=== PATIENT | female | born 1970 | race Two or more races ===

== ENCOUNTER 2020-04-27 14:00 | Outpatient (RCR) | payer OTHER, SELFPAY ==
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
== END 2020-05-07 12:27 | disposition other institution (70) ==
LOC: HO.PT 14:00
PROVIDERS: Visit Provider Internal Medicine
DX: M54.5 Low back pain (principal)
CPT/HCPCS: 97110; 97140

== ENCOUNTER 2020-05-12 17:11 | Outpatient (REF) | payer OTHER, SELFPAY | END 2020-05-12 17:12 | disposition home or self-care (01) | LOC: HO.LAB 17:11 | PROVIDERS: Visit Provider Internal Medicine | DX: Z20.828 Contact with and (suspected) exposure to other viral communicable diseases (principal) | CPT/HCPCS: C9803; U0003 ==

== ENCOUNTER 2020-05-28 09:21 | Emergency (ER) | payer OTHER, SELFPAY ==
[2020-05-28 09:42] VITALS: BP 135/69; PULSE 86; RESP 18; TEMP 37.8; O2SAT 97; BMI 40.0
--- NOTE | 2020-05-28 09:58 | ED.GENADULT ---
HPI - General Adult General Chief complaint: General Medical Stated complaint: bodyaches,chest pain Time Seen by Provider: 05/28/20 09:41 Source: patient Mode of arrival: ambulatory Limitations: no limitations History of Present Illness HPI narrative: Patient presents to ED for COVID like symptoms. Patient states has been having similar symptoms. Patient states coughing, body aches, chest pain, and also chest pain on inspiration radiating to the back. Patient denies any swelling of lower extremities, calf pain, coughing up blood. Patient denies any history of diabetes hypertension. Related Data Home Medications Medication Instructions Recorded Confirmed clonazepam 1 mg tablet 1 mg PO BID 05/08/20 meloxicam 15 mg tablet 15 mg PO DAILY 05/08/20 omeprazole 20 mg tablet,delayed 20 mg PO DAILY 05/08/20 release tamsulosin 0.4 mg capsule 0.4 mg PO DAILY 05/08/20 zolpidem 10 mg tablet 10 mg PO BEDTIME PRN 05/08/20 Previous Rx's Medication Instructions Recorded amitriptyline 10 mg tablet 10 mg PO BEDTIME #30 tab 05/08/20 cyclobenzaprine 10 mg tablet 10 mg PO TID #30 tab 05/08/20 sumatriptan succinate 50 mg tablet 50 mg PO .QD prn PRN #14 tab 05/08/20 Allergies Allergy/AdvReac Type Severity Reaction Status Date / Time Penicillins [PENICILLINS] Allergy Severe ANAPHYLAXIS Verified 03/10/20 09:57 Review of Systems Review of Systems: Yes all other systems are reviewed and are negative Constitutional: Constitutional: Reports as per HPI, Reports no additional constitutional complaints, Reports body ache(s), Reports chills and Reports fever(s) Eyes: Eyes: Reports as per HPI and Reports no additional eye complaints ENT: Reports system reviewed and no additional complaints, except as documented and Reports as per HPI Cardiovascular: Cardiovascular: Reports as per HPI and Reports no additional cardiovascular complaints Respiratory: Respiratory: Reports as per HPI, Reports no additional respiratory complaints, Reports cough and Reports pain on inspiration Gastrointestinal: Gastrointestinal: Reports as per HPI and Reports no additional gastrointestinal complaints Musculoskeletal: Musculoskeletal: Reports no additional musculoskeletal complaints and Reports as per HPI Neurologic: Reports system reviewed and no additional complaints, except as documented and Reports as per HPI Psychiatric: Psychiatric: Reports no additional psychiatric complaints and Reports as per HPI [facility] Past Medical History Medical History Anxiety and depression Migraine Tubular adenoma Surgical History (Updated 03/10/20 @ 09:58 by RON Poole) H/O tubal ligation History of section History of cholecystectomy Family History Family History (Updated 03/10/20 @ 10:00 by RON Poole) Father CVD (cardiovascular disease) Diabetes History of open heart surgery Mother Alive and well Maternal Aunt Colon cancer Son No problems noted. Social History Social History Advance Directives: No Advance Directives Information Provided: No Physical Exam Vital Signs: Vital Signs: Last Vital Signs Temp 98.8 F 05/28/20 14:57 Pulse 98 05/28/20 14:57 Resp 18 05/28/20 14:57 BP 155/91 H 05/28/20 14:57 Pulse Ox 99 05/28/20 14:57 Body Mass Index 40.0 Const: General: cooperative, healthy appearing, comfortable, no acute distress, well developed, alert and awake Orientation/consciousness: patient oriented x3 HENMT: Head: Yes normal to inspection, Yes No palpable skull fracture present, Yes normocephalic and Yes atraumatic Eyes: General: appearance normal, both eyes and all related structures Neck: Neck: Yes normal visual inspection, Yes full ROM, Yes no lymphadenopathy, Yes no meningeal signs, Yes trachea midline, Yes supple and No tender Chest: Other: Positive for chest wall tenderness on palpation Chest palpation & inspection: normal inspection of the chest Resp: Effort & Inspection: normal respiratory effort, able to speak in complete sentences and uses accessory muscles Cardio: Jugular venous distension: no JVD Heart sounds: S1 normal heart sound present and S2 normal heart sound present GI: Inspection: Yes normal to inspection, No abdominal wall ecchymosis and No Abdominal wall edema Palpation (GI): Soft to palpation, not firm, nontender, no guarding and not rigid : General: No CVA tenderness and Yes no CVA tenderness Back/Spine/Pelvis: Back: no CVA tenderness, No CVA tenderness and No back tenderness Skin: General skin exam: no rashes or lesions noted and elasticity normal Neuro: General: patient oriented x3, gait normal, no meningeal signs and CN's II-XI intact bilaterally Cranial nerves: Yes CN's II-XII intact bilaterally Extrem: Other: Negative for any swelling of lower extremities, pitting edema, or calf tenderness. General: Yes normal to inspection and Yes full ROM Psych: Appearance: grossly normal, well kempt and not disheveled Course Course Course Narrative: Due to patient stating pleuritic chest pain she will have labs including EKG troponin and D-dimer. Patient also given IV fluids. COVID swab sent. Reevaluation(s) Reevaluation #1: Patient EKG came back normal. Patient's troponin negative. Patient had mild elevated D-dimer. Due to patient stating constant pleuritic chest pain patient was sent for chest CT 8 due to her being high risk of PE due to COVID positive results. CT came back negative for ground-glass opacity or PE. Patient O2 saturation is normal. Patient denies any respiratory distress. Patient will be discharged. Time: 15:27 Medical Decision Making [facility] Narrative Medical decision making narrative: COVID-19 Lab Data Result diagrams: 05/28/20 11:33 05/28/20 11:38 Labs: Lab Results 05/28/20 05/28/20 05/28/20 Range/Units 11:32 11:33 11:33 WBC 4.4 L (4.8-10.8) X10*3/uL RBC 4.55 (4.20-5.50) X10*6/uL Hgb 14.0 (12.0-16.0) g/dl Hct 42.3 (37-47) % MCV 93.0 (80-98) fL MCH 30.8 (27.0-33.0) pg MCHC 33.1 (31.0-35.0) g/dl RDW 12.5 (11.0-16.0) % Plt Count 264 (160-400) X10*3/uL MPV 10.5 (9.4-12.3) fL Immature Gran % (Auto) 0.7 H (0.0-0.4) % Neut % (Auto) 60.7 (45-73) % Lymph % (Auto) 23.9 (20-40) % [place] % (Auto) 12.2 H (2-11) % Eos % (Auto) 2.0 (0-4) % Baso % (Auto) 0.5 (0-2) % Lymph # (Auto) 1.1 L (1.2-4.9) X10*3/uL [place] # (Auto) 0.5 (0.1-1.2) X10*3/uL Eos # (Auto) 0.1 (0.0-0.4) X10*3/uL Baso # (Auto) 0.0 (0.0-0.2) X10*3/uL Abs Immat Gran (auto) 0.03 (0.00-0.03) X10*3/uL Absolute Neuts (auto) 2.7 (2.0-8.3) X10*3/uL Absolute Nucleated RBC 0.000 (0.0-0.012) X10*3/uL Nucleated RBC % (auto) 0.0 (0.0-0.2) /100WBC PT 11.8 (10.8-13.0) SEC INR 1.0 (0.9-1.1) APTT 24.2 (24.1-38.0) SEC D-Dimer 203 NG/ML Sodium (135-145) mmol/L Potassium (3.3-5.1) mmol/l Chloride (96-108) mmol/L Carbon Dioxide (22-29) mmol/L Anion Gap (12-20) BUN (9-16) mg/dL Creatinine (0.5-1.4) mg/dL Estim Creat Clear Calc Estimated GFR Random Glucose (60-115) mg/dL Calcium (8.4-10.2) mg/dL Ferritin (10-250) ng/mL Total Bilirubin (0.0-1.0) mg/dL Direct Bilirubin (0.0-0.5) mg/dL AST (5-31) U/L ALT (0-31) U/L Alkaline Phosphatase (39-117) U/L Lactate Dehydrogenase (122-220) U/L Troponin I High Sens (<3.5-17.0) ng/L B-Natriuretic Peptide (<100) pg/mL Total Protein (6.5-8.0) g/dL Albumin (3.5-5.0) g/dL Beta HCG, Quant mIU/mL Coronavirus (PCR) POSITIVE A (Negative) Influenza Type A (PCR) NEGATIVE (Negative) Influenza Type B (PCR) NEGATIVE (Negative) RSV RNA Qual (PCR) NEGATIVE (Negative) 05/28/20 05/28/20 05/28/20 Range/Units 11:33 11:38 11:39 WBC (4.8-10.8) X10*3/uL RBC (4.20-5.50) X10*6/uL Hgb (12.0-16.0) g/dl Hct (37-47) % MCV (80-98) fL MCH (27.0-33.0) pg MCHC (31.0-35.0) g/dl RDW (11.0-16.0) % Plt Count (160-400) X10*3/uL MPV (9.4-12.3) fL Immature Gran % (Auto) (0.0-0.4) % Neut % (Auto) (45-73) % Lymph % (Auto) (20-40) % [place] % (Auto) (2-11) % Eos % (Auto) (0-4) % Baso % (Auto) (0-2) % Lymph # (Auto) (1.2-4.9) X10*3/uL [place] # (Auto) (0.1-1.2) X10*3/uL Eos # (Auto) (0.0-0.4) X10*3/uL Baso # (Auto) (0.0-0.2) X10*3/uL Abs Immat Gran (auto) (0.00-0.03) X10*3/uL Absolute Neuts (auto) (2.0-8.3) X10*3/uL Absolute Nucleated RBC (0.0-0.012) X10*3/uL Nucleated RBC % (auto) (0.0-0.2) /100WBC PT (10.8-13.0) SEC INR (0.9-1.1) APTT (24.1-38.0) SEC D-Dimer NG/ML Sodium 140 (135-145) mmol/L Potassium 4.0 (3.3-5.1) mmol/l Chloride 107 (96-108) mmol/L Carbon Dioxide 24 (22-29) mmol/L Anion Gap 13 (12-20) BUN 14 (9-16) mg/dL Creatinine 0.81 (0.5-1.4) mg/dL Estim Creat Clear Calc 87.4 Estimated GFR > 60 Random Glucose 97 (60-115) mg/dL Calcium 8.3 L (8.4-10.2) mg/dL Ferritin 67 (10-250) ng/mL Total Bilirubin 0.3 (0.0-1.0) mg/dL Direct Bilirubin < 0.2 (0.0-0.5) mg/dL AST 20 (5-31) U/L ALT 18 (0-31) U/L Alkaline Phosphatase 66 (39-117) U/L Lactate Dehydrogenase 155 (122-220) U/L Troponin I High Sens < 3.5 (<3.5-17.0) ng/L B-Natriuretic Peptide < 10 (<100) pg/mL Total Protein 6.6 (6.5-8.0) g/dL Albumin 3.9 (3.5-5.0) g/dL Beta HCG, Quant < 2 mIU/mL Coronavirus (PCR) (Negative) Influenza Type A (PCR) (Negative) Influenza Type B (PCR) (Negative) RSV RNA Qual (PCR) (Negative) Discharge Plan Discharge Clinical Impression: COVID-19 Patient Disposition: Home, Self-Care Instructions: COVID-19 (Coronavirus Disease 2019) (ED) Additional Instructions: Return to the ED immediately for any chest pain, shortness of breath, swelling of lower extremities, coughing up blood, weakness, or any other concerning symptoms. Recommend 14 days self-isolation. Prescriptions: No Action meloxicam 15 mg tablet 15 mg PO DAILY RF: 0 tamsulosin 0.4 mg capsule 0.4 mg PO DAILY RF: 0 omeprazole 20 mg tablet,delayed release (DR/EC) 20 mg PO DAILY RF: 0 clonazepam 1 mg tablet 1 mg PO BID RF: 0 zolpidem [Ambien] 10 mg tablet 10 mg PO BEDTIME PRNRF: 0 sumatriptan succinate 50 mg tablet 50 mg PO .QD prn PRN (Reason: migraine headache) Qty: 14 RF: 3 amitriptyline 10 mg tablet 10 mg PO BEDTIME Qty: 30 RF: 2 cyclobenzaprine 10 mg tablet 10 mg PO TID Qty: 30 RF: 1 Referrals: Po,April Miller MD [Primary Care Provider] - 2 days (COVID positive. Chest CT negative for pneumonia or PE. Recommend 14 days self-isolation) Stand Alone Forms: Work/School Release Interventions: ED Discharge Assessment Last Done: 05/28/20 15:44 Discharge Date/Time: 05/28/20 15:45 Print Language: Turkmen
--- NOTE | 2020-05-28 10:04 | XR_ITS ---
EXAMINATION: XR CHEST CLINICAL INFORMATION: Cough COMPARISON: None TECHNIQUE: Frontal view of the chest was obtained. FINDINGS: No significant abnormality is noted involving the heart, lungs, mediastinum, bony thorax or soft tissues. XR/XR chest 1V IMPRESSION: Unremarkable chest examination.
--- NOTE | 2020-05-28 10:32 | ECG_ITS ---
Test Reason : GENERAL MEDICAL Blood Pressure : / mmHG Vent. Rate : 089 BPM Atrial Rate : 089 BPM P-R Int : 146 ms QRS Dur : 070 ms QT Int : 382 ms P-R-T Axes : 047 008 037 degrees QTc Int : 464 ms Normal sinus rhythm Low voltage QRS Borderline ECG When compared with ECG of 03-DEC-2018 16:18, No significant change was found Referred By: Jose Fisher Electronically Signed By:Carter Israel
[2020-05-28] MEDS: Acetaminophen 325 MG TABLET 650 MG PO (11:27)
[2020-05-28] MEDS: 0.9 % Sodium Chloride 1,000 ML 999 ML IV (11:28)
[2020-05-28 11:45] LABS: MANUAL DIFF FLAG NO
[2020-05-28 11:50] LABS: Basophils Percent Auto 0.5 % (0-2); Eosinophils Absolute Auto 0.1 X10*3/uL (0.0-0.4); Hematocrit 42.3 % (37-47); Imm Gran Abs Auto 0.03 X10*3/uL (0.00-0.03); Imm Gran Pct Auto 0.7 % (0.0-0.4); Lymphocytes Absolute Auto 1.1 X10*3/uL (1.2-4.9); Lymphocytes Percent Auto 23.9 % (20-40); Mean Corpuscular HGB Conc 33.1 g/dl (31.0-35.0); Mean Corpuscular Hemoglobin 30.8 pg (27.0-33.0); Mean Platelet Volume 10.5 fL (9.4-12.3); Monocytes Absolute Auto 0.5 X10*3/uL (0.1-1.2); Monocytes Percent Auto 12.2 % (2-11); Neutrophils Absolute Auto 2.7 X10*3/uL (2.0-8.3); Neutrophils Percent Auto 60.7 % (45-73); Platelet Count 264 X10*3/uL (160-400); Red Blood Count 4.55 X10*6/uL (4.20-5.50); Red Cell Distribution Width 12.5 % (11.0-16.0); White Blood Count 4.4 X10*3/uL (4.8-10.8)
[2020-05-28 11:58] LABS: Prothrombin Time 11.8 SEC (10.8-13.0)
[2020-05-28 12:00] LABS: Partial Thromboplastin Time 24.2 SEC (24.1-38.0)
[2020-05-28 12:01] VITALS: BP 108/50; PULSE 67; RESP 20; O2SAT 97
[2020-05-28 12:01] LABS: D Dimer 203 NG/ML
[2020-05-28 12:11] LABS: Alanine Aminotransferase 18 U/L (0-31); Albumin Level 3.9 g/dL (3.5-5.0); Alkaline Phosphatase 66 U/L (39-117); Anion Gap 13 (12-20); Aspartate Amino Transferase 20 U/L (5-31); Bilirubin Direct < 0.2 mg/dL (0.0-0.5); Bilirubin Total 0.3 mg/dL (0.0-1.0); Blood Urea Nitrogen 14 mg/dL (9-16); Calcium 8.3 mg/dL (8.4-10.2); Carbon Dioxide 24 mmol/L (22-29); Chloride 107 mmol/L (96-108); Creatinine Clr Calc Pharmacy 87.4; Estimated Glomerular Filt Rate > 60; Glucose Random 97 mg/dL (60-115); Lactate Dehydrogenase 155 U/L (122-220); Sodium 140 mmol/L (135-145); Total Protein 6.6 g/dL (6.5-8.0)
[2020-05-28 12:15] LABS: Troponin-I High Sensitivity < 3.5 ng/L (<3.5-17.0)
[2020-05-28 12:16] LABS: B Type Natriuretic Peptide < 10 pg/mL (<100)
[2020-05-28 12:19] LABS: HCG Quantitative < 2 mIU/mL
[2020-05-28 12:31] LABS: Influenza A PCR NEGATIVE (Negative); Influenza B PCR NEGATIVE (Negative); Resp Syncy Virus RNA Qual PCR NEGATIVE (Negative); SARS COV2 PCR INHOUSE POSITIVE (Negative)
[2020-05-28 12:58] LABS: Ferritin 67 ng/mL (10-250)
--- NOTE | 2020-05-28 13:11 | CT_ITS ---
EXAMINATION: CT ANGIOGRAM OF THE CHEST WITH AND WITHOUT CONTRAST (CT PULMONARY ANGIOGRAM FOR PE) CLINICAL INFORMATION: Reason for Exam Rule out PE. positive covid. elevated D-dimer COMPARISON: Chest radiographs 06/07/2020, 01/06/2020; CT abdomen and pelvis without and with contrast 10/08/2019. Mammography 05/01/2018. TECHNIQUE: Prior to contrast administration, noncontrast localization images were obtained. Subsequently, multidetector volumetric imaging was performed from the thoracic inlet to below the diaphragms following the administration of 65 mL Omnipaque 350 intravenous contrast. Sagittal, coronal, and MIP oblique sagittal reformatted images were obtained on the CT workstation, uploaded to PACS, and reviewed. This CT examination was performed using dose optimization techniques as appropriate, variously including the following: *Automated exposure control *Adjustment of mA and/or kV according to patient size (this includes techniques or standardized protocols for targeted exams where dose is matched to indication/reason for exam; i.e. extremities or head) *Use of iterative reconstruction technique Total exam dose-length product 352 mGy-cm FINDINGS: QUALITY OF STUDY/CONTRAST BOLUS: Satisfactory. PULMONARY ARTERIES: No central or segmental pulmonary emboli. THORACIC AORTA: No aneurysm or dissection. LUNG: No focal airspace consolidation or groundglass opacities. Central airways are clear. No endobronchial lesion or bronchiectasis. There is a tiny nodule anterior right middle lobe under 3 mm. PLEURA: No pleural effusion or pneumothorax. MEDIASTINUM: Normal heart size. No pericardial effusion. No hilar or mediastinal lymphadenopathy. No evidence of septal bowing or right heart strain. CHEST WALL/AXILLA: No axillary or internal mammary lymphadenopathy. 0.7 cm nodule upper outer left breast. This would be best correlated with routine annual mammography, breast exam 2018. OSSEOUS STRUCTURES: No acute or suspicious osseous abnormality. UPPER ABDOMEN: There are scattered small hepatic cysts again seen similar to CT 10/08/2019. Prior cholecystectomy. Small sliding hiatal hernia present. No reflux of contrast into the hepatic veins to suggest elevated right heart pressures. CT/CT angio chest PE protocol IMPRESSION: 1. No pulmonary embolism. No thoracic aortic dissection. 2. No airspace consolidation or groundglass opacity. 3. Small sliding hiatal hernia. Hepatic cysts. Prior cholecystectomy. 4. Small nodule upper outer left breast. Patient due for annual mammography (last exam 05/01/2018). VTE: negative
[2020-05-28] MEDS: iohexoL 350 MG/ML 100 ML INFUS..BTL IV (14:16)
[2020-05-28 14:57] VITALS: BP 155/91; PULSE 98; RESP 18; TEMP 37.1; O2SAT 99
--- NOTE | 2020-05-28 15:00 | PC.NURSE ---
report taken at this time. pt in nad, not requiring oxygen. afebrile. complaining of chest discomfort with deep breaths. pending ct scan report, agreeable to plan of care.
== END 2020-05-28 15:45 | disposition home or self-care (01) ==
PROVIDERS: Physician Assistant; Emergency Provider Emergency Medicine Emergency Medical Services; PCP Internal Medicine
DX: U07.1 COVID-19 (principal)
CPT/HCPCS: 0241U; 36415; 71045; 71275; 80053; 80076; 82248; 82728; 83615; 83880; 84484; 84702; 85025; 85379; 85610; 85730; 93005; 96360; 99284; Q9967

== ENCOUNTER 2020-06-01 14:05 | Emergency (ER) | payer OTHER, SELFPAY ==
[2020-06-01 14:42] VITALS: BP 121/48; PULSE 82; RESP 18; TEMP 37.2; O2SAT 97; BMI 32.3
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
== END 2020-06-01 15:40 | disposition home or self-care (01) ==
PROVIDERS: Emergency Provider Emergency Medicine
DX: H66.002 Acute suppurative otitis media without spontaneous rupture of ear drum, left ear (principal); Z86.16 Personal history of COVID-19
CPT/HCPCS: 99283

== ENCOUNTER 2020-07-30 14:07 | Outpatient (REF) | payer OTHER, SELFPAY ==
--- NOTE | ~2020-07-30 | CT_ITS ---
EXAMINATION: CT ABDOMEN AND PELVIS WITHOUT CONTRAST CLINICAL INFORMATION: Hematuria. COMPARISON: CT abdomen and pelvis with and without contrast 10/08/2019 TECHNIQUE: Multidetector volumetric imaging was performed from the superior aspect of the liver through the pubic symphysis. Sagittal and coronal reformatted images were obtained on the technologist's workstation. This CT examination was performed using dose optimization techniques as appropriate, variously including the following: *Automated exposure control *Adjustment of mA and/or kV according to patient size (this includes techniques or standardized protocols for targeted exams where dose is matched to indication/reason for exam; i.e. extremities or head) *Use of iterative reconstruction technique DLP: 609 mGy-cm FINDINGS: LUNG BASES: The visualized lung bases are unremarkable. LIVER, GALLBLADDER, AND BILIARY TREE: The liver is normal in size, shape, and attenuation. There are several hypodense small lesions measuring 5 Hounsfield units likely cysts. No solid lesion visualized. No intrahepatic ductal dilatation. The gallbladder has been surgically removed. PANCREAS: Unremarkable. SPLEEN: Unremarkable. ADRENAL GLANDS: Unremarkable. KIDNEYS AND URETERS: The kidneys are normal in size, shape, and attenuation. No hydronephrosis, hydroureter, or calculi seen. No perinephric stranding. BLADDER: Unremarkable. GASTROINTESTINAL TRACT: There is scattered stool, diverticuli and gas seen throughout the colon without any significant distention. The small bowel loops are normal caliber. The appendix is normal caliber. No inflammatory process seen. ABDOMINAL WALL: No significant hernia is appreciated. LYMPH NODES: Normal. VASCULAR: Unremarkable. PELVIC VISCERA: The uterus is anteverted and bilateral small ovarian cysts. The right ovarian cyst measures 1.9 cm. There is no free fluid in the pelvis. There are small bilateral phleboliths. OSSEOUS STRUCTURES: There is no lytic or sclerotic process seen. Mild facet joint arthropathy seen at the L4-L5 and L5-S1 disc levels. CT/CT abdomen pelvis wo con IMPRESSION: No radiopaque urolith or hydroureteronephrosis. Stable multiple hepatic cysts. Cholecystectomy.
== END 2020-07-30 14:08 | disposition home or self-care (01) ==
LOC: HO.CT 14:07
PROVIDERS: PCP Internal Medicine; Visit Provider Internal Medicine
DX: R31.9 Hematuria, unspecified (principal); R30.0 Dysuria
CPT/HCPCS: 74176

== ENCOUNTER → 2020-10-01 13:02 | Outpatient (REF) | payer OTHER, SELFPAY | LOC: HO.SL 13:02 | PROVIDERS: PCP Internal Medicine; Visit Provider Internal Medicine | DX: R53.83 Other fatigue (principal) | CPT/HCPCS: 95806 ==

== ENCOUNTER → 2021-01-14 09:05 | Outpatient (REF) | payer OTHER, SELFPAY ==
--- NOTE | 2021-01-14 09:08 | ECG_ITS ---
Hook-up date: 2021-01-14 10:13:00 Duration: 47:59:00 Test Indications: PALPITATIONS Medications: [id number] QRS complexes 1 Ventricular ectopics which represent <1 % of total QRS comp. 7 Supraventricular ectopics which represent <1 % of total QRS comp. * Paced QRS complexs which represent % of total QRS comp. VENTRICULAR ECTOPY 1 Isolated 0 Bigeminal Cycles 0 Couplets 0 Runs 0 Beats in Runs * Beats LONGEST at * BPM at :: -- * Beats FASTEST at * BPM at :: -- SUPRAVENTRICULAR ECTOPY 5 Isolated 1 Couplets 0 Runs 0 Beats in Runs * Beats LONGEST at * BPM at :: -- * Beats FASTEST at * BPM at :: -- HEART RATES 53 MIN at 04:26:28 2021-01-15 81 AVG 137 MAX at 10:35:14 2021-01-14 LONGEST RR 1.1760 secs at 04:19:35 2021-01-15 S-T LEVELS Channel 1 - 128 mm at 10:13:00 2021-01-14 - 128 mm at 10:13:00 2021-01-14 Channel 2 - 128 mm at 10:13:00 2021-01-14 - 128 mm at 10:13:00 2021-01-14 Channel 3 - 128 mm at 02:93:21 -- - 128 mm at 02:93:21 Underlying rhythm is sinus; Average ventricular rate 81/min; range 53-137/min; About 20% of the time, rate >100/min; Very rare PACs ; Patient did not report any symptoms in the diary Referred By: April Santillan Overread By: ANN MARIE KENNY
--- NOTE | 2021-01-14 09:08 | CA_ITS ---
Transthoracic Echocardiogram Patient (Last, First, Middle): Francie Shah, Gender: Female Date of : 1970 Age: 50 Procedure Date: 01/14/2021 Procedure Type: Transthoracic Echocardiogram Location: OP Height: 154.94 cm Weight: 92.99 kg BSA: 1.91 m2 Heart Rate: bpm BP: 130 / 70 mmHg Market Research Lead: PAT Carter MD: April Santillan MD Banking Teacher: Jaime Mays MD Symptoms: R00.2 - Palpitations Study Quality: Fair Conclusions: - 1. Normal LV systolic function with grade 1 diastolic dysfunction 2. Normal cardiac valvular Doppler 3. Normal RV systolic pressure 4. No pericardial effusion Findings Left Ventricle Normal left ventricular size, thickness, and systolic function. The visually estimated ejection fraction is between 60-65%. Spectral Doppler is indicative of an impaired relaxation filling pattern. E/E prime ratio is <8, consistent with normal filling pressures. Evidence suggests grade I (mild) diastolic dysfunction. Atria Both atria are normal in size. Interatrial shunt cannot be excluded. Aortic Valve The aortic valve structure and function is likely normal. There is no aortic valve stenosis. There is no aortic valve regurgitation. Mitral Valve Normal mitral valve structure and function. There is trace mitral valve regurgitation. There is no mitral valve stenosis. Pulmonic Valve The pulmonic valve was not well visualized. Tricuspid Valve Likely normal tricuspid valve structure and function. There is trace tricuspid valve regurgitation. The right ventricular systolic pressure is normal. The right ventricular systolic pressure is 18 mmHg. Normal right atrial pressure. There is no evidence of pulmonary hypertension. Great Vessels All visible segments of the aorta are normal in size. The pulmonary artery was not well visualized. Venous The inferior vena cava is normal in size and collapses greater than 50% with inspiration. Pericardium/Pleural There is no evidence of pericardial effusion. Prior Study Comparison No significant change compared to prior study dated: 04/24/2018. Measurements 2D Linear Measurements IVSd: 0.84 0.6-0.9/0.6-1.0 cm LVIDd: 4.49 3.9-5.3/4.2-5.9 cm LVIDd Index: 2.35 2.4-3.2/2.2-3.1 cm/m2 LVIDs: 2.65 2.0-3.6 cm LVPWd: 0.71 0.7-1.1 cm Ao Root: 3.00 2.1-3.5 cm LA Diam: 3.40 2.7-3.8/3.0-4.0 cm LAIDs Index: 1.78 1.5-2.3 cm/m2 LV Mass: 135.36 67-162/88-224 g LV Mass Index: 70.87 43-95/49-115 g/m2 LVOT Diam: 2.00 3.0+(-)1.3 cm 2D Systolic Function EF 4C: 68.10 >55% EF 2C: 60.90 >55% EF BiP: 66.00 >55% Mitral Valve MV Pk E: 0.89 MV PK A: 0.86 MV Decel Time: 187.00 E/A: 1.00 E'Lateral: 10.90 E'Medial: 7.51 E/E' Med: 11.80 E/E' Lat: 8.10 PHT: 55.00 MVA PHT: 4.00 Decel [place]: 4.76 Aortic Valve AoV Pk [place]: 1.25 AoV Mn [place]: 0.87 AoV VTI: 0.24 AoV Pk Grad: 6.00 Aov Mn Grad: 3.00 SHAHRIAR Cont.VTI: 2.78 LVOT LVOT Pk [place]: 0.94 LVOT Mn [place]: 0.65 LVOT VTI: 0.21 LVOT Pk Grad: 4.00 LVOT Mn Grad: 2.00 LVOT Diam: 2.00 LVOT Area: 3.14 Diastolic Function MV Pk E: 0.89 MV Pk A: 0.86 E/A: 1.00 E'Medial: 7.51 E/E' Med: 11.80 E' Laterial: 10.90 E/E' Lat: 8.10 Right Ventricle TAPSE (mm): 2.43 TVS' [place]: 12.60 Tricuspid Valve TR Pk [place]: 1.95 TR Pk Grad: 15.00 RA Press: 3.00 RVSP: 18.00 Great Vessels Aorta Ao Root-2D: 3.00 2.0-3.7 cm Ao Asc: 2.70 2.1-3.4 cm Ao Arch: 2.50 Updated in Other Vendor System with Status of Final Jaime Mays MD electronically signed on 01/14/2021 12:28:36 PM with status of Final
== END ==
LOC: HO.CARD 09:05
PROVIDERS: Visit Provider Internal Medicine
DX: R00.2 Palpitations (principal)
CPT/HCPCS: 93225; 93226; 93306

== ENCOUNTER 2021-02-19 08:18 | Outpatient (REF) | payer OTHER, SELFPAY ==
--- NOTE | ~2021-02-19 | XR_ITS ---
EXAMINATION: XR HAND AND WRIST, RIGHT XR HAND AND WRIST, LEFT CLINICAL INFORMATION: Bilateral pain. COMPARISON: None. TECHNIQUE: AP, oblique, lateral, and scaphoid views of the right and left hand and wrist. FINDINGS: Right Hand and Wrist: No acute fracture or dislocation. Normal carpal alignment. No joint space narrowing or marginal osteophytes. No osseous erosion. No abnormal soft tissue calcification. Left Hand and Wrist: No acute fracture or dislocation. Normal carpal alignment. No joint space narrowing or marginal osteophytes. No osseous erosion. No abnormal soft tissue calcification. XR/XR hand wrist RT IMPRESSION: RIGHT HAND AND WRIST: Unremarkable examination. LEFT HAND AND WRIST: Unremarkable examination.
--- NOTE | ~2021-02-19 | XR_ITS ---
EXAMINATION: XR HAND AND WRIST, RIGHT XR HAND AND WRIST, LEFT CLINICAL INFORMATION: Bilateral pain. COMPARISON: None. TECHNIQUE: AP, oblique, lateral, and scaphoid views of the right and left hand and wrist. FINDINGS: Right Hand and Wrist: No acute fracture or dislocation. Normal carpal alignment. No joint space narrowing or marginal osteophytes. No osseous erosion. No abnormal soft tissue calcification. Left Hand and Wrist: No acute fracture or dislocation. Normal carpal alignment. No joint space narrowing or marginal osteophytes. No osseous erosion. No abnormal soft tissue calcification. XR/XR hand wrist LT IMPRESSION: RIGHT HAND AND WRIST: Unremarkable examination. LEFT HAND AND WRIST: Unremarkable examination.
[2021-02-19 08:38] LABS: MANUAL DIFF FLAG NO
[2021-02-19 09:02] LABS: Basophils Percent Auto 0.3 % (0-2); Eosinophils Absolute Auto 0.3 X10*3/uL (0.0-0.4); Eosinophils Percent Auto 4.4 % (0-4); Hematocrit 40.3 % (37-47); Hemoglobin 13.1 g/dl (12.0-16.0); Imm Gran Abs Auto 0.03 X10*3/uL (0.00-0.03); Imm Gran Pct Auto 0.4 % (0.0-0.4); Lymphocytes Absolute Auto 1.7 X10*3/uL (1.2-4.9); Lymphocytes Percent Auto 24.5 % (20-40); Mean Corpuscular HGB Conc 32.5 g/dl (31.0-35.0); Mean Corpuscular Volume 92.2 fL (80-98); Mean Platelet Volume 9.2 fL (9.4-12.3); Monocytes Absolute Auto 0.4 X10*3/uL (0.1-1.2); Monocytes Percent Auto 5.8 % (2-11); Neutrophils Absolute Auto 4.4 X10*3/uL (2.0-8.3); Neutrophils Percent Auto 64.6 % (45-73); Platelet Count 408 X10*3/uL (160-400); Red Blood Count 4.37 X10*6/uL (4.20-5.50); Red Cell Distribution Width 12.3 % (11.0-16.0); White Blood Count 6.9 X10*3/uL (4.8-10.8)
[2021-02-19 09:28] LABS: Alanine Aminotransferase 17 U/L (0-31); Alkaline Phosphatase 76 U/L (39-117); Anion Gap 9 (12-20); Aspartate Amino Transferase 18 U/L (5-31); Bilirubin Total 0.7 mg/dL (0.0-1.0); Blood Urea Nitrogen 10 mg/dL (9-16); Calcium 9.2 mg/dL (8.4-10.2); Carbon Dioxide 26 mmol/L (22-29); Chloride 108 mmol/L (96-108); Cholesterol 198 mg/dL; Estimated Glomerular Filt Rate > 60; Glucose Random 97 mg/dL (60-115); HDL Cholesterol 64 mg/dL; LDL Cholesterol Calculated 118 mg/dl; Potassium 4.1 mmol/L (3.3-5.1); Sodium 139 mmol/L (135-145); Total Protein 6.7 g/dL (6.5-8.0); Triglycerides 81 mg/dL
[2021-02-19 09:51] LABS: Free T4 (Free Thyroxine) 0.91 ng/dL (0.71-1.85); Thyroid Stimulating Hormone 0.98 uIU/mL (0.32-4.0); Vitamin D 25-OH Total 14.6 ng/mL (>30)
[2021-02-19 09:57] LABS: Folate 13.9 ng/mL (> or = 4.0); Vitamin B12 457 pg/mL (200-900)
== END 2021-02-19 08:19 | disposition home or self-care (01) ==
LOC: HO.XRAY 08:18
PROVIDERS: PCP Internal Medicine; Visit Provider Internal Medicine
DX: M25.531 Pain in right wrist (principal); M25.532 Pain in left wrist; G43.909 Migraine, unspecified, not intractable, without status migrainosus; E78.00 Pure hypercholesterolemia, unspecified
CPT/HCPCS: 36415; 73110; 73130; 80053; 80061; 82306; 82607; 82746; 84439; 84443; 85025

== ENCOUNTER 2021-03-29 11:41 | Emergency (ER) | payer OTHER, SELFPAY ==
--- NOTE | ~2021-03-29 | XR_ITS ---
EXAMINATION: XR CHEST CLINICAL INFORMATION: 50-year-old female with chest pain. COMPARISON: Chest x-ray and CTA chest 05/28/2020 TECHNIQUE: Frontal view of the chest was obtained. FINDINGS: Cardiac silhouette is normal in size. The lungs are well aerated. There is no lobar consolidation. No pleural effusion or pneumothorax. Mild degenerative changes of the spine. XR/XR chest 1V IMPRESSION: No acute pulmonary pathology.
[2021-03-29 11:46] VITALS: BP 116/74; PULSE 87; RESP 16; TEMP 36.7; O2SAT 98; BMI 42.4
--- NOTE | 2021-03-29 14:00 | ECG_ITS ---
Test Reason : chest pain Blood Pressure : / mmHG Vent. Rate : 086 BPM Atrial Rate : 086 BPM P-R Int : 144 ms QRS Dur : 066 ms QT Int : 376 ms P-R-T Axes : 059 017 029 degrees QTc Int : 449 ms Normal sinus rhythm Low voltage QRS Borderline ECG No significant changes seen Referred By: Irma Hernandez Electronically Signed By:CORY ORTIZ MD
[2021-03-29] MEDS: Benzonatate 100 MG CAPSULE 200 MG PO (14:19)
[2021-03-29 14:32] VITALS: BP 110/51; PULSE 81; RESP 16; TEMP 37.4; O2SAT 99
[2021-03-29 14:36] LABS: MANUAL DIFF FLAG NO
[2021-03-29 14:38] LABS: Basophils Percent Auto 0.5 % (0-2); Eosinophils Absolute Auto 0.5 X10*3/uL (0.0-0.4); Eosinophils Percent Auto 6.4 % (0-4); Hematocrit 37.2 % (37.0-47.0); Hemoglobin 12.5 g/dl (12.0-16.0); Imm Gran Abs Auto 0.03 X10*3/uL (0.00-0.03); Imm Gran Pct Auto 0.4 % (0.0-0.4); Lymphocytes Absolute Auto 1.6 X10*3/uL (1.2-4.9); Lymphocytes Percent Auto 21.1 % (20-40); Mean Corpuscular HGB Conc 33.6 g/dl (31.0-35.0); Mean Corpuscular Hemoglobin 30.6 pg (27.0-33.0); Mean Corpuscular Volume 91.2 fL (80.0-98.0); Monocytes Absolute Auto 0.5 X10*3/uL (0.1-1.2); Monocytes Percent Auto 6.3 % (2-11); Neutrophils Absolute Auto 4.8 x10*3/uL (2.0-8.3); Neutrophils Percent Auto 65.3 % (45-73); Platelet Count 364 X10*3/uL (160-400); Red Blood Count 4.08 X10*6/uL (4.20-5.50); Red Cell Distribution Width 12.3 % (11.0-16.0); White Blood Count 7.3 X10*3/uL (4.8-10.8)
[2021-03-29 14:48] LABS: D Dimer < 200 NG/ML
--- NOTE | 2021-03-29 14:55 | ED.CHESTPAIN ---
HPI - Chest Pain General Chief Complaint: Chest Pain Stated Complaint: chest pain/fatigue Time Seen by Provider: 03/29/21 13:50 Source: patient Mode of arrival: ambulatory History of Present Illness HPI narrative: 50-year-old female with past medical history of anxiety, depression, hematuria, migraines, COVID-19 in May, presenting to the ED complaining of substernal chest pain/pressure, SOB, and cough worsening over the past couple days. Reports pain worse with movement, deep breathing and exertion. States feels like cannot catch her breath. Denies fever, chills, nausea/vomiting, abdominal pain, LE edema, calf pain, recent travel, cigarette smoking, history of blood clots MD complaint: chest discomfort Related Data Home Medications Medication Instructions Recorded Confirmed clonazepam 1 mg tablet 1 mg PO BID 05/08/20 12/03/20 meloxicam 15 mg tablet 15 mg PO DAILY 05/08/20 12/03/20 tamsulosin 0.4 mg capsule 0.4 mg PO DAILY 05/08/20 12/03/20 lactobacillus combination no.9 4 PO DAILY cap 09/01/20 12/03/20 billion cell capsule (Adult 50 Plus Probiotic) magnesium 200 mg tablet 200 mg PO DAILY 09/01/20 12/03/20 omega-3 fatty acids 1,000 mg 1,000 mg PO DAILY 09/01/20 12/03/20 capsule (Fish Oil Concentrate) Previous Rx's Medication Instructions Recorded cyclobenzaprine 10 mg tablet 10 mg PO TID #30 tab 05/08/20 sumatriptan succinate 50 mg tablet 50 mg PO .QD prn PRN #14 tab 05/08/20 pantoprazole 40 mg tablet,delayed 40 mg PO DAILY #14 tab 08/07/20 release amitriptyline 10 mg tablet 10 mg PO BEDTIME #90 tab 11/11/20 albuterol sulfate 90 mcg/actuation 2 puff INHALATION Q4-6H PRN #6.7 g 03/29/21 aerosol inhaler fluticasone propionate 50 2 spray INTRANASAL DAILY #16 g 03/29/21 mcg/actuation nasal spray,suspension (Flonase Allergy Relief) Allergies Allergy/AdvReac Type Severity Reaction Status Date / Time Penicillins [PENICILLINS] Allergy Severe ANAPHYLAXIS Verified 12/03/20 14:02 Review of Systems Review of Systems: Constitutional: No Fever, No Chills, No Fatigue, No Malaise ENT/Mouth: No Ear Pain, No Nasal Congestion, No sore throat, No Swallowing Difficulty Eyes: No Eye Pain, No Swelling, No Redness, No Discharge Cardiovascular: + Chest Pain, + SOB, + Dyspnea on Exertion, No Orthopnea, No Edema Respiratory: + Cough, No Sputum, + Wheezing, No Smoke Exposure, + Dyspnea Gastrointestinal: No Nausea, No Vomiting, No Diarrhea, No Constipation, No Abdominal pain Genitourinary: No Dysuria, No Flank Pain, No Urinary Flow Changes, No Hesitancy Musculoskeletal: No joint pain, No Myalgias, No Joint Swelling Skin: No Skin Lesions, No rash Neuro: No Weakness, No Numbness, No Paresthesias, No Headache Yes all other systems are reviewed and are negative [facility] Past Medical History Attestation statement: The following information was validated with the patient. Medical History (Updated 03/29/21 @ 16:53 by NIRANJAN Ames) Anxiety and depression Dysuria Hematuria Loss of hearing Low back pain Migraine Neck pain Obesity (BMI 30-39.9) Otitis externa Tubular adenoma Vision changes Surgical History H/O tubal ligation History of section History of cholecystectomy Family History Family History Father CVD (cardiovascular disease) Diabetes History of open heart surgery Mother Alive and well Maternal Aunt Colon cancer Son No problems noted. Social History Social History (Updated 09/01/20 @ 13:18 by Audra Apodaca CMA) Housing: Apartment Alcohol intake: never Patient Tobacco Use Status: Never used Tobacco Second Hand Smoke Exposure: No Use of substances other than those prescribed or required for medical reasons: No Advance Directives: No Advance Directives Information Provided: No Patient : No service: No Current occupational status: employed Physical Exam Vital Signs: Vital Signs: Last Vital Signs Temp 99.3 F 03/29/21 14:32 Pulse 82 03/29/21 15:36 Resp 16 03/29/21 14:32 BP 110/51 L 03/29/21 14:32 Pulse Ox 99 03/29/21 14:32 Body Mass Index 42.4 Const: General: cooperative, healthy appearing and no acute distress Orientation/consciousness: patient oriented x3 Limitations: no limitations HENMT: Head: Yes normal to inspection Ears: hearing grossly normal bilaterally General nose exam: Normal external nose present Face and sinus: Yes normal facial exam Eyes: General: appearance normal, both eyes and all related structures EOM: EOMs intact bilaterally Neck: Neck: Yes normal visual inspection and Yes no meningeal signs Chest: Chest palpation & inspection: no crepitus and no tenderness Resp: Effort & Inspection: normal respiratory effort Auscultation: clear to auscultation bilaterally, no rales, no rhonchi and no wheezes Cardio: Rate: regular rate Heart sounds: S1 normal heart sound present and S2 normal heart sound present GI: Inspection: Yes normal to inspection Palpation (GI): Soft to palpation, nontender, no guarding and not rigid Skin: Rashes: no rashes Wounds: no wounds Neuro: General: patient oriented x3 and no meningeal signs Gait exam (Neuro): Normal gait present Extrem: General: Yes normal to inspection, Yes no pedal edema and Yes no calf tenderness Course Course Course Narrative: -no leukocytosis. H&H stable. D-dimer negative. Troponin negative, labs otherwise under -COVID-19/influenza/RSV negative XR chest 1V IMPRESSION: No acute pulmonary pathology. >> will ambulate with pulse ox >> patient maintain saturation greater than 96% on ambulation on room air MDM - Chest Pain MDM Narrative Medical decision making narrative: 50-year-old female with past medical history of anxiety, depression, hematuria, migraines, COVID-19 in May, presenting to the ED complaining of substernal chest pain/pressure, SOB, and cough worsening over the past couple days. On exam vital signs stable, NAD/nontoxic, pain not reproducible, lungs CTA, no pedal edema/calf tenderness. Concern for ACS vs viral syndrome/COVID-19 vs pneumonia vs PE. Plan: EKG, labs, CXR, COVID-19 testing, DuoNeb, re-evaluate Medical Records Data Attestation: I reviewed the patient's medical records. Lab Data Attestation: I reviewed the patient's lab results. Result diagrams: 03/29/21 14:28 03/29/21 14:28 Labs: Lab Results 03/29/21 03/29/21 03/29/21 Range/Units 14:28 14:28 14:28 WBC 7.3 (4.8-10.8) X10*3/uL RBC 4.08 L (4.20-5.50) X10*6/uL Hgb 12.5 (12.0-16.0) g/dl Hct 37.2 (37.0-47.0) % MCV 91.2 (80.0-98.0) fL MCH 30.6 (27.0-33.0) pg MCHC 33.6 (31.0-35.0) g/dl RDW 12.3 (11.0-16.0) % Plt Count 364 (160-400) X10*3/uL MPV 9.0 L (9.4-12.3) fL Immature Gran % (Auto) 0.4 (0.0-0.4) % Neut % (Auto) 65.3 (45-73) % Lymph % (Auto) 21.1 (20-40) % [place] % (Auto) 6.3 (2-11) % Eos % (Auto) 6.4 H (0-4) % Baso % (Auto) 0.5 (0-2) % Lymph # (Auto) 1.6 (1.2-4.9) X10*3/uL [place] # (Auto) 0.5 (0.1-1.2) X10*3/uL Eos # (Auto) 0.5 H (0.0-0.4) X10*3/uL Baso # (Auto) 0.0 (0.0-0.2) X10*3/uL Abs Immat Gran (auto) 0.03 (0.00-0.03) X10*3/uL Absolute Neuts (auto) 4.8 (2.0-8.3) x10*3/uL Absolute Nucleated RBC 0.000 (0.0-0.012) X10*3/uL Nucleated RBC % (auto) 0.0 (0.0-0.2) /100WBC D-Dimer < 200 NG/ML Sodium 140 (135-145) mmol/L Potassium 3.9 (3.3-5.1) mmol/L Chloride 108 (96-108) mmol/L Carbon Dioxide 24 (22-29) mmol/L Anion Gap 12 (12-20) BUN 6 L (9-16) mg/dL Creatinine 0.72 (0.5-1.4) mg/dL Estim Creat Clear Calc 96.6 Estimated GFR > 60 Random Glucose 93 (60-115) mg/dL Calcium 8.5 D (8.4-10.2) mg/dL Magnesium 2.0 (1.6-2.6) mg/dL Total Bilirubin 0.3 (0.0-1.0) mg/dL Direct Bilirubin < 0.2 (0.0-0.5) mg/dL AST 19 (5-31) U/L ALT 19 (0-31) U/L Alkaline Phosphatase 66 (39-117) U/L Troponin I High Sens (<3.5-17.0) ng/L B-Natriuretic Peptide (<100) pg/mL Total Protein 6.4 L (6.5-8.0) g/dL Albumin 3.8 (3.5-5.0) g/dL Influenza Type A (PCR) (Negative) Influenza Type B (PCR) (Negative) RSV RNA Qual (PCR) (Negative) SARS-CoV-2 RNA (RT-PCR) (Negative) 03/29/21 03/29/21 Range/Units 14:28 14:29 WBC (4.8-10.8) X10*3/uL RBC (4.20-5.50) X10*6/uL Hgb (12.0-16.0) g/dl Hct (37.0-47.0) % MCV (80.0-98.0) fL MCH (27.0-33.0) pg MCHC (31.0-35.0) g/dl RDW (11.0-16.0) % Plt Count (160-400) X10*3/uL MPV (9.4-12.3) fL Immature Gran % (Auto) (0.0-0.4) % Neut % (Auto) (45-73) % Lymph % (Auto) (20-40) % [place] % (Auto) (2-11) % Eos % (Auto) (0-4) % Baso % (Auto) (0-2) % Lymph # (Auto) (1.2-4.9) X10*3/uL [place] # (Auto) (0.1-1.2) X10*3/uL Eos # (Auto) (0.0-0.4) X10*3/uL Baso # (Auto) (0.0-0.2) X10*3/uL Abs Immat Gran (auto) (0.00-0.03) X10*3/uL Absolute Neuts (auto) (2.0-8.3) x10*3/uL Absolute Nucleated RBC (0.0-0.012) X10*3/uL Nucleated RBC % (auto) (0.0-0.2) /100WBC D-Dimer NG/ML Sodium (135-145) mmol/L Potassium (3.3-5.1) mmol/L Chloride (96-108) mmol/L Carbon Dioxide (22-29) mmol/L Anion Gap (12-20) BUN (9-16) mg/dL Creatinine (0.5-1.4) mg/dL Estim Creat Clear Calc Estimated GFR Random Glucose (60-115) mg/dL Calcium (8.4-10.2) mg/dL Magnesium (1.6-2.6) mg/dL Total Bilirubin (0.0-1.0) mg/dL Direct Bilirubin (0.0-0.5) mg/dL AST (5-31) U/L ALT (0-31) U/L Alkaline Phosphatase (39-117) U/L Troponin I High Sens < 3.5 (<3.5-17.0) ng/L B-Natriuretic Peptide 34 (<100) pg/mL Total Protein (6.5-8.0) g/dL Albumin (3.5-5.0) g/dL Influenza Type A (PCR) NEGATIVE (Negative) Influenza Type B (PCR) NEGATIVE (Negative) RSV RNA Qual (PCR) NEGATIVE (Negative) SARS-CoV-2 RNA (RT-PCR) NEGATIVE (Negative) Discharge Plan Discharge Clinical Impression: Chest pain Patient Disposition: Home, Self-Care Instructions: Chest Pain (ED) Additional Instructions: Your blood work and chest x-ray were reassuring today in the emergency department Is very important that he follow up with her primary care doctor Use albuterol inhaler at home as needed for shortness of breath Flonase is a nasal decongestant If her symptoms persist or worsen, pain becomes unbearable, constant worsening shortness breath/chest pain please return to the ED Prescriptions: New albuterol sulfate 90 mcg/actuation HFA aerosol inhaler 2 puff inhalation Q4-6H PRN (Reason: shortness of breath or wheezing) Qty: 6.7 RF: 0 fluticasone propionate [Flonase Allergy Relief] 50 mcg/actuation spray,suspension 2 spray intranasal DAILY Qty: 16 RF: 0 No Action pantoprazole 40 mg tablet,delayed release (DR/EC) 40 mg PO DAILY Qty: 14 RF: 0 amitriptyline 10 mg tablet 10 mg PO BEDTIME Qty: 90 RF: 1 meloxicam 15 mg tablet 15 mg PO DAILY RF: 0 tamsulosin 0.4 mg capsule 0.4 mg PO DAILY RF: 0 clonazepam 1 mg tablet 1 mg PO BID RF: 0 sumatriptan succinate 50 mg tablet 50 mg PO .QD prn PRN (Reason: migraine headache) Qty: 14 RF: 3 cyclobenzaprine 10 mg tablet 10 mg PO TID Qty: 30 RF: 1 magnesium 200 mg tablet 200 mg PO DAILY RF: 0 omega-3 fatty acids [Fish Oil Concentrate] 1,000 mg capsule 1,000 mg PO DAILY RF: 0 Adult 50 Plus Probiotic 4 billion cell capsule PO DAILY RF: 0 Referrals: Po,April Miller MD [Primary Care Provider] - 2 days Interventions: ED Discharge Assessment Last Done: 03/29/21 16:56
[2021-03-29 15:00] LABS: Alanine Aminotransferase 19 U/L (0-31); Albumin Level 3.8 g/dL (3.5-5.0); Alkaline Phosphatase 66 U/L (39-117); Anion Gap 12 (12-20); Aspartate Amino Transferase 19 U/L (5-31); Bilirubin Direct < 0.2 mg/dL (0.0-0.5); Bilirubin Total 0.3 mg/dL (0.0-1.0); Blood Urea Nitrogen 6 mg/dL (9-16); Calcium 8.5 mg/dL (8.4-10.2); Carbon Dioxide 24 mmol/L (22-29); Chloride 108 mmol/L (96-108); Creatinine Clr Calc Pharmacy 96.6; Estimated Glomerular Filt Rate > 60; Glucose Random 93 mg/dL (60-115); Potassium 3.9 mmol/L (3.3-5.1); Sodium 140 mmol/L (135-145); Total Protein 6.4 g/dL (6.5-8.0)
[2021-03-29 15:05] LABS: B Type Natriuretic Peptide 34 pg/mL (<100); Troponin-I High Sensitivity < 3.5 ng/L (<3.5-17.0)
[2021-03-29 15:29] LABS: Influenza A PCR NEGATIVE (Negative); Influenza B PCR NEGATIVE (Negative); Resp Syncy Virus RNA Qual PCR NEGATIVE (Negative); SARS COV2 PCR INHOUSE NEGATIVE (Negative)
[2021-03-29] MEDS: Albuterol/Iprat 2.5/0.5MG 3 ML AMPUL.NEB INHALE (15:34)
[2021-03-29 15:36] VITALS: PULSE 82; O2SAT 98
[2021-03-29] MEDS: NaPROXEN 500 MG TABLET PO (16:29)
== END 2021-03-29 16:59 | disposition home or self-care (01) ==
PROVIDERS: Physician Assistant; Emergency Provider Emergency Medicine; PCP Internal Medicine
DX: R07.9 Chest pain, unspecified (principal); R53.83 Other fatigue; Z20.822 Contact with and (suspected) exposure to COVID-19; Z79.899 Other long term (current) drug therapy
CPT/HCPCS: 0241U; 36415; 71045; 80048; 80076; 83735; 83880; 84484; 85025; 85379; 93005; 94640; 99284; 99285

== ENCOUNTER → 2021-05-27 13:46 | Outpatient (BNVA) | payer OTHER, SELFPAY | PROVIDERS: PCP Internal Medicine; Visit Provider Internal Medicine Pulmonary Disease | DX: R06.02 Shortness of breath (principal); U09.9 Post COVID-19 condition, unspecified | CPT/HCPCS: 99202 ==

== ENCOUNTER 2021-06-15 14:16 | Outpatient (REF) | payer OTHER, SELFPAY ==
--- NOTE | 2021-06-15 17:21 | PFT_ITS ---
Forced vital capacity 78%, FEV1 77%. FEV1 over FVC 81. FEF 25-75 is 88%. MVV 59, moderately reduced. Post bronchodilator therapy, there is no significant change. Lung volumes are normal with TLC 88. Residual volume 92%. Diffusion capacity 86%. CONCLUSION: Except for mild decrease in FVC and moderate decrease in MVV, which could be due to poor effort. Otherwise, the test is within normal limits. No definite evidence of obstructive or restrictive pulmonary disorder. Louie Saleh MD MSB/MODL / [id number]
== END 2021-06-15 14:17 | disposition home or self-care (01) ==
LOC: HO.RESP 14:16
PROVIDERS: PCP Internal Medicine; Visit Provider Internal Medicine Pulmonary Disease
DX: R06.02 Shortness of breath (principal)
CPT/HCPCS: 94060; 94727; 94729

== ENCOUNTER 2021-07-06 17:59 | Outpatient (REF) | payer OTHER, SELFPAY ==
--- NOTE | ~2021-07-06 | MR_ITS ---
EXAMINATION: MRI BRAIN WITHOUT CONTRAST. CLINICAL INFORMATION: Headache, unspecified. COMPARISON: 12/03/2018 MRI TECHNIQUE: Multiplanar multisequence MR imaging of the brain was done without IV contrast. FINDINGS: Brain Volume: Within normal limits. Structural: No malformations. Brain and Meninges: A few punctate FLAIR signal hyperintensities are seen in the right mohan radiata white matter which are not definitely visualized on the previous study and are nonspecific findings. The remainder of the brain is normal in morphology and signal intensity. Redemonstrated is an incidental developmental venous anomaly in the left cerebellar hemisphere. DWI sequence demonstrates no restricted diffusion. Specifically, there is no evidence for acute or subacute cerebral ischemia. Gradient refocused imaging demonstrates no evidence for hemorrhage, hemosiderin staining or abnormal mineral deposition. No extra-axial fluid collections, space-occupying process or mass effect are identified. Ventricles and Subarachnoid Spaces: The ventricular system and subarachnoid spaces are within normal limits without hydrocephalus. Orbital Structures: Note is made of a thin crescent-shaped focus of fluid signal along the anterior scleral margin of the right globe at its lateral aspect, which may reflect some fluid deep to the lower lid. Otherwise, the visualized orbital structures are grossly unremarkable within the limitations of the study. Vascular: Signal voids are noted in the visualized major intracranial vessels. Sinuses and Osseous Structures: Osseous marrow signal intensity appears grossly unremarkable. Small retention cyst right maxillary sinus unchanged in appearance. MR/MR head/brain wo con IMPRESSION: 1. A few nonspecific punctate white matter T2 hyperintensities are seen in the right mohan radiata which have developed since the previous exam. Given the history of headaches, migraine associated vasculopathy would be a consideration. 2. 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 3. No acute intracranial process, hemorrhage, space-occupying process, mass effect or hydrocephalus. 4. Minimal fluid accumulation suspected deep to the right lower lid along the anterior right lateral scleral margin.
== END 2021-07-06 18:00 | disposition home or self-care (01) ==
LOC: HO.MRI 17:59
PROVIDERS: PCP Internal Medicine; Visit Provider Internal Medicine
DX: R51.9 Headache, unspecified (principal)
CPT/HCPCS: 70551

== ENCOUNTER 2021-09-08 10:25 | Outpatient (REF) | payer OTHER, SELFPAY ==
--- NOTE | ~2021-09-08 | XR_ITS ---
EXAMINATION: XR CERVICAL SPINE XR LUMBOSACRAL SPINE. CLINICAL INFORMATION: Spondylosis. COMPARISON: Cervical spine: Compared to previous dated 03/06/2017. Lumbosacral spine: Compared to previous dated 10/17/2019. TECHNIQUE: 5 views of the cervical spine. 3 views of the lumbosacral spine. FINDINGS: There is no listhesis or compression injury. There is some early degenerative change at C4-C5, C5-C6 and C6-C7 with anterior spurring and some loss of disc height at C5-C6. No listhesis or compression injury. Once again some loss of disc height which is mild at L5-S1 and some anterior spurring in the endplates in the lumbar region. The vertebral heights are well preserved. Some likely early degenerative changes in the posterior articulating facets at L4-L5 and L5-S1. The SI joints are patent. Mild scoliosis convex left apex at L2-L3. XR/XR cervical spine 2V IMPRESSION: Once again some degenerative change seen in the lumbar spine. Not significantly changed from previous. No listhesis or compression injury. Mild degeneration in the cervical spine not significantly changed from previous.
--- NOTE | ~2021-09-08 | XR_ITS ---
EXAMINATION: XR CERVICAL SPINE XR LUMBOSACRAL SPINE. CLINICAL INFORMATION: Spondylosis. COMPARISON: Cervical spine: Compared to previous dated 03/06/2017. Lumbosacral spine: Compared to previous dated 10/17/2019. TECHNIQUE: 5 views of the cervical spine. 3 views of the lumbosacral spine. FINDINGS: There is no listhesis or compression injury. There is some early degenerative change at C4-C5, C5-C6 and C6-C7 with anterior spurring and some loss of disc height at C5-C6. No listhesis or compression injury. Once again some loss of disc height which is mild at L5-S1 and some anterior spurring in the endplates in the lumbar region. The vertebral heights are well preserved. Some likely early degenerative changes in the posterior articulating facets at L4-L5 and L5-S1. The SI joints are patent. Mild scoliosis convex left apex at L2-L3. XR/XR lumbar spine 2-3V IMPRESSION: Once again some degenerative change seen in the lumbar spine. Not significantly changed from previous. No listhesis or compression injury. Mild degeneration in the cervical spine not significantly changed from previous.
== END 2021-09-08 10:26 | disposition home or self-care (01) ==
LOC: HO.XRAY 10:25
PROVIDERS: PCP Internal Medicine; Visit Provider Internal Medicine
DX: M51.36 Other intervertebral disc degeneration, lumbar region (principal); M47.812 Spondylosis without myelopathy or radiculopathy, cervical region
CPT/HCPCS: 72040; 72100

== ENCOUNTER 2021-11-19 09:19 | Day surgery (SDC) | payer OTHER, SELFPAY ==
[2021-11-15 15:43] VITALS: BMI 39.9
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
[2021-11-19 09:47] VITALS: BMI 40.6
[2021-11-19 09:53] VITALS: BP 107/51; PULSE 66; RESP 16; TEMP 36.1; O2SAT 98
[2021-11-19] MEDS: Lactated Ringers 1,000 ML 100 ML IVCONT (10:08)
--- NOTE | 2021-11-19 10:55 | MHC.SHP ---
Pre-Procedural Eval Section A Date of Service: 11/19/21 The patient is an INPATIENT: No Changes since office visit: No Cold of Flu in the past 2 weeks, No New Medical Problems, No Changes in Medication and No Patient answered all questions The History & Physical has been completed within 30 days and I have reviewed it.: Yes Section B Chief Complaint: epi pain Allergies: Allergies Allergy/AdvReac Type Severity Reaction Status Date / Time Penicillins [PENICILLINS] Allergy Severe ANAPHYLAXIS Verified 09/13/21 14:34 Plan I have reviewed the history and physical and performed a pertinent physical examination on my patient. No changes have occurred unless specified.
[2021-11-19 11:22] VITALS: BP 97/48; PULSE 100; RESP 16; TEMP 36.1; O2SAT 96
--- NOTE | 2021-11-19 11:27 | PM.OP ---
Brief Operative Note Date of Service: 11/19/21 Pre-op diagnosis: epigastric pain Post-op diagnosis: same Procedure: egd Surgeon: Kirk Stanton Anesthesia: MAC Was an Instructional Services Specialist used for this Procedure?: No Estimated blood loss (mL): 2 Pathology: other Condition: stable Disposition: PACU
[2021-11-19 11:37] VITALS: BP 105/48; PULSE 71; RESP 16; TEMP 36.2; O2SAT 97
--- NOTE | 2021-11-19 21:20 | OP_ITS ---
SURGEON: Kirk Stanton MD INDICATIONS: Epigastric pain. PREOPERATIVE DIAGNOSIS: POSTOPERATIVE DIAGNOSIS: PROCEDURE PERFORMED: ESTIMATED BLOOD LOSS: COMPLICATIONS: ANESTHESIA: ASSISTANTS: SPECIMENS: PROCEDURE: Upper endoscopy with biopsy. MEDICATIONS: Monitored anesthesia care. DESCRIPTION OF PROCEDURE: History and physical performed. The risks and benefits of the procedure were explained to the patient. Informed consent was obtained. The patient was placed in the left lateral decubitus position. The Olympus video gastroscope was introduced into the esophagus, stomach, and duodenum. Examination was performed. The scope was removed. She tolerated the procedure well and was taken to recovery area in stable condition. FINDINGS: 1. Esophagus: The esophagus was normal. There was no esophagitis. Biopsies were obtained from the EG junction. 2. Stomach showed no evidence of masses or ulcers. There were some mild erythematous changes in the antrum, consistent with gastritis. Antral biopsies were obtained. 3. Duodenum: The bulb and second portion were normal. IMPRESSION: Gastritis. RECOMMENDATIONS: Follow up the biopsy results. MD SARA Nava/CHARLIEL / [id number]
== END 2021-11-19 12:10 | disposition home or self-care (01) ==
PROVIDERS: PCP Internal Medicine; Visit Provider Internal Medicine Gastroenterology
PROC: 0DJ08ZZ Inspection of Upper Intestinal Tract, Via Natural or Artificial Opening Endoscopic (ICD-10-PCS; CPT 43235; principal; 2021-11-19 10:30)
DX: R10.13 Epigastric pain (principal); K29.50 Unspecified chronic gastritis without bleeding; B96.81 Helicobacter pylori [H. pylori] as the cause of diseases classified elsewhere; K21.9 Gastro-esophageal reflux disease without esophagitis; G43.909 Migraine, unspecified, not intractable, without status migrainosus; F41.8 Other specified anxiety disorders; Z79.899 Other long term (current) drug therapy; Z88.0 Allergy status to penicillin; Z90.49 Acquired absence of other specified parts of digestive tract
CPT/HCPCS: 43239; 88305; 88342; J2250

== ENCOUNTER 2021-12-09 15:03 | Outpatient (REF) | payer OTHER, SELFPAY ==
[2021-12-09 15:24] LABS: MANUAL DIFF FLAG NO
[2021-12-09 15:50] LABS: Basophils Percent Auto 0.5 % (0-2); Eosinophils Absolute Auto 0.2 X10*3/uL (0.0-0.4); Eosinophils Percent Auto 3.6 % (0-4); Hematocrit 40.2 % (37.0-47.0); Hemoglobin 13.3 g/dl (12.0-16.0); Imm Gran Abs Auto 0.04 X10*3/uL (0.00-0.03); Imm Gran Pct Auto 0.7 % (0.0-0.4); Lymphocytes Absolute Auto 1.5 X10*3/uL (1.2-4.9); Lymphocytes Percent Auto 25.5 % (20-40); Mean Corpuscular HGB Conc 33.1 g/dl (31.0-35.0); Mean Corpuscular Volume 90.5 fL (80.0-98.0); Mean Platelet Volume 9.2 fL (9.4-12.3); Monocytes Absolute Auto 0.4 X10*3/uL (0.1-1.2); Monocytes Percent Auto 7.3 % (2-11); Neutrophils Absolute Auto 3.7 x10*3/uL (2.0-8.3); Neutrophils Percent Auto 62.4 % (45-73); Platelet Count 418 X10*3/uL (160-400); Red Blood Count 4.44 X10*6/uL (4.20-5.50); Red Cell Distribution Width 13.1 % (11.0-16.0); White Blood Count 5.9 X10*3/uL (4.8-10.8)
[2021-12-09 16:09] LABS: Alanine Aminotransferase 31 U/L (0-31); Albumin Level 4.2 g/dL (3.5-5.0); Alkaline Phosphatase 89 U/L (39-117); Anion Gap 11 (12-20); Aspartate Amino Transferase 34 U/L (5-31); Bilirubin Total 0.4 mg/dL (0.0-1.0); Blood Urea Nitrogen 11 mg/dL (9-16); Calcium 9.4 mg/dL (8.4-10.2); Carbon Dioxide 23 mmol/L (22-29); Chloride 107 mmol/L (96-108); Estimated Glomerular Filt Rate > 60; Glucose Random 91 mg/dL (60-115); Potassium 4.4 mmol/L (3.3-5.1); Sodium 137 mmol/L (135-145); Total Protein 7.2 g/dL (6.5-8.0)
[2021-12-09 16:31] LABS: Free T4 (Free Thyroxine) 0.96 ng/dL (0.71-1.85); Thyroid Stimulating Hormone 1.12 uIU/mL (0.32-4.0)
[2021-12-09 18:10] LABS: Appearance Urine CLEAR; Color Urine YELLOW; Glucose Urine UA NEG (NEG); Leukocyte Esterase Urine TRACE (NEG); Nitrite Urine NEG (NEG); Specific Gravity - Urine >= 1.030 (1.005-1.025); Urine Blood 3+ (NEG); Urine Ketones 5 MG/DL (NEG); Urine Protein NEG (NEG-TRACE)
[2021-12-09 18:20] LABS: Bacteria Urine 1+ /LPF; RBC Urine 50-75 /HPF (0); Squamous Epithelial Cell Urine 2+ /LPF
[2021-12-09 18:38] LABS: Vitamin B12 444 pg/mL (200-900)
[2021-12-10 10:48] LABS: Folate 15.4 ng/mL (> or = 4.0)
== END 2021-12-09 15:04 | disposition home or self-care (01) ==
LOC: HO.LAB 15:03
PROVIDERS: PCP Internal Medicine; Visit Provider Internal Medicine
DX: K21.9 Gastro-esophageal reflux disease without esophagitis (principal)
CPT/HCPCS: 36415; 80053; 81001; 82607; 82746; 84439; 84443; 85025

== ENCOUNTER 2022-02-11 09:54 | Outpatient (REF) | payer OTHER, SELFPAY ==
[2022-02-11 11:27] LABS: Urine Cytology See Pathology rpt
[2022-02-11 12:11] LABS: Appearance Urine Hazy; Color Urine ORANGE; Glucose Urine UA 100 mg/dL (Negative); Leukocyte Esterase Urine Trace (Negative); PH 5.5 (5.0-9.0); Specific Gravity - Urine 1.025 (1.005-1.025); UMIC TRIGGER UACC YES; Urine Blood Small (1+) (Negative); Urine Ketones Negative (Negative)
[2022-02-11 12:16] LABS: Bacteria Urine Trace (None Seen); Hyaline Casts Urine 0-2 /LPF (0-2); WBC Urine >50 /HPF (0-5)
[2022-02-11 12:21] LABS: UACC Culture Trigger YES
== END 2022-02-11 09:55 | disposition home or self-care (01) ==
LOC: HO.LAB 09:54
PROVIDERS: PCP Internal Medicine; Visit Provider Internal Medicine
DX: R31.9 Hematuria, unspecified (principal)
CPT/HCPCS: 81001; 81003; 87086; 87088; 87186; 88112

== ENCOUNTER → 2022-02-15 10:36 | Outpatient (BNVA) | payer OTHER, SELFPAY | PROVIDERS: PCP Internal Medicine; Referring Provider Internal Medicine; Visit Provider Physician Assistant Surgical | DX: E66.01 Morbid (severe) obesity due to excess calories (principal); Z68.41 Body mass index [BMI] 40.0-44.9, adult | CPT/HCPCS: 99202 ==

== ENCOUNTER 2022-02-25 07:55 | Outpatient (REF) | payer OTHER, SELFPAY ==
--- NOTE | ~2022-02-25 | XR_ITS ---
EXAMINATION: XR CHEST CLINICAL INFORMATION: Obesity COMPARISON: Previous chest x-ray March 2021 TECHNIQUE: 2 views of the chest were obtained. FINDINGS: No significant abnormality is noted involving the heart, lungs, mediastinum, bony thorax or soft tissues. There are degenerative changes of the spine. XR/XR chest 2V IMPRESSION: Unremarkable examination.
[2022-02-25 08:21] LABS: MANUAL DIFF FLAG NO
--- NOTE | 2022-02-25 08:27 | ECG_ITS ---
Test Reason : obesity Blood Pressure : / mmHG Vent. Rate : 070 BPM Atrial Rate : 070 BPM P-R Int : 140 ms QRS Dur : 072 ms QT Int : 406 ms P-R-T Axes : 031 024 042 degrees QTc Int : 438 ms Normal sinus rhythm Low voltage QRS Borderline ECG When compared with ECG of 29-MAR-2021 11:53, No significant change was found Referred By: Sha Atkinson Electronically Signed By:GENNA POLK
[2022-02-25 08:33] LABS: Basophils Percent Auto 0.7 % (0-2); Eosinophils Absolute Auto 0.2 X10*3/uL (0.0-0.4); Hematocrit 37.4 % (37.0-47.0); Hemoglobin 12.5 g/dl (12.0-16.0); Imm Gran Abs Auto 0.03 X10*3/uL (0.00-0.03); Imm Gran Pct Auto 0.6 % (0.0-0.4); Lymphocytes Absolute Auto 1.3 X10*3/uL (1.2-4.9); Lymphocytes Percent Auto 23.7 % (20-40); Mean Corpuscular HGB Conc 33.4 g/dl (31.0-35.0); Mean Corpuscular Volume 89.9 fL (80.0-98.0); Monocytes Absolute Auto 0.4 X10*3/uL (0.1-1.2); Monocytes Percent Auto 7.3 % (2-11); Neutrophils Absolute Auto 3.5 x10*3/uL (2.0-8.3); Neutrophils Percent Auto 64.7 % (45-73); Platelet Count 351 X10*3/uL (160-400); Red Blood Count 4.16 X10*6/uL (4.20-5.50); Red Cell Distribution Width 12.8 % (11.0-16.0); White Blood Count 5.4 X10*3/uL (4.8-10.8)
[2022-02-25 08:40] LABS: Estimated Average Glucose 103 mg/dL; Hemoglobin A1c % 5.2 %
[2022-02-25 08:47] LABS: Appearance Urine Clear; Color Urine Yellow; Glucose Urine UA Negative (Negative); Leukocyte Esterase Urine Negative (Negative); Nitrite Urine Negative (Negative); PH 5.5 (5.0-9.0); UMIC TRIGGER UA YES; UMIC TRIGGER UACC YES; Urine Blood Small (1+) (Negative); Urine Ketones Negative (Negative); Urine Protein Negative (Neg-Trace)
[2022-02-25 08:59] LABS: Alanine Aminotransferase 30 U/L (0-31); Alkaline Phosphatase 67 U/L (39-117); Anion Gap 14 (12-20); Aspartate Amino Transferase 23 U/L (5-31); Bilirubin Total 0.3 mg/dL (0.0-1.0); Blood Urea Nitrogen 16 mg/dL (9-16); C Reactive Protein 1.13 mg/dL (< or = 0.50); Calcium 8.7 mg/dL (8.4-10.2); Carbon Dioxide 22 mmol/L (22-29); Chloride 107 mmol/L (96-108); Cholesterol 187 mg/dL; Estimated Glomerular Filt Rate > 60; Glucose Random 99 mg/dL (60-115); HDL Cholesterol 60 mg/dL; Iron 100 mcg/dL (30-160); LDL Cholesterol Calculated 113 mg/dl; Magnesium 1.9 mg/dL (1.6-2.6); Percent Iron Saturation 35 % (15-50); Sodium 139 mmol/L (135-145); Total Iron Binding Capacity 283 mcg/dL (228-428); Total Protein 6.6 g/dL (6.5-8.0); Triglycerides 72 mg/dL; Unsaturated Iron Binding 183 ug/dL
[2022-02-25 09:01] LABS: Bacteria Urine None Seen (None Seen); Hyaline Casts Urine 0-2 /LPF (0-2); WBC Urine 0-5 /HPF (0-5)
[2022-02-25 09:21] LABS: Ferritin 78 ng/mL (10-250); Insulin 12 uU/mL (2-29); TSH reflex Free T4 1.13 uIU/mL (0.32-4.0); Vitamin D 25-OH Total 21.5 ng/mL (>30)
[2022-02-25 09:28] LABS: Folate 12.1 ng/mL (> or = 4.0); Vitamin B12 451 pg/mL (200-900)
[2022-02-27 13:42] LABS: Calcium (PTHI) 8.7 mg/dL (8.6-10.2); PTHI 146 pg/mL (16-77)
[2022-03-01 08:06] LABS: Vitamin B1 6 nmol/L (8-30)
[2022-03-02 06:12] LABS: Zinc 70 mcg/dL (60-130)
[2022-03-02 17:33] LABS: Vitamin A 39 mcg/dL (38-98)
== END 2022-02-25 07:56 | disposition home or self-care (01) ==
LOC: HO.XRAY 07:55
PROVIDERS: PCP Internal Medicine; Visit Provider Physician Assistant Surgical
DX: E66.01 Morbid (severe) obesity due to excess calories (principal); K21.9 Gastro-esophageal reflux disease without esophagitis
CPT/HCPCS: 36415; 71046; 80053; 80061; 81001; 82306; 82607; 82728; 82746; 83036; 83525; 83540; 83735; 83970; 84425; 84443; 84590; 84630; 85025; 86140; 93005

== ENCOUNTER 2022-03-01 09:12 | Outpatient (REF) | payer OTHER, SELFPAY ==
--- NOTE | ~2022-03-01 | XR_ITS ---
EXAMINATION: XR KNEE, LEFT CLINICAL INFORMATION: Pain COMPARISON: None TECHNIQUE: Three views of the left knee. FINDINGS: No fracture or dislocation. The femoral tibial joints are normal. There are small osteophytes at the patellofemoral joint. There is no joint effusion. XR/XR knee LT 3V IMPRESSION: Mild degenerative changes at the patellofemoral joint.
[2022-03-02 13:53] LABS: H Pylori Breath Test Negative (Negative)
== END 2022-03-01 09:13 | disposition home or self-care (01) ==
LOC: HO.XRAY 09:12
PROVIDERS: Physician Assistant Surgical; PCP Internal Medicine; Visit Provider Nurse Practitioner Family
DX: M25.562 Pain in left knee (principal); E66.01 Morbid (severe) obesity due to excess calories
CPT/HCPCS: 36415; 73562; 83013

== ENCOUNTER → 2022-03-07 13:42 | Outpatient (BNVA) | payer OTHER, SELFPAY | PROVIDERS: PCP Internal Medicine; Referring Provider Physician Assistant Surgical; Visit Provider Counselor Mental Health | DX: F33.1 Major depressive disorder, recurrent, moderate (principal); E66.01 Morbid (severe) obesity due to excess calories; M25.562 Pain in left knee | CPT/HCPCS: 90791 ==

== ENCOUNTER → 2022-03-08 14:57 | Outpatient (BNVA) | payer OTHER, SELFPAY | PROVIDERS: PCP Internal Medicine; Visit Provider Physician Assistant Surgical | DX: E66.01 Morbid (severe) obesity due to excess calories (principal); Z68.41 Body mass index [BMI] 40.0-44.9, adult | CPT/HCPCS: 99212 ==

== ENCOUNTER → 2022-03-30 14:30 | Outpatient (BNVA) | payer OTHER, SELFPAY | PROVIDERS: PCP Internal Medicine; Visit Provider Physician Assistant Surgical | DX: E66.9 Obesity, unspecified (principal); Z68.39 Body mass index [BMI] 39.0-39.9, adult | CPT/HCPCS: 99212 ==

== ENCOUNTER 2022-03-31 05:51 | Outpatient (REF) | payer OTHER, SELFPAY ==
--- NOTE | ~2022-03-31 | XR_ITS ---
EXAMINATION: XR KNEE AP STANDING CLINICAL INFORMATION: Right knee pain. COMPARISON: None TECHNIQUE: AP bilateral standing view of the knees was obtained. FINDINGS: Bones and soft tissues are normal. No fracture or joint effusion. Alignment is anatomic. Joint spaces are well maintained. No abnormal soft tissue calcification. XR/XR knee standing BI IMPRESSION: Unremarkable bilateral knees.
== END 2022-03-31 05:52 | disposition home or self-care (01) ==
LOC: HO.HOSX 05:51
PROVIDERS: Visit Provider Physician Assistant
DX: M17.12 Unilateral primary osteoarthritis, left knee (principal)
CPT/HCPCS: 20610; 73565; 99202; J1040

== ENCOUNTER 2022-04-03 14:50 | Emergency (ER) | payer OTHER, SELFPAY ==
--- NOTE | ~2022-04-03 | CT_ITS ---
EXAMINATION: CT ABDOMEN AND PELVIS WITH CONTRAST CLINICAL INFORMATION: Left lower quadrant abdominal pain. COMPARISON: CT of the abdomen/pelvis dated 07/30/2020. TECHNIQUE: Multidetector volumetric images were obtained from the superior aspect of the liver through the pubic symphysis following administration 85 mL of Omnipaque 350 intravenous contrast. Sagittal and coronal reformatted images were obtained on the technologist's workstation. Oral contrast: No This CT examination was performed using dose optimization techniques as appropriate, variously including the following: *Automated exposure control *Adjustment of mA and/or kV according to patient size (this includes techniques or standardized protocols for targeted exams where dose is matched to indication/reason for exam; i.e. extremities or head) *Use of iterative reconstruction technique DLP: 881 mGy-cm FINDINGS: LUNG BASES: The visualized lung bases are unremarkable. LIVER, GALLBLADDER, AND BILIARY TREE: The liver is normal in size, shape, and attenuation. Multiple simple-appearing hepatic cysts with the largest in the left hepatic lobe measuring up to 1.3 cm. Findings are unchanged. No enhancing focal hepatic lesion or biliary ductal dilatation is present. Status post cholecystectomy. PANCREAS: Unremarkable. SPLEEN: Unremarkable. ADRENAL GLANDS: Unremarkable. KIDNEYS AND URETERS: The kidneys are normal in size, shape, and attenuation. No hydronephrosis, hydroureter, or calculi seen. No perinephric stranding. BLADDER: Unremarkable. GASTROINTESTINAL TRACT: Descending and sigmoid colon diverticulosis with circumferential wall thickening and mild adjacent inflammatory change. There is an enlarged, inflamed diverticula at the posterior aspect of the descending colon (axial image 52/100), as well as an additional enlarged and inflamed diverticula within the left lower quadrant sigmoid colon (axial image 71/100). Findings are consistent with acute diverticulitis. No extraluminal air or organized fluid collection to suggest perforation or abscess formation. No small or large bowel obstruction. Unremarkable appendix. PERITONEAL CAVITY: Trace pelvic free fluid. No intra-abdominal free air. ABDOMINAL WALL: No significant hernia is appreciated. LYMPH NODES: Normal. VASCULAR: Unremarkable. PELVIC VISCERA: The uterus and adnexa are unremarkable. OSSEOUS STRUCTURES: Unremarkable. CT/CT abdomen pelvis w IV con IMPRESSION: 1. Acute diverticulitis within the descending and sigmoid colon. No evidence of perforation or abscess formation. 2. Trace pelvic free fluid. No intra-abdominal free air. 3. Additional chronic findings are unchanged. Fleischner guidelines were followed.
[2022-04-03 15:05] VITALS: BP 137/87; PULSE 88; RESP 16; TEMP 36.8; O2SAT 98; BMI 40.0
[2022-04-03 15:27] LABS: Appearance Urine Clear; Color Urine Yellow; Glucose Urine UA Negative (Negative); Leukocyte Esterase Urine Small (1+) (Negative); Nitrite Urine Negative (Negative); UMIC TRIGGER UACC YES; Urine Blood Moderate (2+) (Negative); Urine Ketones Negative (Negative); Urine Protein Negative (Neg-Trace)
[2022-04-03 15:42] LABS: Bacteria Urine None Seen (None Seen); Hyaline Casts Urine 0-2 /LPF (0-2); Squamous Epithelial Cell Urine 0-2 /HPF (0-2); UACC Culture Trigger YES; WBC Urine 0-5 /HPF (0-5)
[2022-04-03 16:04] LABS: Hemoglobin 13.3 g/dl (12.0-16.0); Mean Corpuscular HGB Conc 34.1 g/dl (31.0-35.0); Mean Corpuscular Hemoglobin 31.1 pg (27.0-33.0); Mean Corpuscular Volume 91.3 fL (80.0-98.0); Mean Platelet Volume 9.7 fL (9.4-12.3); Platelet Count 318 X10*3/uL (160-400); Red Blood Count 4.27 X10*6/uL (4.20-5.50); Red Cell Distribution Width 12.8 % (11.0-16.0); White Blood Count 11.3 X10*3/uL (4.8-10.8)
[2022-04-03 16:33] LABS: Anion Gap 16 (12-20); Blood Urea Nitrogen 14 mg/dL (9-16); Calcium 9.6 mg/dL (8.4-10.2); Carbon Dioxide 22 mmol/L (22-29); Chloride 105 mmol/L (96-108); Creatinine Clr Calc Pharmacy 100.1; Estimated Glomerular Filt Rate > 60; Glucose Random 73 mg/dL (60-115); Potassium 4.2 mmol/L (3.3-5.1); Sodium 139 mmol/L (135-145)
[2022-04-03 19:31] VITALS: BP 135/72; PULSE 84; RESP 18; TEMP 35.9; O2SAT 99
--- NOTE | 2022-04-03 20:01 | ED.ABDPAIN ---
HPI - Abdominal Pain General Chief Complaint: Abdominal Pain Stated Complaint: L side abd pain Time Seen by Provider: 04/03/22 19:56 Source: patient Mode of arrival: ambulatory Limitations: no limitations History of Present Illness HPI narrative: This is a 51-year-old female presenting to the emergency department with complaints of left-sided flank pain with radiation into the left lower quadrant, patient also reporting a urinary hesitancy, decreased urinary stream, dysuria. Patient tells me she gets frequent UTIs however this feels different, she tells me they have never been associated with flank pain. She tells me she had a urine done at her PCPs office a few days ago however she still has not heard results. She tells me she is very uncomfortable describes the pain as 10/10, stabbing, very uncomfortable. Not tollerating pO well. Patient tearful upon my history taking. Denies fevers, chills, chest pain, shortness of breath, headache, vision changes, dizziness. Related Data Home Medications Medication Instructions Recorded Confirmed clonazepam 1 mg tablet 1 mg PO BID 05/08/20 03/30/22 lactobacillus combination no.9 4 PO DAILY 09/01/20 03/30/22 billion cell capsule (Adult 50 Plus Probiotic) magnesium 200 mg tablet 200 mg PO DAILY 09/01/20 03/30/22 omega-3 fatty acids 1,000 mg 1,000 mg PO DAILY 09/01/20 03/30/22 capsule (Fish Oil Concentrate) zolpidem 10 mg tablet 10 mg PO BEDTIME PRN 03/08/22 03/30/22 Previous Rx's Medication Instructions Recorded pantoprazole 40 mg tablet,delayed 40 mg PO DAILY #14 tabs 08/07/20 release albuterol sulfate 90 mcg/actuation 2 puff inhalation Q4-6H PRN 03/29/21 aerosol inhaler shortness of breath or wheezing #6.7 grams fluticasone propionate 50 2 spray intranasal DAILY #16 grams 03/29/21 mcg/actuation nasal spray,suspension (Flonase Allergy Relief) sumatriptan succinate 50 mg tablet 50 mg PO .QD prn PRN migraine 04/22/21 headache #14 tabs lidocaine 5 % topical patch 1 patch topical DAILY #30 ea 02/14/22 cholecalciferol (vitamin D3) 125 125 mcg PO DAILY #30 caps 02/25/22 mcg (5,000 unit) capsule cyanocobalamin (vitamin B-12) 500 500 mcg PO DAILY #30 tabs 02/25/22 mcg tablet thiamine HCl (vitamin B1) 100 mg 100 mg PO DAILY #30 tabs 03/01/22 tablet Allergies Allergy/AdvReac Type Severity Reaction Status Date / Time Penicillins [PENICILLINS] Allergy Severe ANAPHYLAXIS Verified 03/31/22 12:55 Review of Systems Review of Systems Constitutional : No Weight loss, No Fever, No Chills, No Fatigue, No Malaise ENT/Mouth : No sore throat, No Rhinorrhea Eyes: No Eye Pain, No Swelling, No Redness Cardiovascular : No Chest Pain, No SOB, No Dyspnea on Exertion, No Orthopnea, No Edema, No Palpitations Respiratory : No Cough, No Sputum, No Wheezing Gastrointestinal : No Nausea, No Vomiting, No Diarrhea, No Constipation, + abdominal Pain, No Hematochezia, No Melena Genitourinary : No Dysuria, No Urinary Frequency, No Hematuria, Musculoskeletal : No joint pain, No Myalgias, No Joint Swelling, + flank pain Skin : No Skin Lesions, No rash Neuro : No Weakness, No Numbness, No Dizziness, No Headache Psych : No Anxiety/Panic, No Depression All other systems reviewed and are negative Yes all other systems are reviewed and are negative [facility]LY [facility] Past Medical History Attestation statement: The following information was validated with the patient. Source: old records reviewed and nursing notes reviewed Medical History Headache Hematuria Loss of hearing Low back pain Migraine Neck pain Obesity (BMI 30-39.9) Otitis externa Tubular adenoma Vision changes Surgical History H/O tubal ligation History of section History of cholecystectomy Family History Family History Father CVD (cardiovascular disease) Diabetes History of open heart surgery Mother Alive and well CVD (cardiovascular disease) Diabetes Thyroid condition Maternal Aunt Colon cancer Son No problems noted. Social History Social History Housing: Apartment Alcohol intake: current Alcohol intake frequency: a few times a week Patient Tobacco Use Status: Never used Tobacco Smoked in Last 30 Days: No e-Cigarette/Vaping Use: Never Used Second Hand Smoke Exposure: No Use of substances other than those prescribed or required for medical reasons: No Advance Directives: No Advance Directives Information Provided: Yes Patient : No service: No Current occupational status: unemployed Current occupation: right hand dominant Cognitive needs: No Hearing needs: No Vision needs: No Physical Exam ED Vital Signs: Vital Signs - 24 hr 04/03/22 15:05 04/03/22 19:31 04/03/22 21:46 Temperature 98.2 F 96.7 F L 98.8 F Pulse Rate 88 84 68 Respiratory Rate 16 18 17 Blood Pressure 137/87 135/72 104/33 L Pulse Oximetry 98 99 100 Oxygen Delivery Method Room Air Room Air Room Air BMI result Body Mass Index 40.0 vss Appearance: Alert.? Oriented X3.? No acute distress.? Head: Normocephalic, atraumatic, no step-offs or deformities Eyes: Pupils equal, round and reactive to light.? ENT: Pharynx normal.? Neck: Normal inspection.? Neck supple.? CVS: Normal heart rate and rhythm.? Pulses normal.? Respiratory: No respiratory distress.? Breath sounds normal.? Abdomen: Soft and tenderness to left lower quadrant w/ rebound Skin: Skin warm and dry.? Normal skin color.? Normal skin turgor.? Extremities: No lower extremity edema.? No calf ttp. 5/5 strength to bilateral upper and lower extremities Back: No midline tenderness, no C-spine tenderness, full range of motion, + CVA tenderness bilaterally Neuro: Oriented X 3.? No motor deficit.? No sensory deficit. CN 2-12 intact Course Reevaluation(s) Reevaluation #1: CBC with leukocytosis 11.3, chemistry with no acute electrolyte abnormalities requiring intervention. Urine with leukocyte esterases, blood, no bacteria seen. Concerns that this is possibly a kidney stone vs diverticulitis. Time: 22:05 Reevaluation #2: Patient is noted to have acute diverticulitis on CT scan, as patient is not tolerating p.o. well. Patient will be started on Levaquin and Flagyl. Spoke to hospitalist for admission who accepts admission. Time: 22:07 Medications Administered Discontinued Medications Generic Name Dose Route Start Last Admin Trade Name Abundio PRN Reason Stop Dose Admin Sodium Chloride 1,000 mls @ 999 mls/hr 04/03/22 20:30 04/03/22 21:46 Ns IV 04/03/22 21:30 999 mls/hr .Q1H1M ELICEO Administration Iohexol 100 ml 04/03/22 20:49 04/03/22 20:56 Iohexol 350 Mg/Ml 100 Ml Infus..Btl IV 04/03/22 20:50 85 ml ONCE ONE Administration Ketorolac Tromethamine 30 mg 04/03/22 20:13 04/03/22 21:45 Ketorolac Tromethamine 15 Mg/Ml Vial IVPUSH 04/03/22 20:14 30 mg ONCE ONE Administration MDM - Abdominal Pain MDM Narrative Medical decision making narrative: 2002 51-year-old female presents with left-sided flank pain with radiation to left lower quadrant, also reporting urinary hesitancy, decreased urinary stream and dysuria. History of frequent UTIs. On exam left lower quadrant tenderness to palpation, bilateral CVA tenderness. Patient tearful. Appears to be uncomfortable. Will rule out kidney stone, cystitis, UTI, obstructing uropathy, diverticulitis. No signs of acute abdomen on my exam. Unlikely appendicitis, cholecystitis. Plan at this time is labs, urine, imaging. Medical Records Attestation: I reviewed the patient's medical records. Lab Data Attestation: I reviewed the patient's lab results. Result diagrams: 04/03/22 15:39 04/03/22 15:39 Labs: Lab Results 04/03/22 04/03/22 04/03/22 Range/Units 15:21 15:39 15:39 WBC 11.3 H (4.8-10.8) X10*3/uL RBC 4.27 (4.20-5.50) X10*6/uL Hgb 13.3 (12.0-16.0) g/dl Hct 39.0 (37.0-47.0) % MCV 91.3 (80.0-98.0) fL MCH 31.1 (27.0-33.0) pg MCHC 34.1 (31.0-35.0) g/dl RDW 12.8 (11.0-16.0) % Plt Count 318 (160-400) X10*3/uL MPV 9.7 (9.4-12.3) fL Absolute Nucleated RBC 0.000 (0.0-0.012) X10*3/uL Nucleated RBC % (auto) 0.0 (0.0-0.2) /100WBC Sodium 139 (135-145) mmol/L Potassium 4.2 (3.3-5.1) mmol/L Chloride 105 (96-108) mmol/L Carbon Dioxide 22 (22-29) mmol/L Anion Gap 16 (12-20) BUN 14 (9-16) mg/dL Creatinine 0.72 (0.5-1.4) mg/dL Estim Creat Clear Calc 100.1 Estimated GFR > 60 Random Glucose 73 (60-115) mg/dL Calcium 9.6 D (8.4-10.2) mg/dL Total Bilirubin 0.4 (0.0-1.0) mg/dL Direct Bilirubin < 0.2 (0.0-0.5) mg/dL AST 17 (5-31) U/L ALT 19 (0-31) U/L Alkaline Phosphatase 68 (39-117) U/L Total Protein 7.1 (6.5-8.0) g/dL Albumin 4.2 (3.5-5.0) g/dL Urine Color Yellow Urine Appearance Clear Urine pH 5.0 (5.0-9.0) Ur Specific [place] 1.020 (1.005-1.025) Urine Protein Negative (Neg-Trace) mg/dL Urine Glucose (UA) Negative (Negative) mg/dL Urine Ketones Negative (Negative) mg/dL Urine Blood Moderate (2+) H (Negative) Urine Nitrite Negative (Negative) Ur Leukocyte Esterase Small (1+) H (Negative) Urine RBC 3-5 H (0-2) /HPF Urine WBC 0-5 (0-5) /HPF Ur Squamous Epith Cells 0-2 (0-2) /HPF Urine Bacteria None Seen (None Seen) Hyaline Casts 0-2 (0-2) /LPF Critical Care Time Critical Care Time Critical Care Time: No Discharge Plan Discharge Clinical Impression: Acute diverticulitis Patient Disposition: Admitted As Inpatient Prescriptions: No Action pantoprazole 40 mg tablet,delayed release (DR/EC) 40 mg PO DAILY Qty: 14 0RF sumatriptan succinate 50 mg tablet 50 mg PO .QD prn PRN (Reason: migraine headache) Qty: 14 6RF Rx Instructions: do not exceed 4 doses per 24 hrs lidocaine 5 % adhesive patch,medicated 1 patch topical DAILY Qty: 30 3RF Rx Instructions: leave on most painful area for up to 12 hrs cyanocobalamin (vitamin B-12) 500 mcg tablet 500 mcg PO DAILY Qty: 30 3RF cholecalciferol (vitamin D3) 125 mcg (5,000 unit) capsule 125 mcg PO DAILY Qty: 30 3RF thiamine HCl (vitamin B1) 100 mg tablet 100 mg PO DAILY Qty: 30 2RF albuterol sulfate 90 mcg/actuation HFA aerosol inhaler 2 puff inhalation Q4-6H PRN (Reason: shortness of breath or wheezing) Qty: 6.7 0RF fluticasone propionate [Flonase Allergy Relief] 50 mcg/actuation spray,suspension 2 spray intranasal DAILY Qty: 16 0RF Rx Instructions: administer into each nostril clonazepam 1 mg tablet 1 mg PO BID magnesium 200 mg tablet 200 mg PO DAILY omega-3 fatty acids [Fish Oil Concentrate] 1,000 mg capsule 1,000 mg PO DAILY Adult 50 Plus Probiotic 4 billion cell capsule PO DAILY zolpidem 10 mg tablet 10 mg PO BEDTIME PRN
[2022-04-03 20:52] LABS: Alanine Aminotransferase 19 U/L (0-31); Albumin Level 4.2 g/dL (3.5-5.0); Alkaline Phosphatase 68 U/L (39-117); Aspartate Amino Transferase 17 U/L (5-31); Bilirubin Direct < 0.2 mg/dL (0.0-0.5); Bilirubin Total 0.4 mg/dL (0.0-1.0); Total Protein 7.1 g/dL (6.5-8.0)
[2022-04-03] MEDS: iohexoL 350 MG/ML 100 ML INFUS..BTL IV (20:56)
[2022-04-03] MEDS: Ketorolac Tromethamine 15 MG/ML VIAL 30 MG IVPUSH (21:45)
[2022-04-03 21:46] VITALS: BP 104/33; PULSE 68; RESP 17; TEMP 37.1; O2SAT 100
[2022-04-03] MEDS: 0.9 % Sodium Chloride 1,000 ML 999 ML IV ×2 (21:46→23:58)
[2022-04-03 23:24] VITALS: BP 107/36; PULSE 65; RESP 16; TEMP 36.7; O2SAT 96
[2022-04-03] MEDS: levoFLOXacin/D5W 750 MG/150 ML PIGGYBACK 100 MG IV (23:58)
[2022-04-04] MEDS: metroNIDAZOLE/NS 500 MG/100 ML PIGGYBACK 100 MG IV (01:12)
--- NOTE | 2022-04-04 01:24 | PC.NURSE ---
Pt abx are running and IVF. Pt V/S are stable.
[2022-04-04] MEDS: Morphine Sulfate Immed Release 15 MG TABLET PO (02:04)
== END 2022-04-04 02:40 | disposition home or self-care (01) ==
LOC: HO.ED 22:13 → HO.EDOVER 04-04 00:34 → HO.ED 04-04 02:08
PROVIDERS: Physician Assistant; Emergency Provider Emergency Medicine; PCP Internal Medicine
DX: K57.32 Diverticulitis of large intestine without perforation or abscess without bleeding (principal); R10.32 Left lower quadrant pain; Z79.899 Other long term (current) drug therapy
CPT/HCPCS: 36415; 74177; 80048; 80076; 81001; 83605; 85027; 87040; 87086; 87088; 87147; 87186; 96361; 96372; 96374; 96375; 99285; J1885; J1956; Q9967

== ENCOUNTER → 2022-04-18 14:03 | Outpatient (BNVA) | payer OTHER, SELFPAY | PROVIDERS: PCP Internal Medicine; Visit Provider Urology | DX: R31.9 Hematuria, unspecified (principal); N39.0 Urinary tract infection, site not specified | CPT/HCPCS: 51798; 99202 ==

== ENCOUNTER 2022-04-19 13:28 | Emergency (ER) | payer OTHER, SELFPAY ==
--- NOTE | 2022-04-19 13:39 | ED_ITS ---
HPI - General Adult General Chief complaint: Allergic Reaction Stated complaint: chest pain lips swelling Time Seen by Provider: 04/19/22 13:50 Related Data Home Medications Medication Instructions Recorded Confirmed clonazepam 1 mg tablet 1 mg PO BID 05/08/20 04/18/22 lactobacillus combination no.9 4 PO DAILY 09/01/20 04/18/22 billion cell capsule (Adult 50 Plus Probiotic) magnesium 200 mg tablet 200 mg PO DAILY 09/01/20 04/18/22 omega-3 fatty acids 1,000 mg 1,000 mg PO DAILY 09/01/20 04/18/22 capsule (Fish Oil Concentrate) zolpidem 10 mg tablet 10 mg PO BEDTIME PRN Sleep 03/08/22 04/18/22 sertraline 100 mg tablet 1 tab PO DAILY 04/04/22 04/18/22 Previous Rx's Medication Instructions Recorded albuterol sulfate 90 mcg/actuation 2 puff inhalation Q4-6H PRN 03/29/21 aerosol inhaler shortness of breath or wheezing #6.7 grams fluticasone propionate 50 2 spray intranasal DAILY #16 grams 03/29/21 mcg/actuation nasal spray,suspension (Flonase Allergy Relief) sumatriptan succinate 50 mg tablet 50 mg PO .QD prn PRN migraine 04/22/21 headache #14 tabs lidocaine 5 % topical patch 1 patch topical DAILY #30 ea 02/14/22 cholecalciferol (vitamin D3) 125 125 mcg PO DAILY #30 caps 02/25/22 mcg (5,000 unit) capsule cyanocobalamin (vitamin B-12) 500 500 mcg PO DAILY #30 tabs 02/25/22 mcg tablet thiamine HCl (vitamin B1) 100 mg 100 mg PO DAILY #30 tabs 03/01/22 tablet metronidazole 500 mg tablet 500 mg PO BID 10 days #20 tabs 04/04/22 morphine 15 mg immediate release 15 mg PO BID PRN pain #8 tabs 04/04/22 tablet pantoprazole 40 mg tablet,delayed 40 mg PO DAILY #14 tabs 04/07/22 release sulfamethoxazole 800 1 tab PO BID #20 tabs 04/18/22 mg-trimethoprim 160 mg tablet (Bactrim DS) nitrofurantoin 100 mg PO Q12H 7 days #14 caps 04/19/22 monohydrate/macrocrystals 100 mg capsule (Macrobid) Allergies Allergy/AdvReac Type Severity Reaction Status Date / Time Penicillins [PENICILLINS] Allergy Severe ANAPHYLAXIS Verified 04/19/22 13:40 Sulfa (Sulfonamide Allergy Severe Angioedema Verified 04/20/22 10:38 Antibiotics) PMFSH Past Medical History Medical History Headache Hematuria Loss of hearing Low back pain Migraine Neck pain Obesity (BMI 30-39.9) Otitis externa Tubular adenoma Vision changes Surgical History H/O tubal ligation History of section History of cholecystectomy Family History Family History Father CVD (cardiovascular disease) Diabetes History of open heart surgery Mother Alive and well CVD (cardiovascular disease) Diabetes Thyroid condition Maternal Aunt Colon cancer Son No problems noted. Social History Social History Housing: Apartment Alcohol intake: current Alcohol intake frequency: a few times a week Patient Tobacco Use Status: Never used Tobacco e-Cigarette/Vaping Use: Never Used Second Hand Smoke Exposure: No Advance Directives: No Advance Directives Information Provided: Yes service: No Current occupational status: unemployed Current occupation: right hand dominant Cognitive needs: No Hearing needs: No Vision needs: No Physical Exam ED Vital Signs: Vital Signs - 24 hr 04/19/22 13:40 04/19/22 14:53 Temperature 98.0 F 97.4 F Pulse Rate 81 57 Respiratory Rate 20 14 Blood Pressure 127/70 124/59 L Pulse Oximetry 98 99 Oxygen Delivery Method Room Air Room Air BMI result Body Mass Index 38.7 Course Course Course Narrative: 51F started abx today that were prescribed by Urology for UTI and then noted lip swelling, throat itching . The antibiotic is Bactrim. Patient is feeling like she is having to clear throat there are no obvious signs of angioedema or respiratory wheeze but patient continues to clear her throat. VITAL SIGNS: Reviewed. GENERAL: Well developed, well nourished, in mild distress. HEAD: Normocephalic/atraumatic EYES: PERRLA, EOMI EARS: Ext canals without abnormality OROPHARYNX: no oral lesions noted, posterior pharynx clear, no lip/facial/tongue swelling NECK: Supple, no adenopathy LUNGS: Normal breath sounds, no wheeze/rhonchi/rales/tachypnea. CARDIOVASCULAR: Regular rate and rhythm without noted murmurs ABDOMEN: Soft, non-tender, non-distended with bowel sounds. MUSCULOSKELETAL: No tenderness, deformities, or effusions noted on gross inspection. EXTREMITIES: No cyanosis, clubbing or edema. SKIN: Inspection of the skin reveals no rashes NEUROLOGIC: Alert and oriented x 4. Ordered Benadryl and taken to the main ED. Medications Administered Discontinued Medications Generic Name Dose Route Start Last Admin Trade Name Freq PRN Reason Stop Dose Admin Al Hydroxide/Mg Hydroxide 30 ml 04/19/22 17:47 04/19/22 18:02 Magnesium Hydrox/Alum Hydrox 30 Ml Oral.Susp PO 04/19/22 17:48 30 ml ONCE ONE Administration Diphenhydramine HCl 50 mg 04/19/22 13:59 04/19/22 14:18 Diphenhydramine Hcl 50 Mg/Ml Vial IVPUSH 04/19/22 14:00 50 mg ONCE ONE Administration Famotidine 20 mg 04/19/22 13:59 04/19/22 14:18 Famotidine/Pf 20 Mg/2 Ml Vial IVPUSH 04/19/22 14:00 20 mg ONCE ONE Administration Lidocaine HCl 15 ml 04/19/22 17:47 04/19/22 18:02 Lidocaine Hcl Viscous 2 % 15 Ml Solution MUCOUS MEM 04/19/22 17:48 15 ml ONCE ONE Administration Methylprednisolone Sodium Succinate 125 mg 04/19/22 13:59 04/19/22 14:18 Methylprednisolone Sod Succ 125 Mg/2 Ml Vial IVPUSH 04/19/22 14:00 125 mg ONCE ONE Administration Nitrofurantoin Macrocrystals 100 mg 04/19/22 16:36 04/19/22 17:17 Nitrofurantoin Monohyd/M-Cryst 100 Mg Capsule PO 04/19/22 16:37 100 mg ONCE ONE Administration Discharge Plan Discharge Clinical Impression: Allergic reaction due to antibacterial drug, Allergic angioedema Patient Disposition: Home, Self-Care Additional Instructions: You have been evaluated and treated in the emergency department today for an allergic reaction. Your given medications to control your symptoms. You have been observed for several hours and our safe for discharge at this time. Can continue to take [id number] Benadryl and Pepcid, to continue helping with your symptoms at home. Please return to the emergency department if you have an rash, hives, difficulty breathing or swallowing, worsening lip/mouth/tongue swelling, vomiting or any other concerning symptoms. Follow-up with your primary care provider for further treatment and management. Prescriptions: New nitrofurantoin monohyd/m-cryst [Macrobid] 100 mg capsule 100 mg PO Q12H 7 Days Qty: 14 0RF Rx Instructions: must administer with a meal/food No Action sumatriptan succinate 50 mg tablet 50 mg PO .QD prn PRN (Reason: migraine headache) Qty: 14 6RF Rx Instructions: do not exceed 4 doses per 24 hrs lidocaine 5 % adhesive patch,medicated 1 patch topical DAILY Qty: 30 3RF Rx Instructions: leave on most painful area for up to 12 hrs cyanocobalamin (vitamin B-12) 500 mcg tablet 500 mcg PO DAILY Qty: 30 3RF cholecalciferol (vitamin D3) 125 mcg (5,000 unit) capsule 125 mcg PO DAILY Qty: 30 3RF thiamine HCl (vitamin B1) 100 mg tablet 100 mg PO DAILY Qty: 30 2RF pantoprazole 40 mg tablet,delayed release (DR/EC) 40 mg PO DAILY Qty: 14 0RF albuterol sulfate 90 mcg/actuation HFA aerosol inhaler 2 puff inhalation Q4-6H PRN (Reason: shortness of breath or wheezing) Qty: 6.7 0RF fluticasone propionate [Flonase Allergy Relief] 50 mcg/actuation spray,suspension 2 spray intranasal DAILY Qty: 16 0RF Rx Instructions: administer into each nostril morphine 15 mg tablet 15 mg PO BID PRN (Reason: pain) Qty: 8 0RF Rx Instructions: Partial Fill upon patient request. metronidazole 500 mg tablet 500 mg PO BID 10 Days Qty: 20 0RF sertraline 100 mg tablet 1 tab PO DAILY clonazepam 1 mg tablet 1 mg PO BID magnesium 200 mg tablet 200 mg PO DAILY omega-3 fatty acids [Fish Oil Concentrate] 1,000 mg capsule 1,000 mg PO DAILY Adult 50 Plus Probiotic 4 billion cell capsule PO DAILY zolpidem 10 mg tablet 10 mg PO BEDTIME PRN (Reason: Sleep) sulfamethoxazole-trimethoprim [Bactrim DS] 800-160 mg tablet 1 tab PO BID Qty: 20 0RF Referrals: Po,April Miller MD [Primary Care Provider] - Stand Alone Forms: Work/School Release Interventions: ED Discharge Assessment Last Done: 04/19/22 18:33 Discharge Date/Time: 04/19/22 18:33 Print Language: [place]
[2022-04-19 13:40] VITALS: BP 127/70; PULSE 81; RESP 20; TEMP 36.7; O2SAT 98; BMI 38.7
--- NOTE | 2022-04-19 14:05 | ED_ITS ---
HPI - Allergic Reaction General Chief complaint: Allergic Reaction Stated complaint: chest pain lips swelling Time Seen by Provider: 04/19/22 13:50 Source: patient Mode of arrival: ambulatory Limitations: no limitations History of Present Illness HPI narrative: 51-year-old female with a past medical history of GERD, UTIs, and diverticulitis with admission 04/03/2022 and treated with Levaquin presents to the emergency department with angioedema after starting antibiotics. She completed a course of Levaquin for management of diverticulitis and presented to her urologist on 04/18/2022 for evaluation of microscopic hematuria and was found to have a UTI resistant to Levaquin and started on Bactrim. She began Bactrim this morning around 11:00 a.m. and began to feel her throat itching, lip swelling, and chest pain 40 minutes after taking Bactrim. She then contacted her cousin who drove her to the emergency department for treatment. On exam, patient's bottom lip appears to be swollen with mild facial swelling, tongue within normal limits, LS CTA, and no urticaria noted. At this time, she denies any swelling of her tongue, difficulty swallowing, shortness of breath, nausea, vomiting, hives, or itching. She states she has had a similar reaction when taking penicillins. MD complaint: allergic reaction and other (lip swelling) Onset (ago): hour(s) (2+) Exposure: medication (bactrim) Symptoms: facial swelling and lip swelling Severity: moderate Treatment prior to arrival: none Previous Allergic Reaction History: anaphylaxis (pcn) Related Data Home Medications Medication Instructions Recorded Confirmed clonazepam 1 mg tablet 1 mg PO BID 05/08/20 04/18/22 lactobacillus combination no.9 4 PO DAILY 09/01/20 04/18/22 billion cell capsule (Adult 50 Plus Probiotic) magnesium 200 mg tablet 200 mg PO DAILY 09/01/20 04/18/22 omega-3 fatty acids 1,000 mg 1,000 mg PO DAILY 09/01/20 04/18/22 capsule (Fish Oil Concentrate) zolpidem 10 mg tablet 10 mg PO BEDTIME PRN Sleep 03/08/22 04/18/22 sertraline 100 mg tablet 1 tab PO DAILY 04/04/22 04/18/22 Previous Rx's Medication Instructions Recorded albuterol sulfate 90 mcg/actuation 2 puff inhalation Q4-6H PRN 03/29/21 aerosol inhaler shortness of breath or wheezing #6.7 grams fluticasone propionate 50 2 spray intranasal DAILY #16 grams 03/29/21 mcg/actuation nasal spray,suspension (Flonase Allergy Relief) sumatriptan succinate 50 mg tablet 50 mg PO .QD prn PRN migraine 04/22/21 headache #14 tabs lidocaine 5 % topical patch 1 patch topical DAILY #30 ea 02/14/22 cholecalciferol (vitamin D3) 125 125 mcg PO DAILY #30 caps 02/25/22 mcg (5,000 unit) capsule cyanocobalamin (vitamin B-12) 500 500 mcg PO DAILY #30 tabs 02/25/22 mcg tablet thiamine HCl (vitamin B1) 100 mg 100 mg PO DAILY #30 tabs 03/01/22 tablet metronidazole 500 mg tablet 500 mg PO BID 10 days #20 tabs 04/04/22 morphine 15 mg immediate release 15 mg PO BID PRN pain #8 tabs 04/04/22 tablet pantoprazole 40 mg tablet,delayed 40 mg PO DAILY #14 tabs 04/07/22 release sulfamethoxazole 800 1 tab PO BID #20 tabs 04/18/22 mg-trimethoprim 160 mg tablet (Bactrim DS) nitrofurantoin 100 mg PO Q12H 7 days #14 caps 04/19/22 monohydrate/macrocrystals 100 mg capsule (Macrobid) Allergies Allergy/AdvReac Type Severity Reaction Status Date / Time Penicillins [PENICILLINS] Allergy Severe ANAPHYLAXIS Verified 04/19/22 13:40 Sulfa (Sulfonamide Allergy Severe Angioedema Verified 04/19/22 14:02 Antibiotics) Review of Systems Review of Systems: Yes all other systems are reviewed and are negative Constitutional: Constitutional: Reports no additional constitutional complaints, Denies chills, Denies fatigue, Denies fever(s) and Denies headache(s) Eyes: Eyes: Reports no additional eye complaints, Denies change in vision and Denies itchy eyes ENT: Reports system reviewed and no additional complaints, except as documented, Reports Normal hearing present, Denies headache(s), Denies hoarseness, Reports lip swelling, Denies throat swelling and Denies tongue swelling Cardiovascular: Cardiovascular: Reports no additional cardiovascular complaints, Reports chest pain, Denies Epigastric Pain, Denies syncope, Denies Loss of Consciousness and Denies dyspnea Respiratory: Respiratory: Reports no additional respiratory complaints, Reports cough, Denies dyspnea and Denies wheezing Gastrointestinal: Gastrointestinal: Reports no additional gastrointestinal complaints, Reports abdominal pain, Denies change in stool character, Denies constipation, Denies diarrhea, Denies nausea and Denies vomiting Genitourinary: Genitourinary: Reports no additional female genitourinary complaints Musculoskeletal: Musculoskeletal: Reports no additional musculoskeletal complaints, Denies back pain and Denies myalgias Integumentary/Breasts: Skin/Breast: Reports system reviewed and no additional complaints, except as docu, Denies lesions, Denies rash and Denies sores Neurologic: Reports system reviewed and no additional complaints, except as documented, Reports Normal hearing present, Denies Abnormal speech present, Denies syncope and Denies headache(s) Psychiatric: Psychiatric: Reports no additional psychiatric complaints and Denies anxiety Endocrine: Endocrine: Reports no additional endocrine complaints and Denies fatigue Allergic/Immunologic: Allergic/Immunologic: Reports no additional allergic/immunologic complaints, Denies urticaria, Denies itchy eyes, Reports lip swelling, Denies throat swelling, Denies tongue swelling and Denies wheezing PMFSH Past Medical History Attestation statement: The following information was validated with the patient. Source: old records reviewed Medical History Headache Hematuria Loss of hearing Low back pain Migraine Neck pain Obesity (BMI 30-39.9) Otitis externa Tubular adenoma Vision changes Surgical History H/O tubal ligation History of section History of cholecystectomy Family History Family History Father CVD (cardiovascular disease) Diabetes History of open heart surgery Mother Alive and well CVD (cardiovascular disease) Diabetes Thyroid condition Maternal Aunt Colon cancer Son No problems noted. Social History Social History Housing: Apartment Alcohol intake: current Alcohol intake frequency: a few times a week Patient Tobacco Use Status: Never used Tobacco e-Cigarette/Vaping Use: Never Used Second Hand Smoke Exposure: No Advance Directives: No Advance Directives Information Provided: Yes service: No Current occupational status: unemployed Current occupation: right hand dominant Cognitive needs: No Hearing needs: No Vision needs: No Physical Exam ED Vital Signs: Vital Signs - 24 hr 04/19/22 13:40 04/19/22 14:53 Temperature 98.0 F 97.4 F Pulse Rate 81 57 Respiratory Rate 20 14 Blood Pressure 127/70 124/59 L Pulse Oximetry 98 99 Oxygen Delivery Method Room Air Room Air BMI result Body Mass Index 38.7 Const General: cooperative, alert and awake Nutritional Appearance: well nourished Orientation/consciousness: patient oriented x3 Limitations: no limitations HENMT Head: Yes normal to inspection and Yes atraumatic Ears: hearing grossly normal bilaterally and external ears normal General nose exam: Normal external nose present, Normal nares present and No nasal discharge present Face and sinus: Yes normal facial exam, Yes face symmetric and Yes edema Mouth: Normal oral and palatal mucosa present, tongue normal, oropharynx normal, no drooling, lip abnormal (bottom lip edema) and no muffled voice Teeth and gingiva: dentition normal Throat: Yes posterior oropharynx normal Eyes General: appearance normal, both eyes and all related structures Alignment and Position: alignment normal Periorbital: periorbital findings normal Eyelids: Yes eyelids normal Conjunctivae: conjunctivae normal Sclerae: sclerae normal Pupils: Equal, round and reactive pupils present EOM: EOMs intact bilaterally Neck Neck: Yes normal visual inspection, Yes full ROM, Yes no lymphadenopathy and Yes trachea midline Chest Chest palpation & inspection: normal inspection of the chest Resp Effort & Inspection: normal respiratory effort, able to speak in complete sentences, Actively coughing Quality: dry, not labored and no respiratory distress Auscultation: clear to auscultation bilaterally, no crackles, no rhonchi and no wheezes Cardio Rate: regular rate Rhythm: regular rhythm GI Inspection: Yes normal to inspection Palpation (GI): Soft to palpation, not firm and Tenderness to palpation present (GI) Auscultation: normal bowel sounds Back/Spine/Pelvis Cervical Spine: cervical ROM normal Thoracic/Lumbar Spine: thoraco-lumbar ROM normal Skin General skin exam: no rashes or lesions noted and other (no urticaria) Neuro General: patient oriented x3 Cranial nerves: Yes Equal, round and reactive pupils present and Yes Normal hearing present Cognition (Neuro): normal cognition Speech: No Abnormal speech present Gait exam (Neuro): Normal gait present Motor exam (neuro): 5/5 motor strength present throughout Sensory Exam: Normal double simultaneous stimulation for sensation Extrem General: Yes normal to inspection, Yes full ROM and Yes capillary refill normal Psych Appearance: grossly normal Mental Status: mental status grossly normal Speech and movement: Normal speech and movement present Affect: normal affect Attitude: cooperative Thought process: Normal thought process present Thought content: Normal thought content present Insight: Good insight present (Psych) Judgement: Good judgement present (Psych) Course Course Course Narrative: 1400: IV Solu-Medrol, Benadryl, Pepcid ordered 1500: On re-evaluation, face and lower lip edema seems mildly improved, patient denies chest pain at this time. 1645: Plan to prescribe Macrobid as an alternate antibiotic for treatment of UTI. First dose ordered in ED with plan to observe patient to ensure she tolerates dose 1717: Macrobid administered. Plan to observe patient for 60 minutes after medication administration 1750: Pt without complaints of facial or lip swelling or trouble breathing or swallowing. Safe for discharge. Medications Administered Discontinued Medications Generic Name Dose Route Start Last Admin Trade Name Molinaq PRN Reason Stop Dose Admin Diphenhydramine HCl 50 mg 04/19/22 13:59 04/19/22 14:18 Diphenhydramine Hcl 50 Mg/Ml Vial IVPUSH 04/19/22 14:00 50 mg ONCE ONE Administration Famotidine 20 mg 04/19/22 13:59 04/19/22 14:18 Famotidine/Pf 20 Mg/2 Ml Vial IVPUSH 04/19/22 14:00 20 mg ONCE ONE Administration Methylprednisolone Sodium Succinate 125 mg 04/19/22 13:59 04/19/22 14:18 Methylprednisolone Sod Succ 125 Mg/2 Ml Vial IVPUSH 04/19/22 14:00 125 mg ONCE ONE Administration Nitrofurantoin Macrocrystals 100 mg 04/19/22 16:36 04/19/22 17:17 Nitrofurantoin Monohyd/M-Cryst 100 Mg Capsule PO 04/19/22 16:37 100 mg ONCE ONE Administration MDM - Allergic Reaction MDM Narrative Medical decision making narrative: 51-year-old female with a past medical history of GERD, UTIs, and diverticulitis with admission 04/03/2022 and treated with Levaquin presents to the emergency department with angioedema after starting Bactrim for antibiotic therapy for a UTI. On arrival to the emergency department patient received 50 mg IV Benadryl, 125 mg IV Solu-Medrol, and 20 mg IV Pepcid for control of symptoms. On re- evaluation at 1600, pt with less angioedema noted on bottom lip and face. Patient states she is feeling less swollen. She continues to deny any difficulty swallowing, difficulty breathing, or increasing symptoms. Macrobid 100 mg initiated in the emergency department for coverage of UTI. Patient observed in the ED after receiving nitrofurantoin with no recurrence of symptoms. Plan to begin Nitrofurantoin 100 mg bid x 7 days for treatment of UTI. Patient is safe for discharge. Physical exam and plan discussed with patient. 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 She is waiting for an appointment to see her primary care provider for this complaint. Maalox and viscous lidocaine given for treatment of GI upset. Educated to DISCONTINUE use of sulfamethoxazole-trimethoprim (Bactrim) antibiotic therapy. Educated to return to the emergency department for rash, hiv es, difficulty breathing or swallowing, worsening lip/mouth/tongue swelling, nausea, vomiting, or any other concerning symptoms. Follow-up with your primary care provider for further treatment and management. Differential Diagnosis Differential diagnosis: Likely allergic reaction and angioedema Discharge Plan Discharge Clinical Impression: Allergic reaction due to antibacterial drug, Allergic angioedema Patient Disposition: Home, Self-Care Instructions: Acute Diarrhea (ED), Antibiotic Medication Allergy (ED), Angioedema (ED), Adverse Drug Reaction (ED) Additional Instructions: You have been evaluated and treated in the emergency department today for an allergic reaction. Your given medications to control your symptoms. You have been observed for several hours and our safe for discharge at this time. Can continue to take [id number] Benadryl and Pepcid, to continue helping with your symptoms at home. Please return to the emergency department if you have an rash, hives, difficulty breathing or swallowing, worsening lip/mouth/tongue swelling, vomiting or any other concerning symptoms. Follow-up with your primary care provider for further treatment and management. Prescriptions: New nitrofurantoin monohyd/m-cryst [Macrobid] 100 mg capsule 100 mg PO Q12H 7 Days Qty: 14 0RF Rx Instructions: must administer with a meal/food No Action sumatriptan succinate 50 mg tablet 50 mg PO .QD prn PRN (Reason: migraine headache) Qty: 14 6RF Rx Instructions: do not exceed 4 doses per 24 hrs lidocaine 5 % adhesive patch,medicated 1 patch topical DAILY Qty: 30 3RF Rx Instructions: leave on most painful area for up to 12 hrs cyanocobalamin (vitamin B-12) 500 mcg tablet 500 mcg PO DAILY Qty: 30 3RF cholecalciferol (vitamin D3) 125 mcg (5,000 unit) capsule 125 mcg PO DAILY Qty: 30 3RF thiamine HCl (vitamin B1) 100 mg tablet 100 mg PO DAILY Qty: 30 2RF pantoprazole 40 mg tablet,delayed release (DR/EC) 40 mg PO DAILY Qty: 14 0RF albuterol sulfate 90 mcg/actuation HFA aerosol inhaler 2 puff inhalation Q4-6H PRN (Reason: shortness of breath or wheezing) Qty: 6.7 0RF fluticasone propionate [Flonase Allergy Relief] 50 mcg/actuation spray,suspension 2 spray intranasal DAILY Qty: 16 0RF Rx Instructions: administer into each nostril morphine 15 mg tablet 15 mg PO BID PRN (Reason: pain) Qty: 8 0RF Rx Instructions: Partial Fill upon patient request. metronidazole 500 mg tablet 500 mg PO BID 10 Days Qty: 20 0RF sertraline 100 mg tablet 1 tab PO DAILY clonazepam 1 mg tablet 1 mg PO BID magnesium 200 mg tablet 200 mg PO DAILY omega-3 fatty acids [Fish Oil Concentrate] 1,000 mg capsule 1,000 mg PO DAILY Adult 50 Plus Probiotic 4 billion cell capsule PO DAILY zolpidem 10 mg tablet 10 mg PO BEDTIME PRN (Reason: Sleep) sulfamethoxazole-trimethoprim [Bactrim DS] 800-160 mg tablet 1 tab PO BID Qty: 20 0RF Referrals: Po,April Miller MD [Primary Care Provider] - Stand Alone Forms: Work/School Release Print Language: Hungarian
[2022-04-19] MEDS: Famotidine/PF 20 MG/2 ML VIAL IVPUSH (14:18)
[2022-04-19] MEDS: methylPREDNISolone Sod Succ 125 MG/2 ML VIAL IVPUSH (14:18)
[2022-04-19] MEDS: diphenhydrAMINE HCL 50 MG/ML VIAL IVPUSH (14:18)
--- NOTE | 2022-04-19 14:29 | PC.NURSE ---
PT BROUGHT BACK TO ED FROM WAITING ROOM POST TRIAGE PT AWAKE, ALERT AND ORIENTED X 3. SKIN WARM AND DRY. RESP UNLABORED. AIRWAY PATENT. MANAGING SECRETIONS SPEAKING IN FULL CLEAR SENTENCES. EVALUATED BY PROVIDER IV PLACED. MEDICATED ORDERED. FAMILY AT BEDSIDE.
[2022-04-19 14:53] VITALS: BP 124/59; PULSE 57; RESP 14; TEMP 36.3; O2SAT 99
[2022-04-19] MEDS: Nitrofurantoin Monohyd/M-Cryst 100 MG CAPSULE PO (17:17)
[2022-04-19] MEDS: Magnesium Hydrox/Alum Hydrox 30 ML ORAL.SUSP PO (18:02)
[2022-04-19] MEDS: Lidocaine HCl Viscous 2 % 15 ML SOLUTION MUCOUS MEM (18:02)
== END 2022-04-19 18:33 | disposition home or self-care (01) ==
PROVIDERS: Emergency Provider Emergency Medicine; PCP Internal Medicine
DX: R07.89 Other chest pain (principal); T78.3XXA Angioneurotic edema, initial encounter; Z79.899 Other long term (current) drug therapy
CPT/HCPCS: 96374; 96375; 99283; 99284; J1200; J2930

== ENCOUNTER → 2022-05-13 11:26 | Outpatient (BNVA) | payer OTHER, SELFPAY | PROVIDERS: PCP Internal Medicine; Visit Provider Urology | DX: N39.0 Urinary tract infection, site not specified (principal); R31.9 Hematuria, unspecified; N32.81 Overactive bladder | CPT/HCPCS: 52000; 99212 ==

== ENCOUNTER → 2022-05-18 08:43 | Outpatient (BNVA) | payer OTHER, SELFPAY | PROVIDERS: PCP Internal Medicine; Referring Provider Internal Medicine; Visit Provider Surgery | DX: E66.9 Obesity, unspecified (principal); K21.9 Gastro-esophageal reflux disease without esophagitis; K59.00 Constipation, unspecified; R53.83 Other fatigue; E78.00 Pure hypercholesterolemia, unspecified; F41.1 Generalized anxiety disorder; K29.70 Gastritis, unspecified, without bleeding; B96.81 Helicobacter pylori [H. pylori] as the cause of diseases classified elsewhere; M25.562 Pain in left knee; Z68.37 Body mass index [BMI] 37.0-37.9, adult; Z90.49 Acquired absence of other specified parts of digestive tract | CPT/HCPCS: 99202 ==

== ENCOUNTER 2022-05-20 12:21 | Outpatient (REF) | payer OTHER, SELFPAY ==
--- NOTE | ~2022-05-20 | US_ITS ---
EXAMINATION: US RETROPERITONEAL COMPLETE (RENAL) CLINICAL INFORMATION: Hematuria, unspecified. COMPARISON: CT of the abdomen and pelvis 04/03/2022. Ultrasound abdomen complete 03/14/2019 and 04/26/2018. TECHNIQUE: Real-time imaging of the kidneys and bladder. FINDINGS: RIGHT KIDNEY: 10.4 x 5.5 x 4.9 cm (SAG x AP x TRV). The kidney is normal in size, contour, and echogenicity. Renal cortical thickness is normal. No renal calculi or hydronephrosis. A benign 6 mm mid pole cyst is present. No further imaging or follow up is necessary. No solid renal masses are seen. LEFT KIDNEY: 10.5 x 5.6 x 5.2 cm (SAG x AP x TRV). The kidney is normal in size, contour, and echogenicity. Renal cortical thickness is normal. No calculi or focal parenchymal lesions. No hydronephrosis. BLADDER: Well distended and normal. Bilateral ureteral jets are demonstrated. Prevoid bladder volume is 177 mL. Postvoid bladder volume is 41.8 mL. ADDITIONAL FINDINGS: The liver is echogenic consistent with hepatic steatosis. A benign subcentimeter cyst is noted in the right lobe of the liver. US/US retroperitoneal comp IMPRESSION: 1. No significant abnormality is seen. 2. Incidentally noted hepatic steatosis.
== END 2022-05-20 12:22 | disposition home or self-care (01) ==
LOC: HO.US 12:21
PROVIDERS: Visit Provider Internal Medicine
DX: R31.9 Hematuria, unspecified (principal)
CPT/HCPCS: 76770

== ENCOUNTER 2022-05-22 11:45 | Outpatient (REF) | payer OTHER, SELFPAY ==
[2022-04-01 12:02] LABS: Appearance Urine Clear; Color Urine Yellow; Glucose Urine UA Negative (Negative); Leukocyte Esterase Urine Negative (Negative); Nitrite Urine Negative (Negative); Specific Gravity - Urine 1.025 (1.005-1.025); UMIC TRIGGER UACC YES; Urine Blood Small (1+) (Negative); Urine Ketones Trace mg/dL (Negative); Urine Protein Negative (Neg-Trace)
[2022-04-01 12:08] LABS: Bacteria Urine 1+ (None Seen); Hyaline Casts Urine 0-2 /LPF (0-2); Squamous Epithelial Cell Urine 0-2 /HPF (0-2); WBC Urine 0-5 /HPF (0-5)
== END 2022-05-22 11:46 | disposition home or self-care (01) ==
LOC: HO.LAB 11:45
PROVIDERS: PCP Internal Medicine; Visit Provider Physician Assistant Surgical
DX: R31.9 Hematuria, unspecified (principal)
CPT/HCPCS: 81001; 81003

== ENCOUNTER 2022-05-25 07:47 | Outpatient (REF) | payer OTHER, SELFPAY ==
--- NOTE | ~2022-05-25 | US_ITS ---
EXAMINATION: US COMPLETE ABDOMEN WITH LIVER ELASTOGRAPHY CLINICAL INFORMATION: COMPARISON: None. TECHNIQUE: Real-time imaging of the abdominal viscera. Noninvasive ultrasound liver fibrosis assessment is performed using [employer] point quantification shear wave elastography (2D-SWE) with a C5-2 MHz transducer. Multiple elastography samples are obtained. FINDINGS: PANCREAS: Normal. The visualized pancreatic head and body are normal in appearance. The remainder of the pancreas is obscured from visualization by the overlying bowel gas. ABDOMINAL AORTA: The proximal, middle, and distal aortic segments are normal in caliber. INFERIOR VENA CAVA: Visualized portions are normal. LIVER: Multiple simple appearing cysts are seen, the largest within the left lobe measures 1.5 cm and within the right lobe 1.5 cm. The liver demonstrates normal size, contour and echogenicity. No focal lesion or intrahepatic biliary duct dilatation. The right lobe measures 15.9 cm in length. The left lobe measures 10.6 cm in length. Portal flow is towards the liver (hepatopetal). Shear wave liver elastography median stiffness is 1.46 m/s (reference: normal median stiffness is 1.3 m/s or less). IQR/median stiffness to assess sampling precision is 0.06 (reference: good quality data set is IQR/median stiffness of 0.15 or less). GALLBLADDER: Surgically absent. COMMON BILE DUCT: Normal in caliber measuring 0.5 cm in diameter. RIGHT KIDNEY: Normal. No hydronephrosis. No renal calculi or focal parenchymal lesions. The kidney measures 10.7 cm in maximum dimension. LEFT KIDNEY: Normal. No hydronephrosis. No renal calculi or focal parenchymal lesions. The kidney measures 10.9 cm in maximum dimension. SPLEEN: Normal. The spleen measures 8.4 cm in maximum dimension. FREE FLUID: None. US/US abdomen comp w elastography IMPRESSION: 1. Liver elastography: In the absence of other known clinical signs, measurements rule out compensated advanced chronic liver disease. If there are known clinical signs, further testing may be needed for confirmation. 2. Simple hepatic cysts are of incidental note. 3. The gallbladder is surgically absent. REFERENCE: Society of Radiologists in Ultrasound Liver Stiffness Thresholds (2020): LIVER STIFFNESS THRESHOLDS: *Liver Stiffness equal or less than 1.3 m/s: High probability of being normal. *Liver Stiffness less than 1.7 m/s: In the absence of other known clinical signs, rules out compensated advanced chronic liver disease. *Liver Stiffness 1.7-2.1 m/s: Suggestive of compensated advanced chronic liver disease but need further test for confirmation. *Liver Stiffness over 2.1 m/s: Rules in compensated advanced chronic liver disease. *Liver Stiffness over 2.4 m/s: Suggestive of clinically significant portal hypertension. QUALITY OF DATA SET: *IQR/Median value equal or less than 0.15 implies a quality data set. *IQR/Median value over 0.15 implies a poor quality data set. SIGNIFICANT CHANGE FROM PRIOR EXAM: Significant change if liver stiffness measurement is 10% or greater from prior exam. OTHER CONSIDERATIONS: The stage of liver fibrosis may be overestimated in the setting of acute hepatitis, liver inflammation, elevated liver function tests, hepatic vascular congestion, obstructive cholestasis, non-fasting state, and infiltrative diseases such as amyloidosis and lymphoma. In some patients with NAFLD, the liver stiffness thresholds for compensated advanced chronic liver disease may be lower. In causes other than viral hepatitis and NAFLD, liver stiffness thresholds are not well established.
--- NOTE | ~2022-05-25 | FL_ITS ---
EXAMINATION: XR FLUOROSCOPY UPPER GI WITH AIR CLINICAL INFORMATION: Morbid/severe obesity due to excess calories. COMPARISON: None. TECHNIQUE: Routine upper GI air-contrast study and upright and lying position is performed. FINDINGS: Following oral administration of thick barium and effervescent granules, there is normal propagation of bolus from the oral cavity through the pharynx and esophagus and into the stomach without any evidence of obstruction, narrowing or stricture. On placing patient supine and prone lying, there is moderate gastroesophageal reflux with a small sliding hiatal hernia. Otherwise, the rest of the visualized course, caliber and peristalsis of stomach, duodenal bulb and the sweep is normal. The mucosal pattern of esophagus, stomach and the duodenum is normal. FLUOROSCOPY TIME: 1.8 minutes. DOSE AREA PRODUCT: 27.187 uGy-m2 (microgray-meter squared). FL/FL upper GI w air IMPRESSION: Large gastroesophageal reflux with small sliding hiatal hernia.
== END 2022-05-25 07:48 | disposition home or self-care (01) ==
LOC: HO.US 07:47
PROVIDERS: Visit Provider Physician Assistant Surgical
DX: Z01.818 Encounter for other preprocedural examination (principal); E66.01 Morbid (severe) obesity due to excess calories; K21.9 Gastro-esophageal reflux disease without esophagitis
CPT/HCPCS: 74246; 76705; 76981

== ENCOUNTER → 2022-06-03 09:37 | Outpatient (BNVA) | payer OTHER, SELFPAY | PROVIDERS: PCP Internal Medicine; Visit Provider Physician Assistant Surgical | DX: E66.9 Obesity, unspecified (principal); Z68.37 Body mass index [BMI] 37.0-37.9, adult | CPT/HCPCS: 99212 ==

== ENCOUNTER → 2022-06-13 12:52 | Outpatient (BNVA) | payer OTHER, SELFPAY | PROVIDERS: PCP Internal Medicine; Visit Provider Dietitian, Registered | DX: E66.9 Obesity, unspecified (principal); Z71.3 Dietary counseling and surveillance | CPT/HCPCS: 97802 ==

== ENCOUNTER → 2022-06-14 09:06 | Outpatient (BNVA) | payer OTHER, SELFPAY | PROVIDERS: PCP Internal Medicine; Visit Provider Surgery | DX: E66.01 Morbid (severe) obesity due to excess calories (principal); Z68.37 Body mass index [BMI] 37.0-37.9, adult; K44.9 Diaphragmatic hernia without obstruction or gangrene; K21.9 Gastro-esophageal reflux disease without esophagitis; K59.00 Constipation, unspecified; M25.562 Pain in left knee; F33.1 Major depressive disorder, recurrent, moderate | CPT/HCPCS: 99212 ==

== ENCOUNTER → 2022-06-27 12:30 | Outpatient (BNVA) | payer OTHER, SELFPAY | PROVIDERS: PCP Internal Medicine; Referring Provider Internal Medicine; Visit Provider Counselor Mental Health | DX: F33.1 Major depressive disorder, recurrent, moderate (principal); E66.01 Morbid (severe) obesity due to excess calories | CPT/HCPCS: 90834 ==

== ENCOUNTER → 2022-07-01 10:35 | Outpatient (BNVA) | payer OTHER, SELFPAY | PROVIDERS: PCP Internal Medicine; Visit Provider Physician Assistant Surgical | DX: E66.9 Obesity, unspecified (principal); Z68.37 Body mass index [BMI] 37.0-37.9, adult | CPT/HCPCS: 99212 ==

== ENCOUNTER → 2022-07-08 08:16 | Outpatient (BNVA) | payer OTHER, SELFPAY | PROVIDERS: PCP Internal Medicine; Visit Provider Physician Assistant Surgical | DX: Z13.89 Encounter for screening for other disorder (principal) ==

== ENCOUNTER → 2022-07-15 08:51 | Outpatient (BNVA) | payer OTHER, SELFPAY | PROVIDERS: PCP Internal Medicine; Referring Provider Internal Medicine; Visit Provider Surgery | DX: Z13.89 Encounter for screening for other disorder (principal) ==

== ENCOUNTER → 2022-07-22 10:25 | Outpatient (BNVA) | payer OTHER, SELFPAY | PROVIDERS: PCP Internal Medicine; Visit Provider Surgery | DX: E66.01 Morbid (severe) obesity due to excess calories (principal); K21.9 Gastro-esophageal reflux disease without esophagitis; K44.9 Diaphragmatic hernia without obstruction or gangrene; K29.70 Gastritis, unspecified, without bleeding; B96.81 Helicobacter pylori [H. pylori] as the cause of diseases classified elsewhere; E78.00 Pure hypercholesterolemia, unspecified; F33.1 Major depressive disorder, recurrent, moderate; F41.1 Generalized anxiety disorder; Z68.37 Body mass index [BMI] 37.0-37.9, adult; Z90.49 Acquired absence of other specified parts of digestive tract | CPT/HCPCS: 99212 ==

== ENCOUNTER 2022-07-27 05:52 | Inpatient (IN) | payer OTHER, SELFPAY ==
[2022-07-25 08:43] LABS: MANUAL DIFF FLAG NO
[2022-07-25 09:03] VITALS: BMI 37.0
[2022-07-25 09:13] LABS: Basophils Percent Auto 0.7 % (0-2); Eosinophils Absolute Auto 0.2 X10*3/uL (0.0-0.4); Eosinophils Percent Auto 3.3 % (0-4); Hematocrit 42.2 % (37.0-47.0); Hemoglobin 14.1 g/dl (12.0-16.0); Imm Gran Abs Auto 0.03 X10*3/uL (0.00-0.03); Imm Gran Pct Auto 0.5 % (0.0-0.4); Lymphocytes Absolute Auto 1.8 X10*3/uL (1.2-4.9); Lymphocytes Percent Auto 28.9 % (20-40); Mean Corpuscular HGB Conc 33.4 g/dl (31.0-35.0); Mean Corpuscular Hemoglobin 30.9 pg (27.0-33.0); Mean Corpuscular Volume 92.3 fL (80.0-98.0); Mean Platelet Volume 9.5 fL (9.4-12.3); Monocytes Absolute Auto 0.4 X10*3/uL (0.1-1.2); Monocytes Percent Auto 6.3 % (2-11); Neutrophils Absolute Auto 3.7 x10*3/uL (2.0-8.3); Neutrophils Percent Auto 60.3 % (45-73); Platelet Count 369 X10*3/uL (160-400); Red Blood Count 4.57 X10*6/uL (4.20-5.50); Red Cell Distribution Width 12.8 % (11.0-16.0); White Blood Count 6.2 X10*3/uL (4.8-10.8)
[2022-07-25 09:21] LABS: Prothrombin Time 11.3 SEC (10.0-13.1)
[2022-07-25 09:22] LABS: Estimated Average Glucose 105 mg/dL; Hemoglobin A1c % 5.3 %
[2022-07-25 09:23] LABS: Partial Thromboplastin Time 35.2 SEC (26.0-36.4)
[2022-07-25 09:47] LABS: Alanine Aminotransferase 15 U/L (0-31); Albumin Level 4.2 g/dL (3.5-5.0); Alkaline Phosphatase 74 U/L (39-117); Anion Gap 13 (12-20); Aspartate Amino Transferase 17 U/L (5-31); Bilirubin Total 0.4 mg/dL (0.0-1.0); Blood Urea Nitrogen 17 mg/dL (9-16); Calcium 8.9 mg/dL (8.4-10.2); Carbon Dioxide 24 mmol/L (22-29); Chloride 109 mmol/L (96-108); Cholesterol 216 mg/dL; Creatinine Clr Calc Pharmacy 85.2; Estimated Glomerular Filt Rate > 60; Glucose Random 98 mg/dL (60-115); HDL Cholesterol 58 mg/dL; Iron 56 mcg/dL (30-160); LDL Cholesterol Calculated 148 mg/dl; Percent Iron Saturation 20 % (15-50); Potassium 4.2 mmol/L (3.3-5.1); Sodium 142 mmol/L (135-145); Total Iron Binding Capacity 275 mcg/dL (228-428); Total Protein 6.8 g/dL (6.5-8.0); Triglycerides 53 mg/dL; Unsaturated Iron Binding 219 ug/dL
[2022-07-25 10:15] LABS: Ferritin 46 ng/mL (10-250); TSH reflex Free T4 1.53 uIU/mL (0.32-4.0); Vitamin B12 692 pg/mL (200-900); Vitamin D 25-OH Total 26.8 ng/mL (>30)
[2022-07-26 11:49] LABS: Calcium (PTHI) 9.4 mg/dL (8.6-10.2); PTHI 143 pg/mL (16-77)
[2022-07-26 14:20] LABS: COVID-19 Test Negative (Negative); IDNOW Serial# 16C4AD1C
[2022-07-27] VITALS (14 sets, daily range): BP systolic 100–111; BP diastolic 49–59; PULSE 57–89; RESP 11–18; TEMP 36–37; O2SAT 93–97
[2022-07-27] MEDS: Scopolamine 1.5 MG PATCH.TD.3 TRANSDERMA (06:49)
[2022-07-27] MEDS: Lactated Ringers 1,000 ML 150 ML IVCONT (06:51)
--- NOTE | 2022-07-27 07:12 | P.OP_ITS ---
Operative Note Operative Note Date of Service: 07/27/22 Narrative: Preop diagnosis: [Morbid obesity, hiatal hernia, GERD] Postop diagnosis: [Same, no hiatal hernia] Procedure: [Laparoscopic sleeve gastrectomy, gastropexy, intraoperative upper endoscopy] Surgeon: Keith Rizzo MD Assist: [Medina Franks PA-C] Anesthesia: [GET, Marcaine, 0.5% with epi] Estimated blood loss: [3cc] Specimen: [Portion of stomach with fundus] Intraoperative findings: [No evidence of hiatal hernia even after dissection of the esophago phrenic fat pad; liver scarring/cysts] Indications: [The patient is a 51-year-old woman with a lifelong struggle with obesity who entered our surgical weight loss program with a BMI of 41.2/body weight of 218 lb who, after demonstrating healthy lifestyle choices in changes, dropped weight down to 196 lb with a BMI of 37.1. Her workup included an upper GI that demonstrated a small hiatal hernia with mild reflux. The options of continued medical weight loss versus bariatric surgery including gastric bypass verses laparoscopic sleeve gastrectomy with probable hiatal hernia repair and intraoperative endoscopy was discussed. The risks, benefits and alternatives all seem to be understood by the patient. I reviewed the inherent risks of this procedure which include, but are not limited to: Bleeding that could require another operation or blood transfusion; the inherent risks of transfusion reaction infectious disease from blood transfusions; the risk of staple line leaks that could cause sepsis, multi-system organ failure and ; the risk of mesenteric or deep vein thrombosis of the lower extremities that could cause a fatal pulmonary embolism was reviewed; the risk of GERD that could require conversion to gastric bypass was discussed; the risk of recurrent hiatal hernia, especially in the setting of weight regain was reviewed. The risk of weight regain if maladaptive eating and sedentary behavior continue was discussed. The importance of proper diet and increased activity to augment surgical weight loss and the fact that no operation would result in weight loss of poor dietary decisions and sedentary behavior are resumed were discussed at length and apparently understood. The patient had the option of having a oil change technician p resent and declined this option. She seemed understand her options and wanted to proceed with sleeve gastrectomy, probable hiatal hernia repair.] Procedure: [The patient was identified by myself in the preoperative holding area and again in or [address]. Patient was placed supine on the operating table. Safety straps were utilized and a footboard utilized. The patient was induced in general endotracheal anesthesia administered with excellent effect. An appropriate time-out was performed. The patient's abdomen was then widely prepped and draped in the usual manner for surgery using chlorhexidine. Antibiotics per protocol were administered by Anesthesia. After infiltrating preemptive local in the skin and subcutaneous tissues in the epigastrium approximately 10cm from the xiphoid and the midline of the epigastrium, a stab incision was made sharply in the left subcostal abdomen and the Veress needle inserted without incident. An appropriate drop test was performed then a pneumoperitoneum of 15 mmHg was obtained using carbon dioxide. Opening pressures were 9 mmHg. Next, a 5 mm 0 degree scope over a 5 mm Optiview trocar was used to access the abdomen via the epigastric incision in the midline. Once the abdomen was entered, the the trocar obturator was removed and the laparoscope was used to confirm there was no injury from the Veress needle nor trocar insertion injury to the bowel or mesentery, then the scope was switched to a 5 mm 45 degree laparoscope. Next, using preemptive local, additional 5 mm trocars were placed under direct laparoscopic vision on the patient's left abdomen, then right and the 5 mm midline trocar upsized to a 12 mm to accommodate the stapler. The patient was then positioned in reverse Trendelenburg and the liver retractor deployed through the right lateral 5 mm trocar and secured. A 40 [place] ViSiGi bougie was inserted by Anesthesia per os and advanced to the stomach to decompress. It was then withdrawn to the GE junction all under direct laparoscopic vision. Dissection was begun along the greater curvature using the 5 mm [place] LigaSure for hemostasis and continued to the left usman of the diaphragm. Dissection was then carried towards the pylorus to 3-4 cm from the pylorus and retro gastric adhesions lysed. The gastroesophageal fat pad was carefully mobilized taking care to avoid injury to the esophagus and stomach and dissection carried towards the short gastrics taking care to avoid injury to the spleen and splenic artery. The diaphragmatic hiatus was carefully examined for a hernia. Next, the 40 Fr ViSiGi bougie was advanced by anesthesia under direct vision and laparoscopic guidance and positioned in the antrum approximately 3 cm from the pylorus using laparoscopic graspers to serve as a guide for a stapled sleeve gastrectomy. Stapling was performed with [employer]- [employer] stapler with a purple 45 and then orange 45 and 60 loads. The bougie served as a guide to maintain the same sleeve caliber to avoid stricture & sleeve distortion. The 10 mm clip market research lead was used to apply additional clips to the staple line. Care was taken to be sure that the sleeve laid flat and was without stricture. Once the sleeve was complete, the portion of stomach was placed in the lower abdomen to be sent for permanent section. The staple line, gastrocolic omentum, spleen and short gastric areas were all inspected for hemostasis which was found to be good. The ViSiGi bougie used for a leak test by reducing the reverse Trendelenburg and instilling sterile saline. Anesthesia that ran of O2 at 1 L per minute via the tube and no bubbles were demonstrated from the staple line. Next, the bougie was withdrawn under laparoscopic vision used to suction the esophagus and hypopharynx and then discarded. Next, I broke scrub perform an on-table upper endoscopy to assess the sleeve and the esophagus and stomach. The patient was returned to neutral position and the Olympus 160 gastroscope was advanced taking care to preserve the endotracheal tube. The esophagus was intubated without incident. Minimal air was insufflated and the scope advanced into the newly formed sleeve. The staple line was inspected for hemostasis and the morphology of the sleeve appeared straight with a uniform diameter. Intraoperatively, there was no evidence of staple line leak seen during laparoscopy as air was insufflated via endoscope. The scope was then used to aspirate the air from the sleeve withdrawn and removed. I then rescrubbed to return to the operative field and again inspected the field for hemostasis. The patient was again placed in reverse Trendelenburg. A gastropexy was performed using 2-0 Polysorb suture to secure the sleeve gastrectomy to the gastrocolic omentum. After final assessment for hemostasis, the patient was returned to neutral position, a Amanda used to withdraw the stomach which was sent for permanent section. The fascia of the 12 mm midline was closed using an 0 Polysorb on a suture passer under direct laparoscopic vision. The abdomen was then deflated and all trocars removed. The suture was then tied and the skin closed with 4-0 Monocryl subcuticular sutures. The abdomen was then washed and dried, benzoin and Steri-Strips applied followed by Band-Aids. The patient tolerated the procedure well was then extubated the recover in stable condition. All sponge needle and instrument counts were correct x2. At the pt's request, her Cam Combs, was called at [phone] & updated of the operation & his questions answered with Margareth by telepohone.]
--- NOTE | 2022-07-27 07:12 | MHC.SHP ---
Pre-Procedural Eval Section A Date of Service: 07/27/22 The patient is an INPATIENT: Yes The History & Physical has been completed within 30 days and I have reviewed it.: Yes Section B Chief Complaint: Obesity Allergies: Allergies Allergy/AdvReac Type Severity Reaction Status Date / Time Penicillins [PENICILLINS] Allergy Severe ANAPHYLAXIS Verified 07/22/22 10:30 Sulfa (Sulfonamide Allergy Severe Angioedema Verified 07/22/22 10:30 Antibiotics) Plan I have reviewed the history and physical and performed a pertinent physical examination on my patient. No changes have occurred unless specified. Time Spent With Patient Time: Total time managing care of this patient today ____ minutes.
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
--- NOTE | 2022-07-27 10:20 | PM.DS ---
DS: Providers Provider Date of Service: 07/28/22 Date of admission: 07/27/22 05:52 Primary care physician: April Santillan MD DS: Summary Hospital Course Hospital Course: ADMITTING DIAGNOSIS: morbid obesity,?HLD, GERD, anxiety, depression, migraines, OAB DISCHARGE DIAGNOSIS: same, s/p laparoscopic sleeve gastrectomy and gastropexy PAST SURGICAL HISTORY:?tubal ligation, , cholecystectomy PROCEDURE: upper endoscopy, laparoscopic sleeve gastrectomy and gastropexy DISCHARGE SUMMARY: History of Present Illness: The patient is a? 51? year-old woman with a BMI of? ?37 ? kg/m2 and associated co-morbidities as described above. The patient had extensive work-up, lost? ?22 ? lbs preoperatively and was electively scheduled for laparoscopic, possible open sleeve gastrectomy and gastropexy. Risks and complications of the surgery were discussed with the patient in advance, particularly the possibility of , pulmonary embolism, anastomotic leak, bleeding, bowel injury, GERD, cardiac, renal or pulmonary complications. The patient understood all the risks and was in agreement with the surgical plan. Hospital Course: The patient underwent an uneventful laparoscopic sleeve gastrectomy with gastropexy on the day of admission. Postoperatively, the patient was transferred to the surgical floor. The patient received IV Acetaminophen and IV dilaudid for pain control. Patient was started on bariatric phase 1 diet POD #0. On postoperative day one, the patient was feeling well without nausea, vomiting, fevers, or tachycardia. The patient had some mild incisional pain and the abdomen was soft.? On the morning of postoperative day one, the patient was continued on 1 ounce of water or ice every half hour. During the day, the patient did fairly well, having some incisional pain, but able to ambulate adequately and to tolerate liquids well. Since the patient is doing well, we decided that the patient was ready to be discharged. The patient was given instructions to follow-up with me next week and to call my office for any fever over 101, persistent abdominal pain, nausea, vomiting, GERD, symptoms of DVT such as calf tenderness, or leg swelling, or pulmonary embolism such as chest pain or shortness of breath.? The patient was also instructed to drink 40-60 ounces of liquids per day using the 1-ounce cups. The patient had been given prescriptions for Tylenol for pain, Zofran prn for nausea, and pantoprazole and carafate previously. The patient was encouraged to ambulate and use the incentive spirometer. The patient was allowed to shower, but no baths, and encouraged to stay active at home. All of these instructions were given to the patient personally. All questions were answered and the patient understood all instructions, the instructions were also given to the patient in print. Time Spent with Patient Time attestation: Total time managing care of this patient today ____ minutes. Discharge coordination time: Less than 30 minutes Quality: Safe Use of Opioids Does Pt have an Active Cancer Diagnosis on the Problem List?: No Quality: Stroke Does the patient have a stroke diagnosis?: No Physical Exam Vital Signs: Vital Signs: Last Vital Signs Temp 97.6 F 07/27/22 10:02 Pulse 82 07/27/22 10:17 Resp 16 07/27/22 10:17 BP 104/51 L 07/27/22 10:17 Pulse Ox 97 07/27/22 10:17 O2 Del Method 07/27/22 10:17 O2 Flow Rate 2 07/27/22 10:17 BMI result Body Mass Index 37.0 DS: Data Data Completed and Pending Pending studies at discharge: Pending at discharge 07/27/22 09:12 Surgical [PTH] Routine Labs on day of discharge: Laboratory Results - last 24 hr 07/25/22 07/26/22 08:41 13:46 PTH Intact 143 H Calcium (PTH Intact) 9.4 COVID-19 (JEAN MARIE) Negative COVID-19 Clin Com See Note Discharge Plan Discharge Anticipated Discharge Date/Time: 07/28/22 10:00 Patient Disposition: Home, Self-Care Discharge Diagnosis: s/p laparoscopic sleeve gastrectomy with gastropexy Referrals: Tyrell,April Miller MD [Primary Care Provider] - 1 Week Discharge Medications: Continued albuterol sulfate 90 mcg/actuation HFA aerosol inhaler 2 puff inhalation Q4-6H PRN (Reason: shortness of breath or wheezing) Qty: 6.7 0RF fluticasone propionate [Flonase Allergy Relief] 50 mcg/actuation spray,suspension 2 spray intranasal DAILY Qty: 16 0RF Rx Instructions: administer into each nostril clonazepam 1 mg tablet 1 mg PO BID zolpidem 10 mg tablet 10 mg PO BEDTIME PRN (Reason: Sleep) pantoprazole 40 mg tablet,delayed release (DR/EC) 40 mg PO QAM 30 Days Qty: 30 2RF acetaminophen 500 mg/15 mL liquid 500 mg PO Q6H PRN (Reason: fever or pain) Qty: 237 2RF Discontinued cyanocobalamin (vitamin B-12) 500 mcg tablet 500 mcg PO DAILY Qty: 30 3RF cholecalciferol (vitamin D3) 125 mcg (5,000 unit) capsule 125 mcg PO DAILY Qty: 30 3RF thiamine HCl (vitamin B1) 100 mg tablet 100 mg PO DAILY Qty: 30 2RF pantoprazole 40 mg tablet,delayed release (DR/EC) 40 mg PO DAILY Qty: 14 0RF magnesium 200 mg tablet 200 mg PO DAILY Adult 50 Plus Probiotic 4 billion cell capsule 1 mmu cells PO DAILY Discharge Orders: Discharge Order (Routine); Ordered 07/28/22 Ordered By: Dianne Peoples Diet: follow diet instructions Activity on Discharge: No heavy lifting Stand Alone Forms: Patient Portal Discharge page Care Plan Goals: weight loss Health Concerns: obesity Plan of Treatment: No tub baths, sex or returning to work until discussed at first post op appointment. No alcohol, tobacco or illegal drug use. Continue to use incentive spirometer hourly while awake. Walk in home for 5- 10 minutes every 2 hours during the first week. Wear abdominal binder with activity. Follow all meal plan instructions from your bariatric surgeon. Review bariatric handbook and call with any questions. Discharge Instructions 1. Please call your doctor or come back to the emergency room should any new symptoms arise. 2. Activity: abstain from alcohol,? limited stair climbing, no bending, no driving, no exercise, no illicit substances, no lifting, no sex, no tub bath, no work. 4. Diet: follow your bariatric surgeons recommendations for advancing diet. 5. Dressing Change/Wound Care: Your incisions are covered with waterproof dressings. You can shower with these and pat dry. Do not rub over dressings or incisions. If the area is tender, you may apply an ice pack for short intervals (no more than 20 minutes on, followed by at least 20 minutes off). Do not apply heat. Do not use creams, lotions, or topical antibiotics unless instructed to do so by your surgeon. 6. Call your doctor if: - Your temperature exceeds 101.5 F - You experience excessive pain or swelling - You have an unexpected reaction to medication - You have excessive bleeding - You experience continued vomiting/nausea - Your incision begins to separate - Your incision shows signs of infection such as increased redness, swelling, excessive pain, heat, or drainage (light blood or clear fluid is normal) General instructions: No lifting greater than 10 lbs for the next 6 weeks. No driving within 24 hours of taking narcotic pain medications. If you do not move your bowels in the next 2 days, please take milk of magnesia over the counter. Please follow the post op diet and do not advance your diet until you are seen in the office in about 2 weeks. Please walk around your home every hour or two to prevent blood clots from forming in your legs. You do not need to wake from sleeping to walk. Please sleep in a bed or couch to prevent kinking at the hips and knees. Please take your incentive spirometer (your lung plant scientist) home with you and use it for the next few days to prevent pneumonias. You may shower, no hot tubs, baths or swimming pools. Please call the office with any questions or concerns such as increasing abdominal pain, fever, chills, shortness of breath, chest pain, leg pain or swelling, or redness or drainage from your incisions. Please make sure you are consuming 40-60 ounces of total fluids per day. Avoid all carbonation. Do not hesitate to contact the office with any questions at . The patient's medical history has been reviewed and they are considered low risk for post op DVT and therefore DVT prophylaxis is not considered necessary. Travel after surgery was reviewed. The patient has not disclosed any travel plans during the first 30 days after surgery and they have been advised that within the first 30 days after surgery any bus, plane, train or car travel over 2 hours in duration is contraindicated due to the possibility of developing blood clots from immobility. Any travel, needs to include periods of ambulation of 10 minutes in duration every 2 hours.? The patient was instructed to discuss any plans for travel during this period with their bariatric surgeon. Assessment: s/p laparoscopic sleeve gastrectomy with gastropexy Discharge Date/Time: 07/28/22 09:32
[2022-07-27 10:48] LABS: Hematocrit 38.6 % (37.0-47.0); Hemoglobin 12.8 g/dl (12.0-16.0)
[2022-07-27 11:03] LABS: Anion Gap 11 (12-20); Blood Urea Nitrogen 8 mg/dL (9-16); Calcium 8.6 mg/dL (8.4-10.2); Carbon Dioxide 25 mmol/L (22-29); Chloride 108 mmol/L (96-108); Estimated Glomerular Filt Rate > 60; Glucose Random 130 mg/dL (60-115); Potassium 3.8 mmol/L (3.3-5.1); Sodium 140 mmol/L (135-145)
[2022-07-27] MEDS: Lactated Ringers 1,000 ML 100 ML IVCONT ×2 (12:03→21:12)
[2022-07-27] MEDS: Acetaminophen 1,000 MG/100 ML PIGGYBACK 16.7 MG IV ×3 (12:08→23:24)
--- NOTE | 2022-07-27 12:41 | P.PNGS_ITS ---
Subjective Subjective Date of Service: 07/27/22 Patient reports: still having pain Interval history: The patient's , Cam, is at the bedside. Patient reports expected upper abdominal/lower chest discomfort and is somnolent but not having any difficulties with water. She has been up to the bathroom. Physical Exam Vital Signs: Vital Signs: Last Vital Signs Temp 96.8 F 07/27/22 12:03 Pulse 67 07/27/22 12:03 Resp 16 07/27/22 12:03 BP 111/57 L 07/27/22 12:03 Pulse Ox 94 07/27/22 12:03 O2 Del Method 07/27/22 12:03 O2 Flow Rate 2 07/27/22 11:40 BMI result Body Mass Index 37.0 Patient appears sleepy but is nontoxic She is in no acute respiratory distress Dressing/abdominal binder is intact Objective Data Active Medications Albuterol Sulfate (Albuterol Sulfate 90 Mcg 8 Gm Inhaler) 2 puff INHALE Q4H PRN PRN Reason: shortness of breath or wheezing Clonazepam (Clonazepam 1 Mg Tablet) 1 mg PO BID PRN PRN Reason: Anxiety Famotidine (Famotidine/Pf 20 Mg/2 Ml Vial) 20 mg IVPUSH BID [facility] Fluticasone Propionate (Fluticasone Propionate Nasal 16 Gm [place]) 2 spray NOSTRIL-B DAILY [facility] Hydromorphone HCl (Hydromorphone Hcl 0.5 Mg/0.5 Ml Syringe) 0.25 mg IVPUSH Q4H PRN; Protocol PRN Reason: Pain, Moderate (Pain Scale 4-6 Lactated Ringer's (Lr) 1,000 mls @ 100 mls/hr IVCONT .Q10H [facility] Last Admin: 07/27/22 12:03 Dose: 100 mls/hr Documented By: LARA Acetaminophen (Ofirmev) 1,000 mg in 100 mls @ 16.7 mls/hr IV .Q6H [facility] Last Admin: 07/27/22 12:08 Dose: 16.7 mls/hr Documented By: LARA Metoclopramide HCl (Metoclopramide Hcl 10 Mg/2 Ml Vial) 10 mg IVPUSH Q6H PRN PRN Reason: Nausea Ondansetron HCl (Ondansetron Hcl 4 Mg/2 Ml Vial) 4 mg IVPUSH Q8H [facility] Last Admin: 07/27/22 12:15 Dose: Not Given Documented By: LARA Non-Admin Reason: given in OR Sodium Chloride (0.9 % Sodium Chloride Flush 3 Ml Syringe) 3 ml IVFLUSH QSHIFT [facility] Zolpidem Tartrate (Zolpidem Tartrate 5 Mg Tablet) 10 mg PO BEDTIME PRN PRN Reason: Sleep Labs 07/27/22 10:34 07/27/22 10:34 Labs: Laboratory Results - last 24 hr 07/26/22 07/27/22 13:46 10:34 Anion Gap 11 L Estim Creat Clear Calc 92.0 Estimated GFR > 60 Random Glucose 130 H Calcium 8.6 COVID-19 (JEAN MARIE) Negative COVID-19 Clin Com See Note Procedures Date of Service Date of Service: 07/27/22 Progress Note: A&P Assessment and plan (1) S/P laparoscopic sleeve gastrectomy: Status: Acute (2) Hypercholesteremia: Status: Acute (3) Morbid obesity: Status: Acute Plan See orders Sips H2O per bariatric protocol trend labs & exam Time Spent With Patient Time: Total time managing care of this patient today ____ minutes. Quality Stroke Does the patient have a stroke diagnosis?: No VTE Prior VTE?: No VTE Risk Level:: Surgical - moderate VTE Device Contraindication: N/A - Device Ordered VTE Drug Contraindication: Treatment Not Indicated
--- NOTE | 2022-07-27 12:56 | MHC.CM.PN ---
pt dcd home no skilled servcies ordered by
[2022-07-27] MEDS: ondansetron HCL 4 MG/2 ML VIAL IVPUSH ×2 (14:06→19:44)
[2022-07-27] MEDS: Metoclopramide HCl 10 MG/2 ML VIAL IVPUSH (15:37)
[2022-07-27 17:09] LABS: Zinc 71 mcg/dL (60-130)
[2022-07-27] MEDS: Famotidine/PF 20 MG/2 ML VIAL IVPUSH (19:43)
[2022-07-27] MEDS: 0.9 % Sodium Chloride Flush 3 ML SYRINGE IVFLUSH (19:44)
[2022-07-28] MEDS: ondansetron HCL 4 MG/2 ML VIAL IVPUSH (03:07)
[2022-07-28 03:22] VITALS: BP 95/53; PULSE 67; RESP 18; TEMP 36.9; O2SAT 94
[2022-07-28] MEDS: Acetaminophen 1,000 MG/100 ML PIGGYBACK 16.7 MG IV (05:07)
[2022-07-28] MEDS: Lactated Ringers 1,000 ML 100 ML IVCONT (05:09)
[2022-07-28 06:04] LABS: MANUAL DIFF FLAG NO
[2022-07-28 06:05] LABS: Vitamin A 32 mcg/dL (38-98)
[2022-07-28 06:11] LABS: Basophils Percent Auto 0.1 % (0-2); Hematocrit 36.4 % (37.0-47.0); Hemoglobin 11.8 g/dl (12.0-16.0); Imm Gran Abs Auto 0.04 X10*3/uL (0.00-0.03); Imm Gran Pct Auto 0.4 % (0.0-0.4); Lymphocytes Absolute Auto 1.1 X10*3/uL (1.2-4.9); Mean Corpuscular HGB Conc 32.4 g/dl (31.0-35.0); Mean Corpuscular Volume 92.6 fL (80.0-98.0); Mean Platelet Volume 9.6 fL (9.4-12.3); Monocytes Absolute Auto 0.5 X10*3/uL (0.1-1.2); Monocytes Percent Auto 4.9 % (2-11); Neutrophils Absolute Auto 8.9 x10*3/uL (2.0-8.3); Neutrophils Percent Auto 84.6 % (45-73); Platelet Count 326 X10*3/uL (160-400); Red Blood Count 3.93 X10*6/uL (4.20-5.50); Red Cell Distribution Width 12.7 % (11.0-16.0); White Blood Count 10.5 X10*3/uL (4.8-10.8)
[2022-07-28 06:23] LABS: Anion Gap 14 (12-20); Blood Urea Nitrogen 8 mg/dL (9-16); Calcium 8.8 mg/dL (8.4-10.2); Carbon Dioxide 25 mmol/L (22-29); Chloride 107 mmol/L (96-108); Creatinine Clr Calc Pharmacy 84.2; Estimated Glomerular Filt Rate > 60; Glucose Random 80 mg/dL (60-115); Potassium 4.9 mmol/L (3.3-5.1); Sodium 141 mmol/L (135-145)
--- NOTE | 2022-07-28 06:43 | P.PNGS_ITS ---
Subjective Subjective Date of Service: 07/28/22 Patient reports: no new complaints, feels better and tolerating liquids well Interval history: The patient is seen with her at the bedside. In [place], she reported that she is doing very well, feels better and is hopeful to be discharged. She denies any pain with swallowing, difficulty breathing, shortness of breath or regurgitation. She denies GERD. Physical Exam Vital Signs: Vital Signs: Last Vital Signs Temp 98.4 F 07/28/22 03:22 Pulse 67 07/28/22 03:22 Resp 18 07/28/22 03:22 BP 95/53 L 07/28/22 03:22 Pulse Ox 94 07/28/22 03:22 O2 Del Method 07/28/22 03:22 O2 Flow Rate 2 07/27/22 11:40 BMI result Body Mass Index 37.0 Abdominal binder is intact Objective Data Active Medications Albuterol Sulfate (Albuterol Sulfate 90 Mcg 8 Gm Inhaler) 2 puff INHALE Q4H PRN PRN Reason: shortness of breath or wheezing Clonazepam (Clonazepam 1 Mg Tablet) 1 mg PO BID PRN PRN Reason: Anxiety Famotidine (Famotidine/Pf 20 Mg/2 Ml Vial) 20 mg IVPUSH BID [facility] Last Admin: 07/27/22 19:43 Dose: 20 mg Documented By: ROMY Fluticasone Propionate (Fluticasone Propionate Nasal 16 Gm [place]) 2 spray NOSTRIL-B DAILY [facility] Hydromorphone HCl (Hydromorphone Hcl 0.5 Mg/0.5 Ml Syringe) 0.25 mg IVPUSH Q4H PRN; Protocol PRN Reason: Pain, Moderate (Pain Scale 4-6 Lactated Ringer's (Lr) 1,000 mls @ 100 mls/hr IVCONT .Q10H [facility] Last Admin: 07/28/22 05:09 Dose: 100 mls/hr Documented By: ROMY Acetaminophen (Ofirmev) 1,000 mg in 100 mls @ 16.7 mls/hr IV .Q6H [facility] Last Admin: 07/28/22 05:07 Dose: 16.7 mls/hr Documented By: ROMY Metoclopramide HCl (Metoclopramide Hcl 10 Mg/2 Ml Vial) 10 mg IVPUSH Q6H PRN PRN Reason: Nausea Last Admin: 07/27/22 15:37 Dose: 10 mg Documented By: LARA Ondansetron HCl (Ondansetron Hcl 4 Mg/2 Ml Vial) 4 mg IVPUSH Q8H [facility] Last Admin: 07/28/22 03:07 Dose: 4 mg Documented By: ROMY Sodium Chloride (0.9 % Sodium Chloride Flush 3 Ml Syringe) 3 ml IVFLUSH QSHIFT [facility] Last Admin: 07/28/22 06:31 Dose: Not Given Documented By: NISA Non-Admin Reason: IV Running Zolpidem Tartrate (Zolpidem Tartrate 5 Mg Tablet) 10 mg PO BEDTIME PRN PRN Reason: Sleep Labs 07/28/22 05:00 07/28/22 05:00 Labs: Laboratory Results - last 24 hr 07/25/22 07/25/22 07/27/22 08:41 08:41 10:34 MCV MCH MCHC RDW Plt Count MPV Immature Gran % (Auto) Neut % (Auto) Lymph % (Auto) [place] % (Auto) Eos % (Auto) Baso % (Auto) Lymph # (Auto) [place] # (Auto) Eos # (Auto) Baso # (Auto) Abs Immat Gran (auto) Absolute Neuts (auto) Absolute Nucleated RBC Nucleated RBC % (auto) Anion Gap 11 L Estim Creat Clear Calc 92.0 Estimated GFR > 60 Random Glucose 130 H Calcium 8.6 Vitamin A 32 L Zinc 71 07/28/22 07/28/22 05:00 05:00 MCV 92.6 MCH 30.0 MCHC 32.4 RDW 12.7 Plt Count 326 MPV 9.6 Immature Gran % (Auto) 0.4 Neut % (Auto) 84.6 H Lymph % (Auto) 10.0 L [place] % (Auto) 4.9 Eos % (Auto) 0.0 Baso % (Auto) 0.1 Lymph # (Auto) 1.1 L [place] # (Auto) 0.5 Eos # (Auto) 0.0 Baso # (Auto) 0.0 Abs Immat Gran (auto) 0.04 H Absolute Neuts (auto) 8.9 H Absolute Nucleated RBC 0.000 Nucleated RBC % (auto) 0.0 Anion Gap 14 Estim Creat Clear Calc 84.2 Estimated GFR > 60 Random Glucose 80 Calcium 8.8 Vitamin A Zinc Procedures Date of Service Date of Service: 07/28/22 Progress Note: A&P Assessment and plan (1) S/P laparoscopic sleeve gastrectomy: Status: Acute (2) Hypercholesteremia: Status: Acute (3) Generalized anxiety disorder: Status: Acute Plan Plan for discharge after the PA provides written & verbal diet instruction later this morning, Follow-up in surgical weight loss clinic in 1 week. Time Spent With Patient Time: Total time managing care of this patient today ____ minutes. Quality Stroke Does the patient have a stroke diagnosis?: No VTE Prior VTE?: No VTE Risk Level:: Surgical - moderate VTE Device Contraindication: N/A - Device Ordered VTE Drug Contraindication: Treatment Not Indicated
[2022-07-28 07:13] VITALS: BP 110/54; PULSE 61; RESP 17; TEMP 36.3; O2SAT 97
[2022-07-28] MEDS: Famotidine/PF 20 MG/2 ML VIAL IVPUSH (07:14)
--- NOTE | 2022-07-28 14:01 | HO.POSTANES ---
Post Anesthesia Evaluation Post Anesthesia Evaluation Vital Signs: Vital Signs Temp Pulse Resp BP Pulse Ox O2 Del Method 07/28/22 07:13 97.4 F 61 17 110/54 L 97 Room Air 07/28/22 06:52 Room Air 07/28/22 03:22 98.4 F 67 18 95/53 L 94 Room Air Anesthesia: General Endotracheal-GETA Mental Status: Awake Pain Control: Satisfactory Nausea/Vomiting: None Hydration: Adequate Anesthesia-Related Issues: No Anes. Related Issues
[2022-07-29 07:43] LABS: Vitamin B1 23 nmol/L (8-30)
== END 2022-07-28 09:32 | disposition home or self-care (01) | DRG 403 ==
LOC: HO.SSSA 10:16 → HO.S3 10:54
PROVIDERS: Physician Assistant Surgical; Admitting Provider Surgery; PCP Internal Medicine; Visit Provider Surgery
PROC: 0DB64Z3 Excision of Stomach, Percutaneous Endoscopic Approach, Vertical (ICD-10-PCS; CPT 43845; principal; 2022-07-27 07:30)
DX: E66.01 Morbid (severe) obesity due to excess calories (principal); E78.00 Pure hypercholesterolemia, unspecified; F41.9 Anxiety disorder, unspecified; N32.81 Overactive bladder; F32.A Depression, unspecified; K21.9 Gastro-esophageal reflux disease without esophagitis; Z20.822 Contact with and (suspected) exposure to COVID-19; Z68.37 Body mass index [BMI] 37.0-37.9, adult; Z88.0 Allergy status to penicillin; Z88.2 Allergy status to sulfonamides; Z79.51 Long term (current) use of inhaled steroids; Z79.899 Other long term (current) drug therapy
CPT/HCPCS: 36415; 80048; 80053; 80061; 82306; 82607; 82728; 83036; 83540; 83970; 84425; 84443; 84590; 84630; 85014; 85018; 85025; 85610; 85730; 86140; 86850; 86900; 86901; 87635; 88307; 88342; C9088; J0131; J1100; J1170; J1956; J2250; J2370; J2405; J2765; J3010

== ENCOUNTER → 2022-08-02 09:48 | Outpatient (BNVA) | payer OTHER, SELFPAY | PROVIDERS: PCP Internal Medicine; Visit Provider Physician Assistant Surgical | DX: E66.9 Obesity, unspecified (principal); Z68.35 Body mass index [BMI] 35.0-35.9, adult; Z98.84 Bariatric surgery status | CPT/HCPCS: 99212 ==

== ENCOUNTER 2022-08-02 11:12 | Outpatient (REF) | payer OTHER, SELFPAY ==
--- NOTE | 2022-08-02 11:19 | ECG_ITS ---
Test Reason : r00.0 tachycardia Blood Pressure : / mmHG Vent. Rate : 072 BPM Atrial Rate : 072 BPM P-R Int : 138 ms QRS Dur : 072 ms QT Int : 396 ms P-R-T Axes : 032 026 030 degrees QTc Int : 433 ms Normal sinus rhythm Low voltage QRS Borderline ECG When compared with ECG of 25-FEB-2022 08:23, No significant change was found Referred By: Medina Franks Electronically Signed By:Carter Israel
== END 2022-08-02 11:13 | disposition home or self-care (01) ==
LOC: HO.XRAY 11:12
PROVIDERS: PCP Internal Medicine; Visit Provider Surgery
DX: R00.0 Tachycardia, unspecified (principal)
CPT/HCPCS: 93005

== ENCOUNTER → 2022-08-16 10:27 | Outpatient (BNVA) | payer OTHER, SELFPAY | PROVIDERS: PCP Internal Medicine; Visit Provider Physician Assistant Surgical | DX: Z98.84 Bariatric surgery status (principal) | CPT/HCPCS: 99212 ==

== ENCOUNTER 2022-08-23 11:33 | Day surgery (SDC) | payer OTHER, SELFPAY ==
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
[2022-08-23 12:01] VITALS: BMI 34.7
[2022-08-23 12:07] VITALS: BMI 34.7
[2022-08-23 12:08] VITALS: BP 127/67; PULSE 66; RESP 16; TEMP 35.9; O2SAT 99
[2022-08-23] MEDS: Lactated Ringers 1,000 ML 20 ML IVCONT (12:26)
--- NOTE | 2022-08-23 12:29 | MHC.SHP ---
Pre-Procedural Eval Section A Date of Service: 08/23/22 The patient is an INPATIENT: No Changes since office visit: No Cold of Flu in the past 2 weeks, No New Medical Problems, No Changes in Medication and No Patient answered all questions The History & Physical has been completed within 30 days and I have reviewed it.: Yes Section B Chief Complaint: Hemorrhage of anus and rectum Allergies: Allergies Allergy/AdvReac Type Severity Reaction Status Date / Time Penicillins [PENICILLINS] Allergy Severe ANAPHYLAXIS Verified 08/16/22 10:30 Sulfa (Sulfonamide Allergy Severe Angioedema Verified 08/16/22 10:30 Antibiotics) Plan I have reviewed the history and physical and performed a pertinent physical examination on my patient. No changes have occurred unless specified. Time Spent With Patient Time: Total time managing care of this patient today ____ minutes.
[2022-08-23 13:08] VITALS: BP 106/57; PULSE 72; RESP 16; TEMP 36.1; O2SAT 96
--- NOTE | 2022-08-23 13:08 | PM.OP ---
Brief Operative Note Date of Service: 08/23/22 Pre-op diagnosis: rectal bleeding diverticulitis Post-op diagnosis: same Procedure: colonosocopy Surgeon: Kirk Stanton Anesthesia: MAC Was an Wound Care Physician used for this Procedure?: No Estimated blood loss (mL): 5 Pathology: other Condition: stable Disposition: PACU
[2022-08-23 13:22] VITALS: BP 118/70; PULSE 67; RESP 16; O2SAT 98
--- NOTE | 2022-08-23 13:33 | OP_ITS ---
DATE OF SERVICE: 08/23/2022 SURGEON: Kirk Stanton MD INDICATIONS: Diverticulitis and rectal bleeding. PREOPERATIVE DIAGNOSIS: POSTOPERATIVE DIAGNOSIS: PROCEDURE PERFORMED: Colonoscopy to the terminal ileum with snare polypectomy and cauterization of colon polyp. ESTIMATED BLOOD LOSS: COMPLICATIONS: ANESTHESIA: Monitored anesthesia care. ASSISTANTS: SPECIMENS: DESCRIPTION OF PROCEDURE: A history and physical was performed. The risks and benefits of the procedure were explained to the patient. Informed consent was obtained. The patient was placed in the left lateral decubitus position. A digital rectal exam was performed and was found to be normal. The Olympus pediatric video colonoscope was introduced into the rectum and advanced to the cecum without difficulty. The cecum was identified by transillumination, palpation, and identification of the ileocecal valve. Examination was performed. The scope was removed. She tolerated the procedure well and was returned to the recovery area in stable condition. FINDINGS: The terminal ileum was examined and appeared normal. The visualized colonic mucosa was within normal limits without evidence of masses or ulcers. There was some mild right-sided diverticulosis, and there was left-sided diverticulosis extending from about 60 to 40 cm. There was no evidence of diverticulitis. This was also mild on the left side. In the rectum was an 8 mm polyp, which was removed with a cold snare and the base was cauterized for some mild oozing, which was stable at the termination of the procedure. No other polyps were identified. The quality of the prep was good. There were internal hemorrhoids noted on retroflexed examination as well. IMPRESSION: 1. Diverticulosis. 2. Colon polyp. RECOMMENDATION: Follow up the biopsy results. MD SARA Nava/ARACELY / [id number]
[2022-08-23 13:34] VITALS: BP 113/69; PULSE 53; RESP 16; TEMP 36.3; O2SAT 98
== END 2022-08-23 14:01 | disposition home or self-care (01) ==
PROVIDERS: PCP Internal Medicine; Visit Provider Internal Medicine Gastroenterology
PROC: 0DJD8ZZ Inspection of Lower Intestinal Tract, Via Natural or Artificial Opening Endoscopic (ICD-10-PCS; CPT 45378; principal; 2022-08-23 12:40)
DX: K62.5 Hemorrhage of anus and rectum (principal); Z86.010 Personal history of colon polyps; K62.1 Rectal polyp; K57.30 Diverticulosis of large intestine without perforation or abscess without bleeding; K64.8 Other hemorrhoids; Z87.19 Personal history of other diseases of the digestive system; K21.9 Gastro-esophageal reflux disease without esophagitis; G43.909 Migraine, unspecified, not intractable, without status migrainosus; F41.8 Other specified anxiety disorders; Z79.899 Other long term (current) drug therapy; Z88.0 Allergy status to penicillin; Z88.2 Allergy status to sulfonamides; Z98.84 Bariatric surgery status
CPT/HCPCS: 45385; 88305

== ENCOUNTER → 2022-09-02 10:24 | Outpatient (BNVA) | payer OTHER, SELFPAY | PROVIDERS: PCP Internal Medicine; Visit Provider Physician Assistant Surgical | DX: E66.9 Obesity, unspecified (principal); Z68.33 Body mass index [BMI] 33.0-33.9, adult; Z98.84 Bariatric surgery status | CPT/HCPCS: 99212 ==

== ENCOUNTER → 2022-10-07 10:21 | Outpatient (BNVA) | payer OTHER, SELFPAY | PROVIDERS: PCP Internal Medicine; Referring Provider Internal Medicine; Visit Provider Physician Assistant Surgical | DX: E66.9 Obesity, unspecified (principal); Z68.32 Body mass index [BMI] 32.0-32.9, adult; Z98.84 Bariatric surgery status | CPT/HCPCS: 99212 ==

== ENCOUNTER 2022-10-19 12:58 | Outpatient (REF) | payer OTHER, SELFPAY ==
--- NOTE | ~2022-10-19 | MM_ITS ---
EXAMINATION: MM SCREENING DIGITAL BREAST TOMOSYNTHESIS, BILATERAL CLINICAL INFORMATION: Screening. Asymptomatic. The lifetime risk of breast cancer based on the Tyrer-Cuzick Model is 6%. COMPARISON: Mammography: 05/01/2018 TECHNIQUE: Digital breast tomosynthesis is performed in both the craniocaudal and mediolateral oblique views along with computer-aided detection (CAD). Synthesized 2D images are generated from the tomosynthesis. FINDINGS: The breasts are heterogeneously dense, which may obscure small masses (ACR BI-RADS breast composition Category c). Breast tissue composition borders on extremely dense. Parenchymal pattern is similar to prior studies and there is no significant mass, developing density, or architectural abnormality. Again, there are diffuse bilateral punctate round calcifications in both breasts, symmetrically increased in number on both sides since prior exam 2018. No focal grouping or no focal suspicious change. The axilla and skin contours are unremarkable. MM/MM tomosynthesis screening BI IMPRESSION: No significant changes from prior exam 2018. ASSESSMENT: BI-RADS 2: Benign RECOMMENDATION: Routine annual mammography screening. This patient's information was entered into a reminder system with a target due date for their next mammogram.
== END 2022-10-19 12:59 | disposition home or self-care (01) ==
LOC: HO.MAMMO 12:58
PROVIDERS: PCP Internal Medicine; Visit Provider Internal Medicine
DX: Z12.31 Encounter for screening mammogram for malignant neoplasm of breast (principal)
CPT/HCPCS: 77063; 77067

== ENCOUNTER → 2022-11-08 10:38 | Outpatient (BNVA) | payer OTHER, SELFPAY | PROVIDERS: PCP Internal Medicine; Visit Provider Physician Assistant Surgical | DX: E66.9 Obesity, unspecified (principal); Z68.32 Body mass index [BMI] 32.0-32.9, adult; Z98.84 Bariatric surgery status | CPT/HCPCS: 99212 ==

== ENCOUNTER 2022-11-11 15:24 | Emergency (ER) | payer OTHER, SELFPAY ==
[2022-11-11 15:35] VITALS: BP 112/66; PULSE 80; O2SAT 99
[2022-11-11 15:49] VITALS: BP 128/67; PULSE 74; RESP 18; TEMP 36.8; O2SAT 100; BMI 31.9
--- NOTE | 2022-11-11 15:50 | ED.GENADULT ---
HPI - General Adult General Chief complaint: Syncope Stated complaint: NEAR SYNCOPAL EPISODE Time Seen by Provider: 11/11/22 22:32 Related Data Home Medications Medication Instructions Recorded Confirmed clonazepam 1 mg tablet 1 mg PO BID 05/08/20 11/08/22 zolpidem 10 mg tablet 10 mg PO BEDTIME PRN Sleep 03/08/22 11/08/22 sertraline 100 mg tablet 100 mg PO DAILY 09/06/22 11/08/22 Previous Rx's Medication Instructions Recorded albuterol sulfate 90 mcg/actuation 2 puff inhalation Q4-6H PRN 03/29/21 aerosol inhaler shortness of breath or wheezing #6.7 grams fluticasone propionate 50 2 spray intranasal DAILY #16 grams 03/29/21 mcg/actuation nasal spray,suspension (Flonase Allergy Relief) Allergies Allergy/AdvReac Type Severity Reaction Status Date / Time Penicillins [PENICILLINS] Allergy Severe ANAPHYLAXIS Verified 11/11/22 15:53 Sulfa (Sulfonamide Allergy Severe Angioedema Verified 11/11/22 15:53 Antibiotics) [facility] Past Medical History Medical History Acute diverticulitis Anxiety and depression GERD (gastroesophageal reflux disease) Helicobacter pylori gastritis Hematuria Hiatal hernia History of COVID-19 Loss of hearing Low back pain Migraine Neck pain Obesity (BMI 30-39.9) Osteoarthritis Osteoarthritis of left knee Palpitations Post covid-19 condition, unspecified Recurrent UTI Stress incontinence Trapezius muscle spasm Tubular adenoma Vision changes Surgical History H/O colonoscopy H/O gastric sleeve H/O tubal ligation History of section History of cholecystectomy History of esophagogastroduodenoscopy (EGD) History of tonsillectomy Family History Family History Father CVD (cardiovascular disease) Diabetes History of open heart surgery Mother Alive and well CVD (cardiovascular disease) Diabetes Thyroid condition Maternal Aunt Colon cancer Son Mental health disorder Maternal Grandmother Colon cancer Social History Social History Household Members: Spouse Housing: House Are you a primary neonatal critical care nurse to a significant other at home: No Do you presently have visiting nurse or other home services: No Alcohol intake: former Patient Tobacco Use Status: Never used Tobacco e-Cigarette/Vaping Use: Never Used Second Hand Smoke Exposure: No Advance Directives: No Advance Directives Information Provided: No service: No Current occupational status: unemployed Current occupation: right hand dominant Cognitive needs: No Hearing needs: No Vision needs: No Physical Exam ED Vital Signs: BMI result Body Mass Index 31.9 Course Course Course Narrative: RME performed by Surekha Chacon PA-C. Patient is a 51 year old assigned female at presenting to the emergency department after multiple syncopal episodes. Labs ordered. Patient placed back in the waiting room pending room availability and results. Please refer to Dr. Fox's note. Patient was seen and discharged by Dr. Fox. Dr. Fox created, completed, and signed his own note. Medical Decision Making Lab Data 11/11/22 16:16 11/11/22 16:16 Labs: Lab Results 11/11/22 11/11/22 11/11/22 Range/Units 16:16 16:16 16:16 WBC 7.2 (4.8-10.8) X10*3/uL RBC 4.49 (4.20-5.50) X10*6/uL Hgb 13.7 (12.0-16.0) g/dl Hct 42.0 (37.0-47.0) % MCV 93.5 (80.0-98.0) fL MCH 30.5 (27.0-33.0) pg MCHC 32.6 (31.0-35.0) g/dl RDW 13.4 (11.0-16.0) % Plt Count 309 (160-400) X10*3/uL MPV 9.5 (9.4-12.3) fL Immature Gran % (Auto) 0.6 H (0.0-0.4) % Neut % (Auto) 75.3 H (45-73) % Lymph % (Auto) 17.2 L (20-40) % [place] % (Auto) 4.6 (2-11) % Eos % (Auto) 1.9 (0-4) % Baso % (Auto) 0.4 (0-2) % Lymph # (Auto) 1.2 (1.2-4.9) X10*3/uL [place] # (Auto) 0.3 (0.1-1.2) X10*3/uL Eos # (Auto) 0.1 (0.0-0.4) X10*3/uL Baso # (Auto) 0.0 (0.0-0.2) X10*3/uL Abs Immat Gran (auto) 0.04 H (0.00-0.03) X10*3/uL Absolute Neuts (auto) 5.4 (2.0-8.3) x10*3/uL Absolute Nucleated RBC 0.000 (0.0-0.012) X10*3/uL Nucleated RBC % (auto) 0.0 (0.0-0.2) /100WBC Sodium 140 (135-145) mmol/L Potassium 3.8 D (3.3-5.1) mmol/L Chloride 106 (96-108) mmol/L Carbon Dioxide 24 (22-29) mmol/L Anion Gap 14 (12-20) BUN 14 (9-16) mg/dL Creatinine 0.83 (0.5-1.4) mg/dL Estim Creat Clear Calc 76.8 Estimated GFR > 60 Random Glucose 91 (60-115) mg/dL Calcium 10.0 D (8.4-10.2) mg/dL Magnesium 2.0 (1.6-2.6) mg/dL Total Bilirubin 0.6 (0.0-1.0) mg/dL AST 22 (5-31) U/L ALT 17 (0-31) U/L Alkaline Phosphatase 81 (39-117) U/L Troponin I High Sens < 2.7 (<3.5-17.0) ng/L Total Protein 7.2 (6.5-8.0) g/dL Albumin 4.2 (3.5-5.0) g/dL Urine Color Urine Appearance Urine pH (5.0-9.0) Ur Specific [place] (1.005-1.025) Urine Protein (Neg-Trace) mg/dL Urine Glucose (UA) (Negative) mg/dL Urine Ketones (Negative) mg/dL Urine Blood (Negative) Urine Nitrite (Negative) Ur Leukocyte Esterase (Negative) COVID-19 (JEAN MARIE) (Negative) COVID-19 Clin Com 06/23/23 06/23/23 Range/Units 16:16 20:39 WBC (4.8-10.8) X10*3/uL RBC (4.20-5.50) X10*6/uL Hgb (12.0-16.0) g/dl Hct (37.0-47.0) % MCV (80.0-98.0) fL MCH (27.0-33.0) pg MCHC (31.0-35.0) g/dl RDW (11.0-16.0) % Plt Count (160-400) X10*3/uL MPV (9.4-12.3) fL Immature Gran % (Auto) (0.0-0.4) % Neut % (Auto) (45-73) % Lymph % (Auto) (20-40) % [place] % (Auto) (2-11) % Eos % (Auto) (0-4) % Baso % (Auto) (0-2) % Lymph # (Auto) (1.2-4.9) X10*3/uL [place] # (Auto) (0.1-1.2) X10*3/uL Eos # (Auto) (0.0-0.4) X10*3/uL Baso # (Auto) (0.0-0.2) X10*3/uL Abs Immat Gran (auto) (0.00-0.03) X10*3/uL Absolute Neuts (auto) (2.0-8.3) x10*3/uL Absolute Nucleated RBC (0.0-0.012) X10*3/uL Nucleated RBC % (auto) (0.0-0.2) /100WBC Sodium (135-145) mmol/L Potassium (3.3-5.1) mmol/L Chloride (96-108) mmol/L Carbon Dioxide (22-29) mmol/L Anion Gap (12-20) BUN (9-16) mg/dL Creatinine (0.5-1.4) mg/dL Estim Creat Clear Calc Estimated GFR Random Glucose (60-115) mg/dL Calcium (8.4-10.2) mg/dL Magnesium (1.6-2.6) mg/dL Total Bilirubin (0.0-1.0) mg/dL AST (5-31) U/L ALT (0-31) U/L Alkaline Phosphatase (39-117) U/L Troponin I High Sens (<3.5-17.0) ng/L Total Protein (6.5-8.0) g/dL Albumin (3.5-5.0) g/dL Urine Color Yellow Urine Appearance Clear Urine pH 5.5 (5.0-9.0) Ur Specific [place] >= 1.030 H (1.005-1.025) Urine Protein Negative (Neg-Trace) mg/dL Urine Glucose (UA) Negative (Negative) mg/dL Urine Ketones 15 (Negative) mg/dL Urine Blood Negative (Negative) Urine Nitrite Negative (Negative) Ur Leukocyte Esterase Negative (Negative) COVID-19 (JEAN MARIE) Negative (Negative) COVID-19 Clin Com See Note Discharge Plan Discharge Clinical Impression: Generalized anxiety disorder, Vasovagal syncope Patient Disposition: Home, Self-Care Instructions: Syncope (ED) Prescriptions: No Action albuterol sulfate 90 mcg/actuation HFA aerosol inhaler 2 puff inhalation Q4-6H PRN (Reason: shortness of breath or wheezing) Qty: 6.7 0RF fluticasone propionate [Flonase Allergy Relief] 50 mcg/actuation spray,suspension 2 spray intranasal DAILY Qty: 16 0RF Rx Instructions: administer into each nostril clonazepam 1 mg tablet 1 mg PO BID sertraline 100 mg tablet 100 mg PO DAILY zolpidem 10 mg tablet 10 mg PO BEDTIME PRN (Reason: Sleep) Referrals: Carter Israel MD [Physician] - 11/14/22 Interventions: ED Discharge Assessment Last Done: 11/11/22 23:15 Discharge Date/Time: 11/11/22 23:16
--- NOTE | 2022-11-11 15:51 | ECG_ITS ---
Test Reason : syncope Blood Pressure : / mmHG Vent. Rate : 064 BPM Atrial Rate : 064 BPM P-R Int : 132 ms QRS Dur : 072 ms QT Int : 412 ms P-R-T Axes : 011 015 030 degrees QTc Int : 425 ms Normal sinus rhythm Low voltage QRS Cannot rule out Anterior infarct , age undetermined Abnormal ECG When compared with ECG of 02-AUG-2022 11:27, No significant change was found Referred By: Surekha Chacon Electronically Signed By:ANN MARIE KENNY
[2022-11-11 16:21] LABS: MANUAL DIFF FLAG NO
[2022-11-11 16:29] LABS: Basophils Percent Auto 0.4 % (0-2); Eosinophils Absolute Auto 0.1 X10*3/uL (0.0-0.4); Eosinophils Percent Auto 1.9 % (0-4); Hemoglobin 13.7 g/dl (12.0-16.0); Imm Gran Abs Auto 0.04 X10*3/uL (0.00-0.03); Imm Gran Pct Auto 0.6 % (0.0-0.4); Lymphocytes Absolute Auto 1.2 X10*3/uL (1.2-4.9); Lymphocytes Percent Auto 17.2 % (20-40); Mean Corpuscular HGB Conc 32.6 g/dl (31.0-35.0); Mean Corpuscular Hemoglobin 30.5 pg (27.0-33.0); Mean Corpuscular Volume 93.5 fL (80.0-98.0); Mean Platelet Volume 9.5 fL (9.4-12.3); Monocytes Absolute Auto 0.3 X10*3/uL (0.1-1.2); Monocytes Percent Auto 4.6 % (2-11); Neutrophils Absolute Auto 5.4 x10*3/uL (2.0-8.3); Neutrophils Percent Auto 75.3 % (45-73); Platelet Count 309 X10*3/uL (160-400); Red Blood Count 4.49 X10*6/uL (4.20-5.50); Red Cell Distribution Width 13.4 % (11.0-16.0); White Blood Count 7.2 X10*3/uL (4.8-10.8)
[2022-11-11 16:44] LABS: COVID-19 Test Negative (Negative); IDNOW Serial# 08D9AD1C
[2022-11-11 17:45] LABS: Alanine Aminotransferase 17 U/L (0-31); Albumin Level 4.2 g/dL (3.5-5.0); Alkaline Phosphatase 81 U/L (39-117); Anion Gap 14 (12-20); Aspartate Amino Transferase 22 U/L (5-31); Bilirubin Total 0.6 mg/dL (0.0-1.0); Blood Urea Nitrogen 14 mg/dL (9-16); Carbon Dioxide 24 mmol/L (22-29); Chloride 106 mmol/L (96-108); Creatinine Clr Calc Pharmacy 76.8; Estimated Glomerular Filt Rate > 60; Glucose Random 91 mg/dL (60-115); Potassium 3.8 mmol/L (3.3-5.1); Sodium 140 mmol/L (135-145); Total Protein 7.2 g/dL (6.5-8.0)
[2022-11-11 17:46] LABS: Troponin-I High Sensitivity < 2.7 ng/L (<3.5-17.0)
[2022-11-11 20:36] VITALS: BP 127/64; PULSE 64; RESP 16; TEMP 36.6; O2SAT 97
--- NOTE | 2022-11-11 20:47 | MHC.EDTECH ---
PATIENT URINE SAMPLE COLLECTED AND SENT TO LAB ,VITALS SIGN TAKEN .
[2022-11-11 20:59] LABS: Appearance Urine Clear; Color Urine Yellow; Glucose Urine UA Negative (Negative); Leukocyte Esterase Urine Negative (Negative); Nitrite Urine Negative (Negative); PH 5.5 (5.0-9.0); Specific Gravity - Urine >= 1.030 (1.005-1.025); Urine Blood Negative (Negative); Urine Ketones 15 mg/dL (Negative); Urine Protein Negative (Neg-Trace)
[2022-11-11 22:35] VITALS: BP 117/61; PULSE 63; RESP 15; TEMP 36.4; O2SAT 98
--- NOTE | 2022-11-11 22:53 | ED.SYNCOPE ---
HPI - Syncope General Chief Complaint: Syncope Stated Complaint: NEAR SYNCOPAL EPISODE Time Seen by Provider: 11/11/22 22:32 History of Present Illness HPI narrative: Patient is a 51-year-old female presents today with having episode of syncope. Patient with chest exercise at the [facility]. Subsequently went to a sauna. Was there for approximately 10 minutes. When she got out she felt lightheaded she feels tingling sensation in a hand almost passed out. EMS was contacted. Patient was sent to the ED for further evaluation. There is no history of diabetes, hypertension, [place]. Positive history of high cholesterol. Never smoked never had any leg swelling no history of blood clots in the past. Patient is from home. No chest pain no diaphoresis. No fever no chills. No focal weakness. Patient is from home. She is status post gastric sleeve surgery approximately 4 months ago. Positive history of anxiety. Patient not under tremendous stress today. Was under stress yesterday. Does not think she is . No recent travel. No leg swelling. Not on control pills Related Data Home Medications Medication Instructions Recorded Confirmed clonazepam 1 mg tablet 1 mg PO BID 05/08/20 11/08/22 zolpidem 10 mg tablet 10 mg PO BEDTIME PRN Sleep 03/08/22 11/08/22 sertraline 100 mg tablet 100 mg PO DAILY 09/06/22 11/08/22 Previous Rx's Medication Instructions Recorded albuterol sulfate 90 mcg/actuation 2 puff inhalation Q4-6H PRN 03/29/21 aerosol inhaler shortness of breath or wheezing #6.7 grams fluticasone propionate 50 2 spray intranasal DAILY #16 grams 03/29/21 mcg/actuation nasal spray,suspension (Flonase Allergy Relief) Allergies Allergy/AdvReac Type Severity Reaction Status Date / Time Penicillins [PENICILLINS] Allergy Severe ANAPHYLAXIS Verified 11/11/22 15:53 Sulfa (Sulfonamide Allergy Severe Angioedema Verified 11/11/22 15:53 Antibiotics) Review of Systems Review of Systems: Positive lightheadedness then dizzy then tingling than near syncopal episode Yes all other systems are reviewed and are negative PMFSH Past Medical History Attestation statement: The following information was validated with the patient. Medical History Acute diverticulitis Anxiety and depression GERD (gastroesophageal reflux disease) Helicobacter pylori gastritis Hematuria Hiatal hernia History of COVID-19 Loss of hearing Low back pain Migraine Neck pain Obesity (BMI 30-39.9) Osteoarthritis Osteoarthritis of left knee Palpitations Post covid-19 condition, unspecified Recurrent UTI Stress incontinence Trapezius muscle spasm Tubular adenoma Vision changes Surgical History H/O colonoscopy H/O gastric sleeve H/O tubal ligation History of section History of cholecystectomy History of esophagogastroduodenoscopy (EGD) History of tonsillectomy Family History Family History Father CVD (cardiovascular disease) Diabetes History of open heart surgery Mother Alive and well CVD (cardiovascular disease) Diabetes Thyroid condition Maternal Aunt Colon cancer Son Mental health disorder Maternal Grandmother Colon cancer Social History Social History Household Members: Spouse Housing: House Are you a primary career technical supervisor to a significant other at home: No Do you presently have visiting nurse or other home services: No Alcohol intake: former Patient Tobacco Use Status: Never used Tobacco e-Cigarette/Vaping Use: Never Used Second Hand Smoke Exposure: No Advance Directives: No Advance Directives Information Provided: No service: No Current occupational status: unemployed Current occupation: right hand dominant Cognitive needs: No Hearing needs: No Vision needs: No Physical Exam Vital Signs: Vital Signs: Last Vital Signs Temp 97.6 F 11/11/22 22:35 Pulse 63 11/11/22 22:35 Resp 15 11/11/22 22:35 BP 117/61 11/11/22 22:35 Pulse Ox 98 11/11/22 22:35 O2 Del Method Room Air 11/11/22 22:35 BMI result Body Mass Index 31.9 Appearance: Alert. Oriented X3. No acute distress. Eyes: Pupils equal, round and reactive to light. ENT: Pharynx normal. Neck: Normal inspection. Neck supple. No lymph nodes noted. No crepitus CVS: Normal heart rate and rhythm. Pulses normal. Normal S1 and S2 Respiratory: No respiratory distress. Breath sounds normal. No Wheezing. No rales Abdomen: Soft and nontender. No rigidity. No distention. good BS x4 Skin: Skin warm and dry. Normal skin color. Normal skin turgor. Extremities: No lower extremity edema. Neurovascular intact to all extremities. No Lacerations. No Rash Neuro: Oriented X 3. No motor deficit. No sensory deficit. Moving all extermities. No slurred speech Medical Decision Making Medical Decision Making [facility] Narrative: Well-appearing no acute distress. Patient had near syncopal episode today. Positive dizziness lightheaded. Patient had tingling sensation and consistent with having a vasovagal episode. Has history of the same in the past. Has a history of anxiety. Patient has no risk for PE. History not consistent with cardiogenic causes of syncope. She is in stable condition. Differential Diagnosis Syncope, head injury, cardiogenic cause of syncope, vasovagal episode Lab Data [facility] Lab Attestation statement: I reviewed the patient's lab results. 11/11/22 16:16 11/11/22 16:16 Labs: Lab Results 11/11/22 11/11/22 11/11/22 Range/Units 16:16 16:16 16:16 WBC 7.2 (4.8-10.8) X10*3/uL RBC 4.49 (4.20-5.50) X10*6/uL Hgb 13.7 (12.0-16.0) g/dl Hct 42.0 (37.0-47.0) % MCV 93.5 (80.0-98.0) fL MCH 30.5 (27.0-33.0) pg MCHC 32.6 (31.0-35.0) g/dl RDW 13.4 (11.0-16.0) % Plt Count 309 (160-400) X10*3/uL MPV 9.5 (9.4-12.3) fL Immature Gran % (Auto) 0.6 H (0.0-0.4) % Neut % (Auto) 75.3 H (45-73) % Lymph % (Auto) 17.2 L (20-40) % [place] % (Auto) 4.6 (2-11) % Eos % (Auto) 1.9 (0-4) % Baso % (Auto) 0.4 (0-2) % Lymph # (Auto) 1.2 (1.2-4.9) X10*3/uL [place] # (Auto) 0.3 (0.1-1.2) X10*3/uL Eos # (Auto) 0.1 (0.0-0.4) X10*3/uL Baso # (Auto) 0.0 (0.0-0.2) X10*3/uL Abs Immat Gran (auto) 0.04 H (0.00-0.03) X10*3/uL Absolute Neuts (auto) 5.4 (2.0-8.3) x10*3/uL Absolute Nucleated RBC 0.000 (0.0-0.012) X10*3/uL Nucleated RBC % (auto) 0.0 (0.0-0.2) /100WBC Sodium 140 (135-145) mmol/L Potassium 3.8 D (3.3-5.1) mmol/L Chloride 106 (96-108) mmol/L Carbon Dioxide 24 (22-29) mmol/L Anion Gap 14 (12-20) BUN 14 (9-16) mg/dL Creatinine 0.83 (0.5-1.4) mg/dL Estim Creat Clear Calc 76.8 Estimated GFR > 60 Random Glucose 91 (60-115) mg/dL Calcium 10.0 D (8.4-10.2) mg/dL Magnesium 2.0 (1.6-2.6) mg/dL Total Bilirubin 0.6 (0.0-1.0) mg/dL AST 22 (5-31) U/L ALT 17 (0-31) U/L Alkaline Phosphatase 81 (39-117) U/L Troponin I High Sens < 2.7 (<3.5-17.0) ng/L Total Protein 7.2 (6.5-8.0) g/dL Albumin 4.2 (3.5-5.0) g/dL Urine Color Urine Appearance Urine pH (5.0-9.0) Ur Specific [place] (1.005-1.025) Urine Protein (Neg-Trace) mg/dL Urine Glucose (UA) (Negative) mg/dL Urine Ketones (Negative) mg/dL Urine Blood (Negative) Urine Nitrite (Negative) Ur Leukocyte Esterase (Negative) COVID-19 (JEAN MARIE) (Negative) COVID-19 Clin Com 06/23/23 06/23/23 Range/Units 16:16 20:39 WBC (4.8-10.8) X10*3/uL RBC (4.20-5.50) X10*6/uL Hgb (12.0-16.0) g/dl Hct (37.0-47.0) % MCV (80.0-98.0) fL MCH (27.0-33.0) pg MCHC (31.0-35.0) g/dl RDW (11.0-16.0) % Plt Count (160-400) X10*3/uL MPV (9.4-12.3) fL Immature Gran % (Auto) (0.0-0.4) % Neut % (Auto) (45-73) % Lymph % (Auto) (20-40) % [place] % (Auto) (2-11) % Eos % (Auto) (0-4) % Baso % (Auto) (0-2) % Lymph # (Auto) (1.2-4.9) X10*3/uL [place] # (Auto) (0.1-1.2) X10*3/uL Eos # (Auto) (0.0-0.4) X10*3/uL Baso # (Auto) (0.0-0.2) X10*3/uL Abs Immat Gran (auto) (0.00-0.03) X10*3/uL Absolute Neuts (auto) (2.0-8.3) x10*3/uL Absolute Nucleated RBC (0.0-0.012) X10*3/uL Nucleated RBC % (auto) (0.0-0.2) /100WBC Sodium (135-145) mmol/L Potassium (3.3-5.1) mmol/L Chloride (96-108) mmol/L Carbon Dioxide (22-29) mmol/L Anion Gap (12-20) BUN (9-16) mg/dL Creatinine (0.5-1.4) mg/dL Estim Creat Clear Calc Estimated GFR Random Glucose (60-115) mg/dL Calcium (8.4-10.2) mg/dL Magnesium (1.6-2.6) mg/dL Total Bilirubin (0.0-1.0) mg/dL AST (5-31) U/L ALT (0-31) U/L Alkaline Phosphatase (39-117) U/L Troponin I High Sens (<3.5-17.0) ng/L Total Protein (6.5-8.0) g/dL Albumin (3.5-5.0) g/dL Urine Color Yellow Urine Appearance Clear Urine pH 5.5 (5.0-9.0) Ur Specific [place] >= 1.030 H (1.005-1.025) Urine Protein Negative (Neg-Trace) mg/dL Urine Glucose (UA) Negative (Negative) mg/dL Urine Ketones 15 (Negative) mg/dL Urine Blood Negative (Negative) Urine Nitrite Negative (Negative) Ur Leukocyte Esterase Negative (Negative) COVID-19 (JEAN MARIE) Negative (Negative) COVID-19 Clin Com See Note Independent Interpretation I performed an independent interpretation of an: EKG Interpretation: My interpretation of the patient's EKG showed a sinus rhythm heart rate 70 MA QRS QTC within normal limits there is no acute ST segment elevation External Record Review External record reviewed: Inpatient record Chronic Conditions Status post gastric bypass Discharge Plan Discharge Clinical Impression: Generalized anxiety disorder, Vasovagal syncope Patient Disposition: Home, Self-Care Instructions: Syncope (ED) Prescriptions: No Action albuterol sulfate 90 mcg/actuation HFA aerosol inhaler 2 puff inhalation Q4-6H PRN (Reason: shortness of breath or wheezing) Qty: 6.7 0RF fluticasone propionate [Flonase Allergy Relief] 50 mcg/actuation spray,suspension 2 spray intranasal DAILY Qty: 16 0RF Rx Instructions: administer into each nostril clonazepam 1 mg tablet 1 mg PO BID sertraline 100 mg tablet 100 mg PO DAILY zolpidem 10 mg tablet 10 mg PO BEDTIME PRN (Reason: Sleep) Referrals: Carter Israel MD [Physician] - 11/14/22
[2022-11-11 23:14] VITALS: BP 104/53; PULSE 53; RESP 16
== END 2022-11-11 23:16 | disposition home or self-care (01) ==
PROVIDERS: Physician Assistant Medical; Emergency Provider Emergency Medicine Emergency Medical Services
DX: R55 Syncope and collapse (principal); F41.1 Generalized anxiety disorder; F43.0 Acute stress reaction; Z20.822 Contact with and (suspected) exposure to COVID-19; Z20.828 Contact with and (suspected) exposure to other viral communicable diseases; Z79.899 Other long term (current) drug therapy
CPT/HCPCS: 36415; 80053; 81003; 83735; 84484; 85025; 87635; 93005; 99283

== ENCOUNTER → 2022-11-15 13:31 | Outpatient (BNVA) | payer OTHER, SELFPAY | PROVIDERS: PCP Internal Medicine; Visit Provider Obstetrics & Gynecology ==

== ENCOUNTER 2022-12-20 10:35 | Outpatient (AMB) | payer OTHER, SELFPAY ==
--- NOTE | 2022-12-20 10:36 | MHC.OFFVISWM ---
Intake VS Expanded 12/20/22 10:43 Height 5 ft 1 in Weight 164 lb 9.6 oz BMI 31.1 BP 124/60 Blood Pressure Location Rt brachial Blood Pressure Position Sitting Pulse 84 Pulse Source Pulse Oximeter Temp 97.3 F Temperature Source Temporal Artery Scan Pulse Oximetry 99 Oxygen Delivery Method Room Air Body Fat 56.8 Body Fat Percentage 34.6 Free Fat Mass 107.6 Muscle Mass 102.0 Visceral Mass 8.0 Water Mass 76.6 BMR 1,460 Intake Visit Reasons: (OV) PO LSG 07/27/22 Allergies Penicillins [PENICILLINS] Allergy (Severe, Verified 12/20/22 10:41) ANAPHYLAXIS Sulfa (Sulfonamide Antibiotics) Allergy (Severe, Verified 12/20/22 10:41) Angioedema Medication List - Last Reconciled 12/20/22 by NIRANJAN Urbina albuterol sulfate 90 mcg/actuation 2 puffs inhalation Q4-6H PRN clonazepam 1 mg PO BID fluticasone propionate 50 mcg/actuation (Flonase Allergy Relief) 2 sprays intranasal DAILY sertraline 100 mg PO DAILY zolpidem 10 mg PO BEDTIME PRN HPI HPI Comments History of Present Illness Details This?is a?52?yo female who is s/p LSG 07/27/2022. Presents for 5 month post op visit. Weight at last visit on 11/08/2022 was 169.6 pounds with a BMI of 32, weight today is 164.6 pounds, representing a 5 pound weight loss with a BMI today of 31.1.? No complaints of nausea, emesis, abdominal pain or reflux, or constipation. Helping her mom who was recently discharged from the hospital. Present meal plan includes: Pure Protein 1 scoop in 8oz UAM, 2 per day 1 ZP bar 2 small meals of 1-2oz protein each, can have 1oz cooked veg has added some fruit into meals drinking some decaf coffee taking Celebrate MVI Exercise routine includes: tries to go to [employer]- treadmill (can walk almost an hour now), pool aerobics feels exercise also helps her mental health Pt reports issues of excess skin of abdomen and upper thighs, Reports she notices a lot of friction between upper thighs and has to constantly wear long shorts under dresses to prevent chafing. Also has to put towels in between skin folds of abdomen and where abdomen meets thighs, due to skin cracking. She has noticed increased moisture in skin folds, which produces an unpleasant odor and she has to wash and clean frequently. [facility] Medical History Acute diverticulitis Anxiety and depression GERD (gastroesophageal reflux disease) Helicobacter pylori gastritis Hematuria Hiatal hernia History of COVID-19 Loss of hearing Low back pain Migraine Neck pain Obesity (BMI 30-39.9) Osteoarthritis Osteoarthritis of left knee Palpitations Post covid-19 condition, unspecified Recurrent UTI Stress incontinence Trapezius muscle spasm Tubular adenoma Vision changes Surgical History H/O colonoscopy H/O gastric sleeve H/O tubal ligation History of section History of cholecystectomy History of esophagogastroduodenoscopy (EGD) History of tonsillectomy Family History Father CVD (cardiovascular disease) Diabetes History of open heart surgery Mother Alive and well CVD (cardiovascular disease) Diabetes Thyroid condition Maternal Aunt Colon cancer Son Mental health disorder Maternal Grandmother Colon cancer Social History Household Members: Spouse Housing: House Are you a primary transitions rn care coordinator to a significant other at home: No Do you presently have visiting nurse or other home services: No Alcohol intake: former Patient Tobacco Use Status: Never used Tobacco e-Cigarette/Vaping Use: Never Used Second Hand Smoke Exposure: No service: No Current occupational status: unemployed Current occupation: right hand dominant Cognitive needs: No Hearing needs: No Vision needs: No Female Reproductive History Menstrual Age of Menarche: 14 Assessment & Plan Assessment & Plan (1) S/P laparoscopic sleeve gastrectomy: Comment: 07/27/2022 Dr. Rizzo Code(s): Z98.84 - Bariatric surgery status (2) Obesity (BMI 30-39.9): Code(s): E66.9 - Obesity, unspecified Plan New meal plan: 1 boiled egg, small piece of ham for breakfast Premier Protein premade shake 1 snack of [place] yogurt or protein bar Small meal of protein, small portion of beans, veg Pt shared today how well she feels, happy she is able to do so many things actively. RTC 6 weeks for 6 month visit. Meal plan texted to pt. Patient is obese and is not considered stable at this time. I spent a total of 30 minutes reviewing/updating records, examining the patient and counseling the patient on weight management as detailed above. Medications: New clotrimazole 1% 1 appl topical BID 45 grams 3RF Coding Level of Care Code Est Pt Level 4 (57716) Diagnoses S/P laparoscopic sleeve gastrectomy Z98.84 Obesity (BMI 30-39.9) E66.9
[2022-12-20 10:43] VITALS: BP 124/60; PULSE 84; TEMP 36.3; O2SAT 99; BMI 31.1
== END 2022-12-20 11:01 | disposition home or self-care (01) ==
PROVIDERS: PCP Internal Medicine; Visit Provider Physician Assistant Surgical
DX: E66.9 Obesity, unspecified (principal); Z68.31 Body mass index [BMI] 31.0-31.9, adult; Z90.3 Acquired absence of stomach [part of]; Z98.84 Bariatric surgery status
CPT/HCPCS: 99214

== ENCOUNTER → 2022-12-20 10:35 | Outpatient (BNVA) | payer OTHER, SELFPAY | PROVIDERS: PCP Internal Medicine; Visit Provider Physician Assistant Surgical | DX: E66.9 Obesity, unspecified (principal); Z98.84 Bariatric surgery status; Z68.31 Body mass index [BMI] 31.0-31.9, adult | CPT/HCPCS: 99212 ==

== ENCOUNTER 2023-01-25 15:51 | Outpatient (AMB) | payer OTHER, SELFPAY ==
[2023-01-25 15:52] VITALS: BP 118/90; PULSE 61; O2SAT 100; BMI 31.0
--- NOTE | 2023-01-25 15:52 | MHC.PC.OV ---
Vital Signs 01/25/23 15:52 Height 5 ft 1 in Weight 164 lb BMI 31.0 BP 118/90 H Blood Pressure Location Lt brachial Position Sitting Pulse 61 Pulse Source Pulse Oximeter Temp Source Skin Pulse Oximetry (%) 100 Oxygen Delivery Method Room Air Intake Visit Reasons: Right Leg Pain / Back Pain Intake Note: pt states right sided back pain and right leg pain X3days [employer] Architect Required: No Allergies Penicillins [PENICILLINS] Allergy (Severe, Verified 01/25/23 16:01) ANAPHYLAXIS Sulfa (Sulfonamide Antibiotics) Allergy (Severe, Verified 01/25/23 16:01) Angioedema Medication List - Last Reconciled 01/25/23 by BARAK Casiano albuterol sulfate 90 mcg/actuation 2 puffs inhalation Q4-6H PRN clonazepam 1 mg PO BID clotrimazole 1% 1 appl topical BID fluticasone propionate 50 mcg/actuation (Flonase Allergy Relief) 2 sprays intranasal DAILY sertraline 100 mg PO DAILY zolpidem 10 mg PO BEDTIME PRN Tobacco use date assessed: 01/25/23 HPI Right Leg Pain / Back Pain HPI Details Patient is a 52-year-old female who presents today for an office visit due to right back and right leg pain for the past [address] Santillan. Medical history significant for migraine, status post laparoscopic sleeve gastrectomy, lumbar degenerative disc disease, anxiety mixed incontinence among others. Patient reports that she was cleaning her house and she was standing on her bed and then when she was getting down she felt something in her right low back/right leg/right buttock. She reports that right lower back pain radiate to her posterior right thigh aspect. She reports taking Flexeril 5 mg and ibuprofen with no improvement. She did not have this pain before. Pain is better when laying down on the left side. Pain is worse when standing, sitting down, or walking. No numbness or tingling. No new bladder symptoms. [facility] Medical History Acute diverticulitis Anxiety and depression GERD (gastroesophageal reflux disease) Helicobacter pylori gastritis Hematuria Hiatal hernia History of COVID-19 Loss of hearing Low back pain Migraine Neck pain Obesity (BMI 30-39.9) Osteoarthritis Osteoarthritis of left knee Palpitations Post covid-19 condition, unspecified Recurrent UTI Stress incontinence Trapezius muscle spasm Tubular adenoma Vision changes Surgical History H/O colonoscopy H/O gastric sleeve H/O tubal ligation History of section History of cholecystectomy History of esophagogastroduodenoscopy (EGD) History of tonsillectomy Family History Father CVD (cardiovascular disease) Diabetes History of open heart surgery Mother Alive and well CVD (cardiovascular disease) Diabetes Thyroid condition Maternal Aunt Colon cancer Son Mental health disorder Maternal Grandmother Colon cancer Social History Household Members: Spouse Housing: House Are you a primary healthcare management to a significant other at home: No Do you presently have visiting nurse or other home services: No Alcohol intake: former Patient Tobacco Use Status: Never used Tobacco e-Cigarette/Vaping Use: Never Used Second Hand Smoke Exposure: No service: No Current occupational status: unemployed Current occupation: right hand dominant Cognitive needs: No Hearing needs: No Vision needs: No Female Reproductive History Menstrual Age of Menarche: 14 Questionnaire Thrive Questionnaire Date Thrive assessed: 09/06/22 AUDIT C Alcohol Use Questionnaire (AUDIT-C) 1. How often do you have a drink containing alcohol?: Never 2. How many drinks containing alcohol do you have on a typical day when you are drinking?: 1 or 2 3. How often do you have six or more drinks on one occasion?: Never Total Score: 0 Score Reviewed/Action Taken: No NATHAN-7 AMB Questionnaire NATHAN-7 Date NATHAN - 7 assessed: 09/06/22 Source: Developed by Drs. Chris Brown, Sherry Champagne, Juan Alberto Lee and colleagues, with an educational duyen from [employer]. Review of Systems Const Denies body aches, Denies chills, Denies fever(s) and Denies headache(s) ENT Denies dizziness, Denies otalgia, Denies headache(s), Denies nasal discharge, Denies sinus pain and Denies sore throat Card Denies chest pain, Denies edema, Denies lightheadedness and Denies dyspnea Resp Denies cough, Denies dyspnea and Denies wheezing GI Denies abdominal pain, Denies constipation, Denies diarrhea, Denies nausea and Denies vomiting Denies dysuria Musc Reports back pain, Denies myalgias, Denies numbness and Denies tingling Skin/Breast Denies rash Neuro Denies dizziness, Denies headache(s), Denies numbness and Denies tingling Aller/Immun Denies wheezing Physical exam (Primary Care) Vital Signs: Last Vital Signs Pulse 61 01/25/23 15:52 BP 118/90 H 01/25/23 15:52 Pulse Ox 100 01/25/23 15:52 Oxygen Delivery Method Room Air 01/25/23 15:52 BMI result Body Mass Index 31.0 Tobacco/Smoking Status: Tobacco use Status Tobacco use date assessed 01/25/23 01/25/23 15:53 Patient Tobacco Use Status Never used Tobacco 01/25/23 15:53 e-Cigarette/Vaping Use Never Used 01/25/23 15:53 Thrive Assessment: Date of Thrive Assessment Date Thrive assessed 09/06/22 01/25/23 15:53 Const General: cooperative and no acute distress Orientation/consciousness: patient oriented x3 HENMT Head: Yes normocephalic and Yes atraumatic Mouth: oropharynx normal and moist mucous membranes Throat: Yes posterior oropharynx normal Eyes General: appearance normal, both eyes and all related structures Neck Neck: Yes normal visual inspection, Yes full ROM and Yes no lymphadenopathy Resp Effort & Inspection: normal respiratory effort and able to speak in complete sentences Auscultation: clear to auscultation bilaterally, no crackles, no rales, no rhonchi and no wheezes Cardio Rate: regular rate Rhythm: regular rhythm Heart sounds: S1 normal heart sound present and S2 normal heart sound present GI Auscultation: normal bowel sounds General: No CVA tenderness Back/Spine/Pelvis Back: No CVA tenderness Thoracic/Lumbar Spine: pain with thoraco-lumbar ROM, paraspinal muscle tenderness (Right), No thoracic spinal tenderness, No lumbar spinal tenderness and straight leg raise positive (Right) Skin General skin exam: no rashes or lesions noted Neuro General: patient oriented x3 Gait exam (Neuro): Normal gait present Extrem General: Yes full ROM and No edema Assessment and Plan Assessment & Plan (1) Right low back pain: Code(s): M54.50 - Low back pain, unspecified Plan: Suspect musculoskeletal in origin. Referral to physical therapy. Start prednisone 20 mg daily for 5 days. Start cyclobenzaprine 10 mg t.i.d. p.r.n.-educated about drowsiness. Start diclofenac cream q.i.d. p.r.n.. Encouraged heat/cold packs p.r.n.. Signs and symptoms reviewed when to notify provider or go to the emergency department. Patient agreed with the plan. Orders: Orders PT Evaluation and Treatment 01/25/23 M54.50 - Low back pain, unspecified Medications: New prednisone 20 mg PO DAILY 5 tabs 0RF M54.50 - Low back pain, unspecified cyclobenzaprine 10 mg PO TID PRN 20 tabs 0RF muscle spasm M54.50 - Low back pain, unspecified diclofenac sodium 1% (Arthritis Pain (diclofenac)) 2 grams topical QID PRN 100 grams 0RF pain M54.50 - Low back pain, unspecified Coding Level of Care Code Est Pt Level 3 (95678) Diagnoses Right low back pain M54.50
== END 2023-01-25 16:18 | disposition home or self-care (01) ==
PROVIDERS: PCP Internal Medicine; Visit Provider Nurse Practitioner Family
DX: M54.50 Low back pain, unspecified (principal)
CPT/HCPCS: 99213

== ENCOUNTER 2023-02-16 10:54 | Emergency (ER) | payer OTHER, SELFPAY ==
--- NOTE | ~2023-02-16 | CT_ITS ---
EXAMINATION: CT ABDOMEN AND PELVIS WITH CONTRAST CLINICAL INFORMATION: Epigastric pain status post sleeve COMPARISON: Upper GI 05/25/2022, CT abdomen pelvis 04/03/2022 TECHNIQUE: Multidetector volumetric images were obtained from the superior aspect of the liver through the pubic symphysis following administration 85 mL of Omnipaque 350 intravenous contrast. Sagittal and coronal reformatted images were obtained on the technologist's workstation. Oral contrast: No This CT examination was performed using dose optimization techniques as appropriate, variously including the following: *Automated exposure control *Adjustment of mA and/or kV according to patient size (this includes techniques or standardized protocols for targeted exams where dose is matched to indication/reason for exam; i.e. extremities or head) *Use of iterative reconstruction technique DLP: 636 mGy-cm FINDINGS: LUNG BASES: The visualized lung bases are unremarkable aside from the presence of a small area of pleural-based nodular atelectasis on the right posteriorly (4:21), new when compared to prior. LIVER, GALLBLADDER, AND BILIARY TREE: The liver is normal in size, shape, and attenuation. Innumerable hypodensities are seen throughout the liver consistent with benign cysts, similar to prior. No worrisome solid focal hepatic lesion or biliary ductal dilatation is present. Status post cholecystectomy. PANCREAS: Unremarkable. SPLEEN: Unremarkable. ADRENAL GLANDS: Unremarkable. KIDNEYS AND URETERS: The kidneys are normal in size, shape, and attenuation. No hydronephrosis, hydroureter, or calculi seen. No perinephric stranding. BLADDER: Unremarkable. GASTROINTESTINAL TRACT: Status post gastric sleeve. No evidence of an anastomotic leak or perigastric fluid collection. The small and large bowel are unremarkable aside from some colonic diverticulosis without diverticulitis. The appendix is unremarkable. ABDOMINAL WALL: There is a tiny epigastric midline hernia present above the umbilicus which contains only fat. No other abdominal wall hernias are seen. LYMPH NODES: No retroperitoneal lymphadenopathy. VASCULAR: Unremarkable. PELVIC VISCERA: The uterus and adnexa are unremarkable. OSSEOUS STRUCTURES: Unremarkable. CT/CT abdomen pelvis w IV con IMPRESSION: 1. A cause for the patient's epigastric pain has not been found. 2. Status post gastric sleeve without evidence of an anastomotic leak or perigastric fluid collection. 3. Other incidental findings as described above. Fleischner guidelines were followed.
[2023-02-16 11:04] VITALS: BP 138/50; PULSE 66; RESP 16; TEMP 35.6; O2SAT 100; BMI 31.3
--- NOTE | 2023-02-16 11:26 | ED.ABDPAIN ---
HPI - Abdominal Pain General Chief Complaint: Abdominal Pain Stated Complaint: abd pain Time Seen by Provider: 02/16/23 11:13 Source: patient, old records reviewed and other (call ahead by [place] [facility] bariatric service) Mode of arrival: ambulatory Limitations: no limitations History of Present Illness HPI narrative: 52 yo female with PMH of depression, GERD, HLD, anxiety, obesity s/p laparascopic gastric sleeve July 2022 who has done well with no post op complications she comes in with c/o epigastric pain that woke her from sleep at 3am. She tried to sleep on her left side. When she woke up around 7am pain was still there with nausea. Now the pain radiates around the back. She already had her GB removed. She had a BM this AM and passed gas. MD elicited complaint: abdominal pain Pertinent past history: other (s/p lap gastric sleeve) Onset (ago): hour(s) (3am today) Pain Consistency: intermittent and colicky Location: epigastric Severity: moderate Quality: cramping Radiation: L flank and R flank Exacerbating factors: eating Relieving factors: nothing Associated symptoms: nausea Related Data Home Medications Medication Instructions Recorded Confirmed clonazepam 1 mg tablet 1 mg PO BID 05/08/20 01/25/23 zolpidem 10 mg tablet 10 mg PO BEDTIME PRN Sleep 03/08/22 01/25/23 sertraline 100 mg tablet 100 mg PO DAILY 09/06/22 01/25/23 Previous Rx's Medication Instructions Recorded albuterol sulfate 90 mcg/actuation 2 puff inhalation Q4-6H PRN 03/29/21 aerosol inhaler shortness of breath or wheezing #6.7 grams fluticasone propionate 50 2 spray intranasal DAILY #16 grams 03/29/21 mcg/actuation nasal spray,suspension (Flonase Allergy Relief) clotrimazole 1 % topical cream 1 appl topical BID #45 grams 12/20/22 cyclobenzaprine 10 mg tablet 10 mg PO TID PRN muscle spasm #20 01/25/23 tabs diclofenac sodium 1 % topical gel 2 g topical QID PRN pain #100 grams 01/25/23 (Arthritis Pain (diclofenac)) prednisone 20 mg tablet 20 mg PO DAILY #5 tabs 01/25/23 ondansetron 4 mg disintegrating 4 mg PO Q8H PRN nausea and 02/16/23 tablet vomiting #20 tabs Allergies Allergy/AdvReac Type Severity Reaction Status Date / Time Penicillins [PENICILLINS] Allergy Severe ANAPHYLAXIS Verified 01/25/23 16:01 Sulfa (Sulfonamide Allergy Severe Angioedema Verified 01/25/23 16:01 Antibiotics) Review of Systems Review of Systems Constitutional : No Weight loss, No Fever, No Chills ENT/Mouth : No sore throat, No Rhinorrhea Cardiovascular : No Chest Pain, No SOB, NoEdema Respiratory : No Cough, No Sputum, No Wheezing Gastrointestinal : Positive Nausea, no Vomiting, no Diarrhea, positive abdominal Pain, No Hematochezia, No Melena Genitourinary : No Dysuria, No Urinary Frequency, No Hematuria, No Urgency Musculoskeletal : No joint pain, No Myalgias, No Joint Swelling Skin : No Skin Lesions, No rash Neuro : No Weakness, No Numbness, No Dizziness, No Headache Psych : No Anxiety/Panic, No Depression All other systems reviewed and are negative. [facility] Past Medical History Attestation statement: The following information was validated with the patient. Source: old records reviewed Medical History Hiatal hernia Osteoarthritis Anxiety and depression Palpitations GERD (gastroesophageal reflux disease) History of COVID-19 Recurrent UTI Acute diverticulitis Osteoarthritis of left knee Helicobacter pylori gastritis Trapezius muscle spasm Stress incontinence Neck pain Post covid-19 condition, unspecified Obesity (BMI 30-39.9) Loss of hearing Vision changes Hematuria Tubular adenoma Migraine Low back pain Surgical History H/O gastric sleeve History of tonsillectomy History of esophagogastroduodenoscopy (EGD) H/O colonoscopy History of section H/O tubal ligation History of cholecystectomy Family History Family History Father CVD (cardiovascular disease) Diabetes History of open heart surgery Mother Alive and well CVD (cardiovascular disease) Diabetes Thyroid condition Maternal Aunt Colon cancer Son Mental health disorder Maternal Grandmother Colon cancer Social History Social History Household Members: Spouse Housing: House Are you a primary home care rn to a significant other at home: No Do you presently have visiting nurse or other home services: No Alcohol intake: former Patient Tobacco Use Status: Never used Tobacco Smoked in Last 30 Days: No e-Cigarette/Vaping Use: Never Used Second Hand Smoke Exposure: No Use of substances other than those prescribed or required for medical reasons: No Advance Directives: No Advance Directives Information Provided: No service: No Current occupational status: unemployed Current occupation: right hand dominant Cognitive needs: No Hearing needs: No Vision needs: No Physical Exam ED Vital Signs: Vital Signs - 24 hr 02/16/23 11:04 02/16/23 12:00 02/16/23 12:03 Temperature 96.1 F L Pulse Rate 66 56 Respiratory Rate 16 18 18 Blood Pressure 138/50 L 121/65 Pulse Oximetry 100 100 Oxygen Delivery Method Room Air Room Air 02/16/23 12:12 02/16/23 15:03 Temperature Pulse Rate 59 49 L Respiratory Rate 15 Blood Pressure 108/59 L Pulse Oximetry 99 Oxygen Delivery Method Room Air BMI result Body Mass Index 31.3 Appearance: Alert. Oriented X3. No acute distress. Eyes: Pupils equal, round and reactive to light. ENT: Pharynx normal. Neck: Normal inspection. Neck supple. CVS: Normal heart rate and rhythm. Pulses normal. Respiratory: No respiratory distress. Breath sounds normal. Abdomen: Soft and moderate epigastric ttp no rebound Skin: Skin warm and dry. Normal skin color. Normal skin turgor. Extremities: No lower extremity edema. No calf ttp Neuro: Oriented X 3. No motor deficit. No sensory deficit. Medical Decision Making Medical Decision Making [facility] Narrative: 52 yo female with PMH of depression, GERD, HLD, anxiety, obesity s/p laparascopic gastric sleeve July 2022 here with epigastric pain radiates to the back with nausea - no other symptoms at this time will need labs, UA, IVF, IV Morphine for pain, CT scan for obstruction, internal hernia - bariatric surgery has been involved with the case since arrival. Differential Diagnosis Differential Diagnoses: The differential diagnosis associated with the presentation includes gastritis, obstruction, internal hernia Admission/Observation Consideration of admission/observation: Escalation of care including admission/observation considered CT scan negative, labs stable feels better feels she can be managed at home Consult Healthcare Provider Management of the patient was discussed with: Tile Finisher (bariatric surgery ) DC home with shakes for a couple of days but stable for DC Lab Data [facility] Lab Attestation statement: I reviewed the patient's lab results. 02/16/23 11:20 02/16/23 11:20 Labs: Lab Results 02/16/23 02/16/23 02/16/23 Range/Units 11:19 11:20 12:52 WBC 6.2 (4.8-10.8) X10*3/uL RBC 4.48 (4.20-5.50) X10*6/uL Hgb 13.8 (12.0-16.0) g/dl Hct 41.7 (37.0-47.0) % MCV 93.1 (80.0-98.0) fL MCH 30.8 (27.0-33.0) pg MCHC 33.1 (31.0-35.0) g/dl RDW 12.7 (11.0-16.0) % Plt Count 322 (160-400) X10*3/uL MPV 9.7 (9.4-12.3) fL Immature Gran % (Auto) 0.3 (0.0-0.4) % Neut % (Auto) 74.3 H (45-73) % Lymph % (Auto) 18.7 L (20-40) % [place] % (Auto) 5.4 (2-11) % Eos % (Auto) 1.0 (0-4) % Baso % (Auto) 0.3 (0-2) % Lymph # (Auto) 1.2 (1.2-4.9) X10*3/uL [place] # (Auto) 0.3 (0.1-1.2) X10*3/uL Eos # (Auto) 0.1 (0.0-0.4) X10*3/uL Baso # (Auto) 0.0 (0.0-0.2) X10*3/uL Abs Immat Gran (auto) 0.02 (0.00-0.03) X10*3/uL Absolute Neuts (auto) 4.6 (2.0-8.3) x10*3/uL Absolute Nucleated RBC 0.000 (0.0-0.012) X10*3/uL Nucleated RBC % (auto) 0.0 (0.0-0.2) /100WBC Sodium 139 (135-145) mmol/L Potassium 3.6 (3.3-5.1) mmol/L Chloride 108 (96-108) mmol/L Carbon Dioxide 21 L (22-29) mmol/L Anion Gap 14 (12-20) BUN 12 (9-16) mg/dL Creatinine 0.71 (0.5-1.4) mg/dL Estim Creat Clear Calc 87.9 Estimated GFR > 60 Random Glucose 76 (60-115) mg/dL Calcium 9.3 D (8.4-10.2) mg/dL Total Bilirubin 0.8 (0.0-1.0) mg/dL Direct Bilirubin 0.2 (0.0-0.5) mg/dL AST 22 (5-31) U/L ALT 15 (0-31) U/L Alkaline Phosphatase 67 (39-117) U/L Troponin I High Sens < 2.7 (<3.5-17.0) ng/L Total Protein 7.0 (6.5-8.0) g/dL Albumin 4.1 (3.5-5.0) g/dL Lipase 23 (8-78) U/L Urine Color Yellow Urine Appearance Clear Urine pH 6.5 (5.0-9.0) Ur Specific [place] <= 1.005 (1.005-1.025) Urine Protein Negative (Neg-Trace) mg/dL Urine Glucose (UA) Negative (Negative) mg/dL Urine Ketones Negative (Negative) mg/dL Urine Blood Negative (Negative) Urine Nitrite Negative (Negative) Ur Leukocyte Esterase Trace H (Negative) Urine RBC 0-2 (0-2) /HPF Urine WBC 0-5 (0-5) /HPF Ur Squamous Epith Cells 3-5 (0-2) /HPF Urine Bacteria None Seen (None Seen) Hyaline Casts 0-2 (0-2) /LPF COVID-19 (JEAN MARIE) Negative (Negative) COVID-19 Clin Com See Note Influenza Type A (CONCHITA) Negative (Negative) Influenza Type B (CONCHITA) Negative (Negative) Influenza A & B Note See Note Independent Interpretation I performed an independent interpretation of an: EKG and CT Scan Interpretation: Rate: 49 Rhythm: sinus bradycardia [place]: normal Normal P waves. Normal RANDEE. Normal QRS complex. ST T wave : normal no ANDREINA qTC: normal prior studies: no acute ischemia The study has been interpreted contemporaneously by me. . Radiology Impression Discussion of test interpretation with radiology: I have reviewed the radiologist's reading. External Record Review External record reviewed: Inpatient record Prescription Management I considered prescription management with: Other Medications Administered Discontinued Medications Generic Name Dose Route Start Last Admin Trade Name Freq PRN Reason Stop Dose Admin Diatrizoate Meglum/Diatrizoate Sod 30 ml 02/16/23 13:33 02/16/23 13:33 Diatrizoate Meglumine, Sodium 30 Ml Solution PO 02/16/23 13:34 30 ml ONCE ONE Administration Sodium Chloride 1,000 mls @ 999 mls/hr 02/16/23 11:15 02/16/23 14:52 Ns IV 02/16/23 12:15 Infused .Q1H1M ELICEO Infusion Sodium Chloride 1,000 mls @ 100 mls/hr 02/16/23 12:30 02/16/23 13:59 Ns IVCONT 100 mls/hr .Q10H ELICEO Administration Iohexol 85 ml 02/16/23 13:31 02/16/23 13:32 Iohexol 350 Mg/Ml 100 Ml Infus..Btl IV 02/16/23 13:32 85 ml ONCE ONE Administration Morphine Sulfate 4 mg 02/16/23 11:13 02/16/23 12:03 Morphine Sulfate 4 Mg/Ml Cartridge IVPUSH 02/16/23 11:14 4 mg ONCE ONE Administration Protocol Ondansetron HCl 4 mg 02/16/23 11:13 02/16/23 11:54 Ondansetron Hcl 4 Mg/2 Ml Vial IVPUSH 02/16/23 11:14 4 mg ONCE ONE Administration Critical Care Time Critical Care Time Critical Care Time: Yes Total Critical Care Time: 31 Attestation: surgical consult, IVF, pain improved after IV dose of morphine I attest to this time spent taking care of the patient Discharge Plan Discharge Clinical Impression: Abdominal pain Qualifiers: Abdominal location: epigastric Qualified Code(s): R10.13 - Epigastric pain Patient Disposition: Home, Self-Care Instructions: Abdominal Pain (ED) Additional Instructions: return for worsening pain, vomiting, black or bloody stools, chest pain, difficulty breathing or any other concerns. please follow up closely with bariatric services Prescriptions: New ondansetron 4 mg tablet,disintegrating 4 mg PO Q8H PRN (Reason: nausea and vomiting) Qty: 20 0RF No Action albuterol sulfate 90 mcg/actuation HFA aerosol inhaler 2 puff inhalation Q4-6H PRN (Reason: shortness of breath or wheezing) Qty: 6.7 0RF fluticasone propionate [Flonase Allergy Relief] 50 mcg/actuation spray,suspension 2 spray intranasal DAILY Qty: 16 0RF Rx Instructions: administer into each nostril clonazepam 1 mg tablet 1 mg PO BID sertraline 100 mg tablet 100 mg PO DAILY prednisone 20 mg tablet 20 mg PO DAILY Qty: 5 0RF cyclobenzaprine 10 mg tablet 10 mg PO TID PRN (Reason: muscle spasm) Qty: 20 0RF diclofenac sodium [Arthritis Pain (diclofenac)] 1 % gel 2 g topical QID PRN (Reason: pain) Qty: 100 0RF zolpidem 10 mg tablet 10 mg PO BEDTIME PRN (Reason: Sleep) clotrimazole 1 % cream 1 appl topical BID Qty: 45 3RF Interventions: ED Discharge Assessment Last Done: 02/16/23 15:23 Discharge Date/Time: 02/16/23 15:23
[2023-02-16 11:28] LABS: MANUAL DIFF FLAG NO
[2023-02-16 11:34] LABS: Basophils Percent Auto 0.3 % (0-2); Eosinophils Absolute Auto 0.1 X10*3/uL (0.0-0.4); Hematocrit 41.7 % (37.0-47.0); Hemoglobin 13.8 g/dl (12.0-16.0); Imm Gran Abs Auto 0.02 X10*3/uL (0.00-0.03); Imm Gran Pct Auto 0.3 % (0.0-0.4); Lymphocytes Absolute Auto 1.2 X10*3/uL (1.2-4.9); Lymphocytes Percent Auto 18.7 % (20-40); Mean Corpuscular HGB Conc 33.1 g/dl (31.0-35.0); Mean Corpuscular Hemoglobin 30.8 pg (27.0-33.0); Mean Corpuscular Volume 93.1 fL (80.0-98.0); Mean Platelet Volume 9.7 fL (9.4-12.3); Monocytes Absolute Auto 0.3 X10*3/uL (0.1-1.2); Monocytes Percent Auto 5.4 % (2-11); Neutrophils Absolute Auto 4.6 x10*3/uL (2.0-8.3); Neutrophils Percent Auto 74.3 % (45-73); Platelet Count 322 X10*3/uL (160-400); Red Blood Count 4.48 X10*6/uL (4.20-5.50); Red Cell Distribution Width 12.7 % (11.0-16.0); White Blood Count 6.2 X10*3/uL (4.8-10.8)
[2023-02-16 11:51] LABS: COVID-19 Test Negative (Negative); IDNOW Serial# 08D9AD1C
[2023-02-16] MEDS: ondansetron HCL 4 MG/2 ML VIAL IVPUSH (11:54)
[2023-02-16] MEDS: 0.9 % Sodium Chloride 1,000 ML 999 ML IV (11:54)
[2023-02-16 11:55] LABS: IDNOW Serial# 55D5AD1C
[2023-02-16 11:56] LABS: Influenza A Negative (Negative); Influenza B2 Negative (Negative)
[2023-02-16 12:00] VITALS: BP 121/65; PULSE 56; RESP 18; O2SAT 100
[2023-02-16 12:00] LABS: Alanine Aminotransferase 15 U/L (0-31); Albumin Level 4.1 g/dL (3.5-5.0); Alkaline Phosphatase 67 U/L (39-117); Anion Gap 14 (12-20); Aspartate Amino Transferase 22 U/L (5-31); Bilirubin Direct 0.2 mg/dL (0.0-0.5); Bilirubin Total 0.8 mg/dL (0.0-1.0); Blood Urea Nitrogen 12 mg/dL (9-16); Calcium 9.3 mg/dL (8.4-10.2); Carbon Dioxide 21 mmol/L (22-29); Chloride 108 mmol/L (96-108); Creatinine Clr Calc Pharmacy 87.9; Estimated Glomerular Filt Rate > 60; Glucose Random 76 mg/dL (60-115); Lipase 23 U/L (8-78); Potassium 3.6 mmol/L (3.3-5.1); Sodium 139 mmol/L (135-145)
[2023-02-16 12:03] VITALS: RESP 18
[2023-02-16] MEDS: Morphine Sulfate 4 MG/ML CARTRIDGE IVPUSH (12:03)
[2023-02-16 12:12] VITALS: PULSE 59
--- NOTE | 2023-02-16 12:17 | PC.NURSE ---
pt drinking contrast. resting calmly. hr 61 on tele w/o cp.
--- NOTE | 2023-02-16 12:40 | PC.NURSE ---
md regi garcia notified pt denies cp/dizziness- hr mid 40s-mid 50s. no intervention ordered. calm, coop, no distress noted
[2023-02-16 13:02] LABS: Appearance Urine Clear; Color Urine Yellow; Glucose Urine UA Negative (Negative); Leukocyte Esterase Urine Trace (Negative); Nitrite Urine Negative (Negative); PH 6.5 (5.0-9.0); Specific Gravity - Urine <= 1.005 (1.005-1.025); UMIC TRIGGER UACC YES; Urine Blood Negative (Negative); Urine Ketones Negative (Negative); Urine Protein Negative (Neg-Trace)
[2023-02-16 13:12] LABS: Bacteria Urine None Seen (None Seen); Hyaline Casts Urine 0-2 /LPF (0-2); RBC Urine 0-2 /HPF (0-2); WBC Urine 0-5 /HPF (0-5)
[2023-02-16] MEDS: iohexoL 350 MG/ML 100 ML INFUS..BTL 85 ML IV (13:32)
[2023-02-16] MEDS: Diatrizoate Meglumine, Sodium 30 ML SOLUTION PO (13:33)
[2023-02-16] MEDS: 0.9 % Sodium Chloride 1,000 ML 100 ML IVCONT (13:59)
--- NOTE | 2023-02-16 14:27 | ECG_ITS ---
Test Reason : ABDOMINAL PAIN Blood Pressure : / mmHG Vent. Rate : 049 BPM Atrial Rate : 049 BPM P-R Int : 138 ms QRS Dur : 074 ms QT Int : 494 ms P-R-T Axes : 022 015 027 degrees QTc Int : 446 ms Sinus bradycardia Low voltage QRS Borderline ECG When compared with ECG of 11-NOV-2022 16:06, No significant change was found Referred By: Gilma Borges Electronically Signed By:GENNA POLK
[2023-02-16 14:58] LABS: Troponin-I High Sensitivity < 2.7 ng/L (<3.5-17.0)
[2023-02-16 15:03] VITALS: BP 108/59; PULSE 49; RESP 15; O2SAT 99
== END 2023-02-16 15:23 | disposition home or self-care (01) ==
PROVIDERS: Emergency Provider Emergency Medicine; PCP Internal Medicine
DX: R10.13 Epigastric pain (principal); Z20.822 Contact with and (suspected) exposure to COVID-19; Z98.84 Bariatric surgery status
CPT/HCPCS: 36415; 74177; 80048; 80076; 81001; 81003; 83690; 84484; 85025; 87502; 87635; 93005; 96361; 96374; 96375; 99284; 99285; J2270; J2405; Q9967

== ENCOUNTER 2023-03-21 11:23 | Outpatient (AMB) | payer OTHER, SELFPAY ==
--- NOTE | 2023-03-21 11:34 | A.OFFVIS_ITS ---
Intake VS Expanded 03/21/23 11:42 BP 112/53 L Blood Pressure Location Rt brachial Blood Pressure Position Sitting Pulse 62 Pulse Source Pulse Oximeter Temp 96.7 F L Temperature Source Tympanic Pulse Oximetry 99 Oxygen Delivery Method Room Air Height 5 ft 1 in Weight 157 lb 12.8 oz BMI 29.8 Body Fat % 35.8 Body Fat Mass 56.4 Fat Free Mass 101.2 Visceral Fat Rating 8.0 Body Water % 45.6 Body Water Mass 71.8 Muscle Mass/Score 96.2 Basal Metabolic Rate/Score 1,383 Intake Visit Reasons: (OV) PO LSG 07/27/22 Allergies Penicillins [PENICILLINS] Allergy (Severe, Verified 03/21/23 11:35) ANAPHYLAXIS Sulfa (Sulfonamide Antibiotics) Allergy (Severe, Verified 03/21/23 11:35) Angioedema Medication List - Last Reconciled 03/21/23 by NIRANJAN Urbina albuterol sulfate 90 mcg/actuation 2 puffs inhalation Q4-6H PRN clonazepam 1 mg PO BID clotrimazole 1% 1 appl topical BID cyclobenzaprine 10 mg PO TID PRN diclofenac sodium 1% (Arthritis Pain (diclofenac)) 2 grams topical QID PRN fluticasone propionate 50 mcg/actuation (Flonase Allergy Relief) 2 sprays intranasal DAILY sertraline 100 mg PO DAILY zolpidem 10 mg PO BEDTIME PRN HPI HPI Comments History of Present Illness Details This?is a?52?yo female who is s/p LSG 07/27/2022. Presents for 7 month post op visit. Weight at last visit on 12/20/2022 was 164.6 pounds with a BMI of 31.1, weight today is 157.8 pounds, representing a 6.8 pound weight loss with a BMI today of 29.8.? Reports hemorrhoids are causing a lot of pain, but no further episodes of abdominal pain. Wants to see GI to discuss. Her last period prior to this month was in May, had some spotting this week. 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 Present meal plan includes: 1 boiled egg, sometimes slice of toast Premier Protein shake 1 snack of Thai yogurt with berries or protein bar Small meal of protein (chicken, fish), small portion of beans, veg All meals last 20 - 30 minutes and does not drink and eat at the same time. Exercise routine includes: tries to go to [employer]- treadmill (can walk almost an hour now), pool aerobics feels exercise also helps her mental health Pt reports issues of excess skin of abdomen and upper thighs, Reports she notices a lot of friction between upper thighs and has to constantly wear long shorts under dresses to prevent chafing. Also has to put towels in between skin folds of abdomen and where abdomen meets thighs, due to skin cracking. She has noticed increased moisture in skin folds, which produces an unpleasant odor and she has to wash and clean frequently. She has tried clotrimazole ointment but this has not completely resolved the issue. Did the patient ever have any of these conditions and are they resolved or still being treated? GERD: resolved SHUKRI:? never DM:? never HTN:? never Hyperlipidemia:?never Post op complications:? went to ER last month for abdominal pain, no acute findings, was able to be discharged home [facility] Medical History Hiatal hernia Osteoarthritis Anxiety and depression Palpitations GERD (gastroesophageal reflux disease) History of COVID-19 Recurrent UTI Acute diverticulitis Osteoarthritis of left knee Helicobacter pylori gastritis Trapezius muscle spasm Stress incontinence Neck pain Post covid-19 condition, unspecified Obesity (BMI 30-39.9) Loss of hearing Vision changes Hematuria Tubular adenoma Migraine Low back pain Surgical History H/O gastric sleeve History of tonsillectomy History of esophagogastroduodenoscopy (EGD) H/O colonoscopy History of section H/O tubal ligation History of cholecystectomy Family History Father CVD (cardiovascular disease) Diabetes History of open heart surgery Mother Alive and well CVD (cardiovascular disease) Diabetes Thyroid condition Maternal Aunt Colon cancer Son Mental health disorder Maternal Grandmother Colon cancer Social History Household Members: Spouse Housing: House Are you a primary congregational care pastor to a significant other at home: No Do you presently have visiting nurse or other home services: No Alcohol intake: former Patient Tobacco Use Status: Never used Tobacco e-Cigarette/Vaping Use: Never Used Second Hand Smoke Exposure: No service: No Current occupational status: unemployed Current occupation: right hand dominant Cognitive needs: No Hearing needs: No Vision needs: No Female Reproductive History Menstrual Age of Menarche: 14 Physical Exam Const General: cooperative, comfortable and no acute distress Orientation/consciousness: patient oriented x3 GI Other: soft, nontender, nondistended, incisions well healed, no hernia, no masses Neuro General: patient oriented x3 Assessment & Plan Assessment & Plan (1) Overweight: Code(s): E66.3 - Overweight (2) S/P laparoscopic sleeve gastrectomy: Comment: 07/27/2022 Dr. Rizzo Code(s): Z98.84 - Bariatric surgery status Plan Continue same meal plan, pt is happy on it and continuing to lose weight. Will check labs not already ordered by PCP. Continue clotrimazole ointment for rashes of excess skin. RTC 3 months. Patient is overweight and is not considered stable at this time. I spent a total of 30 minutes reviewing/updating records, examining the patient and counseling the patient on weight management as detailed above. Orders: Orders Vitamin B12 and Folate Today Z98.84 - Bariatric surgery status Vitamin B1 Today Z98.84 - Bariatric surgery status Vitamin D 25-OH Total Today Z98.84 - Bariatric surgery status Vitamin A Today Z98.84 - Bariatric surgery status PTHI Today Z98.84 - Bariatric surgery status Zinc Today Z98.84 - Bariatric surgery status Coding Level of Care Code Est Pt Level 4 (38860) Diagnoses Overweight E66.3 S/P laparoscopic sleeve gastrectomy Z98.84
[2023-03-21 11:42] VITALS: BP 112/53; PULSE 62; TEMP 35.9; O2SAT 99; BMI 29.8
== END 2023-03-21 12:06 | disposition home or self-care (01) ==
PROVIDERS: PCP Internal Medicine; Visit Provider Physician Assistant Surgical
DX: E66.3 Overweight (principal); Z68.29 Body mass index [BMI] 29.0-29.9, adult; Z90.3 Acquired absence of stomach [part of]; Z98.84 Bariatric surgery status
CPT/HCPCS: 99214

== ENCOUNTER → 2023-03-21 11:23 | Outpatient (BNVA) | payer OTHER, SELFPAY | PROVIDERS: PCP Internal Medicine; Visit Provider Physician Assistant Surgical | DX: E66.3 Overweight (principal); Z98.84 Bariatric surgery status; Z68.29 Body mass index [BMI] 29.0-29.9, adult | CPT/HCPCS: 99212 ==

== ENCOUNTER 2023-04-03 17:17 | Emergency (ER) | payer OTHER, SELFPAY ==
--- NOTE | ~2023-04-03 | XR_ITS ---
EXAMINATION: XR CHEST CLINICAL INFORMATION: Chest pain COMPARISON: Previous chest x-ray February 2022 TECHNIQUE: 2 views of the chest were obtained. FINDINGS: No significant abnormality is noted involving the heart, lungs, mediastinum, bony thorax or soft tissues. Degenerative changes of the spine. XR/XR chest 2V IMPRESSION: No evidence for acute disease in chest.
--- NOTE | 2023-04-03 17:19 | ECG_ITS ---
Test Reason : cp Blood Pressure : / mmHG Vent. Rate : 066 BPM Atrial Rate : 066 BPM P-R Int : 122 ms QRS Dur : 066 ms QT Int : 388 ms P-R-T Axes : 000 019 019 degrees QTc Int : 406 ms Normal sinus rhythm Low voltage QRS RSR' or QR pattern in V1 suggests right ventricular conduction delay Borderline ECG When compared with ECG of 16-FEB-2023 14:44, No significant change was found Referred By: Surekha Chacon Electronically Signed By:CORY ORTIZ MD
[2023-04-03 17:28] VITALS: BP 128/62; PULSE 77; RESP 18; TEMP 36.8; O2SAT 98
--- NOTE | 2023-04-03 17:31 | ED_ITS ---
HPI - General Adult General Chief complaint: Upper Respiratory Symptoms Stated complaint: chest pain, cough, headache Time Seen by Provider: 04/03/23 19:25 Source: patient Mode of arrival: ambulatory Limitations: no limitations History of Present Illness HPI narrative: 52 yold female presents to the ED for cough with green phelghm, chest pain only when she couhs, headache, chills, and body aches for one week. Patient denies any recent trauma, leg swelling, calf pain, pleruisy, coughing up blood, or shortness of breath/chest pain on inspration. Related Data Home Medications Medication Instructions Recorded Confirmed clonazepam 1 mg tablet 1 mg PO BID 05/08/20 03/21/23 zolpidem 10 mg tablet 10 mg PO BEDTIME PRN Sleep 03/08/22 03/21/23 sertraline 100 mg tablet 100 mg PO DAILY 09/06/22 03/21/23 Previous Rx's Medication Instructions Recorded albuterol sulfate 90 mcg/actuation 2 puff inhalation Q4-6H PRN 03/29/21 aerosol inhaler shortness of breath or wheezing #6.7 grams fluticasone propionate 50 2 spray intranasal DAILY #16 grams 03/29/21 mcg/actuation nasal spray,suspension (Flonase Allergy Relief) clotrimazole 1 % topical cream 1 appl topical BID #45 grams 12/20/22 cyclobenzaprine 10 mg tablet 10 mg PO TID PRN muscle spasm #20 01/25/23 tabs diclofenac sodium 1 % topical gel 2 g topical QID PRN pain #100 grams 01/25/23 (Arthritis Pain (diclofenac)) benzonatate 200 mg capsule 200 mg PO TID PRN cough 5 days #15 04/03/23 caps Allergies Allergy/AdvReac Type Severity Reaction Status Date / Time Penicillins [PENICILLINS] Allergy Severe ANAPHYLAXIS Verified 03/21/23 11:35 Sulfa (Sulfonamide Allergy Severe Angioedema Verified 03/21/23 11:35 Antibiotics) Review of Systems 2 Review of Systems: chest pain when cough, headhahe, bodyaches, Yes all other systems are reviewed and are negative PMFSH Past Medical History Medical History Hiatal hernia Osteoarthritis Anxiety and depression Palpitations GERD (gastroesophageal reflux disease) History of COVID-19 Recurrent UTI Acute diverticulitis Osteoarthritis of left knee Helicobacter pylori gastritis Trapezius muscle spasm Stress incontinence Neck pain Post covid-19 condition, unspecified Obesity (BMI 30-39.9) Loss of hearing Vision changes Hematuria Tubular adenoma Migraine Low back pain Surgical History H/O gastric sleeve History of tonsillectomy History of esophagogastroduodenoscopy (EGD) H/O colonoscopy History of section H/O tubal ligation History of cholecystectomy Family History Family History Father CVD (cardiovascular disease) Diabetes History of open heart surgery Mother Alive and well CVD (cardiovascular disease) Diabetes Thyroid condition Maternal Aunt Colon cancer Son Mental health disorder Maternal Grandmother Colon cancer Social History Social History Household Members: Spouse Housing: House Are you a primary care team coordinator scheduler to a significant other at home: No Do you presently have visiting nurse or other home services: No Alcohol intake: former Patient Tobacco Use Status: Never used Tobacco e-Cigarette/Vaping Use: Never Used Second Hand Smoke Exposure: No Advance Directives: No Advance Directives Information Provided: No service: No Current occupational status: unemployed Current occupation: right hand dominant Cognitive needs: No Hearing needs: No Vision needs: No Physical Exam ED Vital Signs: Vital Signs - 24 hr 04/03/23 17:28 04/03/23 19:00 Temperature 98.2 F 98.2 F Pulse Rate 77 64 Respiratory Rate 18 15 Blood Pressure 128/62 112/57 L Pulse Oximetry 98 100 Oxygen Delivery Method Room Air Room Air BMI result Body Mass Index 30.0 Const General: cooperative, healthy appearing, comfortable, no acute distress, well developed, alert and awake Orientation/consciousness: oriented to person, oriented to place, oriented to time and patient oriented x3 HENMT Head: Yes normal to inspection, Yes No palpable skull fracture present, Yes normocephalic and Yes atraumatic Ears: hearing grossly normal bilaterally, external ears normal, TM's normal bilaterally, TM normal on the right, TM normal on the left, EAC's normal, mastoids normal and no periauricular adenopathy Throat: Yes posterior oropharynx normal, Yes tonsils normal and Yes uvula midline Eyes General: appearance normal, both eyes and all related structures Neck Neck: Yes normal visual inspection, Yes full ROM, Yes no lymphadenopathy, Yes no meningeal signs, Yes trachea midline, Yes supple, No anterior neck swelling and No tender Chest Chest palpation & inspection: normal inspection of the chest and normal palpation of entire chest wall Chest/axillae images: 2 1. positive for chest wall tenderness on palpation. negative for erythema, ecchymosis, creptius, or defromity Resp Effort & Inspection: normal respiratory effort and able to speak in complete sentences Auscultation: clear to auscultation bilaterally Cardio Jugular venous distension: no JVD Heart sounds: S1 normal heart sound present and S2 normal heart sound present GI Inspection: Yes normal to inspection and No abdominal wall ecchymosis Palpation (GI): Soft to palpation, not firm, nontender and no guarding General: Yes no CVA tenderness Back/Spine/Pelvis Back: no CVA tenderness Skin General skin exam: no rashes or lesions noted, elasticity normal and turgor normal Neuro General: oriented to person, oriented to place, oriented to time, patient oriented x3, gait normal, tone normal, moves all extremities, Normal light touch and pain sensation, no meningeal signs, no focal motor deficits, CN's II-XI intact bilaterally and normal sensation to monofilament Extrem Other: Bilateral lower extremity negative for swelling, pain edema, or calf tenderness. General: Yes normal to inspection and Yes full ROM Psych Appearance: grossly normal, well kempt and not disheveled Course Course Course Narrative: RME performed by Surekha Chacon PA-C. Patient is a 52 year old assigned female at presenting to the emergency department with a cough. Labs, imaging, and swabs ordered. Patient placed back in the waiting room pending room availability and results. Medical Decision Making Medical Decision Making [facility] Narrative: 52-year-old female presents today for URI symptoms suggest coughing green phlegm, chest pain when she cough, headache, body aches, and chills. Patient denies any chest pain /shortness of breath on exertion. Patient states nose pleurisy, leg swelling, calf pain, coughing up blood. EKG labs chest x-ray SARS ordered. THey were all normal and negative. Not suspecting heart failure, pulmonary embolus, myocardial infarction, pericardial effusion, pericarditis. Differential Diagnosis Differential Diagnoses: The differential diagnosis associated with the presentation includes ( Pneumonia, bronchitis, COVID, influenza PE, myocardial infarction, heart failure) Admission/Observation Consideration of admission/observation: Escalation of care including admission/observation considered Lab Data MDM Lab Attestation statement: I reviewed the patient's lab results. 04/03/23 17:37 04/03/23 17:37 Labs: Lab Results 04/03/23 04/03/23 Range/Units 17:37 19:10 WBC 10.4 (4.8-10.8) X10*3/uL RBC 4.35 (4.20-5.50) X10*6/uL Hgb 13.2 (12.0-16.0) g/dl Hct 39.9 (37.0-47.0) % MCV 91.7 (80.0-98.0) fL MCH 30.3 (27.0-33.0) pg MCHC 33.1 (31.0-35.0) g/dl RDW 12.4 (11.0-16.0) % Plt Count 391 (160-400) X10*3/uL MPV 9.2 L (9.4-12.3) fL Immature Gran % (Auto) 0.3 (0.0-0.4) % Neut % (Auto) 77.4 H (45-73) % Lymph % (Auto) 16.1 L (20-40) % [place] % (Auto) 4.5 (2-11) % Eos % (Auto) 1.4 (0-4) % Baso % (Auto) 0.3 (0-2) % Lymph # (Auto) 1.7 (1.2-4.9) X10*3/uL [place] # (Auto) 0.5 (0.1-1.2) X10*3/uL Eos # (Auto) 0.2 (0.0-0.4) X10*3/uL Baso # (Auto) 0.0 (0.0-0.2) X10*3/uL Abs Immat Gran (auto) 0.03 (0.00-0.03) X10*3/uL Absolute Neuts (auto) 8.0 (2.0-8.3) x10*3/uL Absolute Nucleated RBC 0.000 (0.0-0.012) X10*3/uL Nucleated RBC % (auto) 0.0 (0.0-0.2) /100WBC PT 13.0 (11.1-13.3) SEC INR 1.1 (0.9-1.1) Sodium 140 (135-145) mmol/L Potassium 4.3 (3.3-5.1) mmol/L Chloride 105 (96-108) mmol/L Carbon Dioxide 28 (22-29) mmol/L Anion Gap 11 L (12-20) BUN 13 (9-16) mg/dL Creatinine 0.81 (0.5-1.4) mg/dL Estim Creat Clear Calc 75.4 Estimated GFR > 60 Random Glucose 101 (60-115) mg/dL Calcium 9.4 (8.4-10.2) mg/dL Magnesium 2.0 (1.6-2.6) mg/dL Total Bilirubin 0.4 (0.0-1.0) mg/dL AST 15 (5-31) U/L ALT 11 (0-31) U/L Alkaline Phosphatase 88 (39-117) U/L Troponin I High Sens < 2.7 (<3.5-17.0) ng/L Total Protein 7.0 (6.5-8.0) g/dL Albumin 3.9 (3.5-5.0) g/dL Urine Color Yellow Urine Appearance Clear Urine pH 6.5 (5.0-9.0) Ur Specific [place] 1.015 (1.005-1.025) Urine Protein Negative (Neg-Trace) mg/dL Urine Glucose (UA) Negative (Negative) mg/dL Urine Ketones Negative (Negative) mg/dL Urine Blood Small (1+) H (Negative) Urine Nitrite Negative (Negative) Ur Leukocyte Esterase Negative (Negative) Urine RBC 6-10 H (0-2) /HPF Urine WBC 6-10 H (0-5) /HPF Ur Squamous Epith Cells 6-10 (0-2) /HPF Urine Bacteria 4+ (None Seen) Hyaline Casts 3-5 (0-2) /LPF Influenza Type A (PCR) NEGATIVE (Negative) Influenza Type B (PCR) NEGATIVE (Negative) RSV RNA Qual (PCR) NEGATIVE (Negative) SARS-CoV-2 RNA (RT-PCR) NEGATIVE (Negative) Independent Interpretation I performed an independent interpretation of an: EKG ( normal sinus rhythm. Negative STEMI) and Plain X-Ray Radiology Impression Discussion of test interpretation with radiology: I have reviewed the radiologist's reading. Independent Historian Clinical information obtained from an independent historian. History obtained from or confirmed by: Spouse External Record Review External record reviewed: Other (Prior visitis) Prescription Management I considered prescription management with: Other (cough) Discharge Plan Discharge Clinical Impression: URI (upper respiratory infection) Patient Disposition: Home, Self-Care Instructions: Upper Respiratory Infection (ED) Additional Instructions: return to the ED immediately for any leg swelling, calf pain, coughing up blood, weakness could we did discover fever, chills, chest pain inspiration, intractable fevers, shortness of breath, or any other concerning symptoms. Please follow-up with primary care provider Prescriptions: New benzonatate 200 mg capsule 200 mg PO TID PRN (Reason: cough) 5 Days Qty: 15 0RF No Action albuterol sulfate 90 mcg/actuation HFA aerosol inhaler 2 puff inhalation Q4-6H PRN (Reason: shortness of breath or wheezing) Qty: 6.7 0RF fluticasone propionate [Flonase Allergy Relief] 50 mcg/actuation spray,suspension 2 spray intranasal DAILY Qty: 16 0RF Rx Instructions: administer into each nostril clonazepam 1 mg tablet 1 mg PO BID sertraline 100 mg tablet 100 mg PO DAILY cyclobenzaprine 10 mg tablet 10 mg PO TID PRN (Reason: muscle spasm) Qty: 20 0RF diclofenac sodium [Arthritis Pain (diclofenac)] 1 % gel 2 g topical QID PRN (Reason: pain) Qty: 100 0RF zolpidem 10 mg tablet 10 mg PO BEDTIME PRN (Reason: Sleep) clotrimazole 1 % cream 1 appl topical BID Qty: 45 3RF Stand Alone Forms: Work/School Release Interventions: ED Discharge Assessment Last Done: 04/03/23 20:39 Discharge Date/Time: 04/03/23 20:40 Print Language: Nigerian
[2023-04-03 17:42] LABS: MANUAL DIFF FLAG NO
[2023-04-03 17:51] LABS: INTERNATIONAL NORM RATIO 1.1 (0.9-1.1)
[2023-04-03 17:52] LABS: Basophils Percent Auto 0.3 % (0-2); Eosinophils Absolute Auto 0.2 X10*3/uL (0.0-0.4); Eosinophils Percent Auto 1.4 % (0-4); Hematocrit 39.9 % (37.0-47.0); Hemoglobin 13.2 g/dl (12.0-16.0); Imm Gran Abs Auto 0.03 X10*3/uL (0.00-0.03); Imm Gran Pct Auto 0.3 % (0.0-0.4); Lymphocytes Absolute Auto 1.7 X10*3/uL (1.2-4.9); Lymphocytes Percent Auto 16.1 % (20-40); Mean Corpuscular HGB Conc 33.1 g/dl (31.0-35.0); Mean Corpuscular Hemoglobin 30.3 pg (27.0-33.0); Mean Corpuscular Volume 91.7 fL (80.0-98.0); Mean Platelet Volume 9.2 fL (9.4-12.3); Monocytes Absolute Auto 0.5 X10*3/uL (0.1-1.2); Monocytes Percent Auto 4.5 % (2-11); Neutrophils Percent Auto 77.4 % (45-73); Platelet Count 391 X10*3/uL (160-400); Red Blood Count 4.35 X10*6/uL (4.20-5.50); Red Cell Distribution Width 12.4 % (11.0-16.0); White Blood Count 10.4 X10*3/uL (4.8-10.8)
[2023-04-03 17:57] LABS: Alanine Aminotransferase 11 U/L (0-31); Albumin Level 3.9 g/dL (3.5-5.0); Alkaline Phosphatase 88 U/L (39-117); Anion Gap 11 (12-20); Aspartate Amino Transferase 15 U/L (5-31); Bilirubin Total 0.4 mg/dL (0.0-1.0); Blood Urea Nitrogen 13 mg/dL (9-16); Calcium 9.4 mg/dL (8.4-10.2); Carbon Dioxide 28 mmol/L (22-29); Chloride 105 mmol/L (96-108); Creatinine Clr Calc Pharmacy 75.4; Estimated Glomerular Filt Rate > 60; Glucose Random 101 mg/dL (60-115); Potassium 4.3 mmol/L (3.3-5.1); Sodium 140 mmol/L (135-145)
[2023-04-03 18:19] LABS: Influenza A PCR NEGATIVE (Negative); Influenza B PCR NEGATIVE (Negative); Resp Syncy Virus RNA Qual PCR NEGATIVE (Negative); SARS COV2 PCR INHOUSE NEGATIVE (Negative)
[2023-04-03 18:27] LABS: Troponin-I High Sensitivity < 2.7 ng/L (<3.5-17.0)
[2023-04-03 19:00] VITALS: BP 112/57; PULSE 64; RESP 15; TEMP 36.8; O2SAT 100
[2023-04-03 19:21] LABS: Appearance Urine Clear; Color Urine Yellow; Glucose Urine UA Negative (Negative); Leukocyte Esterase Urine Negative (Negative); Nitrite Urine Negative (Negative); PH 6.5 (5.0-9.0); Specific Gravity - Urine 1.015 (1.005-1.025); UMIC TRIGGER UACC YES; Urine Blood Small (1+) (Negative); Urine Ketones Negative (Negative); Urine Protein Negative (Neg-Trace)
[2023-04-03 19:23] LABS: Bacteria Urine 4+ (None Seen); UACC Culture Trigger YES
== END 2023-04-03 20:40 | disposition home or self-care (01) ==
PROVIDERS: Physician Assistant Medical; Emergency Provider Internal Medicine; PCP Internal Medicine
DX: J06.9 Acute upper respiratory infection, unspecified (principal); R07.9 Chest pain, unspecified; R05.9 Cough, unspecified; R51.9 Headache, unspecified; R68.83 Chills (without fever); Z20.828 Contact with and (suspected) exposure to other viral communicable diseases; Z20.822 Contact with and (suspected) exposure to COVID-19
CPT/HCPCS: 0241U; 71046; 80053; 81001; 83735; 84484; 85025; 85610; 87086; 87147; 93005; 99283; 99284

== ENCOUNTER 2023-05-05 13:59 | Outpatient (AMB) | payer OTHER, SELFPAY ==
[2023-05-05 14:14] VITALS: BP 100/72; PULSE 72; RESP 16
--- NOTE | 2023-05-05 14:14 | MHC.PC.OV ---
Vital Signs 05/05/23 14:14 Height 5 ft 1 in Weight 159 lb BMI 30.0 BP 100/72 Blood Pressure Location Lt brachial Position Sitting Respiration 16 Pulse 72 Pulse Source Palpation Intake Visit Reasons: 3mth f/u Relays Draftsperson Required: No Accompanied by: Self / Same As Patient Allergies Penicillins [PENICILLINS] Allergy (Severe, Verified 05/05/23 14:19) ANAPHYLAXIS Sulfa (Sulfonamide Antibiotics) Allergy (Severe, Verified 05/05/23 14:19) Angioedema Medication List - Last Reconciled 05/05/23 by April Santillan, albuterol sulfate 90 mcg/actuation 2 puffs inhalation Q4-6H PRN clonazepam 1 mg PO BID clotrimazole 1% 1 appl topical BID cyclobenzaprine 10 mg PO TID PRN diclofenac sodium 1% (Arthritis Pain (diclofenac)) 2 grams topical QID PRN fluticasone propionate 50 mcg/actuation (Flonase Allergy Relief) 2 sprays intranasal DAILY hydrocortisone 2.5% (Proctosol HC) 1 appl MT BID-QID PRN sennosides-docusate sodium 8.6-50 mg (Senna Plus) 2 tab-caps (2 x 8.6-50 mg) PO BEDTIME sertraline 100 mg PO DAILY zolpidem 10 mg PO BEDTIME PRN Tobacco use date assessed: 01/25/23 Dental Screening Dental Screen Date: 05/05/23 Did you have a dental visit in the last 12 months?: No Did you have a dental problem in the last 6 months where you did not have access to dental care?: No Was dental information given to patient?: Patient has dentist HPI 3mth f/u HPI Details 52-year-old obese female with a history of laparoscopic sleeve gastrectomy hypercholesterolemia GERD generalized anxiety disorder migraine coming in for follow-up last seen in August 2022 for physical exam. Patient is up-to-date with mammogram up-to-date with colonoscopy. ER visit April 05 for upper respiratory tract infection treated with cough medication.. January was in the ER also for abdominal pain CT scan negative. Patient was seen by the nurse practitioner in January also for back pain and right leg pain advised physical therapy and was given steroid and muscle relaxant. ER visit near syncopal episode in October 2022 diagnosis of generalized anxiety disorder vasovagal symptoms. noted weight loss. hemorrhoids PFSH Medical History (Updated 05/05/23 @ 14:44 by April Santillan MD) Left knee pain Constipation Hiatal hernia Osteoarthritis Anxiety and depression Palpitations GERD (gastroesophageal reflux disease) History of COVID-19 Recurrent UTI Acute diverticulitis Osteoarthritis of left knee Helicobacter pylori gastritis Trapezius muscle spasm Stress incontinence Neck pain Post covid-19 condition, unspecified Obesity (BMI 30-39.9) Loss of hearing Vision changes Hematuria Tubular adenoma Migraine Low back pain Surgical History H/O gastric sleeve History of tonsillectomy History of esophagogastroduodenoscopy (EGD) H/O colonoscopy History of section H/O tubal ligation History of cholecystectomy Family History Father CVD (cardiovascular disease) Diabetes History of open heart surgery Mother Alive and well CVD (cardiovascular disease) Diabetes Thyroid condition Maternal Aunt Colon cancer Son Mental health disorder Maternal Grandmother Colon cancer Social History Household Members: Spouse Housing: House Are you a primary overnight caregiver to a significant other at home: No Do you presently have visiting nurse or other home services: No Alcohol intake: former Patient Tobacco Use Status: Never used Tobacco e-Cigarette/Vaping Use: Never Used Second Hand Smoke Exposure: No service: No Current occupational status: unemployed Current occupation: right hand dominant Cognitive needs: No Hearing needs: No Vision needs: No Female Reproductive History Menstrual Age of Menarche: 14 Questionnaire Thrive Questionnaire Date Thrive assessed: 09/06/22 NATHAN-7 AMB Questionnaire NATHAN-7 Date NATHAN - 7 assessed: 09/06/22 Source: Developed by Drs. Chris Brown, Sherry Champagne, Juan Alberto Lee and colleagues, with an educational duyen from [email or web address]. Physical exam (Primary Care) Vital Signs: Last Vital Signs Pulse 72 05/05/23 14:14 Resp 16 05/05/23 14:14 BP 100/72 05/05/23 14:14 BMI result Body Mass Index 30.0 Tobacco/Smoking Status: Tobacco use Status Tobacco use date assessed 01/25/23 05/05/23 14:15 Patient Tobacco Use Status Never used Tobacco 05/05/23 14:15 e-Cigarette/Vaping Use Never Used 05/05/23 14:15 Thrive Assessment: Date of Thrive Assessment Date Thrive assessed 09/06/22 05/05/23 14:15 Const General: alert; No acute distress Eyes Conjunctivae: conjunctivae normal Resp Auscultation: clear to auscultation bilaterally Cardio Rate: regular rate Rhythm: regular rhythm GI Inspection: Yes normal to inspection Extrem General: Yes normal to inspection and No edema Assessment and Plan Assessment & Plan (1) S/P laparoscopic sleeve gastrectomy: Comment: 07/27/2022 Dr. Rizzo Code(s): Z98.84 - Bariatric surgery status Plan: Continue to follow-up with weight management (2) Major depressive disorder, recurrent, moderate: Comment: [facility] Code(s): F33.1 - Major depressive disorder, recurrent, moderate Plan: Continue with counseling and therapy (3) GERD (gastroesophageal reflux disease): Code(s): K21.9 - Gastro-esophageal reflux disease without esophagitis Qualifiers: Esophagitis presence: without esophagitis Qualified Code(s): K21.9 - Gastro-esophageal reflux disease without esophagitis Plan: Avoid the foods that causes that usually spicy foods, tomato products, juices, coffee, soda and foods that your sensitive to. After eating do not lie down, allow 3-4 hours before in lie down. And keep the head of bed above 30 degrees to avoid the acid from going up. (4) Hypercholesteremia: Code(s): E78.00 - Pure hypercholesterolemia, unspecified Plan: Avoid fried foods, chicken skin, eggs, butter margarine, pastries and meat. Be it pork or beef they have a lot of cholesterol July 2022 last blood work LDL goal of less than 130 and triglyceride of less than 150 (5) Hemorrhoid: Code(s): K64.9 - Unspecified hemorrhoids Plan: Discussed about constipation causing the problem. Cream sent in to help and will refer to surgeon (6) Constipation: Code(s): K59.00 - Constipation, unspecified Plan: Three rules for constipation 1. Diet need to have a high fiber diet less of meat 2. Increase oral fluids 3. Exercise (7) Left knee pain: Code(s): M25.562 - Pain in left knee Plan: Continue to keep active, x-ray requested Orders: Orders XR knee LT 2V Today M25.562 - Pain in left knee Referrals General Surgery Referral K64.9 - Unspecified hemorrhoids Medications: New diclofenac sodium 1% (Arthritis Pain (diclofenac)) apply to single knee, ankle, foot; for foot includes sole/toes/top of foot 4 grams topical QID 100 grams 8RF M25.562 - Pain in left knee sennosides-docusate sodium 8.6-50 mg (Senna Plus) 2 tab-caps (2 x 8.6-50 mg) PO BEDTIME 60 caps 3RF K59.00 - Constipation, unspecified hydrocortisone 2.5% (Proctosol HC) 1 appl MT BID-QID PRN 30 grams 0RF hemorrhoids K64.9 - Unspecified hemorrhoids Coding Level of Care Code Est Pt Level 4 (13668) Diagnoses S/P laparoscopic sleeve gastrectomy Z98.84 Major depressive disorder, recurrent, moderate F33.1 Gastroesophageal reflux disease without esophagitis K21.9 Esophagitis presence: without esophagitis Hypercholesteremia E78.00 Hemorrhoid K64.9 Constipation K59.00 Left knee pain M25.562
== END 2023-05-05 14:55 | disposition home or self-care (01) ==
PROVIDERS: PCP Internal Medicine; Visit Provider Internal Medicine
DX: E78.00 Pure hypercholesterolemia, unspecified (principal); Z98.84 Bariatric surgery status; F33.1 Major depressive disorder, recurrent, moderate; K21.9 Gastro-esophageal reflux disease without esophagitis; K64.9 Unspecified hemorrhoids; K59.00 Constipation, unspecified; M25.562 Pain in left knee; G43.909 Migraine, unspecified, not intractable, without status migrainosus
CPT/HCPCS: 99214

== ENCOUNTER 2023-06-20 13:13 | Outpatient (AMB) | payer OTHER, SELFPAY ==
--- NOTE | 2023-06-20 13:17 | MHC.OFFVISWM ---
Intake VS Expanded 06/20/23 13:46 BP 121/59 L Blood Pressure Location Rt brachial Blood Pressure Position Sitting Pulse 60 Pulse Source Pulse Oximeter Temp 96.7 F L Temperature Source Tympanic Pulse Oximetry 99 Oxygen Delivery Method Room Air Height 5 ft 1 in Weight 154 lb BMI 29.1 Body Fat % 34.1 Body Fat Mass 52.4 Fat Free Mass 101.4 Visceral Fat Rating 7.0 Body Water % 46.8 Body Water Mass 72.0 Muscle Mass/Score 96.4 Basal Metabolic Rate/Score 1,379 Intake Visit Reasons: (OV) PO LSG 07/27/22 Allergies Penicillins [PENICILLINS] Allergy (Severe, Verified 06/20/23 13:50) ANAPHYLAXIS Sulfa (Sulfonamide Antibiotics) Allergy (Severe, Verified 06/20/23 13:50) Angioedema Medication List - Last Reconciled 06/20/23 by NIRANJAN Urbina albuterol sulfate 90 mcg/actuation 2 puffs inhalation Q4-6H PRN clonazepam 1 mg PO BID clotrimazole 1% 1 appl topical BID cyclobenzaprine 10 mg PO TID PRN diclofenac sodium 1% (Arthritis Pain (diclofenac)) 4 grams topical QID diclofenac sodium 1% (Arthritis Pain (diclofenac)) 2 grams topical QID PRN fluticasone propionate 50 mcg/actuation (Flonase Allergy Relief) 2 sprays intranasal DAILY hydrocortisone 2.5% (Proctosol HC) 1 appl [place] BID-QID PRN sennosides-docusate sodium 8.6-50 mg (Senna Plus) 2 tab-caps (2 x 8.6-50 mg) PO BEDTIME sertraline 100 mg PO DAILY zolpidem 10 mg PO BEDTIME PRN HPI HPI Comments History of Present Illness Details This?is a?52?yo female who is s/p LSG 07/27/2022. Presents for 10 month post op visit. Weight at last visit on 03/21/2023 was 157.8 pounds with a BMI of 29.8, weight today is 154 pounds, representing a 3.8 pound weight loss with a BMI today of 29.1.? No complaints of nausea, emesis, abdominal pain or reflux, or constipation. Taking care of her mom, has family stress/son. Going to therapy. Present meal plan includes: 1 boiled egg, sometimes slice of toast Premier Protein shake 1 snack of Dutch yogurt with berries or protein bar Small meal of protein (chicken, fish), small portion of beans, veg taking MVI Exercise routine includes: hasn't been to the gym in a month, has [employer] membership Pt reports issues of excess skin of abdomen and upper thighs. Regarding abdomen, has to put towels in between skin folds of abdomen and where abdomen meets thighs, due to skin cracking which causes a lot of pain. She has noticed increased moisture in skin folds, which produces an unpleasant odor and she has to wash and clean frequently. She has tried clotrimazole ointment but this has not completely resolved the issue. Regarding upper thighs, reports she notices a lot of friction between upper thighs and has to constantly wear long shorts under dresses to prevent chafing. She has tried compressive pants to try to hold the skin in place, but the material/elastic often digs into her skin at her ankles and has caused bleeding in the past. Has tried clotrimazole ointment here as well but this has not helped. Walking has become more difficult and painful due to friction. [facility] Medical History (Updated 06/20/23 @ 14:07 by NIRANJAN Urbina) Left knee pain Constipation Hiatal hernia Osteoarthritis Anxiety and depression Palpitations GERD (gastroesophageal reflux disease) History of COVID-19 Recurrent UTI Acute diverticulitis Osteoarthritis of left knee Helicobacter pylori gastritis Trapezius muscle spasm Stress incontinence Neck pain Post covid-19 condition, unspecified Obesity (BMI 30-39.9) Loss of hearing Vision changes Hematuria Tubular adenoma Migraine Low back pain Surgical History H/O gastric sleeve History of tonsillectomy History of esophagogastroduodenoscopy (EGD) H/O colonoscopy History of section H/O tubal ligation History of cholecystectomy Family History Father CVD (cardiovascular disease) Diabetes History of open heart surgery Mother Alive and well CVD (cardiovascular disease) Diabetes Thyroid condition Maternal Aunt Colon cancer Son Mental health disorder Maternal Grandmother Colon cancer Social History Household Members: Spouse Housing: House Are you a primary animal care service worker to a significant other at home: No Do you presently have visiting nurse or other home services: No Alcohol intake: former Patient Tobacco Use Status: Never used Tobacco e-Cigarette/Vaping Use: Never Used Second Hand Smoke Exposure: No service: No Current occupational status: unemployed Current occupation: right hand dominant Cognitive needs: No Hearing needs: No Vision needs: No Female Reproductive History Menstrual Age of Menarche: 14 Physical Exam Const General: cooperative, comfortable and no acute distress Orientation/consciousness: patient oriented x3 GI Other: soft, nontender, nondistended, incisions well healed, no hernia, no masses Grade II pannus Skin Other: bilateral thighs with multiple skin folds/irregularities in skin contour medially; skin of legs is in contact from pelvis to knees Neuro General: patient oriented x3 Assessment & Plan Assessment & Plan (1) Overweight: Code(s): E66.3 - Overweight (2) S/P laparoscopic sleeve gastrectomy: Comment: 07/27/2022 Dr. Rizzo Code(s): Z98.84 - Bariatric surgery status (3) Excess skin: Code(s): L98.7 - Excessive and redundant skin and subcutaneous tissue Plan Encouraged pt to resume exercise. Goal weight <150lbs before submission for skin removal surgery. Discussed skin removal surgery expected postop course. Labs ordered, pt to have drawn prior to 1 year appt. Pt is having issues of excess skin of abdomen, resulting in painful malodorous rashes refractory to topical Rx treatment. She would benefit from definitive treatment of panniculectomy. Pt also having issues of excess skin of upper thigs, resulting in painful chafing refractory to topical Rx treatment and inhibiting her typical activities of daily living such as walking. She would benefit from definitive treatment of thighplasty. RTC 6 weeks to monitor issues of excess skin. Patient is overweight and is not considered stable at this time. I spent a total of 30 minutes reviewing/updating records, examining the patient and counseling the patient on weight management as detailed above. Orders: Orders Insulin Today Z98.84 - Bariatric surgery status Lipid Panel Today Z98.84 - Bariatric surgery status IRON PROFILE Today Z98.84 - Bariatric surgery status C Reactive Protein Today Z98.84 - Bariatric surgery status Vitamin A Today Z98.84 - Bariatric surgery status TSH reflex Free T4 Today Z98.84 - Bariatric surgery status Ferritin Today Z98.84 - Bariatric surgery status Vitamin D 25-OH Total Today Z98.84 - Bariatric surgery status Hemoglobin A1c Today Z98.84 - Bariatric surgery status Complete Blood Count Auto Diff Today Z98.84 - Bariatric surgery status Comprehensive Met. Panel Today Z98.84 - Bariatric surgery status Vitamin B12 and Folate Today Z98.84 - Bariatric surgery status Zinc Today Z98.84 - Bariatric surgery status Vitamin B1 Today Z98.84 - Bariatric surgery status Coding Level of Care Code Est Pt Level 4 (95175) Diagnoses Overweight E66.3 S/P laparoscopic sleeve gastrectomy Z98.84 Excess skin L98.7
[2023-06-20 13:46] VITALS: BP 121/59; PULSE 60; TEMP 35.9; O2SAT 99; BMI 29.1
== END 2023-06-20 14:06 | disposition home or self-care (01) ==
PROVIDERS: PCP Internal Medicine; Visit Provider Physician Assistant Surgical
DX: E66.3 Overweight (principal); Z68.29 Body mass index [BMI] 29.0-29.9, adult; Z98.84 Bariatric surgery status; L98.7 Excessive and redundant skin and subcutaneous tissue
CPT/HCPCS: 99214

== ENCOUNTER → 2023-06-20 13:13 | Outpatient (BNVA) | payer OTHER, SELFPAY | PROVIDERS: PCP Internal Medicine; Visit Provider Physician Assistant Surgical | DX: E66.3 Overweight (principal); Z68.29 Body mass index [BMI] 29.0-29.9, adult; L98.7 Excessive and redundant skin and subcutaneous tissue; Z98.84 Bariatric surgery status | CPT/HCPCS: 99212 ==

== ENCOUNTER 2023-06-27 13:06 | Outpatient (REF) | payer OTHER, SELFPAY ==
--- NOTE | ~2023-06-27 | XR_ITS ---
EXAMINATION: XR KNEE, LEFT CLINICAL INFORMATION: Pain COMPARISON: Left knee x-rays 03/01/2022 TECHNIQUE: 2 views of of the left knee. FINDINGS: No fracture or dislocation. Joint spaces are well-maintained. No suprapatellar joint effusion. Tiny tricompartmental marginal osteophytes. No localized soft tissue swelling the anterior knee. XR/XR knee LT 2V IMPRESSION: Mild degenerative changes of the left knee.
== END 2023-06-27 13:07 | disposition home or self-care (01) ==
LOC: HO.XRAY 13:06
PROVIDERS: PCP Internal Medicine; Visit Provider Internal Medicine
DX: M25.562 Pain in left knee (principal)
CPT/HCPCS: 73560

== ENCOUNTER 2023-07-19 15:00 | Outpatient (RCR) | payer OTHER, SELFPAY ==
--- NOTE | 2023-06-30 13:32 | MHC.PT.EP ---
[facility] [place] Office [place] Office [place] Office [address] Katrin Sanz [address] [phone] F: [phone] F: [phone] F: [phone] F: [phone] Physical Therapy Plan of Care Date of Evaluation: 06/29/23 Date of Surgery: Diagnosis: LBP Assessment: Francie is a pleasant 52 yo female presenting to skilled physical therapy evaluation and treatment with c/o LBP. Pt reports gradual onset of central LBP beginning ~2 months ago. Pt reports worsening pain since onset along with intermittent ache radiating to buttocks L>R. Pt denies previous injury or imaging. 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 Upon evaluation, pt presents with pain, decreased lumbar ROM with hypomobility, and significant tissue restriction through lumbar PS/glutes. All LEs myotomes and dermatomes are WNL indicating no significant nerve involvement at this time. Pt demonstrates postural deficits consistent with posterior chain tightness and decreased core/hip stability, which are exacerbated throughout mobility. Current impairments in combination with physical work demands and h/o abdominal sx are contributing toward discomfort and preventing pt's ability to achieve desired PLOF. Francie would benefit from skilled PT services to address muscular imbalances, provide education on posture/body mechanics, and promote functional hip/core stability for improved overall mobility. Pt is recommended to participate in PT 2x/week for 4 weeks. Frequency and Duration: The patient will be seen 2x/week for 4 weeks Short Term Goals: Pt will demonstrate independence with initial HEP through teach-back method, showing proper adherence to PT Pt will achieve pain free lumbar ROM WFL to allow for proper body mechanics throughout mobility Pt will be able to perform 15 consecutive PPT in supine with proper TA activation necessary for core stability in weightbearing Prison Goals: Pt will achieve 5/5 B glute strength allowing for normal gait mechanics Pt will report no radiating pain into glutes for 1 consecutive week, showing centralization of s/s Pt will improve functional mobility as noted through statistically significant increase in Modified Oswestry outcome measure Treatment Plan: Modalities to reduce pain, spasms and effusion. Manual therapy to restore motion and function. Therapeutic exercise to improve strength and flexibility. Neuromuscular re-education for posture and balance. Therapeutic activities to return to functional activities of daily living. Electronically signed by: Cookie Santa, PT, DPT Please sign and return to therapist. Thank you for your referral.
--- NOTE | 2023-07-20 14:59 | MHC.PT.DC ---
[facility] [place] Office [place] Office [place] Office [address] Katrin Sanz [address] [phone] F: [phone] F: [phone] F: [phone] F: [phone] Physical Therapy Discharge Report Diagnosis: LBP Date of Surgery: Date of Evaluation: 06/29/23 Date of Discharge: 07/19/23 Treatments to Date: 5 Cancellations to Date: 1 No Shows to Date: 1 Discharge Status: Achieved Goals Improved Function Independent with HEP Discharge Summary: Francie is progressing well with skilled PT. She has met all STGs and most of LTGs at this time. Pt shows great improvements in glute strength, hip/core stability, gait mechanics, and functional mobility. Pt demonstrates independence with exercises throughout sessions requiring little to no cueing for proper form and TA activation. She continues to demonstrate difficulty with awkward positioning and walking longer distances, however is able to manage pain with exercises and positioning. Pt reports occasional burning to buttocks L>R, however is much less frequent than before starting PT services. Pt reports radicular s/s subside quickly following stretching. Pt shows readiness to transition to self-management of s/s and d/c to HEP. Pt understands final HEP with no questions, and is in agreement with d/c plans. Electronically signed by: Cookie Santa, PT, DPT Please sign and return to therapist. Thank you for your referral.
== END 2023-07-20 14:58 | disposition home or self-care (01) ==
LOC: HO.PT 15:00
PROVIDERS: PCP Internal Medicine; Visit Provider Nurse Practitioner Family
DX: M54.50 Low back pain, unspecified (principal)
CPT/HCPCS: 97110; 97112; 97140; 97162; 97164

== ENCOUNTER 2023-07-24 12:04 | Emergency (ER) | payer OTHER, SELFPAY ==
--- NOTE | ~2023-07-24 | XR_ITS ---
EXAMINATION: XR CHEST CLINICAL INFORMATION: Chest pain COMPARISON: Chest 04/03/2023 TECHNIQUE: 2 views of the chest were obtained. FINDINGS: No significant abnormality is noted involving the heart, lungs, mediastinum or soft tissues. Degenerative changes of the spine. Surgical clips are seen in the right and left upper quadrant. XR/XR chest 2V IMPRESSION: No acute cardiopulmonary disease.
--- NOTE | ~2023-07-24 | CT_ITS ---
EXAMINATION: CT HEAD WITHOUT CONTRAST CLINICAL INFORMATION: Dizziness. COMPARISON: Brain MRI dated 07/06/2021. TECHNIQUE: Contiguous axial imaging was performed from the skullbase to vertex without intravenous administration of contrast. This CT examination was performed using dose optimization techniques as appropriate, variously including the following: *Automated exposure control *Adjustment of mA and/or kV according to patient size (this includes techniques or standardized protocols for targeted exams where dose is matched to indication/reason for exam; i.e. extremities or head) *Use of iterative reconstruction technique DLP: 658 mGy-cm. FINDINGS: There is no evidence of acute intracranial hemorrhage or territorial infarction. No abnormal mass effect or midline shift is seen. [place] to white matter differentiation is well preserved. No extra-axial fluid collections are identified. Partially empty sella. The ventricles are normal in size. There is no abnormal attenuation within the brain parenchyma. The osseous structures and soft tissues are normal. The mastoid air cells are well aerated. Small retention cysts in the right maxillary antrum. CT/CT head/brain wo IV con IMPRESSION: No acute intracranial pathology.
--- NOTE | 2023-07-24 12:08 | ECG_ITS ---
Test Reason : TACHY/WEAKNESS Blood Pressure : / mmHG Vent. Rate : 070 BPM Atrial Rate : 070 BPM P-R Int : 150 ms QRS Dur : 074 ms QT Int : 400 ms P-R-T Axes : 050 012 032 degrees QTc Int : 432 ms Normal sinus rhythm Low voltage QRS Borderline ECG When compared with ECG of 03-APR-2023 17:30, No significant change was found Referred By: Cadence Su Electronically Signed By:Carter Israel
[2023-07-24 12:26] LABS: MANUAL DIFF FLAG NO
[2023-07-24 12:31] LABS: Basophils Percent Auto 0.6 % (0-2); Eosinophils Absolute Auto 0.4 X10*3/uL (0.0-0.4); Eosinophils Percent Auto 7.6 % (0-4); Hematocrit 37.1 % (37.0-47.0); Hemoglobin 12.3 g/dl (12.0-16.0); Imm Gran Abs Auto 0.02 X10*3/uL (0.00-0.03); Imm Gran Pct Auto 0.4 % (0.0-0.4); Lymphocytes Absolute Auto 1.2 X10*3/uL (1.2-4.9); Lymphocytes Percent Auto 25.9 % (20-40); Mean Corpuscular HGB Conc 33.2 g/dl (31.0-35.0); Mean Corpuscular Hemoglobin 30.5 pg (27.0-33.0); Mean Corpuscular Volume 92.1 fL (80.0-98.0); Mean Platelet Volume 8.9 fL (9.4-12.3); Monocytes Absolute Auto 0.3 X10*3/uL (0.1-1.2); Monocytes Percent Auto 5.7 % (2-11); Neutrophils Absolute Auto 2.8 x10*3/uL (2.0-8.3); Neutrophils Percent Auto 59.8 % (45-73); Platelet Count 317 X10*3/uL (160-400); Red Blood Count 4.03 X10*6/uL (4.20-5.50); Red Cell Distribution Width 13.2 % (11.0-16.0); White Blood Count 4.7 X10*3/uL (4.8-10.8)
[2023-07-24 12:32] VITALS: BP 125/56; PULSE 76; RESP 16; TEMP 36.1; O2SAT 97; BMI 29.7
--- NOTE | 2023-07-24 12:32 | ED.GENADULT ---
HPI - General Adult General Chief complaint: Chest Pain Stated complaint: Tachy/Weakness Time Seen by Provider: 07/24/23 19:58 Source: patient Mode of arrival: ambulatory Limitations: no limitations History of Present Illness HPI narrative: 52-year-old female with a history of anxiety, GERD, depression, migraines who presents emergency department for evaluation of 3 weeks of fatigue, headaches and palpitations. Patient states over the last 3 weeks she has had no energy. She states that she has had intermittent episodes of palpitations that will last minutes. She states that during these periods her heart rate will be as high as 130-140 beats per minute. She states she occasionally gets chest pressure. She states she gets multiple episodes per day. Her last episode was yesterday and she has not had an episode today while she has been here in the emergency department. She states that she has had swelling beneath her eyes but denied any swelling of her upper lower extremities. She states that she does check her blood pressure and occasionally her blood pressure is 80/47 and occasionally she has a low heart rate of 40 beats per minute. She states she gets intermittent diffuse head pain which is pressure-like and is moderate to severe in intensity She denied fever, chills, rhinorrhea, sore throat, cough, nausea, vomiting or diarrhea. She has not noticed any dark tarry stools or black stools. Patient did have a gastric sleeve surgery July of 2022 and she weighed 220 lb and now weighs 157 lb which is a 63 lb weight loss. Related Data Home Medications ?Medication ?Instructions ?Recorded ?Confirmed clonazepam 1 mg tablet 1 mg PO BID 05/08/20 02/12/24 zolpidem 10 mg tablet 10 mg PO BEDTIME PRN Sleep 03/08/22 02/12/24 sertraline 100 mg tablet 100 mg PO DAILY 09/06/22 02/12/24 Previous Rx's ?Medication ?Instructions ?Recorded hydrocortisone 2.5 % topical cream 1 appl WI BID-QID PRN hemorrhoids 07/26/23 with perineal applicator #30 grams (Proctosol HC) triamcinolone acetonide 0.1 % 1 appl topical BID 7 days #15 grams 08/02/23 topical cream cholecalciferol (vitamin D3) 25 25 mcg PO DAILY #90 caps 08/03/23 mcg (1,000 unit) capsule vitamin A palmitate 3,000 mcg 10,000 unit PO DAILY #90 caps 09/15/23 (10,000 unit) capsule cyclobenzaprine 10 mg tablet 10 mg PO TID PRN muscle spasm #10 10/10/23 tabs albuterol sulfate 90 mcg/actuation 2 puff inhalation Q4-6H PRN 01/03/24 aerosol inhaler shortness of breath or wheezing #6.7 grams cetirizine 10 mg tablet (Zyrtec) 10 mg PO DAILY PRN allergy 01/03/24 symptoms #90 tabs clotrimazole 1 % topical cream 1 appl topical BID #45 grams 01/18/24 inulin 2 gram chewable tablet 2 g PO DAILY #90 tabs 02/12/24 diclofenac sodium 1 % topical gel 4 g topical QID #100 grams 02/15/24 (Arthritis Pain (diclofenac)) lidocaine 5 % topical patch 1 patch topical DAILY #30 ea 02/15/24 sennosides 8.6 mg-docusate sodium 2 tab-cap (2 x 8.6-50 mg) PO 02/15/24 50 mg capsule (Senna Plus) BEDTIME #90 caps Allergies Allergy/AdvReac Type Severity Reaction Status Date / Time Penicillins [PENICILLINS] Allergy Severe ANAPHYLAXIS Verified 02/15/24 12:56 Sulfa (Sulfonamide Allergy Severe Angioedema Verified 02/15/24 12:56 Antibiotics) Review of Systems Review of Systems: Yes all other systems are reviewed and are negative [facility] Past Medical History [facility] Narrative: Social history: She denies tobacco, alcohol and drug use. Medical History (Updated 02/15/24 @ 13:19 by April Santillan MD) Obesity (BMI 30-39.9) Family history of arrhythmia Left knee pain Constipation Hiatal hernia Osteoarthritis Anxiety and depression Palpitations GERD (gastroesophageal reflux disease) History of COVID-19 Recurrent UTI Acute diverticulitis Osteoarthritis of left knee Helicobacter pylori gastritis Trapezius muscle spasm Stress incontinence Neck pain Post covid-19 condition, unspecified Loss of hearing Vision changes Hematuria Tubular adenoma Migraine Low back pain Surgical History H/O gastric sleeve History of tonsillectomy History of esophagogastroduodenoscopy (EGD) H/O colonoscopy History of section H/O tubal ligation History of cholecystectomy Family History Family History Father CVD (cardiovascular disease) Diabetes History of open heart surgery Mother Alive and well CVD (cardiovascular disease) Diabetes Thyroid condition Maternal Aunt Colon cancer Son Mental health disorder Maternal Grandmother Colon cancer Social History Social History Household Members: Spouse Housing: House Are you a primary respiratory care faculty to a significant other at home: No Do you presently have visiting nurse or other home services: No Alcohol intake: former Patient Tobacco Use Status: Never used Tobacco e-Cigarette/Vaping Use: Never Used Second Hand Smoke Exposure: No service: No Current occupational status: unemployed Current occupation: right hand dominant Cognitive needs: No Hearing needs: No Vision needs: No Physical Exam ED Vital Signs: Vital Signs - 24 hr 07/24/23 12:32 07/24/23 15:57 Temperature 96.9 F 96.2 F L Pulse Rate 76 73 Respiratory Rate 16 16 Blood Pressure 125/56 L 113/43 L Pulse Oximetry 97 100 Oxygen Delivery Method Room Air Room Air BMI result Body Mass Index 29.7 Vital signs were normal Exam: General: Awake, alert in no distress Head: Normocephalic, atraumatic EENT: PERRL, Lids normal, sclera normal, conjunctiva normal, nose normal , ears normal, throat without erythema or exudates Neck: Supple, no adenopathy Lung: breath sounds symmetric, no wheezing, rales or rhonchi Chest: symmetric movement, nontender Heart: regular rate and rhythm, normal S1, S2 no murmurs or rubs Abdomen: soft, non-tender, nondistended, normal bowel sounds Back: no vertebral tenderness, no CVAT Extremities: no deformities, moves all extremities symmetrically Neuro: Awake, alert, oriented, normal speech, cranial nerves intact, moves all extremities symmetrically Psych: Pleasant, cooperative Course Course Course Narrative: GERONIMO- 12:35PM - 52yoF presenting to the ED with c/o of 3 weeks of dizziness, headaches, chest pain, generalized fatigue, malaise, she reports worsening blurry vision although needs to see an eye doctor, numbness to the entire left side of the body. Reports that it has not worsened today it has been persistent for 3 weeks although she did not have a good experience here in the past therefore she did not want to come prior. She called her PCP twice and the last time she called last week they did not call her back. Although when she called them today they told her to come to the ER. Otherwise she denies any fevers, shortness of breath, cough, dyspnea on exertion, leg swelling or any other symptoms complaints or concerns. Reports that she did have COVID the beginning of May. Plan: Patient is stable she has a normal neuro exam. NIH SS score 0. Non disabling symptoms and symptoms has been going on for 3 weeks and has not worsened. Therefore labs, chest x-ray, CT scan of brain, EKG ordered at this time. Patient will be sent back to the waiting room to be evaluated in the ED. Medical Decision Making Medical Decision Making MDM Narrative: 52-year-old female with a history of anxiety, GERD, depression, migraines who presents emergency department for evaluation of 3 weeks of fatigue, headaches and palpitations. Palpitations are intermittent the last seconds to minutes occasionally associated with shortness of breath and chest pain. Also complaining of swelling on her eyes but no swelling in her extremities. She has had intermittent headaches as well as significant fatigue. Vital signs were normal. Physical examination was unremarkable. Differential diagnosis: ?Includes but is not limited to tachyarrhythmia, bradyarryhythm, hypotension, PVCs, PACs, anemia, myocardial infarction, myocardial ischemia, cardiomegaly, depression, anxiety Following evaluation was ordered: CBC, CMP, troponin, lipase, liver panel, TSH, PT/INR, urinalysis, chest x-ray two view, CT scan of the brain, EKG Course: 20:43 My interpretation patient's laboratory evaluation as follows: CBC was normal. CMP was normal. High sensitivity troponin I was below detectable limits. Magnesium was normal. Lipase was normal. Urinalysis was negative. TSH was normal. Twelve EKG was unremarkable. Two-view chest x-ray was negative for acute disease. CT scan of head without IV contrast was unremarkable as well pain This time I do not have a clear etiology for the patient's symptoms but the patient will require outpatient palpitation workup and I did discuss this with her. I recommended that she call her PCP to see if this provider can order Holter monitor and echocardiogram as an outpatient. Patient will be referred to our on-call lung puller, Dr. Israel as well. Admission/Observation Consideration of admission/observation: Escalation of care including admission/observation considered Lab Data MDM Lab Attestation statement: I reviewed the patient's lab results. 07/24/23 12:22 07/24/23 12:22 Labs: Lab Results 07/24/23 07/24/23 Range/Units 12:22 16:06 WBC 4.7 L (4.8-10.8) X10*3/uL RBC 4.03 L (4.20-5.50) X10*6/uL Hgb 12.3 (12.0-16.0) g/dl Hct 37.1 (37.0-47.0) % MCV 92.1 (80.0-98.0) fL MCH 30.5 (27.0-33.0) pg MCHC 33.2 (31.0-35.0) g/dl RDW 13.2 (11.0-16.0) % Plt Count 317 (160-400) X10*3/uL MPV 8.9 L (9.4-12.3) fL Immature Gran % (Auto) 0.4 (0.0-0.4) % Neut % (Auto) 59.8 (45-73) % Lymph % (Auto) 25.9 (20-40) % Garza % (Auto) 5.7 (2-11) % Eos % (Auto) 7.6 H (0-4) % Baso % (Auto) 0.6 (0-2) % Lymph # (Auto) 1.2 (1.2-4.9) X10*3/uL Garza # (Auto) 0.3 (0.1-1.2) X10*3/uL Eos # (Auto) 0.4 (0.0-0.4) X10*3/uL Baso # (Auto) 0.0 (0.0-0.2) X10*3/uL Abs Immat Gran (auto) 0.02 (0.00-0.03) X10*3/uL Absolute Neuts (auto) 2.8 (2.0-8.3) x10*3/uL Absolute Nucleated RBC 0.000 (0.0-0.012) X10*3/uL Nucleated RBC % (auto) 0.0 (0.0-0.2) /100WBC PT 12.0 (11.1-13.3) SEC INR 1.0 (0.9-1.1) Sodium 142 (135-145) mmol/L Potassium 3.9 (3.3-5.1) mmol/L Chloride 109 H (96-108) mmol/L Carbon Dioxide 27 (22-29) mmol/L Anion Gap 10 L (12-20) BUN 13 (9-16) mg/dL Creatinine 0.72 (0.5-1.4) mg/dL Estim Creat Clear Calc 84.3 Estimated GFR > 60 Random Glucose 94 (60-115) mg/dL Calcium 9.3 (8.4-10.2) mg/dL Magnesium 1.8 (1.6-2.6) mg/dL Total Bilirubin 0.3 (0.0-1.0) mg/dL Direct Bilirubin 0.1 (0.0-0.5) mg/dL AST 18 (5-31) U/L ALT 12 (0-31) U/L Alkaline Phosphatase 75 (39-117) U/L Troponin I High Sens < 2.7 (<3.5-17.0) ng/L Total Protein 6.4 L (6.5-8.0) g/dL Albumin 3.7 (3.5-5.0) g/dL Lipase 23 (8-78) U/L TSH 0.98 (0.32-4.0) uIU/mL Urine Color Yellow Urine Appearance Clear Urine pH 7.0 (5.0-9.0) Ur Specific [place] 1.020 (1.005-1.025) Urine Protein Negative (Neg-Trace) mg/dL Urine Glucose (UA) Negative (Negative) mg/dL Urine Ketones Negative (Negative) mg/dL Urine Blood Negative (Negative) Urine Nitrite Negative (Negative) Ur Leukocyte Esterase Small (1+) H (Negative) Urine RBC 0-2 (0-2) /HPF Urine WBC 0-5 (0-5) /HPF Ur Squamous Epith Cells 3-5 (0-2) /HPF Urine Bacteria Trace (None Seen) Hyaline Casts 0-2 (0-2) /LPF Independent Interpretation I performed an independent interpretation of an: EKG and Plain X-Ray Interpretation: My independent interpretation patient's 12 EKG done at 12:16 hours is as follows: Normal sinus rhythm rate of 70, normal WI interval, normal QRS duration, normal QTC, no ST segment elevation, no ST segment depression, no significant T-wave abnormalities, no PACs, no PVCs Radiology Impression Discussion of test interpretation with radiology: I have reviewed the radiologist's reading. Radiologist Impression: CT head/brain wo IV con IMPRESSION: No acute intracranial pathology. Dictated By: FEROZ LE MD XR chest 2V IMPRESSION: No acute cardiopulmonary disease. Dictated By: Meredith Pacheco MD Discharge Plan Discharge Clinical Impression: Palpitation, Fatigue, Headache Patient Disposition: Home, Self-Care Instructions: Heart Palpitations (ED), Fatigue (ED) Additional Instructions: Your complete blood count was normal with no anemia and a normal white blood cell count Your comprehensive metabolic panel revealed normal electrolytes, kidney function and glucose. Your liver tests were also normal. Your EKG today was unremarkable. Your troponin (marker of heart damage) was below detectable limits, which is reassuring suggesting that you have not had any heart damage. Your TSH (thyroid screening test) was normal suggesting that your thyroid is not the cause of your symptoms Your reported low blood pressure and low pulse are concerning, you need an outpatient workup for palpitations Call your doctor to see if they can start this workup before you see cardiology. Your doctor can order a 48 or 72 hour Holter monitor and an echocardiogram as an outpatient and this is part of the workup. Follow-up with your doctor in 2 days. Please return to the emergency department if your symptoms get worse or if you develop any symptoms that are concerning to you. Call our lung puller on-call to see if they can see you for your symptoms as well. Prescriptions: No Action hydrocortisone [Proctosol HC] 2.5 % cream with perineal applicator 1 appl WI BID-QID PRN (Reason: hemorrhoids) Qty: 30 0RF vitamin A palmitate 3,000 mcg (10,000 unit) capsule 10,000 unit PO DAILY Qty: 90 3RF cetirizine [Zyrtec] 10 mg tablet 10 mg PO DAILY PRN (Reason: allergy symptoms) Qty: 90 0RF albuterol sulfate 90 mcg/actuation HFA aerosol inhaler 2 puff inhalation Q4-6H PRN (Reason: shortness of breath or wheezing) Qty: 6.7 0RF clotrimazole 1 % cream 1 appl topical BID Qty: 45 3RF cyclobenzaprine 10 mg tablet 10 mg PO TID PRN (Reason: muscle spasm) Qty: 10 0RF clonazepam 1 mg tablet 1 mg PO BID triamcinolone acetonide 0.1 % cream 1 appl topical BID 7 Days Qty: 15 0RF sertraline 100 mg tablet 100 mg PO DAILY zolpidem 10 mg tablet 10 mg PO BEDTIME PRN (Reason: Sleep) inulin 2 gram tablet,chewable 2 g PO DAILY Qty: 90 3RF lidocaine 5 % adhesive patch,medicated 1 patch topical DAILY Qty: 30 12RF Rx Instructions: leave on most painful area for up to 12 hrs Senna Plus 8.6-50 mg capsule 2 tab-cap PO BEDTIME Qty: 90 3RF diclofenac sodium [Arthritis Pain (diclofenac)] 1 % gel 4 g topical QID Qty: 100 8RF Rx Instructions: apply to single knee, ankle, foot; for foot includes sole/toes/top of foot cholecalciferol (vitamin D3) 25 mcg (1,000 unit) capsule 25 mcg PO DAILY Qty: 90 3RF Referrals: Carter Israel MD [Physician] - 2 weeks (Weakness, palpitations, reported low blood pressure and low heart rate) Interventions: ED Discharge Assessment Last Done: 07/24/23 20:39 Discharge Date/Time: 07/24/23 20:40 Print Language: Cameroonian
[2023-07-24 12:49] LABS: Alanine Aminotransferase 12 U/L (0-31); Albumin Level 3.7 g/dL (3.5-5.0); Alkaline Phosphatase 75 U/L (39-117); Anion Gap 10 (12-20); Aspartate Amino Transferase 18 U/L (5-31); Bilirubin Direct 0.1 mg/dL (0.0-0.5); Bilirubin Total 0.3 mg/dL (0.0-1.0); Blood Urea Nitrogen 13 mg/dL (9-16); Calcium 9.3 mg/dL (8.4-10.2); Carbon Dioxide 27 mmol/L (22-29); Chloride 109 mmol/L (96-108); Creatinine Clr Calc Pharmacy 84.3; Estimated Glomerular Filt Rate > 60; Glucose Random 94 mg/dL (60-115); Lipase 23 U/L (8-78); Magnesium 1.8 mg/dL (1.6-2.6); Potassium 3.9 mmol/L (3.3-5.1); Sodium 142 mmol/L (135-145); Total Protein 6.4 g/dL (6.5-8.0)
[2023-07-24 12:57] LABS: Troponin-I High Sensitivity < 2.7 ng/L (<3.5-17.0)
[2023-07-24 13:09] LABS: TSH reflex Free T4 0.98 uIU/mL (0.32-4.0)
[2023-07-24 15:57] VITALS: BP 113/43; PULSE 73; RESP 16; TEMP 35.7; O2SAT 100
[2023-07-24 16:19] LABS: Appearance Urine Clear; Color Urine Yellow; Glucose Urine UA Negative (Negative); Leukocyte Esterase Urine Small (1+) (Negative); Nitrite Urine Negative (Negative); UMIC TRIGGER UACC YES; Urine Blood Negative (Negative); Urine Ketones Negative (Negative); Urine Protein Negative (Neg-Trace)
[2023-07-24 16:48] LABS: Bacteria Urine Trace (None Seen); Hyaline Casts Urine 0-2 /LPF (0-2); RBC Urine 0-2 /HPF (0-2); UACC Culture Trigger YES; WBC Urine 0-5 /HPF (0-5)
[2023-07-24 20:24] VITALS: BP 109/54; PULSE 61; RESP 16; TEMP 36.3; O2SAT 99
== END 2023-07-24 20:40 | disposition home or self-care (01) ==
PROVIDERS: Physician Assistant Medical; Emergency Provider Emergency Medicine Emergency Medical Services; PCP Internal Medicine
DX: R00.2 Palpitations (principal); R53.83 Other fatigue; R51.9 Headache, unspecified; Z98.84 Bariatric surgery status
CPT/HCPCS: 36415; 70450; 71046; 80053; 81001; 82248; 83690; 83735; 84443; 84484; 85025; 85610; 87086; 93005; 99284

== ENCOUNTER → 2023-07-24 12:08 | Outpatient (BNV) | payer OTHER, SELFPAY | PROVIDERS: Emergency Provider Emergency Medicine Emergency Medical Services; PCP Internal Medicine; Visit Provider Internal Medicine Cardiovascular Disease | DX: R00.0 Tachycardia, unspecified (principal) | CPT/HCPCS: 93010 ==

== ENCOUNTER 2023-08-02 09:29 | Outpatient (REF) | payer OTHER, SELFPAY ==
[2023-08-02 09:47] LABS: MANUAL DIFF FLAG NO
[2023-08-02 10:18] LABS: Basophils Absolute Auto 0.1 X10*3/uL (0.0-0.2); Basophils Percent Auto 0.9 % (0-2); Eosinophils Absolute Auto 0.4 X10*3/uL (0.0-0.4); Eosinophils Percent Auto 7.1 % (0-4); Hematocrit 39.7 % (37.0-47.0); Hemoglobin 13.3 g/dl (12.0-16.0); Imm Gran Abs Auto 0.03 X10*3/uL (0.00-0.03); Imm Gran Pct Auto 0.5 % (0.0-0.4); Lymphocytes Absolute Auto 1.9 X10*3/uL (1.2-4.9); Lymphocytes Percent Auto 34.2 % (20-40); Mean Corpuscular HGB Conc 33.5 g/dl (31.0-35.0); Mean Corpuscular Hemoglobin 30.8 pg (27.0-33.0); Mean Corpuscular Volume 91.9 fL (80.0-98.0); Mean Platelet Volume 9.3 fL (9.4-12.3); Monocytes Absolute Auto 0.3 X10*3/uL (0.1-1.2); Monocytes Percent Auto 5.6 % (2-11); Neutrophils Absolute Auto 2.9 x10*3/uL (2.0-8.3); Neutrophils Percent Auto 51.7 % (45-73); Platelet Count 305 X10*3/uL (160-400); Red Blood Count 4.32 X10*6/uL (4.20-5.50); Red Cell Distribution Width 13.2 % (11.0-16.0); White Blood Count 5.5 X10*3/uL (4.8-10.8)
[2023-08-02 10:59] LABS: Parathyroid Hormone Intact 84.5 pg/mL (8.7-77.1)
[2023-08-02 11:11] LABS: Alanine Aminotransferase 14 U/L (0-31); Alkaline Phosphatase 78 U/L (39-117); Anion Gap 10 (12-20); Aspartate Amino Transferase 18 U/L (5-31); Bilirubin Total 0.4 mg/dL (0.0-1.0); Blood Urea Nitrogen 16 mg/dL (9-16); C Reactive Protein 0.45 mg/dL (< or = 0.50); Calcium 9.3 mg/dL (8.4-10.2); Carbon Dioxide 27 mmol/L (22-29); Chloride 108 mmol/L (96-108); Cholesterol 235 mg/dL (<200); Estimated Glomerular Filt Rate > 60; Glucose Random 83 mg/dL (60-115); HDL Cholesterol 74 mg/dL (>40); Iron 78 mcg/dL (30-160); LDL Cholesterol Calculated 151 mg/dL (<100); Percent Iron Saturation 31 % (15-50); Potassium 3.7 mmol/L (3.3-5.1); Sodium 141 mmol/L (135-145); Total Iron Binding Capacity 254 mcg/dL (228-428); Total Protein 6.9 g/dL (6.5-8.0); Triglycerides 50 mg/dL (<150); Unsaturated Iron Binding 176 ug/dL
[2023-08-02 11:12] LABS: Ferritin 67 ng/mL (10-250); Insulin 5 uU/mL (2-29); TSH reflex Free T4 1.72 uIU/mL (0.32-4.0); Vitamin D 25-OH Total 32.2 ng/mL (>30)
[2023-08-02 11:16] LABS: Folate 8.1 ng/mL (> or = 4.0); Vitamin B12 1996 pg/mL (200-900)
[2023-08-02 15:37] LABS: Estimated Average Glucose 91 mg/dL; Hemoglobin A1c % 4.8 % (<6.0)
[2023-08-05 04:13] LABS: Zinc 79 mcg/dL (60-130)
[2023-08-07 04:39] LABS: Vitamin A 36 mcg/dL (38-98)
[2023-08-09 15:32] LABS: Vitamin B1 13 nmol/L (8-30)
== END 2023-08-02 09:30 | disposition home or self-care (01) ==
LOC: HO.LAB 09:29
PROVIDERS: PCP Internal Medicine; Visit Provider Physician Assistant Surgical
DX: R00.2 Palpitations (principal); Z98.84 Bariatric surgery status; Z82.49 Family history of ischemic heart disease and other diseases of the circulatory system
CPT/HCPCS: 36415; 80053; 80061; 82306; 82607; 82728; 82746; 83036; 83525; 83540; 83970; 84425; 84443; 84590; 84630; 85025; 86140; 99202

== ENCOUNTER 2023-08-02 11:14 | Outpatient (AMB) | payer OTHER, SELFPAY ==
--- NOTE | 2023-08-02 12:18 | MHC.OFFWIV ---
Intake Vital Signs 08/02/23 12:19 Weight 164 lb BP 110/70 Blood Pressure Location Rt brachial Position Sitting Pulse 58 Pulse Source Pulse Oximeter Pulse Oximetry (%) 98 Oxygen Delivery Method Room Air Intake Visit Reasons: EP Eye concerns Intake Note: Patient here for bilat eye swelling under eyes that has been present for about 2 weeks. Patient Tobacco Use Status: Never used Tobacco Allergies Penicillins [PENICILLINS] Allergy (Severe, Verified 08/02/23 12:20) ANAPHYLAXIS Sulfa (Sulfonamide Antibiotics) Allergy (Severe, Verified 08/02/23 12:20) Angioedema Do you need a note to return to daycare/school/sports/work: No HPI HPI Comments History of Present Illness Details 52 y/o female patient who presents to walk in clinic with c/o itchy rash under both eyes x 2 weeks. Reports that the rash is painful and redness. Denies any changes to cosmetic products, detergent or diet. Denies any new Pets in the house. [facility] Medical History (Updated 08/02/23 @ 13:31 by Nida Saldana NP) Family history of arrhythmia Left knee pain Constipation Hiatal hernia Osteoarthritis Anxiety and depression Palpitations GERD (gastroesophageal reflux disease) History of COVID-19 Recurrent UTI Acute diverticulitis Osteoarthritis of left knee Helicobacter pylori gastritis Trapezius muscle spasm Stress incontinence Neck pain Post covid-19 condition, unspecified Obesity (BMI 30-39.9) Loss of hearing Vision changes Hematuria Tubular adenoma Migraine Low back pain Surgical History H/O gastric sleeve History of tonsillectomy History of esophagogastroduodenoscopy (EGD) H/O colonoscopy History of section H/O tubal ligation History of cholecystectomy Family History Father CVD (cardiovascular disease) Diabetes History of open heart surgery Mother Alive and well CVD (cardiovascular disease) Diabetes Thyroid condition Maternal Aunt Colon cancer Son Mental health disorder Maternal Grandmother Colon cancer Social History Household Members: Spouse Housing: House Are you a primary critical care educator to a significant other at home: No Do you presently have visiting nurse or other home services: No Alcohol intake: former Patient Tobacco Use Status: Never used Tobacco e-Cigarette/Vaping Use: Never Used Second Hand Smoke Exposure: No service: No Current occupational status: unemployed Current occupation: right hand dominant Cognitive needs: No Hearing needs: No Vision needs: No Female Reproductive History Menstrual Age of Menarche: 14 Review of Systems Const All systems reviewed & are unremarkable except as noted in HPI and below Physical Exam Vital Signs: Last Vital Signs Pulse 58 08/02/23 12:19 BP 110/70 08/02/23 12:19 Pulse Ox 98 08/02/23 12:19 Oxygen Delivery Method Room Air 08/02/23 12:19 Const General: comfortable and no acute distress Orientation/consciousness: patient oriented x3 HEENT Head: Yes normocephalic Face and sinus: Yes sinuses nontender and Yes erythema (Bilateral Maxilla) Eyes Pupils: Equal, round and reactive pupils present EOM: EOMs intact bilaterally Skin Rashes: rashes noted (Medium size patch of raised skin, Bilateral Maxilla, redness, tender) Full body images: 1. Medium size patch of raised skin, Bilateral Maxilla, redness, tender Neuro General: patient oriented x3 and gait normal Cranial nerves: Yes Equal, round and reactive pupils present and Yes Bilaterally intact EOM present Psych Speech and movement: Normal speech and movement present Attitude: cooperative Assessment & Plan Assessment & Plan (1) Rash: Code(s): R21 - Rash and other nonspecific skin eruption Plan: - Apply small size on the affected area - Keep Area clean and dry. - Zrytec for itching. Medications: New cetirizine (Zyrtec) 10 mg PO DAILY PRN 30 tabs 0RF allergy symptoms R21 - Rash and other nonspecific skin eruption triamcinolone acetonide 0.1% 1 appl topical BID 7 days 15 grams 0RF R21 - Rash and other nonspecific skin eruption Coding Level of Care Code Est Pt Level 3 (97892) Diagnoses Rash R21 Time Spent (min) 15
[2023-08-02 12:19] VITALS: BP 110/70; PULSE 58; O2SAT 98
== END 2023-08-02 13:24 | disposition home or self-care (01) ==
PROVIDERS: PCP Internal Medicine; Visit Provider Nurse Practitioner Family
DX: R21 Rash and other nonspecific skin eruption (principal)
CPT/HCPCS: 99213

== ENCOUNTER 2023-08-02 13:05 | Outpatient (AMB) | payer OTHER, SELFPAY ==
[2023-08-02 13:09] VITALS: BP 110/58; PULSE 62; BMI 30.7
--- NOTE | 2023-08-02 13:09 | A.OFFVIS_ITS ---
Intake Vital Signs 08/02/23 13:09 Height 5 ft 1 in Weight 162 lb 4.163 oz BMI 30.7 BP 110/58 L Blood Pressure Location Lt brachial Position Sitting Pulse 62 Intake Visit Reasons: [employer] PAN[employer]S/ [facility]/3-4/Tachy/Weakness Intake Note: PT feels good Allergies Penicillins [PENICILLINS] Allergy (Severe, Verified 08/02/23 12:20) ANAPHYLAXIS Sulfa (Sulfonamide Antibiotics) Allergy (Severe, Verified 08/02/23 12:20) Angioedema HPI HPI Comments History of Present Illness Details 52-year-old female presents today a new patient visit regarding a recent ED visit. She went to the ED regarding 3 weeks of chest pains, fatigue, and tachycardia. She has a medical history of obesity, depression, hypercholesteremia, and gastric sleeve. She does not smoke and she drinks rarely. She reports she has no cardiac history and her father had his aortic valve replaced and mother had an arrhythmias. She does report having a bit of stress at home due to caring for her ill mother and having her son pass. She does not drink caffeine and eats overall healthy. [facility] Medical History Family history of arrhythmia Left knee pain Constipation Hiatal hernia Osteoarthritis Anxiety and depression Palpitations GERD (gastroesophageal reflux disease) History of COVID-19 Recurrent UTI Acute diverticulitis Osteoarthritis of left knee Helicobacter pylori gastritis Trapezius muscle spasm Stress incontinence Neck pain Post covid-19 condition, unspecified Obesity (BMI 30-39.9) Loss of hearing Vision changes Hematuria Tubular adenoma Migraine Low back pain Surgical History H/O gastric sleeve History of tonsillectomy History of esophagogastroduodenoscopy (EGD) H/O colonoscopy History of section H/O tubal ligation History of cholecystectomy Family History Father CVD (cardiovascular disease) Diabetes History of open heart surgery Mother Alive and well CVD (cardiovascular disease) Diabetes Thyroid condition Maternal Aunt Colon cancer Son Mental health disorder Maternal Grandmother Colon cancer Social History Household Members: Spouse Housing: House Are you a primary daycare director to a significant other at home: No Do you presently have visiting nurse or other home services: No Alcohol intake: former Patient Tobacco Use Status: Never used Tobacco e-Cigarette/Vaping Use: Never Used Second Hand Smoke Exposure: No service: No Current occupational status: unemployed Current occupation: right hand dominant Cognitive needs: No Hearing needs: No Vision needs: No Female Reproductive History Menstrual Age of Menarche: 14 Review of Systems Const Denies weakness ENT Denies dizziness Card Denies chest pain, Denies chest pain with activity, Denies syncope, Denies rapid heart rate, Denies pedal edema, Denies edema, Denies leg edema, Denies lightheadedness, Denies palpitations, Denies dyspnea, Denies dyspnea on exertion and Denies orthopnea Resp Denies cough, Denies dyspnea and Denies dyspnea on exertion GI Denies hematochezia and Denies change in stool character Musc Denies abnormal gait, Denies muscle cramps, Denies muscle weakness, Denies numbness, Denies radiating pain into limb and Denies tingling Neuro Denies abnormal gait, Denies dizziness, Denies syncope, Denies numbness, Denies tingling and Denies weakness Endo Denies palpitations Physical Exam Vital Signs: Last Vital Signs Pulse 62 08/02/23 13:09 BP 110/58 L 08/02/23 13:09 BMI result Body Mass Index 30.7 Const General: healthy appearing and no acute distress Orientation/consciousness: patient oriented x3 HEENT Head: Yes normal to inspection Eyes General: appearance normal, both eyes and all related structures Neck Neck: Yes normal visual inspection Chest Chest palpation & inspection: normal inspection of the chest Resp Effort & Inspection: normal respiratory effort Auscultation: clear to auscultation bilaterally Cardio Jugular venous distension: no JVD Palpation: normal PMI Rate: regular rate Rhythm: regular rhythm Heart sounds: S1 normal heart sound present, S2 normal heart sound present, no click, no gallops, no murmurs and no rubs GI Inspection: Yes normal to inspection Palpation (GI): Soft to palpation Skin General skin exam: no rashes or lesions noted Neuro General: patient oriented x3 Extrem General: Yes normal to inspection Psych Appearance: grossly normal Assessment & Plan Assessment & Plan (1) Palpitations: Code(s): R00.2 - Palpitations (2) Family history of arrhythmia: Code(s): Z82.49 - Family history of ischemic heart disease and other diseases of the circulatory system Plan Patient reports about one month of palpitations where heart is up to the increasing to 130s-140s suddenly. Can happen at rest or activities. No associated symptoms other then fast heart rate. She rarely drinks caffeine and eats a healthy diet. Will get holter to assess for arrhythmias. There is a family history of arrhythmias. Will get echocardiogram to assess for structural changes. Follow-up after testing. Orders: Orders CA echo transthoracic complete 08/02/23 R00.2 - Palpitations, Z82.49 - Family history of ischemic heart disease and other diseases of the circulatory system ECG 3 day holter monitor 08/02/23 R00.2 - Palpitations, Z82.49 - Family history of ischemic heart disease and other diseases of the circulatory system Coding Level of Care Code New Pt Level 3 (40250) Diagnoses Palpitations R00.2 Family history of arrhythmia Z82.49
== END 2023-08-02 13:41 | disposition home or self-care (01) ==
PROVIDERS: PCP Internal Medicine; Visit Provider Nurse Practitioner
DX: R00.2 Palpitations (principal); Z82.49 Family history of ischemic heart disease and other diseases of the circulatory system
CPT/HCPCS: 99203

== ENCOUNTER 2023-08-03 13:15 | Outpatient (AMB) | payer OTHER, SELFPAY ==
--- NOTE | 2023-08-03 13:03 | A.OFFVIS_ITS ---
Intake VS Expanded 08/03/23 13:06 Height 5 ft 1 in Weight 157 lb BMI 29.7 Intake Visit Reasons: VIDEO PO LSG 07/27/22 Allergies Penicillins [PENICILLINS] Allergy (Severe, Verified 08/02/23 12:20) ANAPHYLAXIS Sulfa (Sulfonamide Antibiotics) Allergy (Severe, Verified 08/02/23 12:20) Angioedema Medication List - Last Reconciled 08/03/23 by NIRANJAN Urbina albuterol sulfate 90 mcg/actuation 2 puffs inhalation Q4-6H PRN cetirizine (Zyrtec) 10 mg PO DAILY PRN clonazepam 1 mg PO BID clotrimazole 1% 1 appl topical BID cyclobenzaprine 10 mg PO TID PRN diclofenac sodium 1% (Arthritis Pain (diclofenac)) 4 grams topical QID diclofenac sodium 1% (Arthritis Pain (diclofenac)) 2 grams topical QID PRN fluticasone propionate 50 mcg/actuation (Flonase Allergy Relief) 2 sprays intranasal DAILY hydrocortisone 2.5% (Proctosol HC) 1 appl WI BID-QID PRN sennosides-docusate sodium 8.6-50 mg (Senna Plus) 2 tab-caps PO BEDTIME sertraline 100 mg PO DAILY triamcinolone acetonide 0.1% 1 appl topical BID 7 days zolpidem 10 mg PO BEDTIME PRN HPI HPI Comments History of Present Illness Details This?is a?52?yo female who is s/p LSG 07/27/2022. Presents for 1 year post op visit. Weight at last visit on 06/20/2023 was 154 pounds with a BMI of 29.1, weight today is 157 pounds, representing a 3 pound weight gain with a BMI today of 29.7.? No complaints of nausea, emesis, abdominal pain or reflux, or constipation. Feels anxious sometimes which makes her want to eat- causing sweet cravings, will try to have strawberries or banana. Has a community therapist who she finds helpful. Present meal plan includes: 1 boiled egg, sometimes slice of toast Premier Protein shake 1 snack of [place] yogurt with berries or protein bar Small meal of protein (chicken, fish), small portion of beans, veg taking MVI Exercise routine includes: hasn't been to the gym in a few weeks, has [employer] membership but difficulty with transportation Pt reports issues of excess skin of abdomen and upper thighs. Regarding abdomen, has to put towels in between skin folds of abdomen and where abdomen meets thighs, due to skin cracking which causes a lot of pain. She has noticed increased moisture in skin folds, which produces an unpleasant odor and she has to wash and clean frequently. She has tried clotrimazole ointment but this has not completely resolved the issue. Regarding upper thighs, reports she notices a lot of friction between upper thighs and has to constantly wear long shorts under dresses to prevent chafing. She has tried compressive pants to try to hold the skin in place, but the material/elastic often digs into her skin at her ankles and has caused bleeding in the past. Has tried clotrimazole ointment here as well but this has not helped. Walking has become more difficult and painful due to friction. [facility] Medical History Family history of arrhythmia Left knee pain Constipation Hiatal hernia Osteoarthritis Anxiety and depression Palpitations GERD (gastroesophageal reflux disease) History of COVID-19 Recurrent UTI Acute diverticulitis Osteoarthritis of left knee Helicobacter pylori gastritis Trapezius muscle spasm Stress incontinence Neck pain Post covid-19 condition, unspecified Obesity (BMI 30-39.9) Loss of hearing Vision changes Hematuria Tubular adenoma Migraine Low back pain Surgical History H/O gastric sleeve History of tonsillectomy History of esophagogastroduodenoscopy (EGD) H/O colonoscopy History of section H/O tubal ligation History of cholecystectomy Family History Father CVD (cardiovascular disease) Diabetes History of open heart surgery Mother Alive and well CVD (cardiovascular disease) Diabetes Thyroid condition Maternal Aunt Colon cancer Son Mental health disorder Maternal Grandmother Colon cancer Social History Household Members: Spouse Housing: House Are you a primary direct care specialist to a significant other at home: No Do you presently have visiting nurse or other home services: No Alcohol intake: former Patient Tobacco Use Status: Never used Tobacco e-Cigarette/Vaping Use: Never Used Second Hand Smoke Exposure: No service: No Current occupational status: unemployed Current occupation: right hand dominant Cognitive needs: No Hearing needs: No Vision needs: No Female Reproductive History Menstrual Age of Menarche: 14 Assessment & Plan Assessment & Plan (1) Excess skin: Code(s): L98.7 - Excessive and redundant skin and subcutaneous tissue (2) Overweight: Code(s): E66.3 - Overweight (3) S/P laparoscopic sleeve gastrectomy: Comment: 07/27/2022 Dr. Rizzo Code(s): Z98.84 - Bariatric surgery status Plan Encouraged pt to resume exercise. Goal weight ~150lbs before submission for skin removal surgery. Pt is having issues of excess skin of abdomen, resulting in painful malodorous rashes refractory to topical Rx treatment. She would benefit from definitive treatment of panniculectomy. Pt also having issues of excess skin of upper thigs, resulting in painful chafing refractory to topical Rx treatment and inhibiting her typical activities of daily living such as walking. She would benefit from definitive treatment of thighplasty. RTC 8 weeks to monitor issues of excess skin. Patient is overweight and is not considered stable at this time. I spent a total of 30 minutes reviewing/updating records, examining the patient and counseling the patient on weight management as detailed above. Medications: New cholecalciferol (vitamin D3) 25 mcg PO DAILY 90 caps 3RF Coding Level of Care Code Est Pt Level 4 (56709) Diagnoses Excess skin L98.7 Overweight E66.3 S/P laparoscopic sleeve gastrectomy Z98.84
[2023-08-03 13:06] VITALS: BMI 29.7
== END 2023-08-03 13:19 | disposition home or self-care (01) ==
LOC: HO.HBS 13:15
PROVIDERS: PCP Internal Medicine; Visit Provider Physician Assistant Surgical
DX: L98.7 Excessive and redundant skin and subcutaneous tissue (principal); E66.3 Overweight; Z68.29 Body mass index [BMI] 29.0-29.9, adult; Z90.3 Acquired absence of stomach [part of]
CPT/HCPCS: 99214

== ENCOUNTER → 2023-08-03 13:15 | Outpatient (BNVA) | payer OTHER, SELFPAY | PROVIDERS: PCP Internal Medicine; Visit Provider Physician Assistant Surgical | DX: E66.3 Overweight (principal); Z68.29 Body mass index [BMI] 29.0-29.9, adult; L98.7 Excessive and redundant skin and subcutaneous tissue; Z98.84 Bariatric surgery status | CPT/HCPCS: 99212 ==

== ENCOUNTER → 2023-08-21 07:58 | Outpatient (REF) | payer OTHER, SELFPAY ==
--- NOTE | 2023-08-21 08:03 | CA_ITS ---
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 The visually estimated ejection fraction is between 65-70%. Spectral Doppler is indicative of a normal filling pattern.Peak GLS is -18.3%, within normal limits. Right Ventricle Normal right ventricular cavity size and systolic function. Atria The left atrium is likely dilated. There is no evidence of interatrial shunt. The right atrium is normal in size. Aortic Valve Normal aortic valve structure and function. There is no aortic valve stenosis. There is no aortic valve regurgitation. Mitral Valve Normal mitral valve structure and function. There is trace mitral valve regurgitation. There is no mitral valve stenosis. Pulmonic Valve The pulmonic valve is likely normal. There is trace pulmonic valve regurgitation. Tricuspid Valve Normal tricuspid valve structure. There is trace tricuspid valve regurgitation. The right ventricular systolic pressure is normal. The right ventricular systolic pressure is 16 mmHg. Normal right atrial pressure. There is no evidence of pulmonary hypertension. Great Vessels All visible segments of the aorta are normal in size. The pulmonary artery was not well visualized. Venous The inferior vena cava is normal in size and collapses greater than 50% with inspiration. Pericardium/Pleural There is no evidence of pericardial effusion. Measurements 2D Linear Measurements IVSd: 0.66 0.6-0.9/0.6-1.0 cm LVIDd: 4.44 3.9-5.3/4.2-5.9 cm LVIDd Index: 2.61 2.4-3.2/2.2-3.1 cm/m2 LVIDs: 2.31 2.0-3.6 cm LVPWd: 0.66 0.7-1.1 cm LA Diam: 3.30 2.7-3.8/3.0-4.0 cm LAIDs Index: 1.94 1.5-2.3 cm/m2 LV Mass: 107.41 67-162/88-224 g LV Mass Index: 63.18 43-95/49-115 g/m2 LVOT Diam: 1.90 3.0+(-)1.3 cm 2D Systolic Function EF 4C: 67.10 >55% EF 2C: 69.40 >55% EF BiP: 67.90 >55% Mitral Valve MV Pk E: 0.87 MV PK A: 0.86 MV Decel Time: 193.00 E/A: 1.00 E'Lateral: 10.40 E'Medial: 9.36 E/E' Med: 9.20 E/E' Lat: 8.30 PHT: 56.00 MVA PHT: 3.93 Decel [place]: 4.49 Aortic Valve AoV Pk Torsten: 1.21 AoV Mn Torsten: 0.81 AoV VTI: 0.31 AoV Pk Grad: 6.00 Aov Mn Grad: 3.00 SHAHRIAR Cont.VTI: 2.27 LVOT LVOT Pk Torsten: 1.02 LVOT Mn Torsten: 0.68 LVOT VTI: 0.25 LVOT Pk Grad: 4.00 LVOT Mn Grad: 2.00 LVOT Diam: 1.90 LVOT Area: 2.84 Diastolic Function MV Pk E: 0.87 MV Pk A: 0.86 E/A: 1.00 E'Medial: 9.36 E/E' Med: 9.20 E' Laterial: 10.40 E/E' Lat: 8.30 Right Ventricle TAPSE (mm): 26.00 TVS' Torsten: 10.90 Tricuspid Valve TR Pk Torsten: 1.77 TR Pk Grad: 13.00 RA Press: 3.00 RVSP: 16.00 Great Vessels Aorta Sinus of Valsalva: 2.90 2.0-3.5 cm Ao Asc: 2.80 2.1-3.4 cm Pulmonary Valve PV Pk Torsten: 0.91 Peak PV Grad: 3.00 Updated in Other Vendor System with Status of Final Jaime Mays MD electronically signed on 08/21/2023 3:53:22 PM with status of Final
--- NOTE | 2023-08-21 08:03 | HM_ITS ---
Conclusion: 1. Patient was monitored for total period of 3 days 2. Baseline was normal sinus rhythm with average heart of 68 beats per minute 3. No significant pauses or arrhythmias noted 4. No patient reported events MTDD
== END ==
LOC: HO.CARD 07:58
PROVIDERS: PCP Internal Medicine; Visit Provider Nurse Practitioner
DX: R00.2 Palpitations (principal); Z82.49 Family history of ischemic heart disease and other diseases of the circulatory system
CPT/HCPCS: 93242; 93306; 93356

== ENCOUNTER → 2023-08-21 08:03 | Outpatient (BNV) | payer OTHER, SELFPAY | PROVIDERS: PCP Internal Medicine; Visit Provider Internal Medicine Cardiovascular Disease | DX: R00.2 Palpitations (principal); Z95.0 Presence of cardiac pacemaker | CPT/HCPCS: 93244; 93306; 93356 ==

== ENCOUNTER 2023-09-15 16:11 | Outpatient (AMB) | payer OTHER, SELFPAY ==
--- NOTE | 2023-09-15 16:14 | MHC.PC.OV ---
Vital Signs 09/15/23 16:16 Height 5 ft 1 in Weight 162 lb 8 oz BMI 30.7 BP 100/62 Blood Pressure Location Lt brachial Position Sitting Pulse 70 Pulse Source Pulse Oximeter Pulse Oximetry (%) 98 Oxygen Delivery Method Room Air Intake Visit Reasons: Annual Exam Intake Note: Patient is here today for a physical. Lead Cytogenetic Technologist Required: No Aviation Electronic Warfare Operator: Not Required per policy Accompanied by: Self / Same As Patient Allergies Penicillins [PENICILLINS] Allergy (Severe, Verified 09/15/23 16:16) ANAPHYLAXIS Sulfa (Sulfonamide Antibiotics) Allergy (Severe, Verified 09/15/23 16:16) Angioedema Medication List - Last Reconciled 09/15/23 by April Santillan MD albuterol sulfate 90 mcg/actuation 2 puffs inhalation Q4-6H PRN cetirizine (Zyrtec) 10 mg PO DAILY PRN cholecalciferol (vitamin D3) 25 mcg PO DAILY clonazepam 1 mg PO BID clotrimazole 1% 1 appl topical BID cyclobenzaprine 10 mg PO TID PRN diclofenac sodium 1% (Arthritis Pain (diclofenac)) 4 grams topical QID hydrocortisone 2.5% (Proctosol HC) 1 appl [place] BID-QID PRN sennosides-docusate sodium 8.6-50 mg (Senna Plus) 2 tab-caps PO BEDTIME sertraline 100 mg PO DAILY triamcinolone acetonide 0.1% 1 appl topical BID 7 days vitamin A palmitate 10,000 units PO DAILY zolpidem 10 mg PO BEDTIME PRN Tobacco use date assessed: 09/15/23 Dental Screening Dental Screen Date: 09/15/23 Did you have a dental visit in the last 12 months?: Yes Did you have a dental problem in the last 6 months where you did not have access to dental care?: No Was dental information given to patient?: Patient has dentist HPI Annual Exam HPI Details 52-year-old obese female with a history of laparoscopic sleeve gastrectomy hypercholesterolemia GERD constipation coming in for physical exam last seen in April 2023. Patient's colonoscopy is up-to-date August 2022, mammogram is up-to-date and female workup up-to-date. Review of the notes recently had an echocardiogram that is normal. Patient also was seen by Cardiology for palpitations was requested for a Holter. PAtient states she has varicose veins and wants to see Dr. Finnegan, refuse to show me states pants are tight ? PFSH Medical History Family history of arrhythmia Left knee pain Constipation Hiatal hernia Osteoarthritis Anxiety and depression Palpitations GERD (gastroesophageal reflux disease) History of COVID-19 Recurrent UTI Acute diverticulitis Osteoarthritis of left knee Helicobacter pylori gastritis Trapezius muscle spasm Stress incontinence Neck pain Post covid-19 condition, unspecified Obesity (BMI 30-39.9) Loss of hearing Vision changes Hematuria Tubular adenoma Migraine Low back pain Surgical History H/O gastric sleeve History of tonsillectomy History of esophagogastroduodenoscopy (EGD) H/O colonoscopy History of section H/O tubal ligation History of cholecystectomy Family History Father CVD (cardiovascular disease) Diabetes History of open heart surgery Mother Alive and well CVD (cardiovascular disease) Diabetes Thyroid condition Maternal Aunt Colon cancer Son Mental health disorder Maternal Grandmother Colon cancer Social History Household Members: Spouse Housing: House Are you a primary home care music therapist to a significant other at home: No Do you presently have visiting nurse or other home services: No Alcohol intake: former Patient Tobacco Use Status: Never used Tobacco e-Cigarette/Vaping Use: Never Used Second Hand Smoke Exposure: No service: No Current occupational status: unemployed Current occupation: right hand dominant Cognitive needs: No Hearing needs: No Vision needs: No Female Reproductive History Menstrual Age of Menarche: 14 Questionnaire PHQ-9 Over the last 2 weeks, how often have you been bothered by any of the following problems? 1. Little interest or pleasure in doing things: not at all 2. Feeling down, depressed, or hopeless: several days (currently on medication and in treatment) 3. Trouble falling or staying asleep, or sleeping too much: not at all 4. Feeling tired or having little energy: not at all 5. Poor appetite or overeating: not at all 6. Feeling bad about yourself - or that you are a failure or have let yourself or your family down: not at all 7. Trouble concentrating on things, such as reading the newspaper or watching television: not at all 8. Moving or speaking so slowly that other people could have noticed. Or the opposite - being so fidgety or restless that you have been moving around a lot more than usual: not at all 9. Thoughts that you would be better off or of hurting yourself in some way: not at all Total score: 1 Depression Screening Interpretation: Negative Depression Screening Done: Yes Source: Developed by Drs. Chris Brown, Sherry Champagne, Juan Alberto Lee and colleagues, with an educational duyen from [employer]. Thrive Questionnaire Date Thrive assessed: 09/15/23 I am a: Patient What is your living situation today?: I have a steady place to live Within the past 12 months, did the food you bought not last and you didn't have the money to get more?: Never true Within the past 12 months, did you worry whether your food would run out before you got money to buy more?: Never true Do you have trouble paying for medicines?: No Do you have trouble getting transportation to medical appointments?: No Do you have trouble paying your heating and electricity bill?: No Do you have trouble taking care of your child, family member or friend?: No Do you have trouble with day-to-day activities such as bathing, preparing meals, shopping, managing finances, etc.?: No Are you currently unemployed and looking for a job?: No Are you interested in more education?: No Currently or been in a relationship where the following occur: no concerns reported THRIVE Score: 0 AUDIT C Alcohol Use Questionnaire (AUDIT-C) 1. How often do you have a drink containing alcohol?: Never Total Score: 0 NATHAN-7 AMB Questionnaire NATHAN-7 Date NATHAN - 7 assessed: 09/15/23 Feeling nervous, anxious, or on edge: 1 = Several days (currently on medication and in treatment) Not being able to stop or control worryin = Not at all Worrying too much about different things: 0 = Not at all Trouble relaxin = Not at all Being so restless that it is hard to sit still: 0 = Not at all Becoming easily annoyed or irritable: 0 = Not at all Feeling afraid as if something awful might happen: 0 = Not at all Total NATHAN-7 score (0-4 normal; 5-9 mild; 10-14 moderate; 15-21 severe): 1 Source: Developed by Drs. Chris Brown, Sherry Champagne, Juan Alberto Lee and colleagues, with an educational duyen from [employer]. Review of Systems Const Denies poor appetite and Denies weakness Eyes Denies no additional complaints ENT Reports Normal hearing present, Denies dizziness, Denies nasal congestion, Denies tinnitus and Denies sore throat Card Denies chest pain, Denies syncope, Denies rapid heart rate and Denies dyspnea Resp Denies cough and Denies dyspnea GI Denies change in stool character, Reports constipation, Denies diarrhea, Denies nausea and Denies vomiting Denies urinary frequency, Denies difficulty voiding and Denies dysuria Neuro Reports Normal hearing present, Denies confusion, Denies dizziness, Denies syncope and Denies weakness Psych Denies confusion Physical exam (Primary Care) Vital Signs: Last Vital Signs Pulse 70 09/15/23 16:16 BP 100/62 09/15/23 16:16 Pulse Ox 98 09/15/23 16:16 Oxygen Delivery Method Room Air 09/15/23 16:16 BMI result Body Mass Index 30.7 Tobacco/Smoking Status: Tobacco use Status Tobacco use date assessed 09/15/23 09/15/23 16:22 Patient Tobacco Use Status Never used Tobacco 09/15/23 16:22 e-Cigarette/Vaping Use Never Used 09/15/23 16:22 PHQ-9: PHQ-9 Score PHQ-9: Total score 1 09/15/23 16:22 Depression Screening Interpretation: Negative Thrive Assessment: Date of Thrive Assessment Date Thrive assessed 09/15/23 09/15/23 16:22 Currently or been in a relationship where the following occur: no concerns reported Const General: No confusion Orientation/consciousness: No confusion HENMT Head: Yes normocephalic Ears: external ears normal and TM's normal bilaterally Face and sinus: Yes normal facial exam Mouth: moist mucous membranes Throat: Yes tonsils normal Eyes Conjunctivae: conjunctivae normal Pupils: Equal, round and reactive pupils present and Pupil accommodation reflex normal Direct Ophthalmoscopy: normal light reflex Neck Neck: No lymphadenopathy Thyroid: Thyroid normal Chest Chest palpation & inspection: normal inspection of the chest Resp Effort & Inspection: normal respiratory effort and no audible wheezes Auscultation: clear to auscultation bilaterally, no crackles, no wheezes and lung sounds not diminished Cardio Rate: regular rate Rhythm: regular rhythm Peripheral pulses: radial pulses present and dorsalis pedis present GI Palpation (GI): no masses Auscultation: normal bowel sounds and normoactive bowel sounds Rectal Exam - Female: deferred Skin General skin exam: no rashes or lesions noted Rashes: no rashes Neuro General: No confusion Cranial nerves: Yes Equal, round and reactive pupils present and Yes Normal hearing present Cognition (Neuro): normal cognition Gait exam (Neuro): Normal gait present Motor exam (neuro): 5/5 motor strength present throughout Deep tendon reflexes (DTR's): Right brachioradialis reflex intensity grade: 2+, Left brachioradialis reflex intensity grade: 2+, Right patellar reflex intensity grade: 2+ and Left patellar reflex intensity grade: 2+ Extrem General: No edema Assessment and Plan Assessment & Plan (1) Annual physical exam: Code(s): Z00.00 - Encounter for general adult medical examination without abnormal findings (2) S/P laparoscopic sleeve gastrectomy: Comment: 07/27/2022 Dr. Rizzo Code(s): Z98.84 - Bariatric surgery status Plan: Continue to follow-up with bariatric group (3) Obesity (BMI 30-39.9): Code(s): E66.9 - Obesity, unspecified Plan: Diet and exercise (4) Major depressive disorder, recurrent, moderate: Comment: [facility] Code(s): F33.1 - Major depressive disorder, recurrent, moderate Plan: Continue with counseling and therapy presently on clonazepam sertraline (5) GERD (gastroesophageal reflux disease): Code(s): K21.9 - Gastro-esophageal reflux disease without esophagitis Qualifiers: Esophagitis presence: without esophagitis Qualified Code(s): K21.9 - Gastro-esophageal reflux disease without esophagitis Plan: Avoid the foods that causes that usually spicy foods, tomato products, juices, coffee, soda and foods that your sensitive to. After eating do not lie down, allow 3-4 hours before in lie down. And keep the head of bed above 30 degrees to avoid the acid from going up. (6) Hypercholesteremia: Code(s): E78.00 - Pure hypercholesterolemia, unspecified Plan: Avoid fried foods, chicken skin, eggs, butter margarine, pastries and meat. Be it pork or beef they have a lot of cholesterol LDL goal of less than 130 and triglyceride of less than 150 (7) Palpitations: Code(s): R00.2 - Palpitations Plan: Patient has met with cardiology and Holter is pending. Echocardiogram did reveal negative results. (8) Varicose veins of bilateral lower extremities with pain: Code(s): I83.813 - Varicose veins of bilateral lower extremities with pain (9) Blepharoptosis: Code(s): H02.409 - Unspecified ptosis of unspecified eyelid Orders: Orders Lipid Panel 3 Months E78.00 - Pure hypercholesterolemia, unspecified Comprehensive Met. Panel 3 Months E78.00 - Pure hypercholesterolemia, unspecified Referrals Ophthalmology Referral H02.409 - Unspecified ptosis of unspecified eyelid Vascular Surgery Referral I83.813 - Varicose veins of bilateral lower extremities with pain Medications: New lidocaine 5% leave on most painful area for up to 12 hrs 1 patch topical DAILY 30 ea 0RF I83.813 - Varicose veins of bilateral lower extremities with pain Refilled albuterol sulfate 90 mcg/actuation 2 puffs inhalation Q4-6H PRN 6.7 grams 0RF shortness of breath or wheezing I83.813 - Varicose veins of bilateral lower extremities with pain Coding Level of Care Code Est Pt Prev Care 40-64y([id number]) Diagnoses Annual physical exam Z00.00 S/P laparoscopic sleeve gastrectomy Z98.84 Obesity (BMI 30-39.9) E66.9 Major depressive disorder, recurrent, moderate F33.1 Gastroesophageal reflux disease without esophagitis K21.9 Esophagitis presence: without esophagitis Hypercholesteremia E78.00 Palpitations R00.2 Varicose veins of bilateral lower extremities with pain I83.813 Blepharoptosis H02.409
[2023-09-15 16:16] VITALS: BP 100/62; PULSE 70; O2SAT 98; BMI 30.7
== END 2023-09-15 16:57 | disposition home or self-care (01) ==
PROVIDERS: PCP Internal Medicine; Visit Provider Internal Medicine
DX: Z00.00 Encounter for general adult medical examination without abnormal findings (principal); F33.1 Major depressive disorder, recurrent, moderate; Z68.30 Body mass index [BMI] 30.0-30.9, adult; Z98.84 Bariatric surgery status; E66.9 Obesity, unspecified; K21.9 Gastro-esophageal reflux disease without esophagitis; E78.00 Pure hypercholesterolemia, unspecified; R00.2 Palpitations; I83.813 Varicose veins of bilateral lower extremities with pain
CPT/HCPCS: 99396

== ENCOUNTER 2023-09-28 11:31 | Outpatient (AMB) | payer OTHER, SELFPAY ==
--- NOTE | 2023-09-28 10:30 | MHC.OFFVISWM ---
VS Expanded 09/28/23 10:40 Height 5 ft 1 in Weight 158 lb BMI 29.9 Intake Visit Reasons: (TELEPHONE) PO LSG 07/27/22 Allergies Penicillins [PENICILLINS] Allergy (Severe, Verified 09/15/23 16:16) ANAPHYLAXIS Sulfa (Sulfonamide Antibiotics) Allergy (Severe, Verified 09/15/23 16:16) Angioedema Medication List - Last Reconciled 09/28/23 by NIRANJAN Urbina albuterol sulfate 90 mcg/actuation 2 puffs inhalation Q4-6H PRN cetirizine (Zyrtec) 10 mg PO DAILY PRN cholecalciferol (vitamin D3) 25 mcg PO DAILY clonazepam 1 mg PO BID clotrimazole 1% 1 appl topical BID cyclobenzaprine 10 mg PO TID PRN diclofenac sodium 1% (Arthritis Pain (diclofenac)) 4 grams topical QID hydrocortisone 2.5% (Proctosol HC) 1 appl [place] BID-QID PRN lidocaine 5% 1 patch topical DAILY sennosides-docusate sodium 8.6-50 mg (Senna Plus) 2 tab-caps PO BEDTIME sertraline 100 mg PO DAILY triamcinolone acetonide 0.1% 1 appl topical BID 7 days vitamin A palmitate 10,000 units PO DAILY zolpidem 10 mg PO BEDTIME PRN HPI Comments Details: This?is a?52?yo female who is s/p LSG 07/27/2022. Presents for 14 month post op visit. Weight at last visit on 08/03/2023 was 157 pounds with a BMI of 29.7, weight today up 1lb.? No complaints of nausea, emesis, abdominal pain or reflux, or constipation. Struggling with migraines recently. Saw PCP, cholesterol high, stopped eating eggs. Having eye surgery in October. Present meal plan includes: having oatmeal instead of eggs, or sometimes a piece of toast Premier Protein shake 1 snack of Arabic yogurt with berries or protein bar Small meal of protein (chicken, fish), small portion of beans, veg taking MVI Exercise routine includes: hasn't been to the gym recently due to frequent migraines and helping to take care of her mother who has Alzheimer's Pt reports issues of excess skin of abdomen and upper thighs. Regarding abdomen, has to put towels in between skin folds of abdomen and where abdomen meets thighs, due to skin cracking which causes a lot of pain. Experiences a burning itchy sensation. She has noticed increased moisture in skin folds, which produces an unpleasant odor and she has to wash and clean frequently. This is worse with weather getting warmer. She has tried clotrimazole ointment but this has not completely resolved the issue. Regarding upper thighs, reports she notices a lot of friction between upper thighs and has to constantly wear long shorts under dresses to prevent chafing. She has tried compressive pants to try to hold the skin in place, but the material/elastic often digs into her skin at her ankles and has caused bleeding in the past. Has tried clotrimazole ointment here as well but this has not helped. Walking has become more difficult and painful due to friction. [facility] Medical History Family history of arrhythmia Left knee pain Constipation Hiatal hernia Osteoarthritis Anxiety and depression Palpitations GERD (gastroesophageal reflux disease) History of COVID-19 Recurrent UTI Acute diverticulitis Osteoarthritis of left knee Helicobacter pylori gastritis Trapezius muscle spasm Stress incontinence Neck pain Post covid-19 condition, unspecified Obesity (BMI 30-39.9) Loss of hearing Vision changes Hematuria Tubular adenoma Migraine Low back pain Surgical History H/O gastric sleeve History of tonsillectomy History of esophagogastroduodenoscopy (EGD) H/O colonoscopy History of section H/O tubal ligation History of cholecystectomy Family History Father CVD (cardiovascular disease) Diabetes History of open heart surgery Mother Alive and well CVD (cardiovascular disease) Diabetes Thyroid condition Maternal Aunt Colon cancer Son Mental health disorder Maternal Grandmother Colon cancer Social History Household Members: Spouse Housing: House Are you a primary direct care professional to a significant other at home: No Do you presently have visiting nurse or other home services: No Alcohol intake: former Patient Tobacco Use Status: Never used Tobacco e-Cigarette/Vaping Use: Never Used Second Hand Smoke Exposure: No service: No Current occupational status: unemployed Current occupation: right hand dominant Cognitive needs: No Hearing needs: No Vision needs: No Female Reproductive History Menstrual Age of Menarche: 14 Telehealth Telehealth Telehealth Platform: Telephone Location of provider rendering services: practice address Location of patient: address on file Patient Identification confirmed using: Name, : Yes Telehealth method: voice only Patient verbally consented to treatment: Yes Patient verbally consented to billing insurance company: Yes Patient informed of any privacy concerns related to visit: Yes Minutes spent on Phone/Video with Pt.: 15 Assessment & Plan Assessment & Plan (1) Overweight: Code(s): E66.3 - Overweight Category: Medical (2) S/P laparoscopic sleeve gastrectomy: Comment: 07/27/2022 Dr. Rizzo Code(s): Z98.84 - Bariatric surgery status Category: Surgical Plan New meal plan to help with additional weight loss, goal 150lbs prior to skin removal surgery- 2 shakes, each with 1 scoop Premier in 8oz UAM Arabic yogurt meal of 6 forks protein, 6 forks veg/salad texted meal plan to pt Encouraged pt to resume exercise Pt is having issues of excess skin of abdomen, resulting in painful malodorous rashes refractory to topical Rx treatment. She would benefit from definitive treatment of panniculectomy. Pt also having issues of excess skin of upper thigs, resulting in painful chafing refractory to topical Rx treatment and inhibiting her typical activities of daily living such as walking. She would benefit from definitive treatment of thighplasty. RTC 2 months to monitor issues of excess skin. Patient is overweight and is not considered stable at this time. I spent a total of 30 minutes reviewing/updating records, examining the patient and counseling the patient on weight management as detailed above.
[2023-09-28 10:40] VITALS: BMI 29.9
== END 2023-09-28 11:32 | disposition home or self-care (01) ==
LOC: HO.HBS 11:31
PROVIDERS: PCP Internal Medicine; Visit Provider Physician Assistant Surgical
DX: E66.3 Overweight (principal); Z98.84 Bariatric surgery status
CPT/HCPCS: 99214

== ENCOUNTER → 2023-09-28 11:31 | Outpatient (BNVA) | payer OTHER, SELFPAY | PROVIDERS: PCP Internal Medicine; Visit Provider Physician Assistant Surgical | DX: E66.3 Overweight (principal); Z98.84 Bariatric surgery status ==

== ENCOUNTER 2023-10-03 13:33 | Outpatient (AMB) | payer OTHER, SELFPAY ==
[2023-10-03 13:43] VITALS: BP 122/68; PULSE 89; O2SAT 99; BMI 30.4
--- NOTE | 2023-10-03 13:43 | A.OFFVIS_ITS ---
Vital Signs 10/03/23 13:43 Height 5 ft 1 in Weight 160 lb 14.999 oz BMI 30.4 BP 122/68 Blood Pressure Location Lt brachial Position Sitting Pulse 89 Pulse Source Pulse Oximeter Pulse Oximetry (%) 99 Oxygen Delivery Method Room Air Oxygen Flow Rate 0 Intake Visit Reasons: 2 mth f/up holter/ echo Allergies Penicillins [PENICILLINS] Allergy (Severe, Verified 09/15/23 16:16) ANAPHYLAXIS Sulfa (Sulfonamide Antibiotics) Allergy (Severe, Verified 09/15/23 16:16) Angioedema HPI Comments Details: 52-year-old female presents today for a follow-up. She had a work-up regarding palpitations. She has a medical history of obesity, depression, hypercholesteremia, and gastric sleeve. She does not smoke and she drinks rarely. She reports she has no cardiac history . She does report having a bit of stress at home due to caring for her ill mother and having her son pass. She does not drink caffeine and eats overall healthy. [facility] Medical History Family history of arrhythmia Left knee pain Constipation Hiatal hernia Osteoarthritis Anxiety and depression Palpitations GERD (gastroesophageal reflux disease) History of COVID-19 Recurrent UTI Acute diverticulitis Osteoarthritis of left knee Helicobacter pylori gastritis Trapezius muscle spasm Stress incontinence Neck pain Post covid-19 condition, unspecified Obesity (BMI 30-39.9) Loss of hearing Vision changes Hematuria Tubular adenoma Migraine Low back pain Surgical History H/O gastric sleeve History of tonsillectomy History of esophagogastroduodenoscopy (EGD) H/O colonoscopy History of section H/O tubal ligation History of cholecystectomy Family History Father CVD (cardiovascular disease) Diabetes History of open heart surgery Mother Alive and well CVD (cardiovascular disease) Diabetes Thyroid condition Maternal Aunt Colon cancer Son Mental health disorder Maternal Grandmother Colon cancer Social History Household Members: Spouse Housing: House Are you a primary professional healthcare representative to a significant other at home: No Do you presently have visiting nurse or other home services: No Alcohol intake: former Patient Tobacco Use Status: Never used Tobacco e-Cigarette/Vaping Use: Never Used Second Hand Smoke Exposure: No service: No Current occupational status: unemployed Current occupation: right hand dominant Cognitive needs: No Hearing needs: No Vision needs: No Female Reproductive History Menstrual Age of Menarche: 14 Review of Systems Const Denies weakness ENT Denies dizziness Card Denies chest pain, Denies chest pain with activity, Denies syncope, Denies rapid heart rate, Denies pedal edema, Denies edema, Denies leg edema, Denies lightheadedness, Denies palpitations, Denies dyspnea, Denies dyspnea on exertion and Denies orthopnea Resp Denies cough, Denies dyspnea and Denies dyspnea on exertion GI Denies hematochezia and Denies change in stool character Musc Denies abnormal gait, Denies muscle cramps, Denies muscle weakness, Denies numbness, Denies radiating pain into limb and Denies tingling Neuro Denies abnormal gait, Denies dizziness, Denies syncope, Denies numbness, Denies tingling and Denies weakness Endo Denies palpitations Physical Exam Vital Signs: Last Vital Signs Pulse 89 10/03/23 13:43 BP 122/68 10/03/23 13:43 Pulse Ox 99 10/03/23 13:43 Oxygen Delivery Method Room Air 10/03/23 13:43 Oxygen Flow Rate 0 10/03/23 13:43 BMI result Body Mass Index 30.4 Results Reviewed Results Reviewed: Echo Conclusions: - Essentially normal study Conclusion: 1. Patient was monitored for total period of 3 days 2. Baseline was normal sinus rhythm with average heart of 68 beats per minute 3. No significant pauses or arrhythmias noted 4. No patient reported events Assessment & Plan Assessment & Plan (1) Palpitations: Code(s): R00.2 - Palpitations Category: Medical Plan Holter and echo within normal limits. She reports she feels them the most when she is dehydrated. Discussed about ensuring adequate hydration and stress management. Continue to avoid stimulants. Will follow-up as needed. Coding Level of Care Code Est Pt Level 3 (64822) Diagnoses Palpitations R00.2
== END 2023-10-03 14:03 | disposition home or self-care (01) ==
PROVIDERS: PCP Internal Medicine; Visit Provider Nurse Practitioner
DX: R00.2 Palpitations (principal)
CPT/HCPCS: 99213

== ENCOUNTER → 2023-10-03 13:33 | Outpatient (BNVA) | payer OTHER, SELFPAY | PROVIDERS: PCP Internal Medicine; Visit Provider Nurse Practitioner | DX: R00.2 Palpitations (principal) | CPT/HCPCS: 99212 ==

== ENCOUNTER 2023-10-10 10:55 | Emergency (ER) | payer OTHER, SELFPAY ==
--- NOTE | ~2023-10-10 | XR_ITS ---
STUDY: Chest and lumbar spine INDICATION: Cough and right low back/hip pain after fall COMPARISON: 09/08/2021 lumbar spine TECHNIQUE: PA and lateral chest, 3 view lumbar spine FINDINGS: Chest: Heart, mediastinum and vascularity within normal limits. Left midlung atelectasis is seen. No consolidations or effusions. Degenerative spurring. Lumbar spine: There is lumbar lordotic straightening. Vertebral bodies are maintained in height. Minimal L3-L4 and mild/moderate L5-S1 disc space narrowing. Pedicles and SI joints within normal limits. No significant hip joint narrowings. Cholecystectomy, epigastric and right hemipelvic clips. XR/XR chest 2V IMPRESSION: Left mid lung atelectasis. Lumbar lordotic straightening, L3-L4 and L5-S1 disc space narrowings.
--- NOTE | ~2023-10-10 | XR_ITS ---
STUDY: Chest and lumbar spine INDICATION: Cough and right low back/hip pain after fall COMPARISON: 09/08/2021 lumbar spine TECHNIQUE: PA and lateral chest, 3 view lumbar spine FINDINGS: Chest: Heart, mediastinum and vascularity within normal limits. Left midlung atelectasis is seen. No consolidations or effusions. Degenerative spurring. Lumbar spine: There is lumbar lordotic straightening. Vertebral bodies are maintained in height. Minimal L3-L4 and mild/moderate L5-S1 disc space narrowing. Pedicles and SI joints within normal limits. No significant hip joint narrowings. Cholecystectomy, epigastric and right hemipelvic clips. XR/XR lumbar spine 2-3V IMPRESSION: Left mid lung atelectasis. Lumbar lordotic straightening, L3-L4 and L5-S1 disc space narrowings.
[2023-10-10 11:11] VITALS: BP 125/68; PULSE 95; RESP 18; TEMP 37.6; O2SAT 98; BMI 30.2
--- NOTE | 2023-10-10 11:12 | ED_ITS ---
HPI - General Adult General Chief complaint: Upper Respiratory Symptoms Stated complaint: Cough/SOB Fall yesterday back pain Time Seen by Provider: 10/10/23 14:27 Source: patient Mode of arrival: ambulatory Limitations: no limitations History of Present Illness ED Provider: Belem Ordaz PA-C HPI narrative: 52 yo female presents for evaluation of worsening dry cough for the last few days along with feeling generally weak and unwell. She states the cough has been keeping her up at night and is now causing chest discomfort across her entire chest when she coughs. No SOB or difficulty breathing. No known sick contacts. No N/V/D or abdominal pain. Endorses decreased PO intake and energy. Had mechanical fall yesterday on right side, no LOC or head strike. not on anticoagulation MD complaint: cough, chest discomfort, weakness Onset (ago): day(s) Radiation: non-radiation Severity: moderate Quality: aching Pain Consistency: intermittent Relieving factors: none Exacerbating factors: none Associated symptoms: chest pain, cough, fever/chills, loss of appetite, malaise and weakness Treatments prior to arrival: none Related Data Home Medications ?Medication ?Instructions ?Recorded ?Confirmed clonazepam 1 mg tablet 1 mg PO BID 05/08/20 09/28/23 zolpidem 10 mg tablet 10 mg PO BEDTIME PRN Sleep 03/08/22 09/28/23 sertraline 100 mg tablet 100 mg PO DAILY 09/06/22 09/28/23 sennosides 8.6 mg-docusate sodium 2 tab-cap PO BEDTIME 08/02/23 09/28/23 50 mg capsule (Senna Plus) Previous Rx's ?Medication ?Instructions ?Recorded clotrimazole 1 % topical cream 1 appl topical BID #45 grams 12/20/22 hydrocortisone 2.5 % topical cream 1 appl NV BID-QID PRN hemorrhoids 07/26/23 with perineal applicator #30 grams (Proctosol HC) triamcinolone acetonide 0.1 % 1 appl topical BID 7 days #15 grams 08/02/23 topical cream cholecalciferol (vitamin D3) 25 25 mcg PO DAILY #90 caps 08/03/23 mcg (1,000 unit) capsule cetirizine 10 mg tablet (Zyrtec) 10 mg PO DAILY PRN allergy 04/26/24 symptoms #90 tabs cyclobenzaprine 10 mg tablet 10 mg PO TID PRN muscle spasm #30 09/15/23 tabs diclofenac sodium 1 % topical gel 4 g topical QID #100 grams 09/15/23 (Arthritis Pain (diclofenac)) lidocaine 5 % topical patch 1 patch topical DAILY #30 ea 09/15/23 vitamin A palmitate 3,000 mcg 10,000 unit PO DAILY #90 caps 09/15/23 (10,000 unit) capsule azithromycin 250 mg tablet See Rx Instructions PO .COMPLEX #6 10/10/23 (Zithromax Z-Jian) tabs benzonatate 100 mg capsule 100 mg PO TID PRN cough #14 caps 10/10/23 cyclobenzaprine 10 mg tablet 10 mg PO TID PRN muscle spasm #10 10/10/23 tabs prednisone 20 mg tablet 40 mg (2 x 20 mg) PO DAILY #10 tabs 10/10/23 albuterol sulfate 90 mcg/actuation 2 puff inhalation Q4-6H PRN 10/12/23 aerosol inhaler shortness of breath or wheezing #6.7 grams Allergies Allergy/AdvReac Type Severity Reaction Status Date / Time Penicillins [PENICILLINS] Allergy Severe ANAPHYLAXIS Verified 10/10/23 11:12 Sulfa (Sulfonamide Allergy Severe Angioedema Verified 10/10/23 11:12 Antibiotics) Review of Systems Review of Systems: Yes all other systems are reviewed and are negative [facility] [place] Past Medical History Medical History Family history of arrhythmia Left knee pain Constipation Hiatal hernia Osteoarthritis Anxiety and depression Palpitations GERD (gastroesophageal reflux disease) History of COVID-19 Recurrent UTI Acute diverticulitis Osteoarthritis of left knee Helicobacter pylori gastritis Trapezius muscle spasm Stress incontinence Neck pain Post covid-19 condition, unspecified Obesity (BMI 30-39.9) Loss of hearing Vision changes Hematuria Tubular adenoma Migraine Low back pain Surgical History H/O gastric sleeve History of tonsillectomy History of esophagogastroduodenoscopy (EGD) H/O colonoscopy History of section H/O tubal ligation History of cholecystectomy Family History Family History Father CVD (cardiovascular disease) Diabetes History of open heart surgery Mother Alive and well CVD (cardiovascular disease) Diabetes Thyroid condition Maternal Aunt Colon cancer Son Mental health disorder Maternal Grandmother Colon cancer Social History Social History Household Members: Spouse Housing: House Are you a primary aged or disabled care worker to a significant other at home: No Do you presently have visiting nurse or other home services: No Alcohol intake: former Patient Tobacco Use Status: Never used Tobacco e-Cigarette/Vaping Use: Never Used Second Hand Smoke Exposure: No Advance Directives: No Advance Directives Information Provided: No service: No Current occupational status: unemployed Current occupation: right hand dominant Cognitive needs: No Hearing needs: No Vision needs: No Physical Exam ED Vital Signs: Vital Signs - 24 hr 10/10/23 11:11 10/10/23 14:38 10/10/23 15:17 Temperature 99.6 F 97.8 F 97.8 F Pulse Rate 95 88 88 Respiratory Rate 18 20 20 Blood Pressure 125/68 121/78 121/78 Pulse Oximetry 98 98 98 Oxygen Delivery Method Room Air Room Air Room Air BMI result Body Mass Index 30.2 Appearance: Alert. Oriented X3. No acute distress. Head: normocephalic, atraumatic. Eyes: Pupils equal, round and reactive to light. ENT: Pharynx normal. No tonsillar swelling or exudate, moderate pharyngeal erythema. uvula midline. normal voice Neck: Normal inspection. Neck supple. CVS: Normal heart rate and rhythm. Pulses normal. Respiratory: No respiratory distress. Breath sounds normal. Abdomen: Soft and nontender. +BS x4 no flank ecchmosis Skin: Skin warm and dry. Normal skin color. Normal skin turgor. No rashes. Extremities: No lower extremity edema. No joint swelling. Neuro/psych: Oriented X 3. No motor deficit. No sensory deficit. CN II-XII intact. Normal speech and cognition. Course Course Course Narrative: This is a Rapid Medical Examination (RME) performed by Lety Hopkins PA-C in triage. Full HPI, ROS, assessment and treatment plan per primary provider in the Main ED. 52 year old female with pmhx significant for hypercholesterolemia, h pylori, GERD, tubular adenoma, MDD NATHAN, OAB, migraines presents to the ED today for eval of cough x4 days. admits to chills and assoc rib pain from coughing. dec PO intake. She also endorses right hip/ low back pain after slip and fall in tub last night. no head strike. no LOC. no thinners. denies bowel/bladder incont/ retention, saddle anesthesia, numbness/tingling/weakness of LE, dysuria, hematuria. No midline spinous tenderness or step off deformity. +right lumbar paraspinal mm tenderness. lungs CTA b/l actively coughing. Plan: viral serology, CXR, lumbar spine xr Medical Decision Making Medical Decision Making [facility] Narrative: 52 yo female presenting with URI sxs x4 days. mechanical fall yesterday, no apparent injuries aside from some muscle aches. lumbar spine xr without fx. cxr is clear. viral studies are negative. her exam is benign and her VSS. most likely viral process. discussed dx and tx, supportive care. stable for d/c home. Differential Diagnosis Differential Diagnoses: The differential diagnosis associated with the presentation includes strep, covid, flu, rsv, other viral syndrome, bronchitis, pneumonia Lab Data [facility] Lab Attestation statement: I reviewed the patient's lab results. Labs: Lab Results 10/10/23 Range/Units 11:19 Influenza Type A (PCR) NEGATIVE (Negative) Influenza Type B (PCR) NEGATIVE (Negative) RSV RNA Qual (PCR) NEGATIVE (Negative) SARS-CoV-2 RNA (RT-PCR) NEGATIVE (Negative) Independent Interpretation I performed an independent interpretation of an: Plain X-Ray Interpretation: cxr without focal opacity or effusion lumbar spine xr without compression fx Radiology Impression Discussion of test interpretation with radiology: I have reviewed the radiologist's reading. Radiologist Impression: STUDY: Chest and lumbar spine INDICATION: Cough and right low back/hip pain after fall COMPARISON: 09/08/2021 lumbar spine TECHNIQUE: PA and lateral chest, 3 view lumbar spine FINDINGS: Chest: Heart, mediastinum and vascularity within normal limits. Left midlung atelectasis is seen. No consolidations or effusions. Degenerative spurring. Lumbar spine: There is lumbar lordotic straightening. Vertebral bodies are maintained in height. Minimal L3-L4 and mild/moderate L5-S1 disc space narrowing. Pedicles and SI joints within normal limits. No significant hip joint narrowings. Cholecystectomy, epigastric and right hemipelvic clips. XR/XR lumbar spine 2-3V IMPRESSION: Left mid lung atelectasis. Lumbar lordotic straightening, L3-L4 and L5-S1 disc space narrowings. External Record Review External record reviewed: Office record, Outpatient record and Prior outpatient labs Tests considered The following testing was considered but not selected: CT scan abd/pelvis considered given trauma but exam is reassuring, not on anticoagulation Prescription Management I considered prescription management with: Pain Medication and Antibiotic Chronic Conditions Patient?s care impacted by: Other (anxiety, depression) Discharge Plan Discharge Clinical Impression: Bronchitis Patient Disposition: Home, Self-Care Instructions: Acute Bronchitis (ED) Additional Instructions: Your chest x-ray did not show any evidence of pneumonia. Your spinal x-ray did not show any evidence of fractures or any bony abnormalities. It did show some muscle spasm. Take the prescribed muscle relaxer as needed for lower back pain and spasm. Your being treated for acute bronchitis, take the prescribed antibiotic and prednisone as directed. Rest and drink plenty of fluids. Follow-up with your doctor as needed. If you develop new or worsening symptoms call 911 or come back to the ER for further evaluation. Prescriptions: New prednisone 20 mg tablet 40 mg PO DAILY Qty: 10 0RF cyclobenzaprine 10 mg tablet 10 mg PO TID PRN (Reason: muscle spasm) Qty: 10 0RF azithromycin [Zithromax Z-Jian] 250 mg tablet See Rx Instructions .ROUTE .COMPLEX Qty: 6 0RF Rx Instructions: take 500 mg today (day 1), then 250 mg for 4 days (days 2-5) benzonatate 100 mg capsule 100 mg PO TID PRN (Reason: cough) Qty: 14 0RF No Action hydrocortisone [Proctosol HC] 2.5 % cream with perineal applicator 1 appl NV BID-QID PRN (Reason: hemorrhoids) Qty: 30 0RF vitamin A palmitate 3,000 mcg (10,000 unit) capsule 10,000 unit PO DAILY Qty: 90 3RF albuterol sulfate 90 mcg/actuation HFA aerosol inhaler 2 puff inhalation Q4-6H PRN (Reason: shortness of breath or wheezing) Qty: 6.7 0RF clonazepam 1 mg tablet 1 mg PO BID triamcinolone acetonide 0.1 % cream 1 appl topical BID 7 Days Qty: 15 0RF cetirizine [Zyrtec] 10 mg tablet 10 mg PO DAILY PRN (Reason: allergy symptoms) Qty: 90 0RF sertraline 100 mg tablet 100 mg PO DAILY cyclobenzaprine 10 mg tablet 10 mg PO TID PRN (Reason: muscle spasm) Qty: 30 0RF diclofenac sodium [Arthritis Pain (diclofenac)] 1 % gel 4 g topical QID Qty: 100 8RF Rx Instructions: apply to single knee, ankle, foot; for foot includes sole/toes/top of foot lidocaine 5 % adhesive patch,medicated 1 patch topical DAILY Qty: 30 0RF Rx Instructions: leave on most painful area for up to 12 hrs zolpidem 10 mg tablet 10 mg PO BEDTIME PRN (Reason: Sleep) Senna Plus 8.6-50 mg capsule 2 tab-cap PO BEDTIME clotrimazole 1 % cream 1 appl topical BID Qty: 45 3RF cholecalciferol (vitamin D3) 25 mcg (1,000 unit) capsule 25 mcg PO DAILY Qty: 90 3RF Referrals: Tyrell,April Miller MD [Primary Care Provider] - Interventions: ED Discharge Assessment Last Done: 10/10/23 15:17 Discharge Date/Time: 10/10/23 15:18 Print Language: Irish
[2023-10-10 12:12] LABS: Influenza A PCR NEGATIVE (Negative); Influenza B PCR NEGATIVE (Negative); Resp Syncy Virus RNA Qual PCR NEGATIVE (Negative); SARS COV2 PCR INHOUSE NEGATIVE (Negative)
[2023-10-10 14:38] VITALS: BP 121/78; PULSE 88; RESP 20; TEMP 36.6; O2SAT 98
[2023-10-10 15:17] VITALS: BP 121/78; PULSE 88; RESP 20; TEMP 36.6; O2SAT 98
== END 2023-10-10 15:18 | disposition home or self-care (01) ==
PROVIDERS: Physician Assistant Medical; Emergency Provider Emergency Medicine; PCP Internal Medicine
DX: J40 Bronchitis, not specified as acute or chronic (principal); R05.9 Cough, unspecified; R07.89 Other chest pain; R53.81 Other malaise; Z79.899 Other long term (current) drug therapy
CPT/HCPCS: 0241U; 71046; 72100; 99282; 99283

== ENCOUNTER 2023-10-17 15:23 | Outpatient (AMB) | payer OTHER, SELFPAY ==
--- NOTE | 2023-10-17 15:26 | MHC.OFFVIS ---
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 Patient saw Dr Finnegan about 4 years ago and had two procedures but due to a language barrier she does not know what the procedure was. Pain when walking , uses pillows to elevate her legs at night. Says she feels a stabbing pain in her left thigh. 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 Complaints include pain over varicosities, swelling of lower extremities, cramping, fatigue, and heaviness of the lower extremities. It has been affecting there daily activities including walking. It is noted more so in right leg. Patient bilateral venous ablation is [address] Finnegan Patient denies any history of DVT/ PE. Patient denies any history of phlebitis. Trial of compression includes - prescription compression for last 4 years They now present for vascular evaluation regarding their varicose veins. [facility] Medical History Family history of arrhythmia Left knee pain Constipation Hiatal hernia Osteoarthritis Anxiety and depression Palpitations GERD (gastroesophageal reflux disease) History of COVID-19 Recurrent UTI Acute diverticulitis Osteoarthritis of left knee Helicobacter pylori gastritis Trapezius muscle spasm Stress incontinence Neck pain Post covid-19 condition, unspecified Obesity (BMI 30-39.9) Loss of hearing Vision changes Hematuria Tubular adenoma Migraine Low back pain Surgical History H/O gastric sleeve History of tonsillectomy History of esophagogastroduodenoscopy (EGD) H/O colonoscopy History of section H/O tubal ligation History of cholecystectomy Family History Father CVD (cardiovascular disease) Diabetes History of open heart surgery Mother Alive and well CVD (cardiovascular disease) Diabetes Thyroid condition Maternal Aunt Colon cancer Son Mental health disorder Maternal Grandmother Colon cancer Social History Household Members: Spouse Housing: House Are you a primary manager intensive care to a significant other at home: No Do you presently have visiting nurse or other home services: No Alcohol intake: former Patient Tobacco Use Status: Never used Tobacco e-Cigarette/Vaping Use: Never Used Second Hand Smoke Exposure: No service: No Current occupational status: unemployed Current occupation: right hand dominant Cognitive needs: No Hearing needs: No Vision needs: No Female Reproductive History Menstrual Age of Menarche: 14 Review of Systems Const Reports as per HPI ENT Reports no additional complaints Card Denies chest pain, Denies chest pain at rest and Denies chest pain with activity Resp Denies chest congestion and Denies cough GI Reports no additional complaints Musc Details: pain over varicosities, aching of lower extremities, swelling, cramping, heaviness and tiredness, itching Denies abnormal gait Skin/Breast Reports pruritus and Denies wounds Neuro Reports no additional complaints and Denies abnormal gait Psych Denies no additional complaints Physical Exam Const General: cooperative, healthy appearing and comfortable Orientation/consciousness: oriented to person, oriented to place and oriented to time Neck Carotids: no bruits Chest Chest palpation & inspection: normal inspection of the chest and normal palpation of entire chest wall Resp Effort & Inspection: normal respiratory effort and able to speak in complete sentences Cardio Rate: regular rate Heart sounds: S1 normal heart sound present and S2 normal heart sound present Peripheral pulses: Peripheral pulses 2+ throughout GI Inspection: Yes normal to inspection Skin Other: +2 edema, large rope-like varicosities greater than 4 mm CEAP Classification C4 - skin color changes Ep - Etiology Primary As - superficial veins P - reflux General skin exam: dry skin Neuro General: oriented to person, oriented to place and oriented to time Extrem Right lower extremity: full ROM, normal capillary refill and edema Left lower extremity: full ROM, normal capillary refill and edema Psych Mental Status: mental status grossly normal Assessment & Plan Assessment & Plan (1) Varicose veins of right lower extremity with inflammation: Code(s): I83.11 - Varicose veins of right lower extremity with inflammation Category: Medical Plan: In short, the patient has evidence of venous insufficiency. I have discussed the pathophysiology with the patient. In addition I have provided informational material regarding venous disease to the patient. We have discussed conservative measures including compression, elevation, and exercise. I have also provided a handout regarding appropriate use of compression stockings and where to purchase good compression stockings as well. I have taken the liberty of ordering venous insufficiency testing with the patient. They will follow up with me after testing. The patient had an opportunity to ask questions regarding the treatment plan. All questions were answered. Imaging studies, laboratory studies and physical exam results were discussed and reviewed in detail. No major barriers to understanding were identified. The patient expressed understanding and agreement with the above treatment plan. The patient is aware they should contact our office by phone for worsening of the current condition or the appearance of new symptoms. Thank you for allowing me to participate in the vascular care of this patient. If you have any questions or concerns regarding the treatment for the above condition please do not hesitate to contact me. The office telephone contact is [phone]. This note is constructed using voice recognition software. While every effort has been made to ensure accuracy, client relationship executive errors may have been included. Thank you for allowing me to participate in the care of your patient. Yours sincerely, Vega Byrne MD, FACS, R.P.V.I. Orders: Orders US venous duplex LE BI 1 Week I83.11 - Varicose veins of right lower extremity with inflammation Coding Level of Care Code New Pt Level 4 (86796) Diagnoses Varicose veins of right lower extremity with inflammation I83.11
== END 2023-10-17 15:39 | disposition home or self-care (01) ==
PROVIDERS: PCP Internal Medicine; Visit Provider Surgery Vascular Surgery
DX: I83.11 Varicose veins of right lower extremity with inflammation (principal)
CPT/HCPCS: 99203

== ENCOUNTER → 2023-10-17 15:23 | Outpatient (BNVA) | payer OTHER, SELFPAY | PROVIDERS: PCP Internal Medicine; Visit Provider Surgery Vascular Surgery | DX: I83.11 Varicose veins of right lower extremity with inflammation (principal) | CPT/HCPCS: 99202 ==

== ENCOUNTER 2023-10-27 12:20 | Outpatient (AMB) | payer OTHER, SELFPAY ==
[2023-10-27 12:32] VITALS: BP 116/76; PULSE 72; O2SAT 98
--- NOTE | 2023-10-27 12:32 | A.OFFPC_ITS ---
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 DOS: 10/10/23. Diagnosis: URI, Bronchitis. She was discharged the same day with prescriptions Benzonatate, Zpack, Prednisone and cyclobenzaprine. Today reports much improvement since the discharge. Denies fevers, chills, nausea, vomiting, CP, Palpitations or SOB. [facility] Medical History Family history of arrhythmia Left knee pain Constipation Hiatal hernia Osteoarthritis Anxiety and depression Palpitations GERD (gastroesophageal reflux disease) History of COVID-19 Recurrent UTI Acute diverticulitis Osteoarthritis of left knee Helicobacter pylori gastritis Trapezius muscle spasm Stress incontinence Neck pain Post covid-19 condition, unspecified Obesity (BMI 30-39.9) Loss of hearing Vision changes Hematuria Tubular adenoma Migraine Low back pain Surgical History H/O gastric sleeve History of tonsillectomy History of esophagogastroduodenoscopy (EGD) H/O colonoscopy History of section H/O tubal ligation History of cholecystectomy Family History Father CVD (cardiovascular disease) Diabetes History of open heart surgery Mother Alive and well CVD (cardiovascular disease) Diabetes Thyroid condition Maternal Aunt Colon cancer Son Mental health disorder Maternal Grandmother Colon cancer Social History Household Members: Spouse Housing: House Are you a primary lawn caretaker to a significant other at home: No Do you presently have visiting nurse or other home services: No Alcohol intake: former Patient Tobacco Use Status: Never used Tobacco e-Cigarette/Vaping Use: Never Used Second Hand Smoke Exposure: No service: No Current occupational status: unemployed Current occupation: right hand dominant Cognitive needs: No Hearing needs: No Vision needs: No Female Reproductive History Menstrual Age of Menarche: 14 Questionnaire Thrive Questionnaire Date Thrive assessed: 09/15/23 NATHAN-7 AMB Questionnaire NATHAN-7 Date NATHAN - 7 assessed: 09/15/23 Source: Developed by Drs. Chris Brown, Sherry Champagne, Juan Alberto Lee and colleagues, with an educational duyen from [employer]. Review of Systems Const All systems reviewed & are unremarkable except as noted in HPI and below Physical exam (Primary Care) Vital Signs: Last Vital Signs Pulse 72 10/27/23 12:32 BP 116/76 10/27/23 12:32 Pulse Ox 98 10/27/23 12:32 Oxygen Delivery Method Room Air 10/27/23 12:32 BMI result Body Mass Index 30.0 Tobacco/Smoking Status: Tobacco use Status Tobacco use date assessed 09/15/23 10/27/23 12:36 Patient Tobacco Use Status Never used Tobacco 10/27/23 12:36 e-Cigarette/Vaping Use Never Used 10/27/23 12:36 Thrive Assessment: Date of Thrive Assessment Date Thrive assessed 09/15/23 10/27/23 12:36 Const General: cooperative, comfortable and no acute distress Orientation/consciousness: patient oriented x3 HENMT Head: Yes normocephalic Resp Effort & Inspection: normal respiratory effort and able to speak in complete sentences Auscultation: clear to auscultation bilaterally, no crackles, no rales, no rh onchi and no wheezes Cardio Rate: regular rate Rhythm: regular rhythm Neuro General: patient oriented x3, gait normal and moves all extremities Psych Speech and movement: Normal speech and movement present Vital Signs: Last Vital Signs Pulse 72 10/27/23 12:32 BP 116/76 10/27/23 12:32 Pulse Ox 98 10/27/23 12:32 Oxygen Delivery Method Room Air 10/27/23 12:32 BMI result Body Mass Index 30.0 Const General: cooperative, comfortable and no acute distress Orientation/consciousness: patient oriented x3 HEENT Head: Yes normocephalic Eyes Other: Resp Effort & Inspection: normal respiratory effort and able to speak in complete sentences Auscultation: clear to auscultation bilaterally, no crackles, no rales, no rhonchi and no wheezes Cardio Rate: regular rate Rhythm: regular rhythm Neuro General: patient oriented x3, gait normal and moves all extremities Psych Speech and movement: Normal speech and movement present Assessment and Plan Assessment & Plan (1) Upper respiratory infection: Code(s): J06.9 - Acute upper respiratory infection, unspecified Qualifiers: URI type: unspecified URI Qualified Code(s): J06.9 - Acute upper respiratory infection, unspecified (2) Bronchitis: Code(s): J40 - Bronchitis, not specified as acute or chronic Coding Level of Care Code Est Pt Level 4 (52469) Diagnoses Upper respiratory tract infection, unspecified type J06.9 URI type: unspecified URI Bronchitis J40 Comment Spent 15 minutes reviewing Hospital notes
== END 2023-10-27 13:00 | disposition home or self-care (01) ==
PROVIDERS: PCP Internal Medicine; Visit Provider Nurse Practitioner Family
DX: J06.9 Acute upper respiratory infection, unspecified (principal); J40 Bronchitis, not specified as acute or chronic
CPT/HCPCS: 99214

== ENCOUNTER 2023-11-03 14:09 | Outpatient (REF) | payer OTHER, SELFPAY ==
--- NOTE | ~2023-11-03 | MM_ITS ---
EXAMINATION: MM SCREENING DIGITAL BREAST TOMOSYNTHESIS, BILATERAL CLINICAL INFORMATION: Screening. Asymptomatic. COMPARISON: Mammography: This study is compared with prior exams dating back to 2021. TECHNIQUE: Digital breast tomosynthesis is performed in both the craniocaudal and mediolateral oblique views along with computer-aided detection (CAD). Synthesized 2D images are generated from the tomosynthesis. FINDINGS: The breasts are heterogeneously dense, which may obscure small masses (ACR BI-RADS breast composition Category c). There are no significant masses, abnormal calcifications, or other abnormalities. There are bilateral, benign calcifications. MM/MM tomosynthesis screening BI IMPRESSION: No mammographic evidence of malignancy. ASSESSMENT: BI-RADS BI-RADS 2 - Benign Findings RECOMMENDATION: Routine annual mammography screening. 1 year F/U This examination should not preclude the clinical evaluation of a suspicious palpable abnormality. This patient's information was entered into a reminder system with a target due date for their next mammogram.
[2023-11-03 17:46] LABS: Appearance Urine Cloudy; Color Urine Yellow; Glucose Urine UA Negative (Negative); Leukocyte Esterase Urine Large (3+) (Negative); Nitrite Urine Negative (Negative); PH 5.5 (5.0-9.0); Specific Gravity - Urine 1.015 (1.005-1.025); UMIC TRIGGER UACC YES; Urine Blood Large (3+) (Negative); Urine Ketones Negative (Negative); Urine Protein Trace mg/dL (Neg-Trace)
[2023-11-03 18:27] LABS: Bacteria Urine None Seen (None Seen); Hyaline Casts Urine 0-2 /LPF (0-2); RBC Urine >20 /HPF (0-2); UACC Culture Trigger YES
== END 2023-11-03 14:10 | disposition home or self-care (01) ==
LOC: HO.MAMMO 14:09
PROVIDERS: PCP Internal Medicine; Visit Provider Internal Medicine
DX: N39.46 Mixed incontinence (principal); N32.81 Overactive bladder; Z12.31 Encounter for screening mammogram for malignant neoplasm of breast
CPT/HCPCS: 77063; 77067; 81001; 87086

== ENCOUNTER → 2023-11-03 14:15 | Outpatient (BNV) | payer OTHER, SELFPAY | PROVIDERS: PCP Internal Medicine; Visit Provider Radiology Diagnostic Radiology | DX: Z12.31 Encounter for screening mammogram for malignant neoplasm of breast (principal) | CPT/HCPCS: 77063; 77067 ==

== ENCOUNTER 2023-11-13 12:45 | Outpatient (REF) | payer OTHER, SELFPAY ==
--- NOTE | ~2023-11-13 | US_ITS ---
EXAMINATION: US LOWER EXTREMITY VENOUS (REFLUX EXAM), BILATERAL CLINICAL INDICATION: Bilateral venous ablation 4 years ago COMPARISON: None TECHNIQUE: Color flow triplex imaging and compression Doppler was performed to evaluate both the deep and the superficial systems bilaterally. To evaluate the superficial system, the examination was performed in the upright position. Color-flow Doppler ultrasound and compression ultrasound were utilized. In addition, maneuvers were utilized to demonstrate reflux. FINDINGS: RIGHT: 1. DEEP VENOUS ULTRASOUND OF THE RIGHT LOWER EXTREMITY: Common Femoral Vein: Compressible, normal respiratory variation and augmented flow. Popliteal Vein: Compressible, normal augmentation. Deep Venous Reflux: There is no evidence of reflux in the deep system in either the common femoral vein or the popliteal vein. There is no evidence of a Moore's cyst. 2. SUPERFICIAL ULTRASOUND WITH DOPPLER OF RIGHT LOWER EXTREMITY: RIGHT GREAT SAPHENOUS VEIN: Saphenofemoral Junction: 6 mm. No reflux. Proximal Thigh: 5 mm. No reflux. Mid Thigh: Not seen. Above Knee: Not seen. Below Knee: 1 mm. Closed Mid Calf: 2 mm. No reflux. Ankle: 2 mm. No reflux. DUPLICATED GREAT SAPHENOUS VEIN: Laterally: Saphenofemoral Junction: 5 mm. No reflux Mid thigh: 3 mm. No reflux RIGHT SMALL SAPHENOUS VEIN: Proximal: 3 mm. No reflux. Distal: 2 mm. No reflux. PERFORATORS: Mid small saphenous vein: 2 mm. No reflux. Proximal calf: 2 mm. No reflux LEFT: 1. DEEP VENOUS ULTRASOUND OF THE LEFT LOWER EXTREMITY: Common Femoral Vein: Compressible, normal respiratory variation and augmented flow. Popliteal Vein: Compressible, normal augmentation. Deep Venous Reflux: There is no evidence of reflux in the deep system in either the common femoral vein or the popliteal vein. There is no evidence of a Moore's cyst. 2. SUPERFICIAL ULTRASOUND WITH DOPPLER OF LEFT LOWER EXTREMITY: LEFT GREAT SAPHENOUS VEIN: Saphenofemoral Junction: 9 mm. No reflux. Proximal Thigh: 4 mm. No reflux. Mid Thigh: Not seen Above Knee: 2 mm. Closed Below Knee: 1 mm. Closed Mid Calf: 1 mm. Closed Ankle: 2 mm. No reflux. DUPLICATED GREAT SAPHENOUS VEIN: None LEFT SMALL SAPHENOUS VEIN: Proximal: 2 mm. No reflux. Distal: 1 mm. No reflux. PERFORATORS: Mid small saphenous vein: 1-2 mm. No reflux US/US venous duplex LE BI IMPRESSION: 1. 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 2. No abnormal superficial venous reflux identified in the remainder of the veins. Abnormal lower extremity venous reflux times: Superficial and deep calf veins: >500 ms Femoropopliteal veins: >1000 ms Perforating veins: >350 ms Patrick N, Francisco J, Sadie L, Akin GAN, Saji SS, Shasta Jarvis, Teresa WH. Definition of venous reflux in lower-extremity veins.J Vasc Surg. 2003; 38:793?798.
== END 2023-11-13 12:46 | disposition home or self-care (01) ==
LOC: HO.US 12:45
PROVIDERS: PCP Internal Medicine; Visit Provider Surgery Vascular Surgery
DX: I83.11 Varicose veins of right lower extremity with inflammation (principal)
CPT/HCPCS: 93970

== ENCOUNTER 2023-11-22 08:33 | Outpatient (AMB) | payer OTHER, SELFPAY ==
--- NOTE | 2023-11-22 08:59 | A.OFFVIS_ITS ---
Vital Signs 11/22/23 09:00 Height 5 ft 1 in Weight 158 lb 11.725 oz BMI 30.0 BP 116/72 Intake Visit Reasons: Annual Office Services Specialist Required: Yes Office Services Specialist Language: English Information Interpreted: non-clinical & clinical Ballpoint Pen Cartridge Tester: Ballpoint Pen Cartridge Tester Present (Melissa Katz RON) Accompanied by: Self / Same As Patient Allergies Penicillins [PENICILLINS] Allergy (Severe, Verified 11/22/23 09:09) ANAPHYLAXIS Sulfa (Sulfonamide Antibiotics) Allergy (Severe, Verified 11/22/23 09:09) Angioedema Post menopausal: Yes HPI Comments Details: Presenting for annual exam. No complaints. Last Pap/HPV was negative in 04/09 Last Mammogram was done in 11/03/2023, the results are still pending Last Colonoscopy was in 11/11 [facility] Medical History Family history of arrhythmia Left knee pain Constipation Hiatal hernia Osteoarthritis Anxiety and depression Palpitations GERD (gastroesophageal reflux disease) History of COVID-19 Recurrent UTI Acute diverticulitis Osteoarthritis of left knee Helicobacter pylori gastritis Trapezius muscle spasm Stress incontinence Neck pain Post covid-19 condition, unspecified Obesity (BMI 30-39.9) Loss of hearing Vision changes Hematuria Tubular adenoma Migraine Low back pain Surgical History H/O gastric sleeve History of tonsillectomy History of esophagogastroduodenoscopy (EGD) H/O colonoscopy History of section H/O tubal ligation History of cholecystectomy Family History Father CVD (cardiovascular disease) Diabetes History of open heart surgery Mother Alive and well CVD (cardiovascular disease) Diabetes Thyroid condition Maternal Aunt Colon cancer Son Mental health disorder Maternal Grandmother Colon cancer Social History Household Members: Spouse Housing: House Are you a primary client care specialist to a significant other at home: No Do you presently have visiting nurse or other home services: No Alcohol intake: former Patient Tobacco Use Status: Never used Tobacco e-Cigarette/Vaping Use: Never Used Second Hand Smoke Exposure: No service: No Current occupational status: unemployed Current occupation: right hand dominant Cognitive needs: No Hearing needs: No Vision needs: No Female Reproductive History Menstrual Age of Menarche: 14 Menopause type: natural Total pregnancies: 3 Full term: 3 Number of Living Children: 3 Date of last pap smear: 04/12/19 Date of Mammogram: 11/03/23 Review of Systems Const All systems reviewed & are unremarkable except as noted in HPI and below Card Reports as per HPI Resp Reports as per HPI GI Reports as per HPI and Reports no additional complaints Reports as per HPI Physical Exam Vital Signs: Last Vital Signs BP 116/72 11/22/23 09:00 BMI result Body Mass Index 30.0 Const General: cooperative, healthy appearing and comfortable Chest Chest palpation & inspection: normal inspection of the chest and normal palpation of entire chest wall Breast/axilla inspection: normal inspection of the breasts and normal inspection of the axillae Breast/axilla palpation: normal palpation of the breasts, normal palpation of the axillae and no axillary lymphadenopathy Resp Effort & Inspection: normal respiratory effort Auscultation: clear to auscultation bilaterally Percussion: percussion normal Cardio Palpation: normal PMI Rate: regular rate Rhythm: regular rhythm Heart sounds: no murmurs and no rubs Peripheral pulses: Peripheral pulses 2+ throughout GI Inspection: Yes normal to inspection Palpation (GI): Soft to palpation, nontender, no guarding, not rigid and No hepatosplenomegaly present Percussion: Yes normal to percussion Auscultation: normal bowel sounds Rectal Exam - Female: deferred General: Yes bladder normal to palpation External Female Exam: No lesion Speculum Exam - Vagina: normal appearance of the vagina, normal palpation, normal vaginal discharge and not erythematous Speculum Exam - Cervix: normal appearance of the cervix and normal palpation Bimanual exam- vagina & uterus: normal bimanual exam, normal palpation, uterine size normal, bladder normal to palpation, consistency normal and normal palpation Bimanual Exam- Adnexa, other: normal adnexae, no masses and no tenderness Assessment & Plan Assessment & Plan (1) Well woman exam: Code(s): Z01.419 - Encounter for gynecological examination (general) (routine) without abnormal findings Category: Medical Plan: Co testing done. Counseled the patient about the recommended dietary allowance of 1200 mg of Calcium & 600 IU of vitamin D. Instructions given the patient to schedule next screening Mammogram in 11/13. The patient was instructed to perform monthly self-breast exams and schedule annual exam in a year. All questions answered and the patient verbalized understanding. Coding Level of Care Code Est Pt Prev Care 40-64y(17136) Diagnoses Well woman exam Z01.419
[2023-11-22 09:00] VITALS: BP 116/72
== END 2023-11-22 09:27 | disposition home or self-care (01) ==
PROVIDERS: PCP Internal Medicine; Visit Provider Obstetrics & Gynecology
DX: Z01.419 Encounter for gynecological examination (general) (routine) without abnormal findings (principal)
CPT/HCPCS: 99396

== ENCOUNTER 2023-11-22 08:33 | Outpatient (REF) | payer OTHER, SELFPAY ==
[2023-12-07 08:10] LABS: HPV mRNA E6/E7 rflx NOT DETECTED
== END 2023-11-22 08:34 | disposition home or self-care (01) ==
LOC: HO.LNP 08:33
PROVIDERS: PCP Internal Medicine; Visit Provider Obstetrics & Gynecology
DX: Z01.419 Encounter for gynecological examination (general) (routine) without abnormal findings (principal); Z11.51 Encounter for screening for human papillomavirus (HPV)
CPT/HCPCS: 87624; 88175; 99396

== ENCOUNTER 2023-12-05 09:16 | Outpatient (AMB) | payer OTHER, SELFPAY ==
--- NOTE | 2023-12-05 09:26 | MHC.OFFVISWM ---
VS Expanded 12/05/23 09:42 BP 120/58 L Blood Pressure Location Rt brachial Blood Pressure Position Sitting Pulse 67 Pulse Source Pulse Oximeter Temp 96.4 F L Temperature Source Tympanic Pulse Oximetry 99 Oxygen Delivery Method Room Air Height 5 ft 1 in Weight 161 lb 12.8 oz BMI 30.6 Body Fat % 32.9 Body Fat Mass 53.2 Fat Free Mass 108.4 Visceral Fat Rating 8.0 Body Water % 47.7 Body Water Mass 77.2 Muscle Mass/Score 103.0 Basal Metabolic Rate/Score 1,463 Intake Visit Reasons: (OV) PO LSG 07/27/22 2m f/u Allergies Penicillins [PENICILLINS] Allergy (Severe, Verified 12/05/23 09:33) ANAPHYLAXIS Sulfa (Sulfonamide Antibiotics) Allergy (Severe, Verified 12/05/23 09:33) Angioedema Medication List - Last Reconciled 12/05/23 by NIRANJAN Urbina albuterol sulfate 90 mcg/actuation 2 puffs inhalation Q4-6H PRN benzonatate 100 mg PO TID PRN cetirizine (Zyrtec) 10 mg PO DAILY PRN cholecalciferol (vitamin D3) 25 mcg PO DAILY clonazepam 1 mg PO BID clotrimazole 1% 1 appl topical BID cyclobenzaprine 10 mg PO TID PRN cyclobenzaprine 10 mg PO TID PRN diclofenac sodium 1% (Arthritis Pain (diclofenac)) 4 grams topical QID hydrocortisone 2.5% (Proctosol HC) 1 appl ID BID-QID PRN lidocaine 5% 1 patch topical DAILY sennosides-docusate sodium 8.6-50 mg (Senna Plus) 2 tab-caps (2 x 8.6-50 mg) PO BEDTIME sertraline 100 mg PO DAILY triamcinolone acetonide 0.1% 1 appl topical BID 7 days vitamin A palmitate 10,000 units PO DAILY zolpidem 10 mg PO BEDTIME PRN HPI Comments Details: This?is a?53?yo female who is s/p LSG 07/27/2022. Presents for 16 month post op visit. Weight at last visit on 09/28/2023 was 158 pounds with a BMI of 29.9, weight today is 161.8 pounds, representing a 3.8 pound weight gain with a BMI today of 30.5.? No complaints of nausea, emesis, abdominal pain or reflux, or constipation. Recently had a UTI, eye infection requiring surgery, root canals. Was having leg pain, seeing Dr. Byrne for varicose veins. Present meal plan includes: 2 shakes, each with 1 scoop Premier in 8oz UA Russian yogurt meal of 6 forks protein, 6 forks veg/salad pt has been having some toast in AM Exercise routine includes: nothing recently due to other medical issues Pt reports issues of excess skin of abdomen and upper thighs. Regarding abdomen, has to put towels in between skin folds of abdomen and where abdomen meets thighs, due to skin cracking which causes a lot of pain. Experiences a burning itchy sensation. She has noticed increased moisture in skin folds, which produces an unpleasant odor and she has to wash and clean frequently. This is worse with weather getting warmer. She has tried clotrimazole ointment but this has not completely resolved the issue. Regarding upper thighs, reports she notices a lot of friction between upper thighs and has to constantly wear long shorts under dresses to prevent chafing. She has tried compressive pants to try to hold the skin in place, but the material/elastic often digs into her skin at her ankles and has caused bleeding in the past. Has tried clotrimazole ointment here as well but this has not helped. Walking has become more difficult and painful due to friction. [facility] [place] Medical History Family history of arrhythmia Left knee pain Constipation Hiatal hernia Osteoarthritis Anxiety and depression Palpitations GERD (gastroesophageal reflux disease) History of COVID-19 Recurrent UTI Acute diverticulitis Osteoarthritis of left knee Helicobacter pylori gastritis Trapezius muscle spasm Stress incontinence Neck pain Post covid-19 condition, unspecified Obesity (BMI 30-39.9) Loss of hearing Vision changes Hematuria Tubular adenoma Migraine Low back pain Surgical History H/O gastric sleeve History of tonsillectomy History of esophagogastroduodenoscopy (EGD) H/O colonoscopy History of section H/O tubal ligation History of cholecystectomy Family History Father CVD (cardiovascular disease) Diabetes History of open heart surgery Mother Alive and well CVD (cardiovascular disease) Diabetes Thyroid condition Maternal Aunt Colon cancer Son Mental health disorder Maternal Grandmother Colon cancer Social History Household Members: Spouse Housing: House Are you a primary urgent care nurse practitioner to a significant other at home: No Do you presently have visiting nurse or other home services: No Alcohol intake: former Patient Tobacco Use Status: Never used Tobacco e-Cigarette/Vaping Use: Never Used Second Hand Smoke Exposure: No service: No Current occupational status: unemployed Current occupation: right hand dominant Cognitive needs: No Hearing needs: No Vision needs: No Female Reproductive History Menstrual Age of Menarche: 14 Assessment & Plan Assessment & Plan (1) S/P laparoscopic sleeve gastrectomy: Comment: 07/27/2022 Dr. Rizzo Code(s): Z98.84 - Bariatric surgery status Category: Medical (2) Obesity (BMI 30-39.9): Code(s): E66.9 - Obesity, unspecified Category: Medical Plan Meal plan adjusted: 1 Premier shake with 1 scoop in 8oz UAM 1 Atkins bar 1 tajik yogurt 1 meal with 6f protein Pt may have fruit or veg as well if hungry. She knows she needs to restart exercise, will try to increase as she is cleared from restrictions after eye surgery. Continue clotrimazole ointment for rashes of excess skin. Goal BMI<27 or 143lbs prior to skin removal surgery. Pt is having issues of excess skin of abdomen, resulting in painful malodorous rashes refractory to topical Rx treatment. She would benefit from definitive treatment of panniculectomy. Pt also having issues of excess skin of upper thigs, resulting in painful chafing refractory to topical Rx treatment and inhibiting her typical activities of daily living such as walking. She would benefit from definitive treatment of thighplasty. RTC 2 months. I spent a total of 30 minutes reviewing/updating records, examining the patient and counseling the patient on weight management as detailed above.
[2023-12-05 09:42] VITALS: BP 120/58; PULSE 67; TEMP 35.8; O2SAT 99; BMI 30.6
== END 2023-12-05 10:12 | disposition home or self-care (01) ==
PROVIDERS: PCP Internal Medicine; Visit Provider Physician Assistant Surgical
DX: E66.9 Obesity, unspecified (principal); Z68.30 Body mass index [BMI] 30.0-30.9, adult; Z90.3 Acquired absence of stomach [part of]; Z98.84 Bariatric surgery status
CPT/HCPCS: 99214; G2211

== ENCOUNTER → 2023-12-05 09:16 | Outpatient (BNVA) | payer OTHER, SELFPAY | PROVIDERS: PCP Internal Medicine; Visit Provider Physician Assistant Surgical | DX: E66.9 Obesity, unspecified (principal); Z98.84 Bariatric surgery status; Z68.30 Body mass index [BMI] 30.0-30.9, adult | CPT/HCPCS: 99212 ==

== ENCOUNTER 2023-12-07 14:46 | Outpatient (AMB) | payer OTHER, SELFPAY ==
--- NOTE | 2023-12-07 14:49 | MHC.OFFVIS ---
Intake Visit Reasons: follow up s/p US 11/13/23 Intake Note: Patient presents for follow up US. Patient states she has bilateral leg pain. States it feels like knives in her legs she pointed to her thighs. She gets cramping here and there Allergies Penicillins [PENICILLINS] Allergy (Severe, Verified 12/07/23 14:53) ANAPHYLAXIS Sulfa (Sulfonamide Antibiotics) Allergy (Severe, Verified 12/07/23 14:53) Angioedema HPI HPI follow up s/p US 11/13/23: Details: Very pleasant 53-year-old female presents for follow-up regarding varicose veins. She actually had venous ablation is nearly [address] Finnegan. She reports that she has pain in particular left leg more towards the knee area. She did appreciate some spider telangiectasias. She now presents to us for follow-up with venous insufficiency testing. [facility] Medical History Family history of arrhythmia Left knee pain Constipation Hiatal hernia Osteoarthritis Anxiety and depression Palpitations GERD (gastroesophageal reflux disease) History of COVID-19 Recurrent UTI Acute diverticulitis Osteoarthritis of left knee Helicobacter pylori gastritis Trapezius muscle spasm Stress incontinence Neck pain Post covid-19 condition, unspecified Obesity (BMI 30-39.9) Loss of hearing Vision changes Hematuria Tubular adenoma Migraine Low back pain Surgical History H/O gastric sleeve History of tonsillectomy History of esophagogastroduodenoscopy (EGD) H/O colonoscopy History of section H/O tubal ligation History of cholecystectomy Family History Father CVD (cardiovascular disease) Diabetes History of open heart surgery Mother Alive and well CVD (cardiovascular disease) Diabetes Thyroid condition Maternal Aunt Colon cancer Son Mental health disorder Maternal Grandmother Colon cancer Social History Household Members: Spouse Housing: House Are you a primary child care director to a significant other at home: No Do you presently have visiting nurse or other home services: No Alcohol intake: former Patient Tobacco Use Status: Never used Tobacco e-Cigarette/Vaping Use: Never Used Second Hand Smoke Exposure: No service: No Current occupational status: unemployed Current occupation: right hand dominant Cognitive needs: No Hearing needs: No Vision needs: No Female Reproductive History Menstrual Age of Menarche: 14 Review of Systems Const All systems reviewed & are unremarkable except as noted in HPI and below Reports no additional complaints ENT Reports Normal hearing present Card Denies chest pain, Denies chest pain at rest, Denies chest pain with activity and Denies pedal edema Resp Denies cough GI Denies abdominal pain Musc Denies abnormal gait, Denies muscle cramps and Denies radiating pain into limb Skin/Breast Denies skin ulcer and Denies wounds Neuro Reports Normal hearing present and Denies abnormal gait Psych Reports no additional complaints Physical Exam Const General: cooperative, healthy appearing and comfortable Orientation/consciousness: oriented to person, oriented to place and oriented to time HEENT Head: Yes normal to inspection Neck Neck: Yes normal visual inspection Carotids: no bruits Chest Chest palpation & inspection: normal inspection of the chest Resp Effort & Inspection: normal respiratory effort and able to speak in complete sentences Auscultation: clear to auscultation bilaterally, no crackles, no rales, no rhonchi and no wheezes Cardio Rate: regular rate Rhythm: regular rhythm Heart sounds: S1 normal heart sound present and S2 normal heart sound present Bruits: no carotid bruits Peripheral pulses: Peripheral pulses 2+ throughout GI Inspection: Yes normal to inspection Skin Wounds: no wounds Hair: normal Neuro General: oriented to person, oriented to place and oriented to time Cranial nerves: Yes CN's II-XII intact bilaterally and Yes Normal hearing present Cognition (Neuro): normal cognition Motor exam (neuro): 5/5 motor strength present throughout Extrem Other: venous exam: +1 edema with some mild spider telangiectasias. She did have pinpoint tenderness when compressing on the knee. General: No clubbing, No cyanosis and Yes edema Psych Appearance: grossly normal Mental Status: mental status grossly normal Speech and movement: Normal speech and movement present Results Reviewed Results Reviewed: Brief summary of venous insufficiency testing is as follows: right great saphenous vein: negative right small saphenous vein: negative right accessory vein: none present left great saphenous vein: negative left small saphenous vein: negative left accessory vein: none present Please note there is no evidence of any venous aneurysms or significant tortuosity Assessment & Plan Assessment & Plan (1) Varicose veins of right lower extremity with inflammation: Code(s): I83.11 - Varicose veins of right lower extremity with inflammation Category: Medical Plan: In short patient is negative for any significant venous insufficiency. At the time I do think that her leg has more of an orthopedic issue as the pain is more localized to the knee and has pinpoint tenderness there. At the current time would recommend continued conservative measures including compression elevation and exercise. She will follow up with us on an as-needed basis. Thank you for allowing us to assist in her care. Coding Level of Care Code Est Pt Level 4 (20432) Diagnoses Varicose veins of right lower extremity with inflammation I83.11
== END 2023-12-07 15:11 | disposition home or self-care (01) ==
PROVIDERS: PCP Internal Medicine; Visit Provider Surgery Vascular Surgery
DX: I83.11 Varicose veins of right lower extremity with inflammation (principal)
CPT/HCPCS: 99214

== ENCOUNTER → 2023-12-07 14:46 | Outpatient (BNVA) | payer OTHER, SELFPAY | PROVIDERS: PCP Internal Medicine; Visit Provider Surgery Vascular Surgery | DX: I83.11 Varicose veins of right lower extremity with inflammation (principal); I83.811 Varicose veins of right lower extremity with pain; M79.662 Pain in left lower leg | CPT/HCPCS: 99212 ==

== ENCOUNTER 2024-02-12 10:31 | Outpatient (AMB) | payer OTHER, SELFPAY ==
--- NOTE | 2024-02-12 10:57 | MHC.OFFVISWM ---
VS Expanded 02/12/24 11:05 BP 122/58 L Blood Pressure Location Rt brachial Blood Pressure Position Sitting Pulse 88 Pulse Source Pulse Oximeter Temp 96.9 F Temperature Source Tympanic Pulse Oximetry 99 Oxygen Delivery Method Room Air Height 5 ft 1 in Weight 155 lb 3.2 oz BMI 29.3 Body Fat % 34.0 Body Fat Mass 52.6 Fat Free Mass 102.2 Visceral Fat Rating 8.0 Body Water % 46.9 Body Water Mass 72.8 Muscle Mass/Score 97.0 Basal Metabolic Rate/Score 1,389 Intake Visit Reasons: (OV) PO LSG 07/27/22 Allergies Penicillins [PENICILLINS] Allergy (Severe, Verified 02/12/24 11:12) ANAPHYLAXIS Sulfa (Sulfonamide Antibiotics) Allergy (Severe, Verified 02/12/24 11:12) Angioedema Medication List - Last Reconciled 02/12/24 by NIRANJAN Urbina albuterol sulfate 90 mcg/actuation 2 puffs inhalation Q4-6H PRN benzonatate 100 mg PO TID PRN cetirizine (Zyrtec) 10 mg PO DAILY PRN cholecalciferol (vitamin D3) 25 mcg PO DAILY clonazepam 1 mg PO BID clotrimazole 1% 1 appl topical BID cyclobenzaprine 10 mg PO TID PRN cyclobenzaprine 10 mg PO TID PRN diclofenac sodium 1% (Arthritis Pain (diclofenac)) 4 grams topical QID hydrocortisone 2.5% (Proctosol HC) 1 appl [place] BID-QID PRN lidocaine 5% 1 patch topical DAILY sennosides-docusate sodium 8.6-50 mg (Senna Plus) 2 tab-caps (2 x 8.6-50 mg) PO BEDTIME sertraline 100 mg PO DAILY triamcinolone acetonide 0.1% 1 appl topical BID 7 days vitamin A palmitate 10,000 units PO DAILY zolpidem 10 mg PO BEDTIME PRN HPI Comments Details: This?is a?53?yo female who is s/p LSG 07/27/2022. Presents for 18 month post op visit. Weight loss of 5.6lb since last OV 2 months ago.? No complaints of nausea, emesis, abdominal pain or reflux. Takes Senna for constipation. Taking care of her mom, who has dementia. Has been feeling more anxious due to this. Present meal plan includes: 1 Premier shake with 1 scoop in 8oz UAM 1 Atkins bar 1 belizean yogurt 1 meal with 6f protein Pt may have fruit or veg as well if hungry. Exercise- walks on machine at home 30-40min, does weight training has arthritis in her elbows Pt reports issues of excess skin of abdomen and upper thighs. Regarding abdomen, has to put towels in between skin folds of abdomen and where abdomen meets thighs, due to skin cracking which causes a lot of pain. Experiences a burning itchy sensation. She has noticed increased moisture in skin folds, which produces an unpleasant odor and she has to wash and clean frequently. This is worse with weather getting warmer. She has tried clotrimazole ointment but this has not completely resolved the issue. Regarding upper thighs, reports she notices a lot of friction between upper thighs and has to constantly wear long shorts under dresses to prevent chafing. She has tried compressive pants to try to hold the skin in place, but the material/elastic often digs into her skin at her ankles and has caused bleeding in the past. Has tried clotrimazole ointment here as well but this has not helped. Walking has become more difficult and painful due to friction. [facility] Medical History Family history of arrhythmia Left knee pain Constipation Hiatal hernia Osteoarthritis Anxiety and depression Palpitations GERD (gastroesophageal reflux disease) History of COVID-19 Recurrent UTI Acute diverticulitis Osteoarthritis of left knee Helicobacter pylori gastritis Trapezius muscle spasm Stress incontinence Neck pain Post covid-19 condition, unspecified Obesity (BMI 30-39.9) Loss of hearing Vision changes Hematuria Tubular adenoma Migraine Low back pain Surgical History H/O gastric sleeve History of tonsillectomy History of esophagogastroduodenoscopy (EGD) H/O colonoscopy History of section H/O tubal ligation History of cholecystectomy Family History Father CVD (cardiovascular disease) Diabetes History of open heart surgery Mother Alive and well CVD (cardiovascular disease) Diabetes Thyroid condition Maternal Aunt Colon cancer Son Mental health disorder Maternal Grandmother Colon cancer Social History Household Members: Spouse Housing: House Are you a primary critical care cns to a significant other at home: No Do you presently have visiting nurse or other home services: No Alcohol intake: former Patient Tobacco Use Status: Never used Tobacco e-Cigarette/Vaping Use: Never Used Second Hand Smoke Exposure: No service: No Current occupational status: unemployed Current occupation: right hand dominant Cognitive needs: No Hearing needs: No Vision needs: No Female Reproductive History Menstrual Age of Menarche: 14 Physical Exam Vital Signs: Last Vital Signs Temp 96.9 F 02/12/24 11:05 Pulse 88 02/12/24 11:05 BP 122/58 L 02/12/24 11:05 Pulse Ox 99 02/12/24 11:05 Oxygen Delivery Method Room Air 02/12/24 11:05 BMI result Body Mass Index 29.3 Assessment & Plan Assessment & Plan (1) Overweight: Code(s): E66.3 - Overweight Category: Medical (2) S/P laparoscopic sleeve gastrectomy: Comment: 07/27/2022 Dr. Rizzo Code(s): Z98.84 - Bariatric surgery status Category: Surgical (3) Excess skin: Code(s): L98.7 - Excessive and redundant skin and subcutaneous tissue Category: Medical Plan Pt to continue same meal plan and exercise regimen. Fiber supplement for constipation. Continue clotrimazole ointment for rashes of excess skin. Goal BMI<27 or 143lbs prior to skin removal surgery. If weight <150lbs at next visit will consider starting process for insurance approval of skin removal surgery (pt has >25% EBWL currently). Pt is having issues of excess skin of abdomen, resulting in painful malodorous rashes refractory to topical Rx treatment. She would benefit from definitive treatment of panniculectomy. Pt also having issues of excess skin of upper thighs, resulting in painful chafing refractory to topical Rx treatment and inhibiting her typical activities of daily living such as walking. She would benefit from definitive treatment of thighplasty. Labs ordered. RTC 6w I spent a total of 30 minutes reviewing/updating records, examining the patient and counseling the patient on weight management as detailed above. Orders: Orders Insulin Today Z98.84 - Bariatric surgery status Lipid Panel Today Z98.84 - Bariatric surgery status Vitamin B12 and Folate Today Z98.84 - Bariatric surgery status Zinc Today Z98.84 - Bariatric surgery status C Reactive Protein Today Z98.84 - Bariatric surgery status Vitamin B1 Today Z98.84 - Bariatric surgery status Vitamin A Today Z98.84 - Bariatric surgery status Ferritin Today Z98.84 - Bariatric surgery status Hemoglobin A1c Today Z98.84 - Bariatric surgery status Complete Blood Count Auto Diff Today Z98.84 - Bariatric surgery status IRON PROFILE Today Z98.84 - Bariatric surgery status Comprehensive Met. Panel Today Z98.84 - Bariatric surgery status TSH reflex Free T4 Today Z98.84 - Bariatric surgery status Vitamin D 25-OH Total Today Z98.84 - Bariatric surgery status Medications: New inulin 2 grams PO DAILY 90 tabs 3RF
[2024-02-12 11:05] VITALS: BP 122/58; PULSE 88; TEMP 36.1; O2SAT 99; BMI 29.3
== END 2024-02-12 11:39 | disposition home or self-care (01) ==
PROVIDERS: PCP Internal Medicine; Visit Provider Physician Assistant Surgical
DX: E66.3 Overweight (principal); Z68.29 Body mass index [BMI] 29.0-29.9, adult; Z98.84 Bariatric surgery status; L98.7 Excessive and redundant skin and subcutaneous tissue
CPT/HCPCS: 99214; G2211

== ENCOUNTER → 2024-02-12 10:31 | Outpatient (BNVA) | payer OTHER, SELFPAY | PROVIDERS: PCP Internal Medicine; Visit Provider Physician Assistant Surgical | DX: E66.3 Overweight (principal); L98.7 Excessive and redundant skin and subcutaneous tissue; Z71.3 Dietary counseling and surveillance; Z98.84 Bariatric surgery status; Z68.29 Body mass index [BMI] 29.0-29.9, adult | CPT/HCPCS: 99212 ==

== ENCOUNTER 2024-02-15 12:50 | Outpatient (AMB) | payer OTHER, SELFPAY ==
--- NOTE | 2024-02-15 12:51 | A.OFFPC_ITS ---
Vital Signs 02/15/24 12:52 Height 5 ft 1 in Weight 158 lb BMI 29.9 BP 110/72 Blood Pressure Location Lt brachial Position Sitting Pulse 88 Pulse Source Pulse Oximeter Pulse Oximetry (%) 98 Oxygen Delivery Method Room Air Intake Visit Reasons: Cholesterol, Skin Rash Leadership Development Consultant Required: No Accompanied by: Self / Same As Patient Allergies Penicillins [PENICILLINS] Allergy (Severe, Verified 02/15/24 12:56) ANAPHYLAXIS Sulfa (Sulfonamide Antibiotics) Allergy (Severe, Verified 02/15/24 12:56) Angioedema Tobacco use date assessed: 09/15/23 Dental Screening Dental Screen Date: 02/15/24 Did you have a dental visit in the last 12 months?: Yes Did you have a dental problem in the last 6 months where you did not have access to dental care?: No Was dental information given to patient?: Patient has dentist HPI Cholesterol, Skin Rash HPI Details 53-year-old overweight female with a his tory of laparoscopic sleeve gastrectomy with recurrent major depression GERD hypercholesterolemia last seen in August 2023. Patient's mammogram is up-to-date colonoscopy up-to-date. Patient continues to follow-up with bariatric weight management patient was given recommendations regarding skin removal surgery. Goal of BMI less than 27 or 143 lb so if weight is less than 150 at the next visit will start process of insurance approval. These are excess skin on the abdomen which will need panniculectomy and upper thighs thigh plasty. Patient also follows up with vascular patient is negative for any significant venous insufficiency. Advised orthopedics referral. USes estella S and lidocaine patches [facility] Medical History (Updated 02/15/24 @ 13:19 by April Santillan MD) Obesity (BMI 30-39.9) Family history of arrhythmia Left knee pain Constipation Hiatal hernia Osteoarthritis Anxiety and depression Palpitations GERD (gastroesophageal reflux disease) History of COVID-19 Recurrent UTI Acute diverticulitis Osteoarthritis of left knee Helicobacter pylori gastritis Trapezius muscle spasm Stress incontinence Neck pain Post covid-19 condition, unspecified Loss of hearing Vision changes Hematuria Tubular adenoma Migraine Low back pain Surgical History H/O gastric sleeve History of tonsillectomy History of esophagogastroduodenoscopy (EGD) H/O colonoscopy History of section H/O tubal ligation History of cholecystectomy Family History Father CVD (cardiovascular disease) Diabetes History of open heart surgery Mother Alive and well CVD (cardiovascular disease) Diabetes Thyroid condition Maternal Aunt Colon cancer Son Mental health disorder Maternal Grandmother Colon cancer Social History Household Members: Spouse Housing: House Are you a primary primary care nurse to a significant other at home: No Do you presently have visiting nurse or other home services: No Alcohol intake: former Patient Tobacco Use Status: Never used Tobacco e-Cigarette/Vaping Use: Never Used Second Hand Smoke Exposure: No service: No Current occupational status: unemployed Current occupation: right hand dominant Cognitive needs: No Hearing needs: No Vision needs: No Female Reproductive History Menstrual Age of Menarche: 14 Questionnaire Thrive Questionnaire Date Thrive assessed: 09/15/23 Are you currently unemployed and looking for a job?: No NATHAN-7 AMB Questionnaire NATHAN-7 Date NATHAN - 7 assessed: 09/15/23 Source: Developed by Drs. Chris Brown, Sherry Champagne, Juan Alberto Lee and colleagues, with an educational duyen from [employer]. Physical exam (Primary Care) Vital Signs: Last Vital Signs Pulse 88 02/15/24 12:52 BP 110/72 02/15/24 12:52 Pulse Ox 98 02/15/24 12:52 Oxygen Delivery Method Room Air 02/15/24 12:52 BMI result Body Mass Index 29.9 Tobacco/Smoking Status: Tobacco use Status Tobacco use date assessed 09/15/23 02/15/24 12:58 Patient Tobacco Use Status Never used Tobacco 02/15/24 12:58 e-Cigarette/Vaping Use Never Used 02/15/24 12:58 Thrive Assessment: Date of Thrive Assessment Date Thrive assessed 09/15/23 02/15/24 12:58 Const General: alert; No acute distress Eyes Conjunctivae: conjunctivae normal Resp Auscultation: clear to auscultation bilaterally Cardio Rate: regular rate Rhythm: regular rhythm GI Inspection: Yes normal to inspection Extrem General: Yes normal to inspection and No edema Assessment and Plan Assessment & Plan (1) Varicose veins of right lower extremity with inflammation: Code(s): I83.11 - Varicose veins of right lower extremity with inflammation Plan: When sitting down elevate the legs, exercise, and support stockings (2) Hypercholesteremia: Code(s): E78.00 - Pure hypercholesterolemia, unspecified Plan: Avoid fried foods, chicken skin, eggs, butter margarine, pastries and meat. Be it pork or beef they have a lot of cholesterol LDL goal of less than 130 and triglyceride of less than 150 (3) GERD (gastroesophageal reflux disease): Code(s): K21.9 - Gastro-esophageal reflux disease without esophagitis Qualifiers: Esophagitis presence: without esophagitis Qualified Code(s): K21.9 - Gastro-esophageal reflux disease without esophagitis Plan: Avoid the foods that causes that usually spicy foods, tomato products, juices, coffee, soda and foods that your sensitive to. After eating do not lie down, allow 3-4 hours before in lie down. And keep the head of bed above 30 degrees to avoid the acid from going up. (4) Generalized anxiety disorder: Comment: [facility] Counseling Code(s): F41.1 - Generalized anxiety disorder Plan: Continue with counseling and therapy (5) S/P laparoscopic sleeve gastrectomy: Comment: 07/27/2022 Dr. Rizzo Code(s): Z98.84 - Bariatric surgery status Plan: Continue to follow-up with weight management (6) Overweight (BMI 25.0-29.9): Code(s): E66.3 - Overweight Plan: Continue with diet and exercise. Patient follows up with bariatric surgeons. (7) Urticaria: Comment: neck area, arm thigh Code(s): L50.9 - Urticaria, unspecified Orders: Orders Complete Blood Count Auto Diff Today E78.00 - Pure hypercholesterolemia, unspecified Comprehensive Met. Panel Today E78.00 - Pure hypercholesterolemia, unspecified Liver Panel Today E78.00 - Pure hypercholesterolemia, unspecified, R79.89 - Other specified abnormal findings of blood chemistry Thyroid Stimulating Hormone Today E78.00 - Pure hypercholesterolemia, unspecified Free T4 (Free Thyroxine) Today E78.00 - Pure hypercholesterolemia, unspecified Referrals Dermatology Referral L50.9 - Urticaria, unspecified Medications: Refilled lidocaine 5% leave on most painful area for up to 12 hrs 1 patch topical DAILY 30 ea 12RF I83.813 - Varicose veins of bilateral lower extremities with pain diclofenac sodium 1% (Arthritis Pain (diclofenac)) apply to single knee, ankle, foot; for foot includes sole/toes/top of foot 4 grams topical QID 100 grams 8RF M25.562 - Pain in left knee sennosides-docusate sodium 8.6-50 mg (Senna Plus) 2 tab-caps (2 x 8.6-50 mg) PO BEDTIME 90 caps 3RF K59.00 - Constipation, unspecified Coding Level of Care Code Est Pt Level 4 (88098) Diagnoses Varicose veins of right lower extremity with inflammation I83.11 Hypercholesteremia E78.00 Gastroesophageal reflux disease without esophagitis K21.9 Esophagitis presence: without esophagitis Generalized anxiety disorder F41.1 S/P laparoscopic sleeve gastrectomy Z98.84 Overweight (BMI 25.0-29.9) E66.3 Urticaria L50.9
[2024-02-15 12:52] VITALS: BP 110/72; PULSE 88; O2SAT 98; BMI 29.9
== END 2024-02-15 13:26 | disposition home or self-care (01) ==
PROVIDERS: PCP Internal Medicine; Visit Provider Internal Medicine
DX: I83.11 Varicose veins of right lower extremity with inflammation (principal); E78.00 Pure hypercholesterolemia, unspecified; K21.9 Gastro-esophageal reflux disease without esophagitis; F41.1 Generalized anxiety disorder; Z98.84 Bariatric surgery status; E66.3 Overweight; L50.9 Urticaria, unspecified

== ENCOUNTER → 2024-02-15 12:50 | Outpatient (BNVA) | payer OTHER, SELFPAY | PROVIDERS: PCP Internal Medicine; Visit Provider Internal Medicine | DX: L50.9 Urticaria, unspecified (principal); I83.11 Varicose veins of right lower extremity with inflammation; E78.00 Pure hypercholesterolemia, unspecified; K21.9 Gastro-esophageal reflux disease without esophagitis; F41.1 Generalized anxiety disorder; E66.3 Overweight; Z98.84 Bariatric surgery status | CPT/HCPCS: 99212 ==

== ENCOUNTER 2024-03-25 11:54 | Outpatient (AMB) | payer OTHER, SELFPAY ==
[2024-03-25 12:04] VITALS: BP 110/56; PULSE 67; TEMP 36.2; O2SAT 100
--- NOTE | 2024-03-25 12:04 | MHC.OFFVISWM ---
VS Expanded 03/25/24 12:04 BP 110/56 L Blood Pressure Location Rt brachial Blood Pressure Position Sitting Pulse 67 Pulse Source Pulse Oximeter Temp 97.1 F Temperature Source Temporal Artery Scan Pulse Oximetry 100 Oxygen Delivery Method Room Air Height 5 ft 1 in Weight 158 lb 12.8 oz BMI 30.0 Body Fat % 34.2 Body Fat Mass 54.2 Fat Free Mass 104.4 Visceral Fat Rating 8 Body Water % 46.8 Body Water Mass 74.2 Muscle Mass/Score 99.2 Basal Metabolic Rate/Score 1,418 Intake Visit Reasons: (OV) PO LSG 07/27/22 Allergies Penicillins [PENICILLINS] Allergy (Severe, Verified 03/25/24 12:07) ANAPHYLAXIS Sulfa (Sulfonamide Antibiotics) Allergy (Severe, Verified 03/25/24 12:07) Angioedema Medication List - Last Reconciled 03/25/24 by Guille Paiz, RN albuterol sulfate 90 mcg/actuation 2 puffs inhalation Q4-6H PRN cetirizine (Zyrtec) 10 mg PO DAILY PRN cholecalciferol (vitamin D3) 25 mcg PO DAILY clonazepam 1 mg PO BID clotrimazole 1% 1 appl topical BID cyclobenzaprine 10 mg PO TID PRN diclofenac sodium 1% (Arthritis Pain (diclofenac)) 4 grams topical QID hydrocortisone 2.5% (Proctosol HC) 1 appl SC BID-QID PRN inulin 2 grams PO DAILY lidocaine 5% 1 patch topical DAILY sennosides-docusate sodium 8.6-50 mg (Senna Plus) 2 tab-caps (2 x 8.6-50 mg) PO BEDTIME sertraline 100 mg PO DAILY triamcinolone acetonide 0.1% 1 appl topical BID 7 days vitamin A palmitate 10,000 units PO DAILY zolpidem 10 mg PO BEDTIME PRN HPI Comments Details: This?is a?53?yo female who is s/p LSG 07/27/2022. Presents for 1 year 8 month post op visit. Weight at last visit on 02/12/2024 was 155.2 pounds with a BMI of 29.3, weight today is 158.8 pounds, representing a 3.6 pound weight gain with a BMI today of 30.? No complaints of nausea, emesis, abdominal pain or reflux, or constipation. Pt continues to care for her mom who moved here from [place], has dementia/Alzheimer's. Present meal plan includes: 1 Premier shake with 1 scoop in 8oz UAM 1 Atkins bar 1 georgian yogurt 1 meal with 6f protein Pt may have fruit or veg as well if hungry. today ate a boiled egg, half a bar, 2 shakes with 1 scoop each, has been having Activia yogurt also and pineapple/CC before bed Exercise- walks on machine at home 20-40min, does weight training has arthritis in her elbows, has a lot of knee pain also, getting injections, has to use a brace on left knee Pt reports issues of excess skin of abdomen and upper thighs. Regarding abdomen, has to put towels in between skin folds of abdomen and where abdomen meets thighs, due to skin cracking which causes a lot of pain. Experiences a burning itchy sensation. She has noticed increased moisture in skin folds, which produces an unpleasant odor and she has to wash and clean frequently. This is worse with weather getting warmer. She has tried clotrimazole ointment but this has not completely resolved the issue. Regarding upper thighs, reports she notices a lot of friction between upper thighs and has to constantly wear long shorts under dresses to prevent chafing. She has tried compressive pants to try to hold the skin in place, but the material/elastic often digs into her skin at her ankles and has caused bleeding in the past. Has tried clotrimazole ointment here as well but this has not helped. Walking has become more difficult and painful due to friction. [facility] Medical History (Updated 03/25/24 @ 12:40 by NIRANJAN Urbina) Obesity (BMI 30-39.9) Family history of arrhythmia Left knee pain Constipation Hiatal hernia Osteoarthritis Anxiety and depression Palpitations GERD (gastroesophageal reflux disease) History of COVID-19 Recurrent UTI Acute diverticulitis Osteoarthritis of left knee Helicobacter pylori gastritis Trapezius muscle spasm Stress incontinence Neck pain Post covid-19 condition, unspecified Loss of hearing Vision changes Hematuria Tubular adenoma Migraine Low back pain Surgical History H/O gastric sleeve History of tonsillectomy History of esophagogastroduodenoscopy (EGD) H/O colonoscopy History of section H/O tubal ligation History of cholecystectomy Family History Father CVD (cardiovascular disease) Diabetes History of open heart surgery Mother Alive and well CVD (cardiovascular disease) Diabetes Thyroid condition Maternal Aunt Colon cancer Son Mental health disorder Maternal Grandmother Colon cancer Social History Household Members: Spouse Housing: House Are you a primary career resource specialist to a significant other at home: No Do you presently have visiting nurse or other home services: No Alcohol intake: former Patient Tobacco Use Status: Never used Tobacco e-Cigarette/Vaping Use: Never Used Second Hand Smoke Exposure: No service: No Current occupational status: unemployed Current occupation: right hand dominant Cognitive needs: No Hearing needs: No Vision needs: No Female Reproductive History Menstrual Age of Menarche: 14 Physical Exam Vital Signs: Last Vital Signs Temp 97.1 F 03/25/24 12:04 Pulse 67 03/25/24 12:04 BP 110/56 L 03/25/24 12:04 Pulse Ox 100 03/25/24 12:04 Oxygen Delivery Method Room Air 03/25/24 12:04 BMI result Body Mass Index 30.0 Assessment & Plan Assessment & Plan (1) Excess skin: Code(s): L98.7 - Excessive and redundant skin and subcutaneous tissue Category: Medical (2) S/P laparoscopic sleeve gastrectomy: Comment: 07/27/2022 Dr. Rizzo Code(s): Z98.84 - Bariatric surgery status Category: Surgical (3) Obesity: Code(s): E66.9 - Obesity, unspecified Category: Medical Plan Pt likely getting too much protein each day with extra food items. 1 egg 1 Atkins bar 1 yogurt or CC meal of 4 f/4/f 1 shake with 1 scoop or 2 shakes with half scoop Exercise with whatever method does not cause pain Continue clotrimazole ointment for rashes of excess skin. Goal BMI<27 or 143lbs prior to skin removal surgery. Pt has >25% EBWL currently. Pt is having issues of excess skin of abdomen, resulting in painful malodorous rashes refractory to topical Rx treatment. She would benefit from definitive treatment of panniculectomy. Pt also having issues of excess skin of upper thighs, resulting in painful chafing refractory to topical Rx treatment and inhibiting her typical activities of daily living such as walking. She would benefit from definitive treatment of thighplasty. RTC in July for annual. Encouraged pt to text me between visits with any concerns. I spent a total of 30 minutes reviewing/updating records, examining the patient and counseling the patient on weight management as detailed above.
== END 2024-03-25 12:44 | disposition home or self-care (01) ==
LOC: HO.HBS 11:54
PROVIDERS: PCP Internal Medicine; Visit Provider Physician Assistant Surgical
DX: L98.7 Excessive and redundant skin and subcutaneous tissue (principal); Z68.30 Body mass index [BMI] 30.0-30.9, adult; E66.811 Obesity, class 1; Z98.84 Bariatric surgery status
CPT/HCPCS: 99214

== ENCOUNTER → 2024-03-25 11:54 | Outpatient (BNVA) | payer OTHER, SELFPAY | PROVIDERS: PCP Internal Medicine; Visit Provider Physician Assistant Surgical | DX: E66.9 Obesity, unspecified (principal); L98.7 Excessive and redundant skin and subcutaneous tissue; Z98.84 Bariatric surgery status; Z68.30 Body mass index [BMI] 30.0-30.9, adult | CPT/HCPCS: 99212 ==

== ENCOUNTER 2024-05-15 11:14 | Emergency (ER) | payer OTHER, SELFPAY ==
--- NOTE | ~2024-05-15 | CT_ITS ---
EXAMINATION: CT ABDOMEN AND PELVIS WITH CONTRAST CLINICAL INFORMATION: Abdominal pain. COMPARISON: T scan of the abdomen and pelvis dated 02/16/2023 and 04/03/2022. TECHNIQUE: Multidetector CT volumetric acquisition of the abdomen and pelvis was performed after the administration of 85 mL of intravenous Omnipaque 350. The data set was reformatted in the sagittal and coronal planes and reviewed on an independent workstation. This CT examination was performed using dose optimization techniques as appropriate, variously including the following: *Automated exposure control *Adjustment of mA and/or kV according to patient size (this includes techniques or standardized protocols for targeted exams where dose is matched to indication/reason for exam; i.e. extremities or head) *Use of iterative reconstruction technique DLP: 551 mGy-cm. FINDINGS: LOWER CHEST: Included lung bases unremarkable. LIVER, GALLBLADDER, BILIARY TREE: Liver normal size and attenuation. There are innumerable variably sized low attenuation masses again seen in the right and left lobes of the liver, unchanged from the prior studies and likely representing multiple small cysts or biliary hamartomas. No definite suspicious new or enlarging liver mass seen. No significant intra-or extrahepatic ductal dilatation. Common bile duct measures up to 0.8 cm proximally and tapers smoothly to 0.3 cm in the pancreatic head, similar to the prior exams. Finding may be related to a combination of the patient's age and postcholecystectomy state. Hepatic and portal veins patent. Gallbladder is surgically absent. PANCREAS: Normal. No ductal dilatation, mass, or surrounding stranding. SPLEEN: Normal size and appearance. Splenic vein patent. ADRENAL GLANDS AND KIDNEYS: Adrenal glands normal. Kidneys bilaterally symmetric in size and function. No focal mass, hydronephrosis, nephrolithiasis or perinephric stranding. URETERS AND BLADDER: Ureters decompressed and within normal limits. Bladder decompressed and not adequately assessed, but grossly unremarkable. PELVIC ORGANS: Unremarkable. GASTROINTESTINAL TRACT: Postsurgical changes from prior gastric sleeve procedure again noted. There is some fullness at the GE junction, suggestive of a small hiatal hernia. Small and large bowel loops decompressed. Appendix in right lower quadrant normal. ABDOMINAL WALL: There are a few calcified granulomas seen in the soft tissues of the buttocks bilaterally. Tiny midline supra umbilical ventral wall hernia and tiny umbilical hernia again noted, containing fat only. LYMPHOVASCULAR STRUCTURES: Abdominal aorta normal in caliber. No periaortic collections. No abdominal or pelvic adenopathy or free fluid collection. BONES: Multilevel vertebral spondylosis seen in the lower thoracic and throughout the lumbar spine. Mild facet arthropathy seen in the lower lumbar spine. CT/CT abdomen pelvis w IV con IMPRESSION: 1. No acute intra-abdominal or pelvic findings seen. 2. Multiple hepatic masses again seen, unchanged from prior studies, likely representing multiple small cysts or biliary hamartomas. 3. Status post cholecystectomy with no evidence of biliary obstruction. 4. Postsurgical changes from prior gastric sleeve procedure. Fullness at the GE junction, suggestive of a small hiatal hernia. 5. Tiny supraumbilical midline ventral wall hernia and tiny umbilical hernia, both containing fat only. Electronically signed by: Kristi Chow MD 05/15/2024 01:26 PM [facility]
--- NOTE | ~2024-05-15 | XR_ITS ---
EXAMINATION: XR CHEST CLINICAL INFORMATION: coughing. pneumonia? COMPARISON: 10/10/2023 TECHNIQUE: Frontal view of the chest was obtained. FINDINGS: No significant abnormality is noted involving the heart, lungs, mediastinum, bony thorax or soft tissues. XR/XR chest 1V IMPRESSION: Unremarkable examination. Electronically signed by: Oswald Finnegan MD 05/15/2024 12:02 PM [facility]
[2024-05-15 11:20] VITALS: BP 141/68; PULSE 86; RESP 18; TEMP 36.6; O2SAT 100; BMI 29.3
--- NOTE | 2024-05-15 11:25 | ED.GENADULT ---
HPI - General Adult General Chief complaint: Abdominal Pain Stated complaint: abd pain Time Seen by Provider: 05/15/24 11:52 Source: patient and family Mode of arrival: ambulatory Limitations: no limitations History of Present Illness ED Provider: NIRANJAN Lozano HPI narrative: This is a 53-year-old female presenting to the emergency department with nausea, diarrhea, abdominal pain, fevers, cough, red eye redness ongoing for the past few days. Patient reports she has been feeling overall unwell for the past week or so. What is bothering her most right now is abdominal pain it is localized to the umbilicus and it is severe in nature. Reports she is having associated diarrhea with this abdominal pain and also having urinary frequency and urgency. She reports she has had red eyes since Monday it started with her right eye and then moved over to her left eye and now both eyes are red, she reports purulence discharge from bilateral eyes worse in the morning. She also has a dry cough. Denies sick contacts. Denies chest pain, vomiting, vision changes, dizziness, weakness, headache. Related Data Home Medications ?Medication ?Instructions ?Recorded ?Confirmed clonazepam 1 mg tablet 1 mg PO BID 05/08/20 03/25/24 zolpidem 10 mg tablet 10 mg PO BEDTIME PRN Sleep 03/08/22 03/25/24 sertraline 100 mg tablet 100 mg PO DAILY 09/06/22 03/25/24 Previous Rx's ?Medication ?Instructions ?Recorded hydrocortisone 2.5 % topical cream 1 appl DC BID-QID PRN hemorrhoids 07/26/23 with perineal applicator #30 grams (Proctosol HC) triamcinolone acetonide 0.1 % 1 appl topical BID 7 days #15 grams 08/02/23 topical cream cholecalciferol (vitamin D3) 25 25 mcg PO DAILY #90 caps 08/03/23 mcg (1,000 unit) capsule vitamin A palmitate 3,000 mcg 10,000 unit PO DAILY #90 caps 09/15/23 (10,000 unit) capsule cyclobenzaprine 10 mg tablet 10 mg PO TID PRN muscle spasm #10 10/10/23 tabs cetirizine 10 mg tablet (Zyrtec) 10 mg PO DAILY PRN allergy 01/03/24 symptoms #90 tabs clotrimazole 1 % topical cream 1 appl topical BID #45 grams 01/18/24 inulin 2 gram chewable tablet 2 g PO DAILY #90 tabs 02/12/24 diclofenac sodium 1 % topical gel 4 g topical QID #100 grams 02/15/24 (Arthritis Pain (diclofenac)) lidocaine 5 % topical patch 1 patch topical DAILY #30 ea 02/15/24 sennosides 8.6 mg-docusate sodium 2 tab-cap (2 x 8.6-50 mg) PO 02/15/24 50 mg capsule (Senna Plus) BEDTIME #90 caps albuterol sulfate 90 mcg/actuation 2 puff inhalation Q4-6H PRN 04/10/24 aerosol inhaler shortness of breath or wheezing #6.7 grams Allergies Allergy/AdvReac Type Severity Reaction Status Date / Time Penicillins [PENICILLINS] Allergy Severe ANAPHYLAXIS Verified 05/15/24 11:23 Sulfa (Sulfonamide Allergy Severe Angioedema Verified 05/15/24 11:23 Antibiotics) Review of Systems Review of Systems: Yes all other systems are reviewed and are negative PMFSH Past Medical History Attestation statement: The following information was validated with the patient. Source: old records reviewed and nursing notes reviewed Medical History Obesity (BMI 30-39.9) Family history of arrhythmia Left knee pain Constipation Hiatal hernia Osteoarthritis Anxiety and depression Palpitations GERD (gastroesophageal reflux disease) History of COVID-19 Recurrent UTI Acute diverticulitis Osteoarthritis of left knee Helicobacter pylori gastritis Trapezius muscle spasm Stress incontinence Neck pain Post covid-19 condition, unspecified Loss of hearing Vision changes Hematuria Tubular adenoma Migraine Low back pain Surgical History H/O gastric sleeve History of tonsillectomy History of esophagogastroduodenoscopy (EGD) H/O colonoscopy History of section H/O tubal ligation History of cholecystectomy Family History Family History Father CVD (cardiovascular disease) Diabetes History of open heart surgery Mother Alive and well CVD (cardiovascular disease) Diabetes Thyroid condition Maternal Aunt Colon cancer Son Mental health disorder Maternal Grandmother Colon cancer Social History Social History Household Members: Spouse Housing: House Are you a primary healthcare administration intern to a significant other at home: No Do you presently have visiting nurse or other home services: No Alcohol intake: current Alcohol intake frequency: holidays/special occasions only Patient Tobacco Use Status: Never used Tobacco Smoked in Last 30 Days: No e-Cigarette/Vaping Use: Never Used Second Hand Smoke Exposure: No Use of substances other than those prescribed or required for medical reasons: No Advance Directives: No Advance Directives Information Provided: No service: No Current occupational status: unemployed Current occupation: right hand dominant Cognitive needs: No Hearing needs: No Vision needs: No Physical Exam ED Vital Signs: Vital Signs - 24 hr 05/15/24 11:20 05/15/24 12:52 Temperature 97.8 F 98.7 F Pulse Rate 86 59 Respiratory Rate 18 13 Blood Pressure 141/68 H 100/46 L Pulse Oximetry 100 98 Oxygen Delivery Method Room Air Room Air BMI result Body Mass Index 29.3 vss Appearance: Alert.? Oriented X3.? No acute distress.? Head: Normocephalic, atraumatic, no step-offs or deformities Eyes: Pupils equal, round and reactive to light.? B/L conjunctival injection. EOMI and pain free Neck: Normal inspection.? Neck supple.? CVS: Normal heart rate and rhythm.? Pulses normal.? Respiratory: No respiratory distress.? Breath sounds normal.? Abdomen: Soft and + diffuse abd discomfort . Skin: Skin warm and dry.? Normal skin color.? Normal skin turgor.? Extremities: No lower extremity edema.? No calf ttp. 5/5 strength to bilateral upper and lower extremities Back: No midline tenderness, no C-spine tenderness, full range of motion, no CVA tenderness bilaterally Neuro: Oriented X 3.? No motor deficit.? No sensory deficit. CN 2-12 intact Course Course Course Narrative: RME: 53 yold female presents to the ED for abdominal pain, diarrhea, runny eyes, cough, fever of 102, and chills. positive for generalized abdominal tenderness and bilateral conjuctivitis. labs ordered Medications Administered Discontinued Medications Generic Name Dose Route Start Last Admin Trade Name Freq PRN Reason Stop Dose Admin Erythromycin 1 cm 05/15/24 12:25 05/15/24 13:05 Erythromycin Base 0.5% Oph Oin 1 Gm Tube EYE-BOTH 05/15/24 12:26 1 cm ONCE ONE Administration Iohexol 100 ml 05/15/24 12:50 05/15/24 12:50 Iohexol 350 Mg/Ml 100 Ml Infus..Btl IV 05/15/24 12:51 85 ml ONCE ONE Administration Ketorolac Tromethamine 15 mg 05/15/24 13:11 05/15/24 13:30 Ketorolac Tromethamine 15 Mg/Ml Vial IVPUSH 05/15/24 13:12 15 mg ONCE ONE Administration Medical Decision Making Medical Decision Making [facility] Narrative: 53-year-old female presents with viral symptoms, abdominal pain, diarrhea, nausea ongoing for the past week. Also reports vague urinary symptoms. Physical exam diffuse abdominal discomfort. Patient has bilateral conjunctival injection. Regular rate and rhythm. Lungs clear. Neurological nonfocal. History and physical exam concerning for viral illness. Unlikely acute abdomen, appendicitis, cholecystitis, diverticulitis, dissection, AAA. No signs of orbital or periorbital cellulitis, encephalitis, meningitis. Plan labs, imaging, urine, EKG Differential Diagnosis Differential Diagnoses: The differential diagnosis associated with the presentation includes ( History and physical exam concerning for viral illness. Unlikely acute abdomen, appendicitis, cholecystitis, diverticulitis, dissection, AAA. No signs of orbital or periorbital cellulitis, encephalitis, meningitis.) Admission/Observation Consideration of admission/observation: Escalation of care including admission/observation considered Lab Data 05/15/24 11:34 05/15/24 11:34 Labs: Lab Results 05/15/24 05/15/24 Range/Units 11:34 12:59 WBC 7.7 (4.8-10.8) X10*3/uL RBC 4.45 (4.20-5.50) X10*6/uL Hgb 13.4 (12.0-16.0) g/dl Hct 40.1 (37.0-47.0) % MCV 90.1 (80.0-98.0) fL MCH 30.1 (27.0-33.0) pg MCHC 33.4 (31.0-35.0) g/dl RDW 12.5 (11.0-16.0) % Plt Count 318 (160-400) X10*3/uL MPV 9.0 L (9.4-12.3) fL Immature Gran % (Auto) 0.3 (0.0-0.4) % Neut % (Auto) 83.7 H (45-73) % Lymph % (Auto) 10.1 L (20-40) % [place] % (Auto) 3.4 (2-11) % Eos % (Auto) 2.2 (0-4) % Baso % (Auto) 0.3 (0-2) % Lymph # (Auto) 0.8 L (1.2-4.9) X10*3/uL [place] # (Auto) 0.3 (0.1-1.2) X10*3/uL Eos # (Auto) 0.2 (0.0-0.4) X10*3/uL Baso # (Auto) 0.0 (0.0-0.2) X10*3/uL Abs Immat Gran (auto) 0.02 (0.00-0.03) X10*3/uL Absolute Neuts (auto) 6.5 (2.0-8.3) x10*3/uL Absolute Nucleated RBC 0.000 (0.0-0.012) X10*3/uL Nucleated RBC % (auto) 0.0 (0.0-0.2) /100WBC Sodium 139 (135-145) mmol/L Potassium 3.6 (3.3-5.1) mmol/L Chloride 106 (96-108) mmol/L Carbon Dioxide 26 (22-29) mmol/L Anion Gap 11 L (12-20) BUN 14 (9-16) mg/dL Creatinine 0.75 (0.5-1.4) mg/dL Estim Creat Clear Calc 79.6 Estimated GFR > 60 Random Glucose 81 (60-115) mg/dL Calcium 9.0 (8.4-10.2) mg/dL Total Bilirubin 0.9 (0.0-1.0) mg/dL AST 23 (5-31) U/L ALT 18 (0-31) U/L Alkaline Phosphatase 77 (39-117) U/L Total Protein 7.2 (6.5-8.0) g/dL Albumin 4.1 (3.5-5.0) g/dL Lipase 22 (8-78) U/L Urine Color Yellow Urine Appearance Clear Urine pH 5.5 (5.0-9.0) Ur Specific [place] 1.025 (1.005-1.025) Urine Protein Negative (Neg-Trace) mg/dL Urine Glucose (UA) Negative (Negative) mg/dL Urine Ketones Trace (Negative) mg/dL Urine Blood Small (1+) H (Negative) Urine Nitrite Negative (Negative) Ur Leukocyte Esterase Trace H (Negative) Urine RBC 6-10 H (0-2) /HPF Urine WBC 0-5 (0-5) /HPF Ur Squamous Epith Cells 3-5 (0-2) /HPF Urine Bacteria None Seen (None Seen) Hyaline Casts 0-2 (0-2) /LPF Urine Test NEGATIVE (NEGATIVE) Monoscreen Negative (Negative) Influenza Type A (PCR) NEGATIVE (Negative) Influenza Type B (PCR) NEGATIVE (Negative) RSV RNA Qual (PCR) NEGATIVE (Negative) SARS-CoV-2 RNA (RT-PCR) NEGATIVE (Negative) S. pyogenes GrpA [place]CHITA Negative (Negative) Discharge Plan Discharge Clinical Impression: Nausea & vomiting, Abdominal pain, Viral illness, Conjunctivitis, Hernia, Liver masses Patient Disposition: Home, Self-Care Instructions: Umbilical Hernia (ED), Acute Nausea and Vomiting (ED), Viral Syndrome (ED), Abdominal Pain (ED), Conjunctivitis (ED) Additional Instructions: Take your medications as prescribed. If you were prescribed antibiotics today, it is important that you take your medication to their entirety, do not skip any doses, do not finish them early. Follow-up with your primary care provider this week. Return to the emergency department with new or worsening symptoms. Such as fevers, chills, chest pain, shortness of breath, nausea, vomiting, dizziness, headache, vision changes, lethargy In case of emergency call 911 CT/CT abdomen pelvis w IV con IMPRESSION: 1. No acute intra-abdominal or pelvic findings seen. 2. Multiple hepatic masses again seen, unchanged from prior studies, likely representing multiple small cysts or biliary hamartomas. 3. Status post cholecystectomy with no evidence of biliary obstruction. 4. Postsurgical changes from prior gastric sleeve procedure. Fullness at the GE junction, suggestive of a small hiatal hernia. 5. Tiny supraumbilical midline ventral wall hernia and tiny umbilical hernia, both containing fat only. Please follow-up with your PCP in regards to hepatic masses you may need to see a hospice care sales consultant/equipment sales specialist Prescriptions: No Action hydrocortisone [Proctosol HC] 2.5 % cream with perineal applicator 1 appl DC BID-QID PRN (Reason: hemorrhoids) Qty: 30 0RF vitamin A palmitate 3,000 mcg (10,000 unit) capsule 10,000 unit PO DAILY Qty: 90 3RF cetirizine [Zyrtec] 10 mg tablet 10 mg PO DAILY PRN (Reason: allergy symptoms) Qty: 90 0RF clotrimazole 1 % cream 1 appl topical BID Qty: 45 3RF albuterol sulfate 90 mcg/actuation HFA aerosol inhaler 2 puff inhalation Q4-6H PRN (Reason: shortness of breath or wheezing) Qty: 6.7 0RF cyclobenzaprine 10 mg tablet 10 mg PO TID PRN (Reason: muscle spasm) Qty: 10 0RF clonazepam 1 mg tablet 1 mg PO BID triamcinolone acetonide 0.1 % cream 1 appl topical BID 7 Days Qty: 15 0RF sertraline 100 mg tablet 100 mg PO DAILY zolpidem 10 mg tablet 10 mg PO BEDTIME PRN (Reason: Sleep) inulin 2 gram tablet,chewable 2 g PO DAILY Qty: 90 3RF lidocaine 5 % adhesive patch,medicated 1 patch topical DAILY Qty: 30 12RF Rx Instructions: leave on most painful area for up to 12 hrs Senna Plus 8.6-50 mg capsule 2 tab-cap PO BEDTIME Qty: 90 3RF diclofenac sodium [Arthritis Pain (diclofenac)] 1 % gel 4 g topical QID Qty: 100 8RF Rx Instructions: apply to single knee, ankle, foot; for foot includes sole/toes/top of foot cholecalciferol (vitamin D3) 25 mcg (1,000 unit) capsule 25 mcg PO DAILY Qty: 90 3RF Print Language: Chilean
[2024-05-15 11:42] LABS: MANUAL DIFF FLAG NO
[2024-05-15 11:46] LABS: Basophils Percent Auto 0.3 % (0-2); Eosinophils Absolute Auto 0.2 X10*3/uL (0.0-0.4); Eosinophils Percent Auto 2.2 % (0-4); Hematocrit 40.1 % (37.0-47.0); Hemoglobin 13.4 g/dl (12.0-16.0); Imm Gran Abs Auto 0.02 X10*3/uL (0.00-0.03); Imm Gran Pct Auto 0.3 % (0.0-0.4); Lymphocytes Absolute Auto 0.8 X10*3/uL (1.2-4.9); Lymphocytes Percent Auto 10.1 % (20-40); Mean Corpuscular HGB Conc 33.4 g/dl (31.0-35.0); Mean Corpuscular Hemoglobin 30.1 pg (27.0-33.0); Mean Corpuscular Volume 90.1 fL (80.0-98.0); Monocytes Absolute Auto 0.3 X10*3/uL (0.1-1.2); Monocytes Percent Auto 3.4 % (2-11); Neutrophils Absolute Auto 6.5 x10*3/uL (2.0-8.3); Neutrophils Percent Auto 83.7 % (45-73); Platelet Count 318 X10*3/uL (160-400); Red Blood Count 4.45 X10*6/uL (4.20-5.50); Red Cell Distribution Width 12.5 % (11.0-16.0); White Blood Count 7.7 X10*3/uL (4.8-10.8)
[2024-05-15 11:54] LABS: IDNOW Serial# 58CA691E; Strep A Nucleic Acid Negative (Negative)
[2024-05-15 12:18] LABS: Alanine Aminotransferase 18 U/L (0-31); Albumin Level 4.1 g/dL (3.5-5.0); Alkaline Phosphatase 77 U/L (39-117); Anion Gap 11 (12-20); Aspartate Amino Transferase 23 U/L (5-31); Bilirubin Total 0.9 mg/dL (0.0-1.0); Blood Urea Nitrogen 14 mg/dL (9-16); Carbon Dioxide 26 mmol/L (22-29); Chloride 106 mmol/L (96-108); Creatinine Clr Calc Pharmacy 79.6; Estimated Glomerular Filt Rate > 60; Glucose Random 81 mg/dL (60-115); Lipase 22 U/L (8-78); Potassium 3.6 mmol/L (3.3-5.1); Sodium 139 mmol/L (135-145); Total Protein 7.2 g/dL (6.5-8.0)
[2024-05-15] MEDS: iohexoL 350 MG/ML 100 ML INFUS..BTL IV (12:50)
[2024-05-15 12:51] LABS: Influenza A PCR NEGATIVE (Negative); Influenza B PCR NEGATIVE (Negative); Resp Syncy Virus RNA Qual PCR NEGATIVE (Negative); SARS COV2 PCR INHOUSE NEGATIVE (Negative)
[2024-05-15 12:52] VITALS: BP 100/46; PULSE 59; RESP 13; TEMP 37.1; O2SAT 98
[2024-05-15] MEDS: Erythromycin Base 0.5% Oph Oin 1 GM TUBE 1 CM EYE-BOTH (13:05)
[2024-05-15 13:08] LABS: Appearance Urine Clear; Color Urine Yellow; Glucose Urine UA Negative (Negative); Leukocyte Esterase Urine Trace (Negative); Nitrite Urine Negative (Negative); PH 5.5 (5.0-9.0); Specific Gravity - Urine 1.025 (1.005-1.025); UMIC TRIGGER UACC YES; Urine Blood Small (1+) (Negative); Urine Ketones Trace mg/dL (Negative); Urine Protein Negative (Neg-Trace)
[2024-05-15 13:12] LABS: UPreg QC Valid YES; Urine Pregnancy NEGATIVE (NEGATIVE)
[2024-05-15 13:13] LABS: Bacteria Urine None Seen (None Seen); Hyaline Casts Urine 0-2 /LPF (0-2); WBC Urine 0-5 /HPF (0-5)
[2024-05-15] MEDS: Ketorolac Tromethamine 15 MG/ML VIAL IVPUSH (13:30)
[2024-05-15 13:40] LABS: Monotest Negative (Negative)
[2024-05-15 15:19] VITALS: BP 104/42; PULSE 60; RESP 14; TEMP 36.9; O2SAT 98
== END 2024-05-15 15:20 | disposition home or self-care (01) ==
PROVIDERS: Physician Assistant; Emergency Provider Emergency Medicine; PCP Internal Medicine
DX: B34.9 Viral infection, unspecified (principal); R10.2 Pelvic and perineal pain; H10.89 Other conjunctivitis; R50.9 Fever, unspecified; R05.9 Cough, unspecified; R11.2 Nausea with vomiting, unspecified; Z03.818 Encounter for observation for suspected exposure to other biological agents ruled out; Z79.899 Other long term (current) drug therapy
CPT/HCPCS: 0241U; 36415; 71045; 74177; 80053; 81001; 81003; 81025; 83690; 85025; 86308; 87651; 96374; 99284; J1885; Q9967

== ENCOUNTER 2024-05-28 10:59 | Outpatient (AMB) | payer OTHER, SELFPAY ==
[2024-05-28 11:15] VITALS: BP 100/72; PULSE 70; O2SAT 96; BMI 29.0
--- NOTE | 2024-05-28 11:15 | A.OFFPC_ITS ---
Vital Signs 05/28/24 11:15 Height 5 ft 1 in Weight 153 lb 6 oz BMI 29.0 BP 100/72 Blood Pressure Location Lt brachial Position Sitting Pulse 70 Pulse Source Pulse Oximeter Pulse Oximetry (%) 96 Oxygen Delivery Method Room Air Int[place] [facility] [place] side neck and head pain Hand Filer Balance Wheel Required: No Accompanied by: Self / Same As Patient Allergies Penicillins [PENICILLINS] Allergy (Severe, Verified 05/28/24 11:16) ANAPHYLAXIS Sulfa (Sulfonamide Antibiotics) Allergy (Severe, Verified 05/28/24 11:16) Angioedema Medication List - Last Reconciled 05/28/24 by Marycruz Pinto PA-C albuterol sulfate 90 mcg/actuation 2 puffs inhalation Q4-6H PRN cetirizine (Zyrtec) 10 mg PO DAILY PRN cholecalciferol (vitamin D3) 25 mcg PO DAILY clonazepam 1 mg PO BID clotrimazole 1% 1 appl topical BID cyclobenzaprine 10 mg PO TID PRN diclofenac sodium 1% (Arthritis Pain (diclofenac)) 4 grams topical QID erythromycin 1 appl ophthalmic (eye) TID 5 days hydrocortisone 2.5% (Proctosol HC) 1 appl [place] BID-QID PRN inulin 2 grams PO DAILY ketorolac 10 mg PO TID PRN 5 days lidocaine 5% 1 patch topical DAILY loperamide 2 mg PO Q6H PRN ondansetron 4 mg PO Q6H PRN sennosides-docusate sodium 8.6-50 mg (Senna Plus) 2 tab-caps (2 x 8.6-50 mg) PO BEDTIME sertraline 100 mg PO DAILY triamcinolone acetonide 0.1% 1 appl topical BID 7 days vitamin A palmitate 10,000 units PO DAILY zolpidem 10 mg PO BEDTIME PRN Tobacco use date assessed: 05/28/24 Dental Screening Dental Screen Date: 05/28/24 Did you have a dental visit in the last 12 months?: Yes Did you have a dental problem in the last 6 months where you did not have access to dental care?: No Was dental information given to patient?: Patient has dentist [place] [facility] [place] side neck and head pain HPI Details 53-year-old overweight female with past medical history of laparoscopic sleeve gastrectomy, recurrent major depression, GERD, hypercholesterolemia at last seen 01/2024 coming in for hospital discharge follow up. In review of the notes, patient was seen [place] [facility] [place]24 for nausea, diarrhea and abdominal pain CT negative for acute issue did find supraumbilical midline ventral wall hernia and umbilical hernia as well as a hepatic mass unchanged from prior studies. Patient diagnosed with bilateral conjunctivitis advised to follow up with PCP. He tells us the day her belly pain has improved and is no longer having fevers, nausea, vomiting or diarrhea. Or conjunctivitis has resolved with ointment. She is mentioned over the last 2 weeks she started having bilateral shoulder pain that progressed into neck pain and stiffness. Pain with active range of motion and uses lidocaine patches and heating pads for pain. Denies any inciting event [facility] Medical History (Updated 05/28/24 @ 12:16 by Marycruz Pinto PA-C) Liver masses Obesity (BMI 30-39.9) Family history of arrhythmia Left knee pain Constipation Hiatal hernia Osteoarthritis Anxiety and depression Palpitations GERD (gastroesophageal reflux disease) History of COVID-19 Recurrent UTI Acute diverticulitis Osteoarthritis of left knee Helicobacter pylori gastritis Trapezius muscle spasm Stress incontinence Neck pain Post covid-19 condition, unspecified Loss of hearing Vision changes Hematuria Tubular adenoma Migraine Low back pain Surgical History H/O gastric sleeve History of tonsillectomy History of esophagogastroduodenoscopy (EGD) H/O colonoscopy History of section H/O tubal ligation History of cholecystectomy Family History Father CVD (cardiovascular disease) Diabetes History of open heart surgery Mother Alive and well CVD (cardiovascular disease) Diabetes Thyroid condition Maternal Aunt Colon cancer Son Mental health disorder Maternal Grandmother Colon cancer Social History Household Members: Spouse Housing: House Are you a primary childcare aide to a significant other at home: No Do you presently have visiting nurse or other home services: No Alcohol intake: current Alcohol intake frequency: holidays/special occasions only Patient Tobacco Use Status: Never used Tobacco e-Cigarette/Vaping Use: Never Used Second Hand Smoke Exposure: No service: No Current occupational status: unemployed Current occupation: right hand dominant Cognitive needs: No Hearing needs: No Vision needs: No Female Reproductive History Menstrual Age of Menarche: 14 Questionnaire PHQ-9 Over the last 2 weeks, how often have you been bothered by any of the following problems? 1. Little interest or pleasure in doing things: not at all 2. Feeling down, depressed, or hopeless: several days (currently on medication and in treatment) 3. Trouble falling or staying asleep, or sleeping too much: not at all 4. Feeling tired or having little energy: not at all 5. Poor appetite or overeating: not at all 6. Feeling bad about yourself - or that you are a failure or have let yourself or your family down: not at all 7. Trouble concentrating on things, such as reading the newspaper or watching television: not at all 8. Moving or speaking so slowly that other people could have noticed. Or the opposite - being so fidgety or restless that you have been moving around a lot more than usual: not at all 9. Thoughts that you would be better off or of hurting yourself in some way: not at all Total score: 1 Depression Screening Interpretation: Negative Depression Screening Done: Yes Source: Developed by Drs. Chris Brown, Sherry Champagne, Juan Alberto Lee and colleagues, with an educational duyen from [employer]. Thrive Questionnaire Date Thrive assessed: 05/28/24 I am a: Patient What is your living situation today?: I have a steady place to live Within the past 12 months, did the food you bought not last and you didn't have the money to get more?: Never true Within the past 12 months, did you worry whether your food would run out before you got money to buy more?: Never true Do you have trouble paying for medicines?: No Do you have trouble getting transportation to medical appointments?: No Do you have trouble paying your heating and electricity bill?: No Do you have trouble taking care of your child, family member or friend?: No Do you have trouble with day-to-day activities such as bathing, preparing meals, shopping, managing finances, etc.?: No Are you currently unemployed and looking for a job?: No Are you interested in more education?: No Please select the resources that you would like help with: None Currently or been in a relationship where the following occur: No concerns reported THRIVE Score: 0 AUDIT C Alcohol Use Questionnaire (AUDIT-C) 1. How often do you have a drink containing alcohol?: Never Total Score: 0 NATHAN-7 AMB Questionnaire NATHAN-7 Date NATHAN - 7 assessed: 05/28/24 Feeling nervous, anxious, or on edge: 0 = Not at all Not being able to stop or control worryin = Not at all Worrying too much about different things: 0 = Not at all Trouble relaxin = Not at all Being so restless that it is hard to sit still: 0 = Not at all Becoming easily annoyed or irritable: 0 = Not at all Feeling afraid as if something awful might happen: 0 = Not at all Total NATHAN-7 score (0-4 normal; 5-9 mild; 10-14 moderate; 15-21 severe): 0 Source: Developed by Drs. Chris Brown, Sherry Champagne, Juan Alberto Lee and colleagues, with an educational duyen from [employer]. Review of Systems Const Denies body aches, Denies chills, Denies fever(s) and Denies poor appetite Eyes Reports no additional complaints Card Denies chest pain, Denies syncope, Denies edema, Denies irregular heart rhythm, Denies lightheadedness and Denies dyspnea Resp Denies cough and Denies dyspnea GI Denies abdominal pain, Denies constipation, Denies diarrhea, Denies nausea and Denies vomiting Reports no additional complaints Musc Reports no additional complaints and Denies abnormal gait Skin/Breast Reports system reviewed and no additional complaints, except as documented Neuro Denies abnormal gait and Denies syncope Psych Reports no additional complaints Physical exam (Primary Care) Vital Signs: Last Vital Signs Pulse 70 05/28/24 11:15 BP 100/72 05/28/24 11:15 Pulse Ox 96 05/28/24 11:15 Oxygen Delivery Method Room Air 05/28/24 11:15 BMI result Body Mass Index 29.0 Tobacco/Smoking Status: Tobacco use Status Tobacco use date assessed 05/28/24 05/28/24 11:20 Patient Tobacco Use Status Never used Tobacco 05/28/24 11:20 e-Cigarette/Vaping Use Never Used 05/28/24 11:20 PHQ-9: PHQ-9 Score PHQ-9: Total score 1 05/28/24 11:20 Depression Screening Interpretation: Negative Thrive Assessment: Date of Thrive Assessment Date Thrive assessed 05/28/24 05/28/24 11:20 Currently or been in a relationship where the following occur: No concerns reported Const General: cooperative, healthy appearing, comfortable and no acute distress Orientation/consciousness: patient oriented x3 HENMT Head: Yes normocephalic Ears: hearing grossly normal bilaterally General nose exam: Normal external nose present Eyes General: appearance normal, both eyes and all related structures Conjunctivae: conjunctivae normal Neck Other: Pain to palpation over upper section of trapezius bilaterally and pain with active range of motion with rotation, extension and flexion Neck: Yes full ROM and Yes no lymphadenopathy Resp Effort & Inspection: normal respiratory effort Auscultation: clear to auscultation bilaterally, no crackles, no rales, no rhonchi and no wheezes Cardio Rate: regular rate Rhythm: regular rhythm GI Palpation (GI): Soft to palpation, not firm, nontender, no guarding and not rigid Skin General skin exam: no rashes or lesions noted Neuro General: patient oriented x3 Gait exam (Neuro): Normal gait present Extrem General: Yes normal to inspection, Yes full ROM and No edema Psych Affect: normal affect Attitude: cooperative Insight: Good insight present (Psych) Judgement: Good judgement present (Psych) Coding Level of Care Code Est Pt Level 4 (64910) Diagnoses Obesity E66.9 Abdominal pain R10.13 Abdominal location: epigastric Conjunctivitis H10.9 Neck strain S16.1XXA Liver masses R16.0 Assessment & Plan Assessment & Plan (1) Obesity: Code(s): E66.9 - Obesity, unspecified Category: Medical Plan: Healthy diet and regular exercise is encouraged. (2) Abdominal pain: Code(s): R10.9 - Unspecified abdominal pain Category: Medical Qualifiers: Abdominal location: epigastric Qualified Code(s): R10.13 - Epigastric pain Plan: Resolved at this time continue to monitor. (3) Conjunctivitis: Code(s): H10.9 - Unspecified conjunctivitis Category: Medical Plan: Resolved at this time no evidence of conjunctivitis on exam and no drainage. Continue to monitor symptoms (4) Neck strain: Code(s): S16.1XXA - Strain of muscle, fascia and tendon at neck level, initial encounter Category: Medical Plan: Patient complaining of neck pain on exam history most consistent neck strain in the setting of osteoarthritis in the cervical spine. Advised to use muscle relaxer, heating pad and lidocaine patches as needed and encouraged gentle stretching. Follow up as needed for this concern (5) Liver masses: Code(s): R16.0 - Hepatomegaly, not elsewhere classified Category: Medical Plan: Liver masses appreciated on most recent abdominal CT as unchanged since 2020. LFTs are normal. Radiology not recommending any additional imaging continue to monitor. Plan This note was constructed using voice recognition software. While every effort has been made to ensure accuracy and plaque maker, still areas may have been included sometimes these areas may affect the content or meeting of the given symptoms. Total time spent caring for the patient today was ___ minutes. This includes time spent before the visit reviewing the chart, time spent during the visit, and time spent after the visit and documentation. Medications: Changed From cyclobenzaprine 10 mg PO TID PRN 10 tabs 0RF muscle spasm To cyclobenzaprine 10 mg PO BID PRN 20 tabs 0RF muscle spasm
--- OUTSIDE RECORDS SUMMARY | 2024-05-28 12:23 | XMS_ITS | Continuity of Care Document ---
Author Organization [facility] Address [address] [place] [address] Phone Care Team Providers Care [place] Carver Name Role Phone No Information Unavailable Unavailable Advance Directives Directive Yes / No Effective Date File Name No Information Encounters Encounter Description Practice Location Reason(s) For Visit Diagnoses Date Provider Providers Copied on Encounter Medical Clinic [facility], [address], [place], [place], [id number], [place] tel:[phone] No Information No Information Family History Family Member Type Diagnosis Age At Onset No Information Payers Payer name Insurance type Covered green party ID Authoriza tion(s) No Information Social [...]
== END 2024-05-28 12:00 | disposition home or self-care (01) ==
PROVIDERS: PCP Internal Medicine
DX: R10.13 Epigastric pain (principal); E66.9 Obesity, unspecified; Z68.29 Body mass index [BMI] 29.0-29.9, adult; H10.9 Unspecified conjunctivitis; S16.1XXA Strain of muscle, fascia and tendon at neck level, initial encounter; R16.0 Hepatomegaly, not elsewhere classified

== ENCOUNTER → 2024-05-28 10:59 | Outpatient (BNVA) | payer OTHER, SELFPAY | PROVIDERS: PCP Internal Medicine | DX: K21.9 Gastro-esophageal reflux disease without esophagitis (principal); E78.00 Pure hypercholesterolemia, unspecified; E66.9 Obesity, unspecified; R10.13 Epigastric pain; H10.9 Unspecified conjunctivitis; R16.0 Hepatomegaly, not elsewhere classified; S16.1XXA Strain of muscle, fascia and tendon at neck level, initial encounter; X58.XXXA Exposure to other specified factors, initial encounter; Y93.9 Activity, unspecified; Y92.9 Unspecified place or not applicable; Y99.9 Unspecified external cause status | CPT/HCPCS: 96127; 99212 ==

== ENCOUNTER 2024-06-04 08:21 | Outpatient (REF) | payer OTHER, SELFPAY ==
--- OUTSIDE RECORDS SUMMARY | 2024-06-04 08:33 | XMS_ITS | Continuity of Care Document ---
Author Organization [facility] Address [address] [place] [address] Phone Care Team Providers Care Concrete Inspector Name Role Phone No Information Unavailable Unavailable Advance Directives Directive Yes / No Effective Date File Name No Information Encounters Encounter Description Practice Location Reason(s) For Visit Diagnoses Date Provider Providers Copied on Encounter Medical Clinic [facility], [address], [place], [place], [id number], [place] tel:[phone] No Information No Information Family History Family Member Type Diagnosis Age At Onset No Information Payers Payer name Insurance type Covered libertarian ID Authoriza tion(s) No Information Social History [...]
[2024-06-04 08:48] LABS: MANUAL DIFF FLAG NO
[2024-06-04 08:50] LABS: Basophils Percent Auto 0.7 % (0-2); Eosinophils Absolute Auto 0.2 X10*3/uL (0.0-0.4); Eosinophils Percent Auto 4.3 % (0-4); Hematocrit 38.1 % (37.0-47.0); Imm Gran Abs Auto 0.01 X10*3/uL (0.00-0.03); Imm Gran Pct Auto 0.2 % (0.0-0.4); Lymphocytes Absolute Auto 1.4 X10*3/uL (1.2-4.9); Lymphocytes Percent Auto 31.7 % (20-40); Mean Corpuscular HGB Conc 34.1 g/dl (31.0-35.0); Mean Corpuscular Hemoglobin 30.6 pg (27.0-33.0); Mean Corpuscular Volume 89.6 fL (80.0-98.0); Monocytes Absolute Auto 0.3 X10*3/uL (0.1-1.2); Monocytes Percent Auto 6.3 % (2-11); Neutrophils Absolute Auto 2.5 x10*3/uL (2.0-8.3); Neutrophils Percent Auto 56.8 % (45-73); Platelet Count 301 X10*3/uL (160-400); Red Blood Count 4.25 X10*6/uL (4.20-5.50); Red Cell Distribution Width 12.6 % (11.0-16.0); White Blood Count 4.5 X10*3/uL (4.8-10.8)
[2024-06-04 09:20] LABS: Estimated Average Glucose 103 mg/dL; Hemoglobin A1C 110.0458 umol/L; Hemoglobin A1c % 5.2 % (<6.0); Total Hemoglobin (HGBA1C) 3290.0123 umol/L
[2024-06-04 09:29] LABS: Appearance Urine Cloudy; Color Urine Yellow; Glucose Urine UA Negative (Negative); Leukocyte Esterase Urine Moderate (2+) (Negative); Nitrite Urine Negative (Negative); PH 5.5 (5.0-9.0); UMIC TRIGGER UACC YES; Urine Blood Small (1+) (Negative); Urine Ketones Negative (Negative); Urine Protein Trace mg/dL (Neg-Trace)
[2024-06-04 09:32] LABS: Bacteria Urine 4+ (None Seen); Hyaline Casts Urine 0-2 /LPF (0-2); UACC Culture Trigger YES; WBC Urine >50 /HPF (0-5)
[2024-06-04 09:40] LABS: Free T4 (Free Thyroxine) 1.09 ng/dL (0.71-1.85)
[2024-06-04 09:53] LABS: Folate 7.2 ng/mL (> or = 4.0); Vitamin B12 810 pg/mL (200-900)
[2024-06-04 11:53] LABS: Alanine Aminotransferase 17 U/L (0-31); Alkaline Phosphatase 71 U/L (39-117); Anion Gap 8 (12-20); Aspartate Amino Transferase 21 U/L (5-31); Bilirubin Direct 0.2 mg/dL (0.0-0.5); Bilirubin Total 0.6 mg/dL (0.0-1.0); Blood Urea Nitrogen 10 mg/dL (9-16); C Reactive Protein 3.78 mg/dL (< or = 0.50); Calcium 9.1 mg/dL (8.4-10.2); Carbon Dioxide 26 mmol/L (22-29); Chloride 110 mmol/L (96-108); Cholesterol 201 mg/dL (<200); Estimated Glomerular Filt Rate > 60; Glucose Random 86 mg/dL (60-115); HDL Cholesterol 67 mg/dL (>40); Iron 115 mcg/dL (30-160); LDL Cholesterol Calculated 124 mg/dL (<100); Percent Iron Saturation 47 % (15-50); Potassium 4.1 mmol/L (3.3-5.1); Sodium 140 mmol/L (135-145); Total Iron Binding Capacity 246 mcg/dL (228-428); Total Protein 6.8 g/dL (6.5-8.0); Triglycerides 54 mg/dL (<150); Unsaturated Iron Binding 131 ug/dL
[2024-06-04 12:20] LABS: Ferritin 154 ng/mL (10-250); TSH reflex Free T4 1.04 uIU/mL (0.32-4.0); Thyroid Stimulating Hormone 1.04 uIU/mL (0.32-4.0); Vitamin D 25-OH Total 32.3 ng/mL (>30)
[2024-06-04 12:41] LABS: Insulin 4 uU/mL (2-29)
[2024-06-07 12:59] LABS: Zinc 61 mcg/dL (60-130)
[2024-06-08 10:43] LABS: Vitamin A 31 mcg/dL (38-98)
[2024-06-10 13:43] LABS: Vitamin B1 9 nmol/L (8-30)
== END 2024-06-04 08:22 | disposition home or self-care (01) ==
LOC: HO.LAB 08:21
PROVIDERS: Physician Assistant Surgical; PCP Internal Medicine; Visit Provider Internal Medicine
DX: Z98.84 Bariatric surgery status (principal); E78.00 Pure hypercholesterolemia, unspecified; R79.89 Other specified abnormal findings of blood chemistry; N32.81 Overactive bladder; N39.46 Mixed incontinence; R82.79 Other abnormal findings on microbiological examination of urine
CPT/HCPCS: 36415; 80053; 80061; 81001; 82248; 82306; 82607; 82728; 82746; 83036; 83525; 83540; 84425; 84439; 84443; 84590; 84630; 85025; 86140; 87086; 87088; 87186

== ENCOUNTER 2024-06-06 12:33 | Outpatient (AMB) | payer OTHER, SELFPAY ==
--- NOTE | 2024-06-06 12:37 | MHC.PC.OV ---
Vital Signs 06/06/24 12:39 Height 5 ft 1 in Weight 154 lb 6 oz BMI 29.2 BP 106/66 Blood Pressure Location Lt brachial Position Sitting Pulse 65 Pulse Source Pulse Oximeter Temp 97.1 F Temp Source Skin Pulse Oximetry (%) 99 Oxygen Delivery Method Room Air Intake Visit Reasons: hypercholesterol , overweight Intake Note: Patient is here to follow up on Hypercholesterol, Overweight. Emissions Inspector Required: No Project Control Officer: Not Required per policy Accompanied by: Self / Same As Patient Allergies Penicillins [PENICILLINS] Allergy (Severe, Verified 06/06/24 12:39) ANAPHYLAXIS Sulfa (Sulfonamide Antibiotics) Allergy (Severe, Verified 06/06/24 12:39) Angioedema Tobacco use date assessed: 06/06/24 Dental Screening Dental Screen Date: 05/28/24 HPI hypercholesterol , overweight HPI Details The patient is a 53-year-old female presenting for ongoing management and discussion of multiple chronic conditions. She reports a history of liver cysts discovered on a CT scan, with no significant changes between scans performed in 2021 and 2022, leading to a decision to observe and not intervene given the absence of associated symptoms. The patient reports a resolved episode of abdominal pain without recurrence and states she is not currently experiencing symptoms that would necessitate intervention for liver cysts. Additionally, the patient reports ongoing challenges related to menopause, including hot flashes and difficulty with weight management. She notes increased severity of these symptoms likely due to the menopausal transition affecting her weight loss efforts ahead of anticipated skin removal surgery. Constipation is also reported, with a history of using Senna with previous efficacy but now inadequate relief. The patient has experienced arthritis-related knee pain, exacerbated by cold weather, with ongoing use of Voltaren gel for symptom management. Furthermore, the patient has been addressing symptoms of pruritus, without successful referral to dermatology until present. Anxiety and insomnia are managed with clonazepam and sertraline as needed, with the patient reporting satisfactory results but requiring continuous support through counseling and Ambien for sleep. The patient remains vigilant about viral infections and has received flu, shingles, and RSV vaccinations but expresses concerns related to experiencing significant symptoms including conjunctivitis and diarrhea during April's illness. [facility] Medical History (Updated 06/06/24 @ 13:02 by April Santillan MD) Liver masses Obesity (BMI 30-39.9) Family history of arrhythmia Left knee pain Constipation Hiatal hernia Osteoarthritis Anxiety and depression Palpitations GERD (gastroesophageal reflux disease) History of COVID-19 Recurrent UTI Acute diverticulitis Osteoarthritis of left knee Helicobacter pylori gastritis Trapezius muscle spasm Stress incontinence Neck pain Post covid-19 condition, unspecified Loss of hearing Vision changes Hematuria Tubular adenoma Migraine Low back pain Surgical History H/O gastric sleeve History of tonsillectomy History of esophagogastroduodenoscopy (EGD) H/O colonoscopy History of section H/O tubal ligation History of cholecystectomy Family History Father CVD (cardiovascular disease) Diabetes History of open heart surgery Mother Alive and well CVD (cardiovascular disease) Diabetes Thyroid condition Maternal Aunt Colon cancer Son Mental health disorder Maternal Grandmother Colon cancer Social History Household Members: Spouse Housing: House Are you a primary disabilities caregiver to a significant other at home: No Do you presently have visiting nurse or other home services: No Alcohol intake: current Alcohol intake frequency: holidays/special occasions only Patient Tobacco Use Status: Never used Tobacco e-Cigarette/Vaping Use: Never Used Second Hand Smoke Exposure: No service: No Current occupational status: unemployed Current occupation: right hand dominant Cognitive needs: No Hearing needs: No Vision needs: No Female Reproductive History Menstrual Age of Menarche: 14 Questionnaire Thrive Questionnaire Date Thrive assessed: 05/28/24 AUDIT C Alcohol Use Questionnaire (AUDIT-C) 3. How often do you have six or more drinks on one occasion?: Never Total Score: 0 NATHAN-7 AMB Questionnaire NATHAN-7 Date NATHAN - 7 assessed: 05/28/24 Source: Developed by Drs. Chris Brown, Sherry Champagne, Juan lAberto Lee and colleagues, with an educational duyen from [employer]. Physical exam (Primary Care) Vital Signs: Last Vital Signs Temp 97.1 F 06/06/24 12:39 Pulse 65 06/06/24 12:39 BP 106/66 06/06/24 12:39 Pulse Ox 99 06/06/24 12:39 Oxygen Delivery Method Room Air 06/06/24 12:39 BMI result Body Mass Index 29.2 Tobacco/Smoking Status: Tobacco use Status Tobacco use date assessed 06/06/24 06/06/24 12:47 Patient Tobacco Use Status Never used Tobacco 06/06/24 12:47 e-Cigarette/Vaping Use Never Used 06/06/24 12:47 Thrive Assessment: Date of Thrive Assessment Date Thrive assessed 05/28/24 06/06/24 12:47 Const General: alert; No acute distress Eyes Conjunctivae: conjunctivae normal Resp Auscultation: clear to auscultation bilaterally Cardio Rate: regular rate Rhythm: regular rhythm GI Inspection: Yes normal to inspection Extrem General: Yes normal to inspection and No edema Coding Level of Care Code Est Pt Level 4 (54410) Complex EM visit Add On G2211 Diagnoses Liver cyst K76.89 Overweight (BMI 25.0-29.9) E66.3 S/P laparoscopic sleeve gastrectomy Z98.84 Major depressive disorder, recurrent, moderate F33.1 Generalized anxiety disorder F41.1 Gastroesophageal reflux disease without esophagitis K21.9 Esophagitis presence: without esophagitis Hypercholesteremia E78.00 Constipation K59.00 Urticaria L50.9 Assessment & Plan Assessment & Plan (1) Liver cyst: Code(s): K76.89 - Other specified diseases of liver Category: Medical Plan: reassurance (2) Overweight (BMI 25.0-29.9): Code(s): E66.3 - Overweight Category: Medical Plan: keep active (3) S/P laparoscopic sleeve gastrectomy: Comment: 07/27/2022 Dr. Rizzo Code(s): Z98.84 - Bariatric surgery status Category: Surgical (4) Major depressive disorder, recurrent, moderate: Comment: [facility] Code(s): F33.1 - Major depressive disorder, recurrent, moderate Category: Medical (5) Generalized anxiety disorder: Comment: [facility] Code(s): F41.1 - Generalized anxiety disorder Category: Medical Plan: continue with clonazepam and sertraline. (6) GERD (gastroesophageal reflux disease): Code(s): K21.9 - Gastro-esophageal reflux disease without esophagitis Category: Medical Qualifiers: Esophagitis presence: without esophagitis Qualified Code(s): K21.9 - Gastro-esophageal reflux disease without esophagitis (7) Hypercholesteremia: Code(s): E78.00 - Pure hypercholesterolemia, unspecified Category: Medical (8) Constipation: Code(s): K59.00 - Constipation, unspecified Category: Medical (9) Urticaria: Comment: neck area, arm thigh Code(s): L50.9 - Urticaria, unspecified Category: Medical Plan - Liver cysts will continue to be monitored with no intervention as there are no symptoms and stable imaging findings. - Emphasize the importance of hydration and consider dietary adjustments to assist with menopause symptoms and weight management challenges. - Continue current menopausal symptom management and consider additional interventions if symptoms persist. - For constipation, initiate Miralax and escalate to Lactulose if inadequate relief is observed. - Maintain use of Voltaren gel for osteoarthritis as tolerated, and consider alternative therapies if symptoms escalate. - Follow up with dermatology for further evaluation and management of pruritus. - Continue current anxiety and sleep disorder management regimen with clonazepam, sertraline, and Ambien, and encourage ongoing counseling. - Encourage preventative health measures against flu, RSV, and other viral infections, emphasizing hygiene practices. - Plan follow-up assessments at upcoming scheduled physical examinations or sooner if symptoms evolve. Orders: Referrals Dermatology Referral L50.9 - Urticaria, unspecified Medications: New polyethylene glycol 3350 (Miralax) 17 grams PO DAILY 100 ea 0RF K59.00 - Constipation, unspecified
[2024-06-06 12:39] VITALS: BP 106/66; PULSE 65; TEMP 36.2; O2SAT 99; BMI 29.2
== END 2024-06-06 13:16 | disposition home or self-care (01) ==
PROVIDERS: PCP Internal Medicine; Visit Provider Internal Medicine
DX: K76.89 Other specified diseases of liver (principal); E66.3 Overweight; Z98.84 Bariatric surgery status; F33.1 Major depressive disorder, recurrent, moderate; F41.1 Generalized anxiety disorder; K21.9 Gastro-esophageal reflux disease without esophagitis; E78.00 Pure hypercholesterolemia, unspecified; K59.00 Constipation, unspecified; L50.9 Urticaria, unspecified

== ENCOUNTER → 2024-06-06 12:33 | Outpatient (BNVA) | payer OTHER, SELFPAY | PROVIDERS: PCP Internal Medicine; Visit Provider Internal Medicine | DX: K76.89 Other specified diseases of liver (principal); E66.3 Overweight; F33.1 Major depressive disorder, recurrent, moderate; F41.1 Generalized anxiety disorder; K21.9 Gastro-esophageal reflux disease without esophagitis; E78.00 Pure hypercholesterolemia, unspecified; K59.00 Constipation, unspecified; L50.9 Urticaria, unspecified; Z98.84 Bariatric surgery status | CPT/HCPCS: 99212 ==

== ENCOUNTER 2024-07-25 12:30 | Outpatient (AMB) | payer OTHER, SELFPAY ==
--- NOTE | 2024-07-25 12:36 | MHC.OFFVISWM ---
VS Expanded 07/25/24 12:40 BP 111/54 L Blood Pressure Location Rt brachial Blood Pressure Position Sitting Pulse 74 Pulse Source Pulse Oximeter Pulse Oximetry 99 Intake Visit Reasons: (OV) PO LSG 07/27/22 Allergies Penicillins [PENICILLINS] Allergy (Severe, Verified 07/25/24 12:38) ANAPHYLAXIS Sulfa (Sulfonamide Antibiotics) Allergy (Severe, Verified 07/25/24 12:38) Angioedema Medication List - Last Reconciled 07/25/24 by NIRANJAN Urbina albuterol sulfate 90 mcg/actuation 2 puffs inhalation Q4-6H PRN cetirizine (Zyrtec) 10 mg PO DAILY PRN cholecalciferol (vitamin D3) (Vitamin D3) 25 mcg PO DAILY clonazepam 1 mg PO BID clotrimazole 1% 1 appl topical BID cyclobenzaprine 10 mg PO BID PRN diclofenac sodium 1% (Arthritis Pain (diclofenac)) 4 grams topical QID erythromycin 1 appl ophthalmic (eye) TID 5 days hydrocortisone 2.5% (Proctosol HC) 1 appl [place] BID-QID PRN inulin 2 grams PO DAILY ketorolac 10 mg PO TID PRN 5 days lidocaine 5% 1 patch topical DAILY loperamide 2 mg PO Q6H PRN ondansetron 4 mg PO Q6H PRN polyethylene glycol 3350 (Miralax) 17 grams PO DAILY PRN sennosides-docusate sodium 8.6-50 mg (Senexon-S) tabs PO sennosides-docusate sodium 8.6-50 mg (Senna Plus) 2 tab-caps (2 x 8.6-50 mg) PO BEDTIME sertraline 100 mg PO DAILY vitamin A 1 cap PO DAILY zolpidem 10 mg PO BEDTIME PRN HPI Comments Details: This is a 53 yo female who is s/p LSG 07/27/2022. Presents for 2 year post op visit. Weight at last visit on 03/25/2024 was 158.8 pounds with a BMI of 30, weight today is 150.6 pounds, representing an 8.2 pound weight loss with a BMI today of 28.5. No complaints of nausea, emesis, abdominal pain or reflux, or constipation. Pt continues to care for her mom who moved here from [place], has dementia/Alzheimer's. Present meal plan includes: 1 egg 1 Atkins bar 1 yogurt or CC meal of 4 f/4/f 1 shake with 1 scoop or 2 shakes with half scoop Pt may have fruit or veg as well if hungry. Exercise- walks on machine at home 20-40min, does weight training has arthritis in her elbows, has a lot of knee pain also, getting injections, has to use a brace on left knee Pt reports issues of excess skin of abdomen and upper thighs. Regarding abdomen, has to put towels in between skin folds of abdomen and where abdomen meets thighs, due to skin cracking which causes a lot of pain. Experiences a burning itchy sensation. She has noticed increased moisture in skin folds, which produces an unpleasant odor and she has to wash and clean frequently. This is worse with weather getting warmer. She has tried clotrimazole ointment but this has not completely resolved the issue. Regarding upper thighs, reports she notices a lot of friction between upper thighs and has to constantly wear long shorts under dresses to prevent chafing. She has tried compressive pants to try to hold the skin in place, but the material/elastic often digs into her skin at her ankles and has caused bleeding in the past. Has tried clotrimazole ointment here as well but this has not helped. Walking has become more difficult and painful due to friction. She also notes today [facility] Medical History (Updated 06/06/24 @ 13:02 by April Santillan MD) Liver masses Obesity (BMI 30-39.9) Family history of arrhythmia Left knee pain Constipation Hiatal hernia Osteoarthritis Anxiety and depression Palpitations GERD (gastroesophageal reflux disease) History of COVID-19 Recurrent UTI Acute diverticulitis Osteoarthritis of left knee Helicobacter pylori gastritis Trapezius muscle spasm Stress incontinence Neck pain Post covid-19 condition, unspecified Loss of hearing Vision changes Hematuria Tubular adenoma Migraine Low back pain Surgical History H/O gastric sleeve History of tonsillectomy History of esophagogastroduodenoscopy (EGD) H/O colonoscopy History of section H/O tubal ligation History of cholecystectomy Family History Father CVD (cardiovascular disease) Diabetes History of open heart surgery Mother Alive and well CVD (cardiovascular disease) Diabetes Thyroid condition Maternal Aunt Colon cancer Son Mental health disorder Maternal Grandmother Colon cancer Social History Household Members: Spouse Housing: House Are you a primary palliative care specialist to a significant other at home: No Do you presently have visiting nurse or other home services: No Alcohol intake: current Alcohol intake frequency: holidays/special occasions only Patient Tobacco Use Status: Never used Tobacco e-Cigarette/Vaping Use: Never Used Second Hand Smoke Exposure: No service: No Current occupational status: unemployed Current occupation: right hand dominant Cognitive needs: No Hearing needs: No Vision needs: No Female Reproductive History Menstrual Age of Menarche: 14 Assessment & Plan Assessment & Plan (1) Overweight (BMI 25.0-29.9): Code(s): E66.3 - Overweight Category: Medical (2) S/P laparoscopic sleeve gastrectomy: Comment: 07/27/2022 Dr. Rizzo Code(s): Z98.84 - Bariatric surgery status Category: Surgical Plan Requests a referral for couples therapy as she feels that her partner views her differently after she has lost weight. Provided intake phone # for [facility], pt has a personal therapist here but would like to see a new provider. Provided [employer] jacqui info to help pt get to goal BMI <27. She also requests [employer] discount form, provided. Had bloodwork done recently with PCP. Pt is experiencing issues of excess skin of abdomen, resulting in frequent painful rashes and difficulty with activites of daily living. She is also experiencing issues of excess skin of upper thighs resulting in painful chafing and discomfort with walking. RTC 6-8 weeks. I spent a total of 30 minutes reviewing/updating records, examining the patient and counseling the patient on weight management as detailed above. Medications: Changed From polyethylene glycol 3350 (Miralax) 17 grams PO DAILY 100 ea 0RF K59.00 - Constipation, unspecified To polyethylene glycol 3350 (Miralax) 17 grams PO DAILY PRN K59.00 - Constipation, unspecified
--- NOTE | 2024-07-25 12:37 | MHC.OFFVISWM ---
VS Expanded 07/25/24 12:40 BP 111/54 L Blood Pressure Location Rt brachial Blood Pressure Position Sitting Pulse 74 Pulse Source Pulse Oximeter Pulse Oximetry 99 Intake Visit Reasons: (OV) PO LSG 07/27/22 Compliance Monitor Required: No Allergies Penicillins [PENICILLINS] Allergy (Severe, Verified 07/25/24 12:38) ANAPHYLAXIS Sulfa (Sulfonamide Antibiotics) Allergy (Severe, Verified 07/25/24 12:38) Angioedema PFSH Medical History (Updated 06/06/24 @ 13:02 by April Santillan MD) Liver masses Obesity (BMI 30-39.9) Family history of arrhythmia Left knee pain Constipation Hiatal hernia Osteoarthritis Anxiety and depression Palpitations GERD (gastroesophageal reflux disease) History of COVID-19 Recurrent UTI Acute diverticulitis Osteoarthritis of left knee Helicobacter pylori gastritis Trapezius muscle spasm Stress incontinence Neck pain Post covid-19 condition, unspecified Loss of hearing Vision changes Hematuria Tubular adenoma Migraine Low back pain Surgical History H/O gastric sleeve History of tonsillectomy History of esophagogastroduodenoscopy (EGD) H/O colonoscopy History of section H/O tubal ligation History of cholecystectomy Family History Father CVD (cardiovascular disease) Diabetes History of open heart surgery Mother Alive and well CVD (cardiovascular disease) Diabetes Thyroid condition Maternal Aunt Colon cancer Son Mental health disorder Maternal Grandmother Colon cancer Social History Household Members: Spouse Housing: House Are you a primary physician assistant primary care to a significant other at home: No Do you presently have visiting nurse or other home services: No Alcohol intake: current Alcohol intake frequency: holidays/special occasions only Patient Tobacco Use Status: Never used Tobacco e-Cigarette/Vaping Use: Never Used Second Hand Smoke Exposure: No service: No Current occupational status: unemployed Current occupation: right hand dominant Cognitive needs: No Hearing needs: No Vision needs: No Female Reproductive History Menstrual Age of Menarche: 14
[2024-07-25 12:40] VITALS: BP 111/54; PULSE 74; O2SAT 99
--- OUTSIDE RECORDS SUMMARY | 2024-07-25 14:59 | XMS_ITS | Continuity of Care Document ---
Author Organization [facility] Address [address] [place] [address] Phone Care Team Providers Care Developer Evangelist Name Role Phone No Information Unavailable Unavailable Advance Directives Directive Yes / No Effective Date File Name No Information Encounters Encounter Description Practice Location Reason(s) For Visit Diagnoses Date Provider Providers Copied on Encounter [facility], [address], [place], [place], [id number], [place] tel:[phone] No Information No Information Family History Family [...]
--- OUTSIDE RECORDS SUMMARY | 2024-07-25 14:59 | XMS_ITS ---
Author Organization [facility] Address [address] [place] [address] Care Team Providers Care Intelligence Support Officer Name Role Phone April Santillan MD Primary Care Provider Kirk Rolon Jr Unavailable [phone] Allergies Allergen (clinical drug ingredient) Drug/Non Drug Allergy documented on EMR Reaction Allergy Type Onset Date Status penicillin G Penicillin G Sodium Unknown Drug Allergy Active REASON FOR VISIT Patient presents today for hemorrhoids Medications Medication SIG (Take, Route, Frequency, Duration) Notes Start Date End Date Status Omeprazole 20 MG 1 capsule Orally Twi ce a day for 14 days 11/24/2021 Active Fish Oil Active Advil PRN Active Dicyclomine HCl 20 MG 1 tablet Orally 2- 4 times a day for 30 days 11/14/2018 Active Pantoprazole Sodium 40 MG 1 tablet Orall y Once a day for 30 days 08/03/2020 Active SUMAtriptan Succinate Active Xsrzfmaolo-JTEY-Gbwkbzmf PRN Active Vitamin B 12 Active Amitriptyline HCl Ac tive Probiotic Active clonazePAM . 1 tablet Orally Once a day Active Clarithromycin 500 MG 1 tablet Orally ev annika 12 hrs for 14 days 11/24/2021 Active traZODone HCl 100 MG 1 tablet at bedtime Orally Once a day for 30 day(s) Active MiraLax (colon prep) 17 GM/SCOOP mixed with Gatorade or Crystal Light Orally begin at 5:00 p.m. the day before the procedure for 1 day 08/10/2022 Active metroNIDAZOLE 500 MG 1 tablet Orally Thr ee times a day for 14 days 11/24/2021 Active Social History Tobacco Use: Social History Observation Description Date Details (start date - stop date) Never Smoker NA - NA Tobacco Use/Smoking Question Answer Notes Patient is a nonsmoker Alcohol Screen Question Answer Notes Did you have a drink contain ing alcohol in the past year? Yes How often did you have a dri nk containing alcohol in the past year? Never (0 point) How many drinks did you have on a typical day when you were drinking in the past year? 1 or 2 drinks (0 point) How often did you have 6 or more drinks on one occasion in the past year? Never (0 point) Points 0 Interpretation Negative Problems Problem Type SNOMED Code ICD Code Onset Dates Problem Status W/U Status Risk Notes Problem 95563767 Constipation, unspecified constipation type (K59.00) Active confirmed Vital Signs Temperature 97.5 degrees Fahrenheit 03/27/20 23 Blood pressure systolic 000 mm Hg 03/27/20 23 Blood pressure diastolic 00 mm Hg 023 Height 61 in 03/27/2023 Weight 162 lbs 03/27/2023 BMI 30.61 kg/m2 03/27/2023 Encounters Encounter Location Date Provider Diagnosis [facility] [address] [place] [id number] 03/27/2023 Kirk Stanton Jr Constipation, unspecified constipation type K59.00 and Hemorrhoids, unspecified hemorrhoid type K64.9 Assessments Encounter Date Diagnosis (ICD Code) Assessment Notes Treatment Notes Treatment Clinical Notes Section Notes 03/27/2023 Constipation, unspecified constipation type (ICD-10 - K59.00) Hemorrhoids material was printed We discussed constipation and treatment of hemorrhoids today. We recommended she begin using fiber supplementation. She can also use MiraLax as needed. For the hemorrhoids 1% hydrocortisone cream as recommended. She'll let us know how she's doing a couple of weeks and if she still has symptoms we will arrange surgical referral. 03/27/2023 Hemorrhoids, unspecified hemorrhoid type (ICD-10 - K64.9) We discussed constipation and treatment of hemorrhoids today. We recommended she begin using fiber supplementation. She can also use MiraLax as needed. For the hemorrhoids 1% hydrocortisone cream as recommended. She'll let us know how she's doing a couple of weeks and if she still has symptoms we will arrange surgical referral. Plan Of Treatment Treatment Notes Assessment Notes Constipation, unspecified constipation t ype Hemorrhoids material was printed Next Appt Details Follow Up: 1 Year, Reason: Progress Notes * SHAHEEN LINCOLN IDOB:[birth year] (52 yo F)Acc No.[id number]:03/27/2023 Progress Notes Patient:?SHAHEEN LINCOLN I Provider:?Kirk Stanton MD :1970???Age:52 Y???Sex:Female D ate:03/27/2023 Address:[address] [place], [place] [id number] Pcp:April Santillan MD Subjective: * Chief Complaints: * ???1. Patient presents today for hemorrhoids. * HPI: ???New symptom(s):? Shaheen is a pleasant 52-year-old woman seen today in followup. She underwent colonoscopy in August of this year which showed diverticulosis, a hyperplastic polyp and internal hemorrhoids. We recommended ten-year followup colonoscopy. We reviewed these results today. ?She reports an emergency room visit about one month ago for abdominal pain. CT scanning was done which is reviewed. This showed surgical changes from her gastric sleeve, without any external fluid collections. Small and large bowel were unremarkable. ?She describes a feeling like a ball inside the lower abdomen and rectum. She complains of constipation. She's been having some hemorrhoid issues for which is been using mpho-nnx-cngxuuq preparation H. * Medical History:?gastroesoph ageal reflux disease, status post upper endoscopy 02/07/18, H. pylori positive, treated x2 weeks, Migraines, Anxiety/depression, Colonoscopy 07/18/18, tubular adenoma, five-year followup 07/15, Gastric sleeve on 07/27/2022. * Surgical History:?Cholecyste ctomy , Tonsillectomy , Tubal ligation , gastric sleeve 07/27/22. * Hospitalization/Major Diagno stic Procedure:?Denies Past Hospitalization. * Family History:?Father: dece ased, diagnosed with Heart disease, HTN (hypertension).?Mother: alive, diagnosed with Heart disease, HTN (hypertension).? Maternal aunt had colon cancer Denies family hx of liver ds. * Social History:?Tobacco Use:?Tobacco Use/Smoking?Patient is a?nonsmoker.?Drugs/Alcohol:?Alcohol Screen?Did you have a drink containing alcohol in the past year??Yes,?How often did you have a drink containing alcohol in the past year??Never (0 point),?How many drinks did you have on a typical day when you were drinking in the past year??1 or 2 drinks (0 point),?How often did you have 6 or more drinks on one occasion in the past year??Never (0 point),?Points?0,?Interpretation?Negative.?Miscellaneous:?Marital status: single. 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 * Medications:?Taking traZODon e HCl 100 MG Tablet 1 tablet at bedtime Orally Once a day, Taking clonazePAM . Tablet 1 tablet Orally Once a day, Taking Iqnzemzdgs-YTFG-Mbszhhcm , Notes: PRN, Taking SUMAtriptan Succinate , Taking Amitriptyline HCl , Taking Vitamin B 12 , Taking Probiotic , Taking Fish Oil , Taking Advil , Notes: PRN, Taking Pantoprazole Sodium 40 MG Tablet Delayed Release 1 tablet Orally Once a day, Taking Dicyclomine HCl 20 MG Tablet 1 tablet Orally 2-4 times a day, Taking Omeprazole 20 MG Capsule Delayed Release 1 capsule Orally Twice a day, Taking Clarithromycin 500 MG Tablet 1 tablet Orally every 12 hrs, Taking metroNIDAZOLE 500 MG Tablet 1 tablet Orally Three times a day, Taking MiraLax (colon prep) 17 GM/SCOOP Powder mixed with Gatorade or Crystal Light Orally begin at 5:00 p.m. the day before the procedure, Medication List reviewed and reconciled with the patient * Allergies:?Penicillin G Sodi um. Objective: * Vitals:?Wt: 162 lbs, Ht: 61 in, BMI:30.61 Index, BP: 000/00 mm Hg, Temp: 97.5. * Examination: ???General Examination: ???On examination today, she appears well. Skin is anicteric. Lungs are clear. Heart shows a regular rate and rhythm. Abdomen is soft without focal masses or tenderness. Extremities are without edema. Assessment: * Assessment: 1.?Constipation, unspecified constipation type - K59.00 (Primary)?2.?Hemorrhoids, unspecified hemorrhoid type - K64.9? We discussed constipation an d treatment of hemorrhoids today. We recommended she begin using fiber supplementation. She can also use MiraLax as needed. For the hemorrhoids 1% hydrocortisone cream as recommended. She'll let us know how she's doing a couple of weeks and if she still has symptoms we will arrange surgical referral. Plan: * Treatment: * Procedure Codes:?3017F COLOR ECTAL CA SCREEN DOC REV * Follow Up:?1 Year * * Sign off status: Completed true * Provider:?Kirk Stanton MD Date:?05/27/2022 Generated for [employer] summer/[place]/eTransmitting on:?07/25/2024 02:59 PM EST History and Physical Notes * HPI (History of Present Illness) Category Sub-Category Detail Notes Category Not es New symptom(s) Shaheen is a pleasant 52-year-old woman seen today in followup. She underwent colonoscopy in August of this year which showed diverticulosis, a hyperplastic polyp and internal hemorrhoids. We recommended ten-year followup colonoscopy. We reviewed these results today. She reports an emergency room visit about one month ago for abdominal pain. CT scanning was done which is reviewed. This showed surgical changes from her gastric sleeve, without any external fluid collections. Small and large bowel were unremarkable. She describes a feeling like a ball inside the lower abdomen and rectum. She complains of constipation. She's been having some hemorrhoid issues for which is been using scsp-amj-rdkdbsk preparation H. Examination Category Sub-Category Detail Notes Category Not es General Examination On exami nation today, she appears well. Skin is anicteric. Lungs are clear. Heart shows a regular rate and rhythm. Abdomen is soft without focal masses or tenderness. Extremities are without edema.
--- OUTSIDE RECORDS SUMMARY | 2024-07-25 14:59 | XMS_ITS | Patient Health Record ---
Author Organization [facility] Address [address] [place] [address] Care Team Providers Care Motocross Racer Name Role Phone Po April MENDEZ Primary Care Provider Kirk Rolon Jr Unavailable [phone] Allergies Allergen (clinical drug ingredient) Drug/Non Drug Allergy documented on EMR Reaction Allergy Type Onset Date Status penicillin G Penicillin G Sodium Unknown Drug Allergy Active Reason For Referral No Information Medications Medication SIG (Take, Route, Frequency, Duration) Notes Start Date End Date Status Dicyclomine HCl 20 MG 1 tablet Orally 2- 4 times a day for 30 days 11/14/2018 Active Pantoprazole Sodium 40 MG 1 tablet Orall y Once a day for 30 days 08/03/2020 Active clonazePAM . 1 tablet Orally Once a day Active Clarithromycin 500 MG 1 tablet Orally ev annika 12 hrs for 14 days 11/24/2021 Active traZODone HCl 100 MG 1 tablet at bedtime Orally Once a day for 30 day(s) Active Omeprazole 20 MG 1 capsule Orally Twi ce a day for 14 days 11/24/2021 Active SUMAtriptan Succinate Active MiraLax (colon prep) 17 GM/SCOOP mixed with Gatorade or Crystal Light Orally begin at 5:00 p.m. the day before the procedure for 1 day 08/10/2022 Active Gjliyjgrhw-SPBF-Rbreycmu PRN Active metroNIDAZOLE 500 MG 1 tablet Orally Thr ee times a day for 14 days 11/24/2021 Active Vitamin B 12 Active Amitriptyline HCl Ac tive Fish Oil Active Probiotic Active Advil PRN Active Immunizations Vaccine Route Administration Date Status Comme nts Influenza Unknown 04/24/2018 Administered Influenza Unknown 01/20/2019 Administered Influenza Unknown 03/04/2020 Administered Influenza Unknown 03/09/2021 Administered Influenza Unknown 03/22/2023 Administered Influenza Unknown 08/10/2022 Refused Social History Tobacco Use: Social History Observation [...] Problem Status W/U Status Risk Notes Problem 05123973 Rectal bleeding (K62.5) Active confirmed Problem 59775038 Epigastric pain (R10.13) Active confirmed Problem 078479563 Change in bowel habits (R19.4) Active confirmed Problem Diverticular disease of colon (414210151) Diverticulosis of large intestine without perforation or abscess without bleeding (K57.30) Active confirmed Problem 052450472 Gastroesophageal reflux disease without esophagitis (K21.9) Active confirmed Problem 80188759 Constipation, unspecified constipation type (K59.00) Active confirmed Problem Gastritis (8330991) Gastritis (K29.70) Active confirmed Problem 786591353 H. pylori infect ion (A04.8) Active confirmed Problem 23099077 Irritable bowel syndrome with constipation and diarrhea (K58.2) Active confirmed Plan Of Treatment Future Test Test Name Order Date UPPER GI ENDOSCOPY 12/14/2017 COLONOSCOPY 06/22/2018 UPPER GI ENDOSCOPY 10/25/2021 COLONOSCOPY 08/10/2022 Insurance Providers Payer Name Payer Address Payer Phone Subscriber Number Group Number Insured Name Patient Relationship to Insured Coverage Start Date Coverage End Date [facility] [address] [address] [place], [place] [id number] SHAHEEN LINCOLN Self - patient is the insured Medical (General) History Medical History History ICD Code gastroesophageal reflux dise ase, status post upper endoscopy 9/19/18, H. pylori positive, treated x2 weeks migraines anxiety/depression colonoscopy 07/18/18, tubular adenoma, fi ve-year followup 07/15 gastric sleeve on 07/27/2022 Surgical History Surgery Date(Month/Year) Cholecystectomy Tonsillectomy Tubal ligation gastric sleeve 07/27/22
== END 2024-07-25 13:25 | disposition home or self-care (01) ==
PROVIDERS: PCP Internal Medicine; Visit Provider Physician Assistant Surgical
DX: E66.3 Overweight (principal); Z68.28 Body mass index [BMI] 28.0-28.9, adult; Z90.3 Acquired absence of stomach [part of]; Z98.84 Bariatric surgery status
CPT/HCPCS: 99214; G2211

== ENCOUNTER → 2024-07-25 12:30 | Outpatient (BNVA) | payer OTHER, SELFPAY | PROVIDERS: PCP Internal Medicine; Visit Provider Physician Assistant Surgical | DX: E66.3 Overweight (principal); Z98.84 Bariatric surgery status; K59.00 Constipation, unspecified | CPT/HCPCS: 99212 ==

== ENCOUNTER 2024-08-26 16:31 | Emergency (ER) | payer OTHER, SELFPAY ==
--- NOTE | ~2024-08-26 | CT_ITS ---
CLINICAL HISTORY: neck pain CT cervical spine without contrast Comparison: None Findings: Normal vertebral body alignment. Mild multilevel degenerative changes. No acute fracture or dislocation. Bone island at C3. No acute findings on limited view of the intracranial contents. Heterogeneous thyroid gland without suspicious nodules. Lung apices are clear. IMPRESSION: 1. No acute osseous injury. This document has been electronically signed by: Connor Hogue MD on 08/26/2024 18:32:18
[2024-08-26 16:42] VITALS: BP 124/71; PULSE 80; RESP 16; TEMP 37.1; O2SAT 99; BMI 29.1
--- NOTE | 2024-08-26 16:46 | ED.GENADULT ---
HPI - General Adult General Chief complaint: General Medical Stated complaint: neck pain, ?uti Time Seen by Provider: 08/26/24 21:30 Source: patient Limitations: no limitations History of Present Illness ED Provider: Ciara Roper PA-C HPI narrative: 53-year-old female with a history of migraine, osteoarthritis, hyperlipidemia, GERD, morbid obesity, depression and anxiety who presents with multiple complaints. Patient states she had been cleaning her mother's apartment, moving furniture etc. about a week ago. She then developed posterior neck pain that has persisted. The pain is over bilateral posterior neck, and radiates upward over posterior scalp. Patient was since developed a headache. Denies phonophobia, photophobia, nausea, vomiting. Patient has been using [id number] Tylenol without relief from symptoms. In addition, patient has developed dysuria with decreased urine output. Denies abdominal pain, back pain, fever. Related Data Home Medications ?Medication ?Instructions ?Recorded ?Confirmed clonazepam 1 mg tablet 1 mg PO BID 05/08/20 07/25/24 zolpidem 10 mg tablet 10 mg PO BEDTIME PRN Sleep 03/08/22 07/25/24 sertraline 100 mg tablet 100 mg PO DAILY 09/06/22 07/25/24 polyethylene glycol 3350 17 gram 17 g PO DAILY PRN 07/25/24 07/25/24 oral powder packet (Miralax) sennosides 8.6 mg-docusate sodium tab PO 07/25/24 07/25/24 50 mg tablet (Senexon-S) vitamin A 3,000 mcg (10,000 unit) 1 cap PO DAILY 07/25/24 07/25/24 capsule Previous Rx's ?Medication ?Instructions ?Recorded hydrocortisone 2.5 % topical cream 1 appl PA BID-QID PRN hemorrhoids 07/26/23 with perineal applicator #30 grams (Proctosol HC) clotrimazole 1 % topical cream 1 appl topical BID #45 grams 01/18/24 inulin 2 gram chewable tablet 2 g PO DAILY #90 tabs 02/12/24 diclofenac sodium 1 % topical gel 4 g topical QID #100 grams 02/15/24 (Arthritis Pain (diclofenac)) lidocaine 5 % topical patch 1 patch topical DAILY #30 ea 02/15/24 sennosides 8.6 mg-docusate sodium 2 tab-cap (2 x 8.6-50 mg) PO 02/15/24 50 mg capsule (Senna Plus) BEDTIME #90 caps albuterol sulfate 90 mcg/actuation 2 puff inhalation Q4-6H PRN 04/10/24 aerosol inhaler shortness of breath or wheezing #6.7 grams erythromycin 5 mg/gram (0.5 %) eye 1 appl ophthalmic (eye) TID 5 days 05/15/24 ointment #3.5 grams ketorolac 10 mg tablet 10 mg PO TID PRN pain 5 days #15 05/15/24 tabs loperamide 2 mg capsule 2 mg PO Q6H PRN loose stool #20 05/15/24 caps ondansetron 4 mg disintegrating 4 mg PO Q6H PRN nausea and 05/15/24 tablet vomiting #14 tabs cyclobenzaprine 10 mg tablet 10 mg PO BID PRN muscle spasm #20 05/28/24 tabs cetirizine 10 mg tablet (Zyrtec) 10 mg PO DAILY PRN allergy 06/14/24 symptoms #90 tabs cholecalciferol (vitamin D3) 25 25 mcg PO DAILY #90 caps 07/16/24 mcg (1,000 unit) capsule (Vitamin D3) ketorolac 10 mg tablet 10 mg PO Q6H PRN pain #20 tabs 08/26/24 methocarbamol 750 mg tablet 1,500 mg (2 x 750 mg) PO BID PRN 08/26/24 pain, moderate #20 tabs nitrofurantoin 100 mg PO Q12H 7 days #14 caps 08/26/24 monohydrate/macrocrystals 100 mg capsule (Macrobid) phenazopyridine 200 mg tablet 200 mg PO TID PRN urinary pain #10 08/26/24 (Pyridium) tabs Allergies Allergy/AdvReac Type Severity Reaction Status Date / Time Penicillins [PENICILLINS] Allergy Severe ANAPHYLAXIS Verified 08/26/24 16:44 Sulfa (Sulfonamide Allergy Severe Angioedema Verified 08/26/24 16:44 Antibiotics) Review of Systems Review of Systems: Yes all other systems are reviewed and are negative Constitutional: Constitutional: Denies fatigue, Denies fever(s) and Reports headache(s) Eyes: Eyes: Denies change in vision ENT: Reports dizziness, Reports headache(s) and Reports neck pain Cardiovascular: Cardiovascular: Denies chest pain and Denies dyspnea Respiratory: Respiratory: Denies cough and Denies dyspnea Gastrointestinal: Gastrointestinal: Denies abdominal pain, Denies nausea and Denies vomiting Genitourinary: Genitourinary: Reports dysuria Musculoskeletal: Musculoskeletal: Reports neck pain Neurologic: Reports dizziness and Reports headache(s) Endocrine: Endocrine: Denies fatigue PMF Past Medical History Attestation statement: The following information was validated with the patient. Medical History (Updated 08/27/24 @ 00:01 by Katrin Spear) Liver masses Obesity (BMI 30-39.9) Family history of arrhythmia Left knee pain Constipation Hiatal hernia Osteoarthritis Anxiety and depression Palpitations GERD (gastroesophageal reflux disease) History of COVID-19 Recurrent UTI Acute diverticulitis Osteoarthritis of left knee Helicobacter pylori gastritis Trapezius muscle spasm Stress incontinence Neck pain Post covid-19 condition, unspecified Loss of hearing Vision changes Hematuria Tubular adenoma Migraine Low back pain Surgical History H/O gastric sleeve History of tonsillectomy History of esophagogastroduodenoscopy (EGD) H/O colonoscopy History of section H/O tubal ligation History of cholecystectomy Family History Family History Father CVD (cardiovascular disease) Diabetes History of open heart surgery Mother Alive and well CVD (cardiovascular disease) Diabetes Thyroid condition Maternal Aunt Colon cancer Son Mental health disorder Maternal Grandmother Colon cancer Social History Social History Household Members: Spouse Housing: House Are you a primary infant caregiver to a significant other at home: No Do you presently have visiting nurse or other home services: No Alcohol intake: current Alcohol intake frequency: does not drink Patient Tobacco Use Status: Never used Tobacco Smoked in Last 30 Days: No e-Cigarette/Vaping Use: Never Used Second Hand Smoke Exposure: No Use of substances other than those prescribed or required for medical reasons: No Advance Directives: No Advance Directives Information Provided: No Do you have a plan to hurt others: No Plan Patient : No service: No Current occupational status: unemployed Current occupation: right hand dominant Cognitive needs: No Hearing needs: No Vision needs: No Physical Exam ED Vital Signs: Vital Signs - 24 hr 08/26/24 16:42 08/26/24 20:18 08/26/24 22:21 Temperature 98.7 F 97.3 F 97.3 F Pulse Rate 80 63 63 Respiratory Rate 16 16 16 Blood Pressure 124/71 109/52 L 109/52 L Pulse Oximetry 99 98 98 Oxygen Delivery Method Room Air Room Air Room Air BMI result Body Mass Index 29.1 Const Other: Alert, tearful, anxious Orientation/consciousness: patient oriented x3 Neck Other: Palpable pain over posterior bilateral neck Neck: Yes full ROM and Yes no meningeal signs Resp Effort & Inspection: normal respiratory effort Cardio Other: Normal peripheral perfusion Skin Other: Warm dry no rash Neuro General: patient oriented x3, gait normal, no meningeal signs, no focal motor deficits and CN's II-XI intact bilaterally Psych Other: Cooperative, anxious Course Course Course Narrative: RME: 53-year-old female presents to the ED for posterior neck pain worse on movement. patient denies any headache, trauma, or extremity weakness, dizzziness, nuase,a or vomitting. patient denies any jaw or refererred arm pain. patient denies any chest pain or shortness of breath. Secondary complaint is dysuria with foul odor. Patient denies any back pain, abdominal pain, nausea, or vomiting. CT neck UA ordered Medications Administered Discontinued Medications Generic Name Dose Route Start Last Admin Trade Name Freq PRN Reason Stop Dose Admin Ketorolac Tromethamine 15 mg 08/26/24 21:38 08/26/24 22:02 Ketorolac Tromethamine 15 Mg/Ml Vial IM 08/26/24 21:39 15 mg ONCE ONE Administration Methocarbamol 1,500 mg 08/26/24 21:56 08/26/24 22:01 Methocarbamol 750 Mg Tablet PO 08/26/24 21:57 1,500 mg ONCE ONE Administration Nitrofurantoin Macrocrystals 100 mg 08/26/24 21:38 08/26/24 22:01 Nitrofurantoin Monohyd/M-Cryst 100 Mg Capsule PO 08/26/24 21:39 100 mg ONCE ONE Administration Phenazopyridine HCl 200 mg 08/26/24 21:38 08/26/24 22:01 Phenazopyridine Hcl 200 Mg Tablet PO 08/26/24 21:39 200 mg ONCE ONE Administration Medical Decision Making Medical Decision Making MDM Narrative: 53-year-old female with a history of migraine, osteoarthritis, hyperlipidemia, GERD, morbid obesity, depression and anxiety who presents with multiple complaints. Patient states she had been cleaning her mother's apartment, moving furniture etc. about a week ago. She then developed posterior neck pain that has persisted. The pain is over bilateral posterior neck, and radiates upward over posterior scalp. Patient was since developed a headache. Denies phonophobia, photophobia, nausea, vomiting. Patient has been using [id number] Tylenol without relief from symptoms. In addition, patient has developed dysuria with decreased urine output. Denies abdominal pain, back pain, fever. Problem: Arthritis, migraine, anxiety History: Per patient I have considered the following differential diagnoses: Cervical strain, compression fracture, migraine versus tension headache, meningitis, pyelonephritis, UTI, renal colic Plan: In regard to the patient's neck pain, she has a mechanism of injury to support the discomfort. Imaging was ordered from triage she has a arthritis. We will be sending with a muscle relaxant and an anti-inflammatory. Thought about meningitis, however the patient has been afebrile, there are no meningeal signs on exam she has full range of motion, and again she has a mechanism of injury that coincides with her discomfort. In regard to her urinary complaint, there was no CVA tenderness, again not febrile, to suggest pyelonephritis. She is not complaining of back, flank pain, she has no active nausea vomiting to suggest renal colic. She has a simple urinary tract infection. We will treat accordingly. I have independently reviewed the following tests: Labs: Positive for UTI, not CT cervical spine:Findings: Normal vertebral body alignment. Mild multilevel degenerative changes. No acute fracture or dislocation. Bone island at C3. No acute findings on limited view of the intracranial contents. Heterogeneous thyroid gland without suspicious nodules. Lung apices are clear. IMPRESSION: 1. No acute osseous injury. Lab Data Labs: Lab Results 08/26/24 Range/Units 20:27 Urine Color Yellow Urine Appearance Clear Urine pH 5.5 (5.0-9.0) Ur Specific [place] 1.025 (1.005-1.025) Urine Protein Negative (Neg-Trace) mg/dL Urine Glucose (UA) Negative (Negative) mg/dL Urine Ketones Negative (Negative) mg/dL Urine Blood Small (1+) H (Negative) Urine Nitrite Positive H (Negative) Ur Leukocyte Esterase Moderate (2+) H (Negative) Urine RBC 6-10 H (0-2) /HPF Urine WBC 11-20 H (0-5) /HPF Ur Squamous Epith Cells 3-5 (0-2) /HPF Urine Bacteria 4+ (None Seen) Hyaline Casts 0-2 (0-2) /LPF Urine Test NEGATIVE (NEGATIVE) Discharge Plan Discharge Clinical Impression: Acute tension headache, Cervical muscle strain, Urinary tract infection Patient Disposition: Home, Self-Care Instructions: Cervical Strain (ED), Urinary Tract Infection in Women (ED), Tension Headache (ED) Additional Instructions: The CT scan of your neck revealed that you have some mild arthritis. I do believe your cervical strain has cause a tension type headache. See home care instructions. Use the ketorolac as directed, this is an anti-inflammatory, take it with food. Use the methocarbamol, this is a muscle relaxant, as needed for further pain. To note this medication will cause drowsiness do not drive or operate machinery while taking the medication. You also were found to have a urinary tract infection. See home care instructions. Take the Macrobid as directed, this is an antibiotic. Take the Pyridium as needed for urinary pain, to note this medication will cause your urine to become bright orange, this will resolve. Be sure to drink plenty of water. Follow up with your primary care provider as needed. Prescriptions: New methocarbamol 750 mg tablet 1,500 mg PO BID PRN (Reason: pain, moderate) Qty: 20 0RF ketorolac 10 mg tablet 10 mg PO Q6H PRN (Reason: pain) Qty: 20 0RF Rx Instructions: maximum total duration of 5 days from all oral, intranasal, or parenteral formulations. The patient received an intramuscular dose of Toradol here in the emergency department. nitrofurantoin monohyd/m-cryst [Macrobid] 100 mg capsule 100 mg PO Q12H 7 Days Qty: 14 0RF Rx Instructions: must administer with a meal/food phenazopyridine [Pyridium] 200 mg tablet 200 mg PO TID PRN (Reason: urinary pain) Qty: 10 0RF No Action hydrocortisone [Proctosol HC] 2.5 % cream with perineal applicator 1 appl PA BID-QID PRN (Reason: hemorrhoids) Qty: 30 0RF clotrimazole 1 % cream 1 appl topical BID Qty: 45 3RF albuterol sulfate 90 mcg/actuation HFA aerosol inhaler 2 puff inhalation Q4-6H PRN (Reason: shortness of breath or wheezing) Qty: 6.7 0RF cetirizine [Zyrtec] 10 mg tablet 10 mg PO DAILY PRN (Reason: allergy symptoms) Qty: 90 0RF cholecalciferol (vitamin D3) [Vitamin D3] 25 mcg (1,000 unit) capsule 25 mcg PO DAILY Qty: 90 3RF ketorolac 10 mg tablet 10 mg PO TID PRN (Reason: pain) 5 Days Qty: 15 0RF Rx Instructions: Tolerated IM or IV in department erythromycin 5 mg/gram (0.5 %) ointment 1 appl ophthalmic (eye) TID 5 Days Qty: 3.5 0RF ondansetron 4 mg tablet,disintegrating 4 mg PO Q6H PRN (Reason: nausea and vomiting) Qty: 14 0RF loperamide 2 mg capsule 2 mg PO Q6H PRN (Reason: loose stool) Qty: 20 0RF clonazepam 1 mg tablet 1 mg PO BID sertraline 100 mg tablet 100 mg PO DAILY zolpidem 10 mg tablet 10 mg PO BEDTIME PRN (Reason: Sleep) inulin 2 gram tablet,chewable 2 g PO DAILY Qty: 90 3RF lidocaine 5 % adhesive patch,medicated 1 patch topical DAILY Qty: 30 12RF Rx Instructions: leave on most painful area for up to 12 hrs Senna Plus 8.6-50 mg capsule 2 tab-cap PO BEDTIME Qty: 90 3RF diclofenac sodium [Arthritis Pain (diclofenac)] 1 % gel 4 g topical QID Qty: 100 8RF Rx Instructions: apply to single knee, ankle, foot; for foot includes sole/toes/top of foot polyethylene glycol 3350 [Miralax] 17 gram powder in packet 17 g PO DAILY PRN sennosides-docusate sodium [Senexon-S] 8.6-50 mg tablet PO vitamin A 3,000 mcg (10,000 unit) capsule 1 cap PO DAILY cyclobenzaprine 10 mg tablet 10 mg PO BID PRN (Reason: muscle spasm) Qty: 20 0RF Interventions: ED Discharge Assessment Last Done: 08/26/24 22:21 Discharge Date/Time: 08/26/24 22:21 Print Language: [place]
--- OUTSIDE RECORDS SUMMARY | 2024-08-26 20:00 | XMS_ITS | Continuity of Care Document ---
Author Organization [facility] Address [address] [place] [address] Phone Care Team Providers Care Survey Supervisor Name Role Phone No Information Unavailable Unavailable Advance Directives Directive Yes / No Effective Date File Name No Information Encounters Encounter Description Practice Location Reason(s) For Visit Diagnoses Date Provider Providers Copied on Encounter [facility], [address], [place], [place], [id number], [place] tel:[phone] No Information No Information Family History Family [...]
[2024-08-26 20:18] VITALS: BP 109/52; PULSE 63; RESP 16; TEMP 36.3; O2SAT 98
[2024-08-26 20:34] LABS: Appearance Urine Clear; Color Urine Yellow; Glucose Urine UA Negative (Negative); Leukocyte Esterase Urine Moderate (2+) (Negative); Nitrite Urine Positive (Negative); PH 5.5 (5.0-9.0); Specific Gravity - Urine 1.025 (1.005-1.025); UMIC TRIGGER UACC YES; Urine Blood Small (1+) (Negative); Urine Ketones Negative (Negative); Urine Protein Negative (Neg-Trace)
[2024-08-26 20:35] LABS: UPreg QC Valid YES; Urine Pregnancy NEGATIVE (NEGATIVE)
[2024-08-26 20:38] LABS: Bacteria Urine 4+ (None Seen); Hyaline Casts Urine 0-2 /LPF (0-2); UACC Culture Trigger YES
[2024-08-26] MEDS: Phenazopyridine HCL 200 MG TABLET PO (22:01)
[2024-08-26] MEDS: methocarbamoL 750 MG TABLET 1500 MG PO (22:01)
[2024-08-26] MEDS: Nitrofurantoin Monohyd/M-Cryst 100 MG CAPSULE PO (22:01)
[2024-08-26] MEDS: Ketorolac Tromethamine 15 MG/ML VIAL IM (22:02)
--- NOTE | 2024-08-26 22:07 | PC.NURSE ---
medicated pt per mar, reviewed discharge instruction with pt. pt verbalized understanding, no sign of distress.
[2024-08-26 22:21] VITALS: BP 109/52; PULSE 63; RESP 16; TEMP 36.3; O2SAT 98
== END 2024-08-26 22:21 | disposition home or self-care (01) ==
PROVIDERS: Physician Assistant; Emergency Provider Internal Medicine; PCP Internal Medicine
DX: G44.209 Tension-type headache, unspecified, not intractable (principal); M54.2 Cervicalgia; N39.0 Urinary tract infection, site not specified; Z79.899 Other long term (current) drug therapy
CPT/HCPCS: 72125; 81001; 81025; 87086; 87088; 87186; 96372; 99284; J1885

== ENCOUNTER → 2024-08-26 16:55 | Outpatient (BNV) | payer OTHER, SELFPAY | PROVIDERS: PCP Internal Medicine; Visit Provider Radiology Diagnostic Radiology | DX: M54.2 Cervicalgia (principal) | CPT/HCPCS: 72125 ==

== ENCOUNTER 2024-09-16 13:33 | Outpatient (AMB) | payer OTHER, SELFPAY ==
[2024-09-16 13:37] VITALS: BP 110/62; PULSE 81; O2SAT 96; BMI 29.1
--- NOTE | 2024-09-16 13:37 | MHC.PC.OV ---
Vital Signs 09/16/24 13:37 Height 5 ft 1 in Weight 154 lb BMI 29.1 BP 110/62 Blood Pressure Location Lt brachial Position Sitting Pulse 81 Pulse Source Pulse Oximeter Pulse Oximetry (%) 96 Oxygen Delivery Method Room Air Intake Visit Reasons: Annual Exam Intake Note: Neck pain that radiates to the back of her head. Allergies Penicillins [PENICILLINS] Allergy (Severe, Verified 09/16/24 13:38) ANAPHYLAXIS Sulfa (Sulfonamide Antibiotics) Allergy (Severe, Verified 09/16/24 13:38) Angioedema Medication List - Last Reconciled 09/16/24 by April Santillan MD albuterol sulfate 90 mcg/actuation 2 puffs inhalation Q4-6H PRN cetirizine (Zyrtec) 10 mg PO DAILY PRN cholecalciferol (vitamin D3) (Vitamin D3) 25 mcg PO DAILY clonazepam 1 mg PO BID clotrimazole 1% 1 appl topical BID cyclobenzaprine 10 mg PO BID PRN diclofenac sodium 1% (Arthritis Pain (diclofenac)) 4 grams topical QID hydrocortisone 2.5% (Proctosol HC) 1 appl [place] BID-QID PRN ketorolac 10 mg PO Q6H PRN lidocaine 5% 1 patch topical DAILY loperamide 2 mg PO Q6H PRN methocarbamol 1,500 mg (2 x 750 mg) PO BID PRN ondansetron 4 mg PO Q6H PRN polyethylene glycol 3350 (Miralax) 17 grams PO DAILY PRN sennosides-docusate sodium 8.6-50 mg (Senexon-S) tabs PO sertraline 100 mg PO DAILY vitamin A 1 cap PO DAILY zolpidem 10 mg PO BEDTIME PRN Tobacco use date assessed: 06/06/24 Dental Screening Dental Screen Date: 05/28/24 HPI Annual Exam HPI Details 53-year-old overweight female with a history of migraine 2022 with a history of depression generalized anxiety disorder GERD hypercholesterolemia coming in for physical exam [facility] Medical History (Updated 08/27/24 @ 00:01 by Katrin Spear) Liver masses Obesity (BMI 30-39.9) Family history of arrhythmia Left knee pain Constipation Hiatal hernia Osteoarthritis Anxiety and depression Palpitations GERD (gastroesophageal reflux disease) History of COVID-19 Recurrent UTI Acute diverticulitis Osteoarthritis of left knee Helicobacter pylori gastritis Trapezius muscle spasm Stress incontinence Neck pain Post covid-19 condition, unspecified Loss of hearing Vision changes Hematuria Tubular adenoma Migraine Low back pain Surgical History H/O gastric sleeve History of tonsillectomy History of esophagogastroduodenoscopy (EGD) H/O colonoscopy History of section H/O tubal ligation History of cholecystectomy Family History Father CVD (cardiovascular disease) Diabetes History of open heart surgery Mother Alive and well CVD (cardiovascular disease) Diabetes Thyroid condition Maternal Aunt Colon cancer Son Mental health disorder Maternal Grandmother Colon cancer Social History (Updated 09/16/24 @ 14:02 by pAril Santillan MD) Household Members: Spouse Housing: House Are you a primary direct care supervisor to a significant other at home: No Do you presently have visiting nurse or other home services: No Alcohol intake: never Comment: stopped after the gastric sleeve Patient Tobacco Use Status: Never used Tobacco Tobacco use type: Cigarette e-Cigarette/Vaping Use: Never Used Second Hand Smoke Exposure: No service: No Current occupational status: unemployed Current occupation: right hand dominant Cognitive needs: No Hearing needs: No Vision needs: No Female Reproductive History Menstrual Age of Menarche: 14 Questionnaire PHQ-9 Over the last 2 weeks, how often have you been bothered by any of the following problems? 1. Little interest or pleasure in doing things: not at all 2. Feeling down, depressed, or hopeless: several days (currently on medication and in treatment) 3. Trouble falling or staying asleep, or sleeping too much: not at all 4. Feeling tired or having little energy: not at all 5. Poor appetite or overeating: not at all 6. Feeling bad about yourself - or that you are a failure or have let yourself or your family down: not at all 7. Trouble concentrating on things, such as reading the newspaper or watching television: not at all 8. Moving or speaking so slowly that other people could have noticed. Or the opposite - being so fidgety or restless that you have been moving around a lot more than usual: not at all 9. Thoughts that you would be better off or of hurting yourself in some way: not at all Total score: 1 Depression Screening Interpretation: Positive Depression Screening Done: Yes Source: Developed by Drs. Chris Brown, Sherry Champagne, Juan Alberto Lee and colleagues, with an educational duyen from [employer]. Thrive Questionnaire Date Thrive assessed: 05/28/24 I am a: Patient What is your living situation today?: I choose not to answer this question Within the past 12 months, did the food you bought not last and you didn't have the money to get more?: I choose not to answer this question Within the past 12 months, did you worry whether your food would run out before you got money to buy more?: I choose not to answer this question Do you have trouble paying for medicines?: I choose not to answer this question Do you have trouble getting transportation to medical appointments?: No Do you have trouble paying your heating and electricity bill?: Yes Do you have trouble taking care of your child, family member or friend?: I choose not to answer this question Do you have trouble with day-to-day activities such as bathing, preparing meals, shopping, managing finances, etc.?: I choose not to answer this question Are you currently unemployed and looking for a job?: No Are you interested in more education?: No Please select the resources that you would like help with: Utilities Currently or been in a relationship where the following occur: I choose not to answer THRIVE Score: 1 AUDIT C Alcohol Use Questionnaire (AUDIT-C) 1. How often do you have a drink containing alcohol?: Never Total Score: 0 NATHAN-7 AMB Questionnaire NATHAN-7 Date NATHAN - 7 assessed: 09/16/24 Feeling nervous, anxious, or on edge: 3 = Nearly every day Not being able to stop or control worryin = Nearly every day Worrying too much about different things: 3 = Nearly every day Trouble relaxin = Nearly every day Being so restless that it is hard to sit still: 3 = Nearly every day Becoming easily annoyed or irritable: 3 = Nearly every day Feeling afraid as if something awful might happen: 3 = Nearly every day Total NATHAN-7 score (0-4 normal; 5-9 mild; 10-14 moderate; 15-21 severe): 21 Source: Developed by Drs. Chris Bronw, Sherry Champagne, Juan Alberto Lee and colleagues, with an educational duyen from [employer]. NATHAN-7 Assessment Billing NATHAN-7 Assessment Tool: NATHAN-7 Assessment 66103 Review of Systems Const Denies poor appetite and Denies weakness Eyes Denies no additional complaints ENT Reports Normal hearing present, Denies dizziness, Denies nasal congestion, Denies tinnitus and Denies sore throat Card Denies chest pain, Denies syncope, Denies rapid heart rate and Denies dyspnea Resp Denies cough and Denies dyspnea GI Denies change in stool character, Reports constipation, Denies diarrhea, Denies nausea and Denies vomiting Denies urinary frequency, Denies difficulty voiding and Denies dysuria Neuro Reports Normal hearing present, Denies confusion, Denies dizziness, Denies syncope and Denies weakness Psych Denies confusion Physical exam (Primary Care) Vital Signs: Last Vital Signs Pulse 81 09/16/24 13:37 BP 110/62 09/16/24 13:37 Pulse Ox 96 09/16/24 13:37 Oxygen Delivery Method Room Air 09/16/24 13:37 BMI result Body Mass Index 29.1 Tobacco/Smoking Status: Tobacco use Status Tobacco use date assessed 06/06/24 09/16/24 13:46 Patient Tobacco Use Status Never used Tobacco 09/16/24 14:02 Tobacco use type Cigarette 09/16/24 14:02 e-Cigarette/Vaping Use Never Used 09/16/24 14:02 PHQ-9: PHQ-9 Score PHQ-9: Total score 1 09/16/24 13:57 Depression Screening Interpretation: Positive Thrive Assessment: Date of Thrive Assessment Date Thrive assessed 05/28/24 09/16/24 13:46 Currently or been in a relationship where the following occur: I choose not to answer Const General: No confusion Orientation/consciousness: No confusion HENMT Head: Yes normocephalic Ears: external ears normal and TM's normal bilaterally Face and sinus: Yes normal facial exam Mouth: moist mucous membranes Throat: Yes tonsils normal Eyes Conjunctivae: conjunctivae normal Pupils: Equal, round and reactive pupils present and Pupil accommodation reflex normal Direct Ophthalmoscopy: normal light reflex Neck Neck: No lymphadenopathy Thyroid: Thyroid normal Chest Chest palpation & inspection: normal inspection of the chest Resp Effort & Inspection: normal respiratory effort and no audible wheezes Auscultation: clear to auscultation bilaterally, no crackles, no wheezes and lung sounds not diminished Cardio Rate: regular rate Rhythm: regular rhythm Peripheral pulses: radial pulses present and dorsalis pedis present GI Palpation (GI): no masses Auscultation: normal bowel sounds and normoactive bowel sounds Rectal Exam - Female: deferred Skin General skin exam: no rashes or lesions noted Rashes: no rashes Neuro General: No confusion Cranial nerves: Yes Equal, round and reactive pupils present and Yes Normal hearing present Cognition (Neuro): normal cognition Gait exam (Neuro): Normal gait present Motor exam (neuro): 5/5 motor strength present throughout Deep tendon reflexes (DTR's): Right brachioradialis reflex intensity grade: 2+, Left brachioradialis reflex intensity grade: 2+, Right patellar reflex intensity grade: 2+ and Left patellar reflex intensity grade: 2+ Extrem General: No edema Coding Level of Care Code Est Pt Prev Care 40-64y(72011) Diagnoses Annual physical exam Z00.00 S/P laparoscopic sleeve gastrectomy Z98.84 Migraine G43.909 Major depressive disorder, recurrent, moderate F33.1 Gastroesophageal reflux disease without esophagitis K21.9 Esophagitis presence: without esophagitis Additional Codes NATHAN-7 Assessment Billing - NATHAN-7 Assessment Tool: ANTHAN-7 Assessment 92643 ([id number]) Assessment & Plan Assessment & Plan (1) Annual physical exam: Code(s): Z00.00 - Encounter for general adult medical examination without abnormal findings Category: Medical Plan: Patient is advised to eat healthy, keep well hydrated, keep active and have adequate sleep. (2) S/P laparoscopic sleeve gastrectomy: Comment: 07/27/2022 Dr. Rizzo Code(s): Z98.84 - Bariatric surgery status Category: Surgical Plan: Continue to follow-up with bariatric (3) Migraine: Code(s): G43.909 - Migraine, unspecified, not intractable, without status migrainosus Category: Medical Plan: Patient is advised to eat healthy, keep well hydrated, keep active and have adequate sleep. (4) Major depressive disorder, recurrent, moderate: Comment: [facility] Code(s): F33.1 - Major depressive disorder, recurrent, moderate Category: Medical Plan: Continue with counseling and therapy (5) GERD (gastroesophageal reflux disease): Code(s): K21.9 - Gastro-esophageal reflux disease without esophagitis Category: Medical Qualifiers: Esophagitis presence: without esophagitis Qualified Code(s): K21.9 - Gastro-esophageal reflux disease without esophagitis Plan: Avoid the foods that causes that usually spicy foods, tomato products, juices, coffee, soda and foods that your sensitive to. After eating do not lie down, allow 3-4 hours before in lie down. And keep the head of bed above 30 degrees to avoid the acid from going up. Medications: Refilled albuterol sulfate 90 mcg/actuation 2 puffs inhalation Q4-6H PRN 6.7 grams 0RF shortness of breath or wheezing I83.813 - Varicose veins of bilateral lower extremities with pain cetirizine (Zyrtec) 10 mg PO DAILY PRN 90 tabs 3RF allergy symptoms R21 - Rash and other nonspecific skin eruption lidocaine 5% leave on most painful area for up to 12 hrs 1 patch topical DAILY 30 ea 12RF I83.813 - Varicose veins of bilateral lower extremities with pain
--- OUTSIDE RECORDS SUMMARY | 2024-09-16 16:12 | XMS_ITS | Continuity of Care Document ---
Author Organization [facility] Address [address] [place] [address] Phone Care Team Providers Care Pheresis Nurse Name Role Phone No Information Unavailable Unavailable Advance Directives Directive Yes / No Effective Date File Name No Information Encounters Encounter Description Practice Location Reason(s) For Visit Diagnoses Date Provider Providers Copied on Encounter [facility], [address], [place], [place], [id number], [place] tel:[phone] No Information No Information Family History Family Member Type Diagnosis Age At Onset No Information Payers Payer name Insurance type Covered democrat ID Authoriza tion(s) No Information Social History [...]
== END 2024-09-16 14:19 | disposition home or self-care (01) ==
LOC: HO.HMCH 13:34
PROVIDERS: PCP Internal Medicine; Visit Provider Internal Medicine
DX: Z00.00 Encounter for general adult medical examination without abnormal findings (principal); Z98.84 Bariatric surgery status; G43.909 Migraine, unspecified, not intractable, without status migrainosus; F33.1 Major depressive disorder, recurrent, moderate; K21.9 Gastro-esophageal reflux disease without esophagitis

== ENCOUNTER → 2024-09-16 13:33 | Outpatient (BNVA) | payer OTHER, SELFPAY | PROVIDERS: PCP Internal Medicine; Visit Provider Internal Medicine | DX: Z00.00 Encounter for general adult medical examination without abnormal findings (principal); G43.909 Migraine, unspecified, not intractable, without status migrainosus; F33.1 Major depressive disorder, recurrent, moderate; K21.9 Gastro-esophageal reflux disease without esophagitis; Z98.84 Bariatric surgery status | CPT/HCPCS: 96127; 99396 ==

== ENCOUNTER 2024-09-30 12:45 | Outpatient (AMB) | payer OTHER, SELFPAY ==
--- OUTSIDE RECORDS SUMMARY | 2024-09-30 13:05 | XMS_ITS | Continuity of Care Document ---
Author Organization [facility] Address [address] [place] [address] Phone Care Team Providers Care Microbial Specialist Name Role Phone No Information Unavailable Unavailable Advance Directives Directive Yes / No Effective Date File Name No Information Encounters Encounter Description Practice Location Reason(s) For Visit Diagnoses Date Provider Providers Copied on Encounter [facility], [address], [place], [place], [id number], [place] tel:[phone] No Information No Information Family History Family [...]
--- NOTE | 2024-09-30 13:07 | MHC.OFFVISWM ---
VS Expanded 09/30/24 13:18 BP 125/59 L Blood Pressure Location Rt brachial Blood Pressure Position Sitting Pulse 81 Pulse Source Pulse Oximeter Temp 98.1 F Temperature Source Temporal Artery Scan Pulse Oximetry 99 Oxygen Delivery Method Room Air Height 5 ft 1 in Weight 152 lb BMI 28.7 Body Fat % 34.8 Body Fat Mass 53.0 Fat Free Mass 99.0 Visceral Fat Rating 8.0 Body Water % 46.3 Body Water Mass 70.4 Muscle Mass/Score 94.0 Basal Metabolic Rate/Score 1,351 Intake Visit Reasons: (OV) PO LSG 07/27/22 Allergies Penicillins [PENICILLINS] Allergy (Severe, Verified 09/30/24 13:13) ANAPHYLAXIS Sulfa (Sulfonamide Antibiotics) Allergy (Severe, Verified 09/30/24 13:13) Angioedema Medication List - Last Reconciled 09/30/24 by NIRANJAN Urbina albuterol sulfate 90 mcg/actuation 2 puffs inhalation Q4-6H PRN cetirizine (Zyrtec) 10 mg PO DAILY PRN cholecalciferol (vitamin D3) (Vitamin D3) 25 mcg PO DAILY clonazepam 1 mg PO BID clotrimazole 1% 1 appl topical BID cyclobenzaprine 10 mg PO BID PRN diclofenac sodium 1% (Arthritis Pain (diclofenac)) 4 grams topical QID hydrocortisone 2.5% (Proctosol HC) 1 appl [place] BID-QID PRN ketorolac 10 mg PO Q6H PRN lidocaine 5% 1 patch topical DAILY loperamide 2 mg PO Q6H PRN methocarbamol 1,500 mg (2 x 750 mg) PO BID PRN ondansetron 4 mg PO Q6H PRN polyethylene glycol 3350 (Miralax) 17 grams PO DAILY PRN sennosides-docusate sodium 8.6-50 mg (Senexon-S) tabs PO sertraline 100 mg PO DAILY vitamin A 1 cap PO DAILY zolpidem 10 mg PO BEDTIME PRN HPI Comments Details: This?is a?53?yo F who is s/p LSG 07/27/2022. Presents for 2 year 2mo post op visit. Weight gain of 1.4lbs since last OV.? No complaints of nausea, emesis, abdominal pain or reflux, or constipation. Pt had to go to ER for neck pain a few weeks ago. Was offered PT but declined. Then had a UTI. Pt continues to care for her mom who moved here from [place], has dementia/Alzheimer's. Did not end up following up with [facility] but sees her community therapist and did share that she and her partner were having difficulty. However she has been attending a orthodox meeting with her partner which has helped their relationship. Did not end up going to [facility] but plans to. Did download jacqui but did not use the meal plans much. Trying to avoid snacking when anxious. Present meal plan includes: 1 egg 1 Atkins bar 1 yogurt or CC meal of 4 f/4/f 1 shake with 1 scoop or 2 shakes with half scoop Pt may have fruit or veg as well if hungry. Exercise- walks on machine at home 20-40min, does weight training has arthritis in her elbows, has a lot of knee pain also, getting injections, has to use a brace on left knee Pt reports issues of excess skin of abdomen and upper thighs. Regarding abdomen, has to put towels in between skin folds of abdomen and where abdomen meets thighs, due to skin cracking which causes a lot of pain. Experiences a burning itchy sensation. She has noticed increased moisture in skin folds, which produces an unpleasant odor and she has to wash and clean frequently. This is worse with weather getting warmer. She has tried clotrimazole ointment but this has not completely resolved the issue. Regarding upper thighs, reports she notices a lot of friction between upper thighs and has to constantly wear long shorts under dresses to prevent chafing. She has tried compressive pants to try to hold the skin in place, but the material/elastic often digs into her skin at her ankles and has caused bleeding in the past. Has tried clotrimazole ointment here as well but this has not helped. Walking has become more difficult and painful due to friction. [facility] Medical History (Updated 08/27/24 @ 00:01 by Background Damaynor) Liver masses Obesity (BMI 30-39.9) Family history of arrhythmia Left knee pain Constipation Hiatal hernia Osteoarthritis Anxiety and depression Palpitations GERD (gastroesophageal reflux disease) History of COVID-19 Recurrent UTI Acute diverticulitis Osteoarthritis of left knee Helicobacter pylori gastritis Trapezius muscle spasm Stress incontinence Neck pain Post covid-19 condition, unspecified Loss of hearing Vision changes Hematuria Tubular adenoma Migraine Low back pain Surgical History H/O gastric sleeve History of tonsillectomy History of esophagogastroduodenoscopy (EGD) H/O colonoscopy History of section H/O tubal ligation History of cholecystectomy Family History Father CVD (cardiovascular disease) Diabetes History of open heart surgery Mother Alive and well CVD (cardiovascular disease) Diabetes Thyroid condition Maternal Aunt Colon cancer Son Mental health disorder Maternal Grandmother Colon cancer Social History Household Members: Spouse Housing: House Are you a primary gericare aide to a significant other at home: No Do you presently have visiting nurse or other home services: No Alcohol intake: never Comment: stopped after the gastric sleeve Patient Tobacco Use Status: Never used Tobacco Tobacco use type: Cigarette e-Cigarette/Vaping Use: Never Used Second Hand Smoke Exposure: No service: No Current occupational status: unemployed Current occupation: right hand dominant Cognitive needs: No Hearing needs: No Vision needs: No Female Reproductive History Menstrual Age of Menarche: 14 Physical Exam Vital Signs: Last Vital Signs Temp 98.1 F 09/30/24 13:18 Pulse 81 09/30/24 13:18 BP 125/59 L 09/30/24 13:18 Pulse Ox 99 09/30/24 13:18 Oxygen Delivery Method Room Air 09/30/24 13:18 BMI result Body Mass Index 28.7 Assessment & Plan Assessment & Plan (1) Excess skin: Code(s): L98.7 - Excessive and redundant skin and subcutaneous tissue Category: Medical (2) S/P laparoscopic sleeve gastrectomy: Comment: 07/27/2022 Dr. Rizzo Code(s): Z98.84 - Bariatric surgery status Category: Surgical (3) Overweight (BMI 25.0-29.9): Code(s): E66.3 - Overweight Category: Medical Plan Pt knows that incorporating exercise will help her reach her target weight/BMI to be considered for skin removal surgery. Goal weight 143 lbs for BMI 27. RTC 3mo.
[2024-09-30 13:18] VITALS: BP 125/59; PULSE 81; TEMP 36.7; O2SAT 99; BMI 28.7
== END 2024-09-30 13:39 | disposition home or self-care (01) ==
LOC: HO.HBS 12:46
PROVIDERS: PCP Internal Medicine; Visit Provider Physician Assistant Surgical
DX: L98.7 Excessive and redundant skin and subcutaneous tissue (principal); E66.3 Overweight; Z68.28 Body mass index [BMI] 28.0-28.9, adult; Z98.84 Bariatric surgery status
CPT/HCPCS: 99214; G2211

== ENCOUNTER → 2024-09-30 12:45 | Outpatient (BNVA) | payer OTHER, SELFPAY | PROVIDERS: PCP Internal Medicine; Visit Provider Physician Assistant Surgical | DX: L98.7 Excessive and redundant skin and subcutaneous tissue (principal); E66.3 Overweight; Z98.84 Bariatric surgery status; Z68.28 Body mass index [BMI] 28.0-28.9, adult | CPT/HCPCS: 99212 ==

== ENCOUNTER 2024-11-08 14:00 | Outpatient (REF) | payer OTHER, SELFPAY ==
--- OUTSIDE RECORDS SUMMARY | 2020-04-03 20:22 | XMS_ITS | Continuity of Care Document ---
Author Organization [facility] Address [address] [place] [address] Phone Care Team Providers Care Unclaimed Property Officer Name Role Phone No Information Unavailable Unavailable Advance Directives Directive Yes / No Effective Date File Name No Information Encounters Encounter Description Practice Location Reason(s) For Visit Diagnoses Date Provider Providers Copied on Encounter [facility], [address], [place], [place], [id number], [place] tel:[phone] No Information No Information Family History Family Member Type Diagnosis Age At Onset No Information Payers Payer name Insurance type Covered constitution party ID Authoriza tion(s) No Information Social History Type Description Quantity Date Captured Comments Sex Female Smoking Status No Information Chief Complaint And Reason For Visit No Information Reason For Referral Reason For Referral No Information History Of Present Illness Encounter Date Complaint History Of Prese nt Illness No Information Functional Status Date Functional Assessmen t No Information Instructions Date Instruction Additional Infor mation No Information Assessments Type Assessment Date No Information Patient Care Teams Name Effective Dates (start - stop) Status Members No Information
--- NOTE | ~2024-11-08 | MM_ITS ---
EXAMINATION: MM SCREENING DIGITAL BREAST TOMOSYNTHESIS, BILATERAL CLINICAL INFORMATION: Screening. Asymptomatic. COMPARISON: Mammography: Comparison is made with available priors TECHNIQUE: Digital breast mammography with tomosynthesis is performed in both the craniocaudal and mediolateral oblique views along with computer-aided detection (CAD). FINDINGS: The breasts are heterogeneously dense, which may obscure small masses (ACR BI-RADS breast composition Category c). There are no significant masses, abnormal calcifications, or other abnormalities. MM/MM tomosynthesis screening BI IMPRESSION: No mammographic evidence of malignancy. ASSESSMENT: BI-RADS BI-RADS 1 - Negative RECOMMENDATION: Routine annual mammography screening. 1 year F/U This examination should not preclude the clinical evaluation of a suspicious palpable abnormality. This patient's information was entered into a reminder system with a target due date for their next mammogram. Electronically signed by: Devora Dickey DO 11/15/2024 08:31 AM EDT
== END 2024-11-08 14:01 | disposition home or self-care (01) ==
LOC: HO.MAMMO 14:00
PROVIDERS: PCP Internal Medicine; Visit Provider Internal Medicine
DX: Z12.31 Encounter for screening mammogram for malignant neoplasm of breast (principal)
CPT/HCPCS: 77063; 77067

== ENCOUNTER → 2024-11-08 14:15 | Outpatient (BNV) | payer OTHER, SELFPAY | PROVIDERS: PCP Internal Medicine; Visit Provider Internal Medicine | DX: Z12.31 Encounter for screening mammogram for malignant neoplasm of breast (principal) | CPT/HCPCS: 77063; 77067 ==

== ENCOUNTER 2024-12-24 15:11 | Outpatient (AMB) | payer OTHER, SELFPAY ==
--- NOTE | 2024-12-24 15:04 | A.OFFVIS_ITS ---
VS Expanded 12/24/24 15:06 Height 5 ft 1 in Weight 149 lb BMI 28.2 Intake Visit Reasons: (TELEPHONE) PO LSG 07/27/22 Allergies Penicillins (PENICILLINS) Allergy (Severe, Verified 09/30/24 13:13) ANAPHYLAXIS Sulfa (Sulfonamide Antibiotics) Allergy (Severe, Verified 09/30/24 13:13) Angioedema Medication List - Last Reconciled 12/24/24 by NIRANJAN Urbina albuterol sulfate 90 mcg/actuation 2 puffs inhalation Q4-6H PRN cetirizine (Zyrtec) 10 mg PO DAILY PRN cholecalciferol (vitamin D3) (Vitamin D3) 25 mcg PO DAILY clonazepam 1 mg PO BID clotrimazole 1% 1 appl topical BID cyclobenzaprine 10 mg PO BID PRN diclofenac sodium 1% (Arthritis Pain (diclofenac)) 4 grams topical QID hydrocortisone 2.5% (Proctosol HC) 1 appl [place] BID-QID PRN ketorolac 10 mg PO Q6H PRN lidocaine 5% 1 patch topical DAILY loperamide 2 mg PO Q6H PRN methocarbamol 1,500 mg (2 x 750 mg) PO BID PRN ondansetron 4 mg PO Q6H PRN polyethylene glycol 3350 (Miralax) 17 grams PO DAILY PRN sennosides-docusate sodium 8.6-50 mg (Senexon-S) 2 tab-caps (2 x 8.6-50 mg) PO BEDTIME sertraline 100 mg PO DAILY vitamin A 1 cap PO DAILY zolpidem 10 mg PO BEDTIME PRN HPI Comments Details: This?is a?54?yo F who is s/p LSG 07/27/2022. Presents for 2 year 5mo post op visit. Weight loss of 3lbs since last OV.? No complaints of nausea, emesis, abdominal pain or reflux, or constipation. Pt continues to care for her mom who moved here from [place], has dementia/Alzheimer's. Struggling with more frequent migraines. Sees her community therapist. Present meal plan includes: 1 egg 1 Atkins bar 1 yogurt or CC meal of 4 f/4/f 1 shake with 1 scoop or 2 shakes with half scoop Pt may have fruit or veg as well if hungry. Exercise- walks outside at home 30min, does weight training has arthritis in her elbows, has a lot of knee pain also, getting injections, has to use a brace on left knee Pt reports issues of excess skin of abdomen and upper thighs. Regarding abdomen, has to put towels in between skin folds of abdomen and where abdomen meets thighs, due to skin cracking which causes a lot of pain. Experiences a burning itchy sensation. She has noticed increased moisture in skin folds, which produces an unpleasant odor and she has to wash and clean frequently. This is worse with weather getting warmer. She has tried clotrimazole ointment but this has not completely resolved the issue. Regarding upper thighs, reports she notices a lot of friction between upper t highs and has to constantly wear long shorts under dresses to prevent chafing. She has tried compressive pants to try to hold the skin in place, but the material/elastic often digs into her skin at her ankles and has caused bleeding in the past. Has tried clotrimazole ointment here as well but this has not helped. Walking has become more difficult and painful due to friction. [facility] Medical History (Updated 08/27/24 @ 00:01 by Katrin Spear) Liver masses Obesity (BMI 30-39.9) Family history of arrhythmia Left knee pain Constipation Hiatal hernia Osteoarthritis Anxiety and depression Palpitations GERD (gastroesophageal reflux disease) History of COVID-19 Recurrent UTI Acute diverticulitis Osteoarthritis of left knee Helicobacter pylori gastritis Trapezius muscle spasm Stress incontinence Neck pain Post covid-19 condition, unspecified Loss of hearing Vision changes Hematuria Tubular adenoma Migraine Low back pain Surgical History H/O gastric sleeve History of tonsillectomy History of esophagogastroduodenoscopy (EGD) H/O colonoscopy History of section H/O tubal ligation History of cholecystectomy Family History Father CVD (cardiovascular disease) Diabetes History of open heart surgery Mother Alive and well CVD (cardiovascular disease) Diabetes Thyroid condition Maternal Aunt Colon cancer Son Mental health disorder Maternal Grandmother Colon cancer Social History Household Members: Spouse Housing: House Are you a primary workforce investment act career manager to a significant other at home: No Do you presently have visiting nurse or other home services: No Alcohol intake: never Comment: stopped after the gastric sleeve Patient Tobacco Use Status: Never used Tobacco Tobacco use type: Cigarette e-Cigarette/Vaping Use: Never Used Second Hand Smoke Exposure: No service: No Current occupational status: unemployed Current occupation: right hand dominant Cognitive needs: No Hearing needs: No Vision needs: No Female Reproductive History Menstrual Age of Menarche: 14 Telehealth Telehealth Telehealth Platform: Telephone Location of provider rendering services: practice address Location of patient: address on file Patient Identification confirmed using: Name, : Yes Telehealth method: voice only Patient verbally consented to treatment: Yes Patient verbally consented to billing insurance company: Yes Patient informed of any privacy concerns related to visit: Yes Minutes spent on Phone/Video with Pt.: 15 Assessment & Plan Assessment & Plan (1) Overweight: Code(s): E66.3 - Overweight Category: Medical (2) S/P laparoscopic sleeve gastrectomy: Comment: 07/27/2022 Dr. Rizzo Code(s): Z98.84 - Bariatric surgery status Category: Surgical Plan Pt knows that incorporating exercise will help her reach her target weight/BMI to be considered for skin removal surgery. Goal weight 143 lbs for BMI 27. Continue clotrimazole ointment for rashes of excess skin. RTC 3 mo. (in person visit)
[2024-12-24 15:06] VITALS: BMI 28.2
== END 2024-12-24 15:14 | disposition home or self-care (01) ==
LOC: HO.HBS 15:11
PROVIDERS: PCP Internal Medicine; Visit Provider Physician Assistant Surgical
DX: E66.3 Overweight (principal); Z98.84 Bariatric surgery status
CPT/HCPCS: 99214

== ENCOUNTER 2025-01-30 16:05 | Emergency (ER) | payer OTHER, SELFPAY ==
--- NOTE | ~2025-01-30 | XR_ITS ---
EXAMINATION: XR CERVICAL SPINE CLINICAL INFORMATION: atraumatic neck pain COMPARISON: Radiographs on September 08, 2021 TECHNIQUE: 3 views of the cervical spine were obtained. FINDINGS: Normal alignment. Odontoid process is well aligned with the lateral masses of C1. No compression fracture. Mild disc space narrowing at C4-C5 and C5-C6. Small marginal osteophytes at few levels. Prevertebral soft tissues are unremarkable. XR/XR cervical spine 3V IMPRESSION: Minimal degenerative changes. Electronically signed by: Susannah Collier MD 01/30/2025 05:06 PM EDT
[2025-01-30 16:28] VITALS: BP 118/57; PULSE 66; RESP 16; TEMP 36.8; O2SAT 98; BMI 30.1
--- NOTE | 2025-01-30 16:30 | ED.GENADULT ---
HPI - General Adult General Chief complaint: Neck Pain/Injury Stated complaint: neck, head, shoulder pain Time Seen by Provider: 01/30/25 21:54 Source: patient Limitations: no limitations History of Present Illness ED Provider: Ciara Roper PA-C HPI narrative: 54-year-old female with known underlying osteoarthritis of the neck, lumbar spine and other joint distribution, hyperlipidemia, GERD, anxiety and depression who presents with neck pain x1 week. Pain over bilateral neck with radiation into bilateral shoulders. Denies weakness of upper extremities, visual changes, neck trauma, paresthesia or headache. 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 Related Data Home Medications ?Medication ?Instructions ?Recorded ?Confirmed clonazepam 1 mg tablet 1 mg PO BID 05/08/20 12/24/24 zolpidem 10 mg tablet 10 mg PO BEDTIME PRN Sleep 03/08/22 12/24/24 sertraline 100 mg tablet 100 mg PO DAILY 09/06/22 12/24/24 polyethylene glycol 3350 17 gram 17 g PO DAILY PRN 07/25/24 12/24/24 oral powder packet (Miralax) Previous Rx's ?Medication ?Instructions ?Recorded hydrocortisone 2.5 % topical cream 1 appl [place] BID-QID PRN hemorrhoids 07/26/23 with perineal applicator #30 grams (Proctosol HC) diclofenac sodium 1 % topical gel 4 g topical QID #100 grams 02/15/24 (Arthritis Pain (diclofenac)) loperamide 2 mg capsule 2 mg PO Q6H PRN loose stool #20 05/15/24 caps ondansetron 4 mg disintegrating 4 mg PO Q6H PRN nausea and 05/15/24 tablet vomiting #14 tabs cyclobenzaprine 10 mg tablet 10 mg PO BID PRN muscle spasm #20 05/28/24 tabs cholecalciferol (vitamin D3) 25 25 mcg PO DAILY #90 caps 07/16/24 mcg (1,000 unit) capsule (Vitamin D3) ketorolac 10 mg tablet 10 mg PO Q6H PRN pain #20 tabs 08/26/24 methocarbamol 750 mg tablet 1,500 mg (2 x 750 mg) PO BID PRN 08/26/24 pain, moderate #20 tabs albuterol sulfate 90 mcg/actuation 2 puff inhalation Q4-6H PRN 09/16/24 aerosol inhaler shortness of breath or wheezing #6.7 grams cetirizine 10 mg tablet (Zyrtec) 10 mg PO DAILY PRN allergy 09/16/24 symptoms #90 tabs lidocaine 5 % topical patch 1 patch topical DAILY #30 ea 09/16/24 sennosides 8.6 mg-docusate sodium 2 tab-cap (2 x 8.6-50 mg) PO 11/16/24 50 mg tablet (Senexon-S) BEDTIME #180 tabs vitamin A 3,000 mcg (10,000 unit) 1 cap PO DAILY #90 caps 12/12/24 capsule clotrimazole 1 % topical cream 1 appl topical BID #45 grams 12/16/24 ketorolac 10 mg tablet 10 mg PO Q6H PRN pain #20 tabs 01/30/25 methocarbamol 750 mg tablet 1,500 mg (2 x 750 mg) PO BEDTIME 01/30/25 PRN pain, moderate #10 tabs methylprednisolone 4 mg tablets in 4 mg PO QAM #21 ea 01/30/25 a dose pack (Medrol (Jian)) Allergies Allergy/AdvReac Type Severity Reaction Status Date / Time Penicillins (PENICILLINS) Allergy Severe ANAPHYLAXIS Verified 01/30/25 16:29 Sulfa (Sulfonamide Allergy Severe Angioedema Verified 01/30/25 16:29 Antibiotics) Review of Systems Review of Systems: Yes all other systems are reviewed and are negative Constitutional: Constitutional: Denies fatigue, Denies fever(s) and Denies headache(s) ENT: Denies dizziness, Denies headache(s) and Reports neck pain Cardiovascular: Cardiovascular: Denies chest pain and Denies dyspnea Respiratory: Respiratory: Denies dyspnea Gastrointestinal: Gastrointestinal: Denies abdominal pain, Denies nausea and Denies vomiting Musculoskeletal: Musculoskeletal: Denies back pain, Denies muscle weakness, Reports neck pain, Denies numbness, Reports radiating pain into limb and Denies tingling Neurologic: Denies dizziness, Denies headache(s), Denies numbness and Denies tingling Endocrine: Endocrine: Denies fatigue [facility] Past Medical History Attestation statement: The following information was validated with the patient. Medical History (Updated 01/31/25 @ 00:00 by Background Daemon) Liver masses Obesity (BMI 30-39.9) Family history of arrhythmia Left knee pain Constipation Hiatal hernia Osteoarthritis Anxiety and depression Palpitations GERD (gastroesophageal reflux disease) History of COVID-19 Recurrent UTI Acute diverticulitis Osteoarthritis of left knee Helicobacter pylori gastritis Trapezius muscle spasm Stress incontinence Neck pain Post covid-19 condition, unspecified Loss of hearing Vision changes Hematuria Tubular adenoma Migraine Low back pain Surgical History H/O gastric sleeve History of tonsillectomy History of esophagogastroduodenoscopy (EGD) H/O colonoscopy History of section H/O tubal ligation History of cholecystectomy Family History Family History Father CVD (cardiovascular disease) Diabetes History of open heart surgery Mother Alive and well CVD (cardiovascular disease) Diabetes Thyroid condition Maternal Aunt Colon cancer Son Mental health disorder Maternal Grandmother Colon cancer Social History Social History Household Members: Spouse Housing: House Are you a primary wound care nurse to a significant other at home: No Do you presently have visiting nurse or other home services: No Alcohol intake: never Comment: stopped after the gastric sleeve Patient Tobacco Use Status: Never used Tobacco Tobacco use type: Cigarette e-Cigarette/Vaping Use: Never Used Second Hand Smoke Exposure: No Advance Directives: No Advance Directives Information Provided: Yes service: No Current occupational status: unemployed Current occupation: right hand dominant Cognitive needs: No Hearing needs: No Vision needs: No Physical Exam ED Vital Signs: Vital Signs - 24 hr 01/30/25 16:28 01/30/25 22:43 01/30/25 22:54 Temperature 98.3 F 96.9 F 96.9 F Pulse Rate 66 67 67 Respiratory Rate 16 16 16 Blood Pressure 118/57 L 122/56 L 122/56 L Pulse Oximetry 98 99 99 Oxygen Delivery Method Room Air Room Air Room Air BMI result Body Mass Index 30.1 Const Other: Alert well-appearing Orientation/consciousness: patient oriented x3 Neck Neck: Yes full ROM and Yes no meningeal signs Resp Effort & Inspection: normal respiratory effort Cardio Other: Normal peripheral perfusion Skin Other: Warm dry no rash Neuro General: patient oriented x3, gait normal, no meningeal signs, no focal motor deficits and CN's II-XI intact bilaterally Extrem Other: Strength 5/5 bilateral upper extremities with resistance Psych Other: Cooperative Course Course Course Narrative: This is a Rapid Medical Examination (RME) performed by Lety Hopkins PA-C in triage. Full HPI, ROS, assessment and treatment plan per primary provider in the Main ED. Hx: 54 yo F here for eval of neck pain rad to b/l shoulder x days. taking advil w/o relief. now causing her to have a LONG. Plan: xr Medications Administered Discontinued Medications Generic Name Dose Route Start Last Admin Trade Name Freq PRN Reason Stop Dose Admin Ketorolac Tromethamine 15 mg 01/30/25 22:10 01/30/25 22:43 Ketorolac Tromethamine 15 Mg/Ml Vial IM 01/30/25 22:11 15 mg ONCE ONE Administration Methocarbamol 1,500 mg 01/30/25 22:10 01/30/25 22:43 Methocarbamol 750 Mg Tablet PO 01/30/25 22:11 1,500 mg ONCE ONE Administration Medical Decision Making Medical Decision Making [facility] Narrative: 54-year-old female with known underlying osteoarthritis of the neck, lumbar spine and other joint distribution, hyperlipidemia, GERD, anxiety and depression who presents with neck pain x1 week. Pain over bilateral neck with radiation into bilateral shoulders. Denies weakness of upper extremities, visual changes, neck trauma, paresthesia or headache. 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 Problem: Known arthritis including within the neck History: Per patient I have considered the following differential diagnoses: Fracture, exacerbation of arthritis, cervical radiculopathy, musculoskeletal strain Plan: The patient is here with cervical radicular symptoms, she has known arthritis, she likely triggered her symptoms secondary to physical activity. We will treat accordingly. I have independently reviewed the following tests: X-ray cervical spine:INDINGS: Normal alignment. Odontoid process is well aligned with the lateral masses of C1. No compression fracture. Mild disc space narrowing at C4-C5 and C5-C6. Small marginal osteophytes at few levels. Prevertebral soft tissues are unremarkable. XR/XR cervical spine 3V IMPRESSION: Minimal degenerative changes. Differential Diagnosis Differential Diagnoses: The differential diagnosis associated with the presentation includes See medical decision-making Admission/Observation Consideration of admission/observation: Escalation of care including admission/observation considered Not applicable Radiology Impression Discussion of test interpretation with radiology: I have reviewed the radiologist's reading. Discharge Plan Discharge Clinical Impression: Cervical arthritis, Bilateral cervical radiculopathy Patient Disposition: Home, Self-Care Instructions: Osteoarthritis (ED), Cervical Radiculopathy (ED) Additional Instructions: The x-ray revealed that you have cervical arthritis, it is causing cervical radiculopathy. See home care instructions. Take the Medrol Dosepak as directed this is an anti-inflammatory. Take the ketorolac as directed take it with food, this is another anti-inflammatory. Use the methocarbamol as needed at night for sleep. This medication may cause drowsiness do not drive or operate machinery while taking the medication. Follow up with primary care, you may require physical therapy that can be scheduled as an outpatient by your primary care provider. Prescriptions: New methocarbamol 750 mg tablet 1,500 mg PO BEDTIME PRN (Reason: pain, moderate) Qty: 10 0RF ketorolac 10 mg tablet 10 mg PO Q6H PRN (Reason: pain) Qty: 20 0RF Rx Instructions: maximum total duration of 5 days from all oral, intranasal, or parenteral formulations. The patient received an intramuscular dose of Toradol here in the emergency room. methylprednisolone [Medrol (Jian)] 4 mg tablets,dose pack 4 mg PO QAM Qty: 21 0RF Rx Instructions: Take per package instructions No Action hydrocortisone [Proctosol HC] 2.5 % cream with perineal applicator 1 appl [place] BID-QID PRN (Reason: hemorrhoids) Qty: 30 0RF cholecalciferol (vitamin D3) [Vitamin D3] 25 mcg (1,000 unit) capsule 25 mcg PO DAILY Qty: 90 3RF sennosides-docusate sodium [Senexon-S] 8.6-50 mg tablet 2 tab-cap PO BEDTIME Qty: 180 1RF vitamin A 3,000 mcg (10,000 unit) capsule 1 cap PO DAILY Qty: 90 0RF clotrimazole 1 % cream 1 appl topical BID Qty: 45 3RF ondansetron 4 mg tablet,disintegrating 4 mg PO Q6H PRN (Reason: nausea and vomiting) Qty: 14 0RF loperamide 2 mg capsule 2 mg PO Q6H PRN (Reason: loose stool) Qty: 20 0RF methocarbamol 750 mg tablet 1,500 mg PO BID PRN (Reason: pain, moderate) Qty: 20 0RF ketorolac 10 mg tablet 10 mg PO Q6H PRN (Reason: pain) Qty: 20 0RF Rx Instructions: maximum total duration of 5 days from all oral, intranasal, or parenteral formulations. The patient received an intramuscular dose of Toradol here in the emergency department. clonazepam 1 mg tablet 1 mg PO BID sertraline 100 mg tablet 100 mg PO DAILY zolpidem 10 mg tablet 10 mg PO BEDTIME PRN (Reason: Sleep) diclofenac sodium [Arthritis Pain (diclofenac)] 1 % gel 4 g topical QID Qty: 100 8RF Rx Instructions: apply to single knee, ankle, foot; for foot includes sole/toes/top of foot polyethylene glycol 3350 [Miralax] 17 gram powder in packet 17 g PO DAILY PRN cyclobenzaprine 10 mg tablet 10 mg PO BID PRN (Reason: muscle spasm) Qty: 20 0RF cetirizine [Zyrtec] 10 mg tablet 10 mg PO DAILY PRN (Reason: allergy symptoms) Qty: 90 3RF lidocaine 5 % adhesive patch,medicated 1 patch topical DAILY Qty: 30 12RF Rx Instructions: leave on most painful area for up to 12 hrs albuterol sulfate 90 mcg/actuation HFA aerosol inhaler 2 puff inhalation Q4-6H PRN (Reason: shortness of breath or wheezing) Qty: 6.7 0RF Interventions: ED Discharge Assessment Last Done: 01/30/25 22:54 Discharge Date/Time: 01/30/25 22:54 Print Language: Georgian
[2025-01-30 22:43] VITALS: BP 122/56; PULSE 67; RESP 16; TEMP 36.1; O2SAT 99
[2025-01-30 22:54] VITALS: BP 122/56; PULSE 67; RESP 16; TEMP 36.1; O2SAT 99
== END 2025-01-30 22:54 | disposition home or self-care (01) ==
PROVIDERS: Emergency Provider Emergency Medicine; PCP Internal Medicine
DX: M54.12 Radiculopathy, cervical region (principal); M13.88 Other specified arthritis, other site; M25.512 Pain in left shoulder; M25.511 Pain in right shoulder; Z79.899 Other long term (current) drug therapy
CPT/HCPCS: 72040; 96372; 99283; 99284; J1885

== ENCOUNTER → 2025-01-30 16:29 | Outpatient (BNV) | payer OTHER, SELFPAY | PROVIDERS: PCP Internal Medicine; Visit Provider Radiology Body Imaging | DX: M50.321 Other cervical disc degeneration at C4-C5 level (principal) | CPT/HCPCS: 72040 ==

== ENCOUNTER 2025-03-26 13:25 | Outpatient (AMB) | payer OTHER, SELFPAY ==
[2025-03-26 13:29] VITALS: BP 118/72; PULSE 89; O2SAT 98; BMI 27.6
--- NOTE | 2025-03-26 13:29 | A.OFFPC_ITS ---
Vital Signs 03/26/25 13:29 Height 5 ft 1 in Weight 146 lb BMI 27.6 BP 118/72 Blood Pressure Location Lt brachial Position Sitting Pulse 89 Pulse Source Pulse Oximeter Pulse Oximetry (%) 98 Oxygen Delivery Method Room Air Intake Visit Reasons: Ortho Referral Request Allergies Penicillins (PENICILLINS) Allergy (Severe, Verified 03/26/25 13:30) ANAPHYLAXIS Sulfa (Sulfonamide Antibiotics) Allergy (Severe, Verified 03/26/25 13:30) Angioedema Medication List - Last Reconciled 03/26/25 by April Santillan MD albuterol sulfate 90 mcg/actuation 2 puffs inhalation Q4-6H PRN cetirizine (Zyrtec) 10 mg PO DAILY PRN cholecalciferol (vitamin D3) (Vitamin D3) 25 mcg PO DAILY clonazepam 1 mg PO BID clotrimazole 1% 1 appl topical BID cyclobenzaprine 10 mg PO BID PRN diclofenac sodium 1% (Arthritis Pain (diclofenac)) 4 grams topical QID hydrocortisone 2.5% (Proctosol HC) 1 appl VA BID-QID PRN ketorolac 10 mg PO Q6H PRN ketorolac 10 mg PO Q6H PRN lidocaine 5% 1 patch topical DAILY loperamide 2 mg PO Q6H PRN methocarbamol 1,500 mg (2 x 750 mg) PO BID PRN methocarbamol 1,500 mg (2 x 750 mg) PO BEDTIME PRN methylprednisolone (Medrol (Jian)) 4 mg PO QAM ondansetron 4 mg PO Q6H PRN polyethylene glycol 3350 (Miralax) 17 grams PO DAILY PRN sennosides-docusate sodium 8.6-50 mg (Senexon-S) 2 tab-caps (2 x 8.6-50 mg) PO BEDTIME sertraline 100 mg PO DAILY vitamin A 1 cap PO DAILY zolpidem 10 mg PO BEDTIME PRN Tobacco use date assessed: 06/06/24 Dental Screening Dental Screen Date: 05/28/24 [facility] Medical History (Updated 03/26/25 @ 13:57 by April Santillan MD) Neck pain Liver masses Obesity (BMI 30-39.9) Family history of arrhythmia Left knee pain Constipation Hiatal hernia Osteoarthritis Anxiety and depression Palpitations GERD (gastroesophageal reflux disease) History of COVID-19 Recurrent UTI Acute diverticulitis Osteoarthritis of left knee Helicobacter pylori gastritis Trapezius muscle spasm Stress incontinence Post covid-19 condition, unspecified Loss of hearing Vision changes Hematuria Tubular adenoma Migraine Low back pain Surgical History H/O gastric sleeve History of tonsillectomy History of esophagogastroduodenoscopy (EGD) H/O colonoscopy History of section H/O tubal ligation History of cholecystectomy Family History Father CVD (cardiovascular disease) Diabetes History of open heart surgery Mother Alive and well CVD (cardiovascular disease) Diabetes Thyroid condition Maternal Aunt Colon cancer Son Mental health disorder Maternal Grandmother Colon cancer Social History Household Members: Spouse Housing: House Are you a primary respiratory care instructor to a significant other at home: No Do you presently have visiting nurse or other home services: No Alcohol intake: never Comment: stopped after the gastric sleeve Patient Tobacco Use Status: Never used Tobacco Tobacco use type: Cigarette e-Cigarette/Vaping Use: Never Used Second Hand Smoke Exposure: No service: No Current occupational status: unemployed Current occupation: right hand dominant Cognitive needs: No Hearing needs: No Vision needs: No Female Reproductive History Menstrual Age of Menarche: 14 Questionnaire PHQ-9 Over the last 2 weeks, how often have you been bothered by any of the following problems? 1. Little interest or pleasure in doing things: several days 2. Feeling down, depressed, or hopeless: several days 3. Trouble falling or staying asleep, or sleeping too much: not at all 4. Feeling tired or having little energy: not at all 5. Poor appetite or overeating: not at all 6. Feeling bad about yourself - or that you are a failure or have let yourself or your family down: not at all 7. Trouble concentrating on things, such as reading the newspaper or watching television: not at all 8. Moving or speaking so slowly that other people could have noticed. Or the opposite - being so fidgety or restless that you have been moving around a lot more than usual: not at all 9. Thoughts that you would be better off or of hurting yourself in some way: not at all Total score: 2 Source: Developed by Drs. Chris Brown, Sherry Champagne, Juan Alberto Lee and colleagues, with an educational duyen from [employer]. Thrive Questionnaire Date Thrive assessed: 03/19/25 I am a: Patient What is your living situation today?: I choose not to answer this question Within the past 12 months, did the food you bought not last and you didn't have the money to get more?: I choose not to answer this question Within the past 12 months, did you worry whether your food would run out before you got money to buy more?: I choose not to answer this question Do you have trouble paying for medicines?: I choose not to answer this question Do you have trouble getting transportation to medical appointments?: No Do you have trouble paying your heating and electricity bill?: Yes Do you have trouble taking care of your child, family member or friend?: I choose not to answer this question Do you have trouble with day-to-day activities such as bathing, preparing meals, shopping, managing finances, etc.?: I choose not to answer this question Are you currently unemployed and looking for a job?: No Are you interested in more education?: No Please select the resources that you would like help with: Utilities THRIVE Score: 1 NATHAN-7 AMB Questionnaire NATHAN-7 Date NATHAN - 7 assessed: 03/26/25 Feeling nervous, anxious, or on edge: 1 = Several days Not being able to stop or control worryin = Several days Worrying too much about different things: 1 = Several days Trouble relaxin = Not at all Being so restless that it is hard to sit still: 0 = Not at all Becoming easily annoyed or irritable: 0 = Not at all Feeling afraid as if something awful might happen: 0 = Not at all Total NATHAN-7 score (0-4 normal; 5-9 mild; 10-14 moderate; 15-21 severe): 3 Source: Developed by Sherry Olivares Kurt Kroenke and colleagues, with an educational duyen from [employer]. NATHAN-7 Assessment Billing NATHAN-7 Assessment Tool: NATHAN-7 Assessment 79381 Physical exam (Primary Care) Vital Signs: Last Vital Signs Pulse 89 03/26/25 13:29 BP 118/72 03/26/25 13:29 Pulse Ox 98 03/26/25 13:29 Oxygen Delivery Method Room Air 03/26/25 13:29 BMI result Body Mass Index 27.6 Tobacco/Smoking Status: Tobacco use Status Tobacco use date assessed 06/06/24 03/26/25 13:39 Patient Tobacco Use Status Never used Tobacco 03/26/25 13:39 Tobacco use type Cigarette 03/26/25 13:39 e-Cigarette/Vaping Use Never Used 03/26/25 13:39 PHQ-9: PHQ-9 Score PHQ-9: Total score 2 03/26/25 13:39 Thrive Assessment: Date of Thrive Assessment Date Thrive assessed 03/19/25 03/26/25 13:39 Const General: alert; No acute distress Eyes Conjunctivae: conjunctivae normal Resp Auscultation: clear to auscultation bilaterally Cardio Rate: regular rate Rhythm: regular rhythm GI Inspection: Yes normal to inspection Extrem General: Yes normal to inspection and No edema Coding Level of Care Code Est Pt Level 4 (60516) Complex EM visit Add On G2211 Diagnoses Hypercholesteremia E78.00 S/P laparoscopic sleeve gastrectomy Z98.84 Gastroesophageal reflux disease without esophagitis K21.9 Esophagitis presence: without esophagitis Generalized anxiety disorder F41.1 Neck pain M54.2 Additional Codes NATHAN-7 Assessment Billing - NATHAN-7 Assessment Tool: NATHAN-7 Assessment 71516 ([id number]) Assessment & Plan Assessment & Plan (1) Hypercholesteremia: Code(s): E78.00 - Pure hypercholesterolemia, unspecified Category: Medical Plan: Avoid fried foods, chicken skin, eggs, butter margarine, pastries and meat. Be it pork or beef they have a lot of cholesterol LDL goal of less than 130 and triglyceride of less than 150 last blood work in May is at goal (2) S/P laparoscopic sleeve gastrectomy: Comment: 07/27/2022 Dr. Rizzo Code(s): Z98.84 - Bariatric surgery status Category: Surgical Plan: Continue to follow-up with bariatric keep active. (3) GERD (gastroesophageal reflux disease): Code(s): K21.9 - Gastro-esophageal reflux disease without esophagitis Category: Medical Qualifiers: Esophagitis presence: without esophagitis Qualified Code(s): K21.9 - Gastro-esophageal reflux disease without esophagitis Plan: Avoid the foods that causes that usually spicy foods, tomato products, juices, coffee, soda and foods that your sensitive to. After eating do not lie down, allow 3-4 hours before in lie down. And keep the head of bed above 30 degrees to avoid the acid from going up. (4) Generalized anxiety disorder: Comment: [facility] Code(s): F41.1 - Generalized anxiety disorder Category: Medical Plan: Continue with counseling and therapy (5) Neck pain: Code(s): M54.2 - Cervicalgia Category: Medical Plan History of Present Illness The patient is a 54-year-old overweight female presenting for a follow-up visit, last seen in August 2024. Her past medical history is significant for a sleeve gastrectomy in 2022, migraine, depression, lumbar degenerative disc disease, generalized anxiety disorder, hypercholesterolemia, and left knee pain. The patient's primary complaint is persistent neck pain, which has been present for a couple of weeks. She was seen in the emergency room on January 30 for this issue, where the pain was described as bilateral and radiating to both shoulders. A cervical spine X-ray at that time showed minimal degenerative changes, and she was diagnosed with cervical arthritis and bilateral cervical radiculopathy. She was prescribed steroids, muscle relaxants (cyclobenzaprine), and ketorolac; however, she experienced insomnia from the muscle relaxant and was concerned about stomach upset from the other medications. The patient follows with a bariatrics team post-surgery and has lost 8 pounds since her last visit. Her last blood work in May 2013 showed a normal blood count with mild leukopenia, no anemia, normal electrolytes, renal function, blood sugar, iron, and liver function. Labs also revealed a slightly elevated C- reactive protein at 3.78, low vitamin A, and normal vitamin D, B12, and thyroid levels, with cholesterol at goal. She reports new symptoms of weakness, daytime somnolence, and occasional palpitations. A sleep study a few years ago showed significant snoring but no sleep apnea. Health Maintenance The patient is up-to-date with her mammogram and colonoscopy. She has received her influenza vaccine. She will continue with counseling and therapy for her mental health conditions. Follow-up is scheduled for August. 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 - Functional status: Reports lifting heavy items such as water containers. - Lifestyle: She is actively trying to lose weight and has lost 8 pounds since her last visit. Review of Systems - Constitutional: Reports weakness and increased daytime somnolence. Denies fever. - Respiratory: Reports snoring. Denies cough or shortness of breath. - Cardiovascular: Reports occasional episodes of tachycardia. Denies dizziness associated with palpitations. - Musculoskeletal: Reports neck pain radiating to both shoulders and a history of left knee pain. - Neurological: Reports numbness in her fingers, legs, and feet. Denies dizziness. - Gastrointestinal: Reports stomach upset with certain medications. - Psychiatric: History of depression and generalized anxiety disorder. Reports current stress. Physical Exam - General: Patient is an overweight female. - Neck: Tenderness to palpation over the bilateral trapezius muscles. - Lungs: Clear to auscultation bilaterally. - Neurological: Normal hand vamp marker strength bilaterally. Results - Labs (June 04): - CBC: Mild leukopenia, no anemia. - CMP: Normal electrolytes, renal function, and blood sugar. - Other: Normal iron and liver function tests. - Inflammatory markers: C-reactive protein elevated at 3.78. - Lipid panel: Cholesterol is at goal, with an LDL goal of <130 mg/dL and triglycerides <150 mg/dL. - Vitamins: Vitamin A is low; vitamin D and B12 are normal. - Thyroid: Normal thyroid function. - Imaging: - Cervical Spine X-ray (from January): Showed minimal degenerative changes. - Other Tests: - Sleep Study (prior): Negative for sleep apnea, positive for significant snoring. Plan Patient was informed and verbally consented to the use of an ambient scribe for clinic note documentation during this visit. 1. Cervical Arthritis With Bilateral Cervical Radiculopathy The patient's primary issue is neck pain radiating to the shoulders, consistent with her diagnosis of cervical arthritis with radiculopathy from a recent ER visit. She has had poor tolerance to oral medications due to side effects like insomnia and stomach upset. After discussing treatment options, including the risks of steroid injections weakening bone, the patient has elected to proceed with physical therapy. A referral for physical therapy will be placed. She will continue using lidocaine patches and Voltaren cream for symptomatic relief, and refills will be provided. Application of heat to the affected area was also recommended. 2. Fatigue And Vitamin Deficiency The patient reports new symptoms of weakness, fatigue, and daytime somnolence. Given her history of sleeve gastrectomy and a previously noted low vitamin A level, there is concern for nutritional deficiencies contributing to her symptoms. A comprehensive blood test will be ordered to re-evaluate her vitamin levels and investigate other potential causes for her fatigue. 3. Hypercholesterolemia The patient's cholesterol was at goal on her last blood work. She will continue to follow up with bariatrics, maintain an active lifestyle, and adhere to diet and exercise recommendations. Discussion Notes I discussed the patient's persistent neck pain, which is likely due to cervical arthritis, as indicated by her recent ER visit and X-ray findings. 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 The patient prefers a more conservative approach and is agreeable to physical therapy, for which I will place a referral. I also addressed her new symptoms of fatigue and weakness. I explained that we would order new blood work to re-check her vitamin levels, especially given her history of bariatric surgery, and to rule out other causes. We discussed the importance of taking medications that can cause stomach upset, such as NSAIDs, with food. I will provide refills for her topical medications, lidocaine patches and Voltaren cream, as she finds them effective and prefers them to oral pills. Patient Instructions - You will receive a call to schedule physical therapy for your neck pain. Please attend these sessions as they will teach you proper exercises. - Apply heat to your neck and shoulder area to help with the pain. - Continue using your lidocaine patches and Voltaren cream as needed for pain. Refills will be sent to your pharmacy. - Please go to the lab for the blood tests that have been ordered to check for causes of your fatigue. - Continue with your diet and exercise plan and follow up with your bariatric team as scheduled. - Your next follow-up appointment in this office is in August. Orders: Orders PT Evaluation and Treatment Today M54.2 - Cervicalgia Thyroid Stimulating Hormone Today Z98.84 - Bariatric surgery status Free T4 (Free Thyroxine) Today Z98.84 - Bariatric surgery status Vitamin D 25-OH Total Today Z98.84 - Bariatric surgery status Vitamin B1 Today Z98.84 - Bariatric surgery status Vitamin B2 (Riboflavin) Today Z98.84 - Bariatric surgery status Hemoglobin A1c Today Z98.84 - Bariatric surgery status UA CC w/rflx Micro + Cult Today R30.0 - Dysuria, Z98.84 - Bariatric surgery status Vitamin B12 and Folate Today Z98.84 - Bariatric surgery status Vitamin A Today Z98.84 - Bariatric surgery status Magnesium Today Z98.84 - Bariatric surgery status Medications: Refilled lidocaine 5% leave on most painful area for up to 12 hrs 1 patch topical DAILY 30 ea 12RF I83.813 - Varicose veins of bilateral lower extremities with pain diclofenac sodium 1% (Arthritis Pain (diclofenac)) apply to single knee, ankle, foot; for foot includes sole/toes/top of foot 4 grams topical QID 100 grams 8RF M25.562 - Pain in left knee
== END 2025-03-26 14:10 | disposition home or self-care (01) ==
LOC: HO.HMCH 13:26
PROVIDERS: PCP Internal Medicine; Visit Provider Internal Medicine
DX: E78.00 Pure hypercholesterolemia, unspecified (principal); Z98.84 Bariatric surgery status; K21.9 Gastro-esophageal reflux disease without esophagitis; F41.1 Generalized anxiety disorder; M54.2 Cervicalgia

== ENCOUNTER → 2025-03-26 13:25 | Outpatient (BNVA) | payer OTHER, SELFPAY | PROVIDERS: PCP Internal Medicine; Visit Provider Internal Medicine | DX: K21.9 Gastro-esophageal reflux disease without esophagitis (principal); E78.00 Pure hypercholesterolemia, unspecified; F41.1 Generalized anxiety disorder; M54.12 Radiculopathy, cervical region; R53.83 Other fatigue; Z98.84 Bariatric surgery status | CPT/HCPCS: 96127; 99212 ==

== ENCOUNTER 2025-04-30 11:15 | Outpatient (AMB) | payer OTHER, SELFPAY ==
--- NOTE | 2025-04-30 11:23 | A.OFFVIS_ITS ---
VS Expanded 04/30/25 11:41 BP 111/56 L Blood Pressure Location Rt brachial Blood Pressure Position Sitting Pulse 86 Pulse Source Pulse Oximeter Temp 97.6 F Temperature Source Temporal Artery Scan Pulse Oximetry 97 Oxygen Delivery Method Room Air Height 5 ft 1 in Weight 144 lb 3.2 oz BMI 27.2 Body Fat % 30.3 Body Fat Mass 43.6 Fat Free Mass 100.6 Visceral Fat Rating 6.0 Body Water % 49.5 Body Water Mass 71.4 Muscle Mass/Score 95.4 Basal Metabolic Rate/Score 1,352 Intake Visit Reasons: (OV) PO LSG 07/27/22 Allergies Penicillins (PENICILLINS) Allergy (Severe, Verified 04/30/25 11:48) ANAPHYLAXIS Sulfa (Sulfonamide Antibiotics) Allergy (Severe, Verified 04/30/25 11:48) Angioedema HPI Comments Details: This is a 54 yo F who is s/p LSG 07/27/[address] Rizzo. Presents for 2 year 9mo post op visit. Weight loss of 3lbs since last OV. No complaints of nausea, emesis, abdominal pain or reflux, or constipation. Pt continues to care for her mom who moved here from [place], has dementia/Alzheimer's. Struggling with more frequent migraines. Sees her community therapist. Present meal plan includes: 1 egg 1 Atkins bar 1 yogurt or CC meal of 4 f// 1 shake with 1 scoop or 2 shakes with half scoop Pt may have fruit or veg as well if hungry. Exercise- walks outside at home 30min, does weight training has arthritis in her elbows, has a lot of knee pain also, getting injections, has to use a brace on left knee Pt reports issues of excess skin of abdomen and upper thighs. Regarding abdomen, has to put towels in between skin folds of abdomen and where abdomen meets thighs, due to skin cracking which causes a lot of pain. Experiences a burning itchy sensation. She has noticed increased moisture in skin folds, which produces an unpleasant odor and she has to wash and clean frequently. This is worse with weather getting warmer. She has tried clotrimazole ointment but this has not completely resolved the issue. She has to wear a compressive waistband/pants at all times to hold the excess skin in place to prevent discomfort with movement. Regarding upper thighs, reports she notices a lot of friction between upper thighs and has to constantly wear long shorts under dresses to prevent chafing. She has tried compressive pants to try to hold the skin in place, but the material/elastic often digs into her skin at her ankles and has caused bleeding in the past. Has tried clotrimazole ointment here as well but this has not helped. Walking has become more difficult and painful due to friction. [facility] Medical History (Updated 03/26/25 @ 13:57 by April Santillan MD) Neck pain Liver masses Obesity (BMI 30-39.9) Family history of arrhythmia Left knee pain Constipation Hiatal hernia Osteoarthritis Anxiety and depression Palpitations GERD (gastroesophageal reflux disease) History of COVID-19 Recurrent UTI Acute diverticulitis Osteoarthritis of left knee Helicobacter pylori gastritis Trapezius muscle spasm Stress incontinence Post covid-19 condition, unspecified Loss of hearing Vision changes Hematuria Tubular adenoma Migraine Low back pain Surgical History H/O gastric sleeve History of tonsillectomy History of esophagogastroduodenoscopy (EGD) H/O colonoscopy History of section H/O tubal ligation History of cholecystectomy Family History Father CVD (cardiovascular disease) Diabetes History of open heart surgery Mother Alive and well CVD (cardiovascular disease) Diabetes Thyroid condition Maternal Aunt Colon cancer Son Mental health disorder Maternal Grandmother Colon cancer Social History Household Members: Spouse Housing: House Are you a primary child care development specialist to a significant other at home: No Do you presently have visiting nurse or other home services: No Alcohol intake: never Comment: stopped after the gastric sleeve Patient Tobacco Use Status: Never used Tobacco Tobacco use type: Cigarette e-Cigarette/Vaping Use: Never Used Second Hand Smoke Exposure: No service: No Current occupational status: unemployed Current occupation: right hand dominant Cognitive needs: No Hearing needs: No Vision needs: No Female Reproductive History Menstrual Age of Menarche: 14 Physical Exam Vital Signs: Last Vital Signs Temp 97.6 F 04/30/25 11:41 Pulse 86 04/30/25 11:41 BP 111/56 L 04/30/25 11:41 Pulse Ox 97 04/30/25 11:41 Oxygen Delivery Method Room Air 04/30/25 11:41 BMI result Body Mass Index 27.2 Const General: cooperative, comfortable and no acute distress Orientation/consciousness: patient oriented x3 GI Other: soft, nontender, nondistended, incisions well healed, no hernia, no masses grade II pannus Skin Other: excess skin of upper thighs bilaterally, with multiple folds medially, and contact of skin from pelvis to knee Neuro General: patient oriented x3 Assessment & Plan Assessment & Plan (1) Overweight: Code(s): E66.3 - Overweight Category: Medical (2) S/P laparoscopic sleeve gastrectomy: Comment: 07/27/2022 Dr. Rizzo Code(s): Z98.84 - Bariatric surgery status Category: Surgical (3) Excess skin: Code(s): L98.7 - Excessive and redundant skin and subcutaneous tissue Category: Medical Plan Pt is experiencing issues of excess skin of abdomen resulting in frequent painful, itchy, malodorous rashes which are unrelieved by topical antifungals. In addition she is experiencing limitations/discomfort in activities of daily living and requires the use of special clothing at all times to try to prevent discomfort but her issues have not been completely relieved by conservative measures. She would benefit from definitive treatment of panniculectomy. In addition, she is experiencing issues of excess skin of thighs resulting in frequent chafing which are unrelieved by topical antifungals. In addition she is experiencing limitations/discomfort in activities of daily living, including walking. She requires the use of special clothing at all times to try to prevent discomfort but her issues have not been completely relieved by conservative measures. She would benefit from definitive treatment of thighplasty. Photos taken today. Pt will text me when she reaches a weight of 143lb or less on home scale.
[2025-04-30 11:41] VITALS: BP 111/56; PULSE 86; TEMP 36.4; O2SAT 97; BMI 27.2
== END 2025-04-30 12:16 | disposition home or self-care (01) ==
LOC: HO.HBS 11:16
PROVIDERS: PCP Internal Medicine; Visit Provider Physician Assistant Surgical
DX: L98.7 Excessive and redundant skin and subcutaneous tissue (principal); E66.3 Overweight; Z68.27 Body mass index [BMI] 27.0-27.9, adult; Z90.3 Acquired absence of stomach [part of]; Z98.84 Bariatric surgery status
CPT/HCPCS: 99213

== ENCOUNTER → 2025-04-30 11:15 | Outpatient (BNVA) | payer OTHER, SELFPAY | PROVIDERS: PCP Internal Medicine; Visit Provider Physician Assistant Surgical | DX: E66.3 Overweight (principal); L98.7 Excessive and redundant skin and subcutaneous tissue; Z98.84 Bariatric surgery status; Z68.27 Body mass index [BMI] 27.0-27.9, adult | CPT/HCPCS: 99212 ==